=== PATIENT | female | born 1945 | race Caucasian/White ===

== ENCOUNTER 2016-09-12 12:20 | Emergency (ER) | payer MEDICARE, MEDICAID ==
[~2016-09-12] VITALS: Ht 160 cm; Wt 95.3 kg
[~2016-09-12 12:20] MED LIST: AC325T PO; ACET650S13 RC; ARIP15TA PO; ASP81TEC PO; DCS100C PO; FURO40TA4 PO; GLUC1KIT3 IM; GLUCOSE 40% GEL PO; INSU100I29 SC; MAGN-47 PO; METF500T4 PO; MTF500T PO; NF-ABIL15T PO; QTP100T PO; QUET100T32 PO; QUET300T PO; QUET300T18 PO; RAMI10CA PO; RAMI5CAP PO; RSP3T PO; SITA100T PO; SMV10T PO; SODIUM CHLORIDE 1 GM PO; TRAM50TA2 PO; [UNRECOGNIZED DRUG - CODE] MC
--- NOTE | 2016-09-12 12:26 | ED Chest Pain ---
General Stated Complaint: CHEST PAIN Source: patient Exam Limitations: no limitations History of Present Illness Time seen by provider: 12:24 Initial Comments To ER from [facility] with reports of right-sided chest pain. This began after exercising this morning she was going back to her room. The pain was sharp and stabbing in nature. It lasted for 1 hour before resolving pain recently. Currently she is just pain-free. She has no shortness of breath nausea or sweating. He has never had this before Timing/Duration: 1-3 hours Severity/Quality: moderate, stabbing ASA po RISK ASSESSMENT ANALYST: No NTG SL RISK ASSESSMENT ANALYST: No Allergies and Home Medications Allergies Coded Allergies: Penicillins (Unverified Allergy, Unknown, 04/01/13) strawberry (Unverified Allergy, Unknown, 12/23/14) FROM UNCODED ALLERGIES tomato (Unverified Allergy, Unknown, 12/23/14) FROM UNCODED ALLERGIES Home Medications 1 GM PO HS (Reported) PO UD PRN PRN HYPOGLYCEMIA (Reported) GIVE 1 PACKET NEEDED FOR HYPOGLYCEMIA. GIVE GLUCOSE GEL 15GM RETAKE BLOD SUGAR IN 15 MIN. IF BLOOD SUGAR IS NOT RISING, GIVE ANOTHER PACKET OF GLUCOSE GEL AND RE-TAKE BLOOD SUGAR IN 15 MIN. IF NO CHANGE IN BLOOD SUGAR OR THERE IS A CHANGE IN LOC, GIVE IM GLUCAGON. Acetaminophen 325 Mg Tab 650 MG PO Q4H PRN PRN PAIN (Reported) TAKES 2 (325MG) TABLETS Aripiprazole 15 Mg Tablet 15 MG PO DAILY (Reported) Aspirin 81 Mg Tabec 81 MG PO DAILY (Reported) Docusate Sodium 100 Mg Capsule 100 MG PO DAILY (Reported) Docusate Sodium 100 Mg Cap 100 MG PO Q12H PRN PRN CONSTIPATION (Reported) Furosemide 40 Mg Tablet 60 MG PO DAILY (Reported) TAKES 1&1/2 (40MG) TABLETS Glucagon,Human Recombinant 1 Mg/Kit Kit 1 MG IM PRN PRN PRN HYPOGLYCEMIA ( Reported) Insulin Detemir 100 Unit/1 Ml Insuln.pen 15 UNITS SC HS (Reported) Magnesium Hydroxide 400 Mg/5 Ml Oral.susp 30 ML PO DAILY PRN PRN CONSTIPATION ( Reported) Metformin Hcl 500 Mg Tablet 1,000 MG PO BID (Reported) TAKES 2 (500MG) TABLETS Quetiapine Fumarate 100 Mg Tablet 100 MG PO DAILY (Reported) Quetiapine Fumarate 300 Mg Tablet 300 MG PO HS (Reported) Ramipril 10 Mg Capsule 10 MG PO DAILY (Reported) Risperidone 3 Mg Tablet 1.5 MG PO DAILY (Reported) TAKES 1/2 (3MG) TABLET Risperidone 3 Mg Tab 3 MG PO HS (Reported) Simvastatin 10 Mg Tab 10 MG PO HS (Reported) Sitagliptin Phosphate 100 Mg Tablet 100 MG PO DAILY (Reported) Tramadol Hcl 50 Mg Tab 50 MG PO TID PRN PRN KNEE PAIN (Reported) Review of Systems Constitutional: see HPI EENTM: No Symptoms Reported Respiratory: No Symptoms Reported Cardiovascular: See HPI Chest Pain Genitourinary: No Symptoms Reported Musculoskeletal: no symptoms reported Skin: no symptoms reported Psychiatric/Neurological: No Symptoms Reported Endocrine: No Symptoms Reported Hematologic/Lymphatic: No Symptoms Reported Past Swbmxkf-Juxnrm-Rhqfqg Hx Patient Social History Recent Hopitalizations: No Immunizations Up To Date Tetanus Booster (TDap): Unknown Date of Pneumonia Vaccine: Apr 15, 2012 Seasonal Allergies Seasonal Allergies: No Surgeries HX Surgeries: Yes (CARDIAC CATH) Surgeries: Cardiac Respiratory Hx Respiratory Disorders: Yes (ACUTE RESPIRATORY FAILURE 12/22/14) Respiratory Disorders: Sleep Apnea Cardiovascular Hx Cardiac Disorders: Yes (CHF/ PULMONARY EDEMA 12/22/14) Cardiac Disorders: Chronic Edema/Swelling, Coronary Artery Disease, High Cholesterol, Hypertension Neurological Hx Neurological Disorders: Yes Neurological Disorders: Dementia 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 Genitourinary Hx Genitourinary Disorders: No Gastrointestinal Hx Gastrointestinal Disorders: Yes (DYSPEPSIA) Gastrointestinal Disorders: Chronic Constipation Musculoskeletal Hx Musculoskeletal Disorders: Yes (GENERALIZED PAIN) Endocrine Hx Endocrine Disorders: Yes Endocrine Disorders: Diabetes, Insulin dep Cancer Hx Cancer: No Psychosocial Hx Psychiatric Problems: Yes Behavioral Health Disorders: Sleep Difficulties, Schizophrenia Integumentary HX Skin/Integumentary Disorder: No Blood Transfusions Hx Blood Disorders: No Family Medical History Significant Family History: No Pertinent Family Hx Family Medial History: Unobtainable Physical Exam Vital Signs Vital Sign - Last 12Hours 09/12/16 12:25 Temp 97.9 Pulse 102 Resp 16 B/P 124/58 Pulse Ox 96 O2 Delivery Nasal Cannula O2 Flow Rate 2 Capillary Refill : General Appearance: No Apparent Distress WD/WN Obese HEENT: PERRL/EOMI TMs Normal Neck: Full Range of Motion Normal Inspection Respiratory: Chest Non Tender Lungs Clear Normal Breath Sounds No Accessory Muscle Use No Respiratory Distress Cardiovascular: Regular Rate, Rhythm Normal Peripheral Pulses Gastrointestinal: Non Tender Soft Extremity: Normal Capillary Refill Normal Inspection No Pedal Edema Neurologic/Psychiatric: Alert No Motor/Sensory Deficits Skin: Normal Color Warm/Dry Progress/Results/Core Measures Results/Orders Lab Results Laboratory Tests Test 09/12/16 12:38 Range/Units Activated Partial Thromboplast Time 24 24-35 SEC Alanine Aminotransferase (ALT/SGPT) 35 0-55 U/L Albumin 3.8 3.2-4.5 G/DL Alkaline Phosphatase 79 40-136 U/L Anion Gap 14 5-14 MMOL/L Aspartate Amino Transf (AST/SGOT) 29 5-34 U/L B-Type Natriuretic Peptide 10.2 <100.0 PG/ML BUN/Creatinine Ratio 24 Basophils # (Auto) 0.1 0.0-0.1 10^3/uL Basophils (%) (Auto) 1 0-10 % Blood Urea Nitrogen 20 H 7-18 MG/DL Calcium Level 9.5 8.5-10.1 MG/DL Carbon Dioxide Level 29 21-32 MMOL/L Chloride Level 101 98-107 MMOL/L Creatinine 0.83 0.60-1.30 MG/DL Eosinophils # (Auto) 1.0 H 0.0-0.3 10^3/uL Eosinophils (%) (Auto) 9 0-10 % Estimat Glomerular Filtration Rate > 60 Glucose Level 220 H 70-105 MG/DL Hematocrit 37 35-52 % Hemoglobin 11.9 11.5-16.0 G/DL INR Comment 1.0 0.8-1.4 Lymphocytes # (Auto) 2.7 1.0-4.0 X 10^3 Lymphocytes (%) (Auto) 24 12-44 % Magnesium Level 1.8 1.8-2.4 MG/DL Mean Corpuscular Hemoglobin 30 25-34 PG Mean Corpuscular Hemoglobin Concent 32 32-36 G/DL Mean Corpuscular Volume 95 80-99 FL Mean Platelet Volume 10.9 H 7.4-10.4 FL Monocytes # (Auto) 1.0 0.0-1.0 X 10^3 Monocytes (%) (Auto) 9 0-12 % Myoglobin 38.9 10.0-92.0 NG/ML Neutrophils # (Auto) 6.3 1.8-7.8 X 10^3 Neutrophils (%) (Auto) 57 42-75 % Platelet Count 250 130-400 10^3/uL Potassium Level 3.9 3.6-5.0 MMOL/L Prothrombin Time 12.9 12.2-14.7 SEC Red Blood Count 3.91 L 4.35-5.85 10^6/uL Red Cell Distribution Width 14.5 10.0-14.5 % Sodium Level 144 135-145 MMOL/L Total Bilirubin 0.3 0.1-1.0 MG/DL Total Protein 6.7 6.4-8.2 G/DL Troponin I < 0.30 <0.30 NG/ML White Blood Count 11.1 H 4.3-11.0 10^3/uL My Orders Orders-JAIME SUBRAMANIAN APRN Cbc With Automated Diff (09/12/16 12:22) Magnesium (09/12/16 12:22) Chest 1 View, Ap/Pa Only (09/12/16 12:22) Ekg Tracing (09/12/16 12:22) Cardiac Profile 1 (09/12/16 12:22) Comprehensive Metabolic Panel (09/12/16 12:22) Myoglobin Serum (09/12/16 12:22) Protime With Inr (09/12/16 12:22) Partial Thromboplastin Time (09/12/16 12:22) O2 (09/12/16 12:22) Monitor-Rhythm Ecg Trace Only (09/12/16 12:22) Lipid Panel (09/13/16 06:00) Aspirin Chewable Tablet (Baby Aspirin Ch (09/12/16 12:30) Saline Lock/Iv-Start (09/12/16 12:22) BNP (09/12/16 12:27) Medications Given in ED Current Medications Medications Dose Ordered Sig/Ney Route Start Time Stop Time Status Last Admin Dose Admin Aspirin 324 mg ONCE ONCE PO 09/12/16 12:30 09/12/16 12:31 DC 09/12/16 12:44 324 MG Vital Signs/I&O Vital Sign - Last 12Hours 09/12/16 09/12/16 12:25 12:25 Temp 97.9 Pulse 102 Resp 16 B/P 124/58 Pulse Ox 96 O2 Delivery Nasal Cannula Nasal Cannula O2 Flow Rate 2 2 Diagnostic Imaging Diagonstic Imaging: Xray Plain Films/CT/US/NM/MRI: chest Comments NAME: HANS HICKS MED REC#: [id number] PT STATUS: REG ER : 1945 PHYSICIAN: JAIME SUBRAMANIAN APRN ADMIT DATE: 09/12/16/ER Draft Date of Exam:09/12/16 CHEST 1 VIEW, AP/PA ONLY Portable upright radiograph of the chest. INDICATION: Right chest wall pain. COMPARISON: 12/27/2014. FINDINGS: The heart is mildly enlarged. There is suggestion of prominent left-sided pericardial fat pad. There is minimal atelectasis in the right lung base. No significant consolidation otherwise. No effusion or pneumothorax. The mediastinum and shaina appear unremarkable. IMPRESSION: Cardiomegaly. Minimal right basilar atelectasis. Dictated on workstation # [id number] Dict: 09/12/16 1306 Trans: 09/12/16 1316 [id number] Interpreted by: JOSEPHINE GORDON MD Electronically signed by: Departure Communication Progress Notes 1333-patient's cardiac catheterization report from March 2013 shows irregularity of the LAD but no obstructive disease of the coronaries. No interventions were performed. Impression Impression: Primary Impression: Chest pain Additional Impression: Dementia Disposition: SNF Condition: Stable Departure-Patient Inst. Decision time for Depature: 12:26 Referrals: ARA MONTANEZ DO (PCP/Family) Primary Care Physician Patient Instructions: Chest Pain JAIME SUBRAMANIAN APRN Sep 12, 2016 12:26
--- OUTSIDE RECORDS SUMMARY | 2016-09-12 12:26 | XMS REPORT | Continuity of Care Document ---
Author Author [facility] Organization [facility] Address Unknown Phone Unavailable Allergies Active Description Code Type Severity Reaction Onset Reported/Identified Relationship to Patient Clinical Status Yes Penicillins [id number] Drug Allergy Unknown N/A 04/01/2013 Yes Strawberries, Tomatoes Strawberries, Tomatoes Unknown N/A 12/23/2014 Yes strawberry [id number] Drug Allergy Unknown N/A 12/23/2014 Yes tomato [id number] Drug Allergy Unknown N/A 12/23/2014 Medications Problems Date Dx Coded Attending Type Code Diagnosis Diagnosed By 04/01/2013 BRIGIDO KC MD Ot 250.00 04/01/2013 BRIGIDO KC MD Ot 272.4 04/01/2013 BRIGIDO KC MD Ot 278.00 04/01/2013 BRIGIDO KC MD Ot 295.90 04/01/2013 BRIGIDO KC MD Ot 401.9 04/01/2013 BRIGIDO KC MD Ot 414.01 04/01/2013 BRIGIDO KC MD Ot 786.09 04/01/2013 BRIGIDO KC MD Ot 786.59 04/01/2013 BRIGIDO KC MD Ot 794.30 04/01/2013 BRIGIDO KC MD Ot V58.66 04/01/2013 BRIGIDO KC MD Ot V58.69 04/01/2013 BRIGIDO KC MD Ot V85.41 12/23/2014 Ot 715.36 12/23/2014 GELLENDER ARA WADSWORTH Ot 786.05 12/23/2014 GELLENDER DOARA Ot 786.07 12/23/2014 GELLENDER DOARA Ot 786.2 12/23/2014 GELLENDER DOARA Ot 428.0 12/23/2014 GELLENDER DOARA Ot 786.2 12/23/2014 GELLENDER DOARA Ot 786.9 12/23/2014 GELLENDER DO, ARA A Ot 428.0 12/23/2014 GELLENDER DO, ARA A Ot 783.21 12/23/2014 YAMINI ANDRES, BRIGIDO Jacob Ot 414.00 12/23/2014 YAMINI ANDRES, BRIGIDO Jacob Ot 786.50 12/29/2014 GELLENDER DO, ARA A Ot 250.02 12/29/2014 GELLENDER DO, ARA A Ot 272.0 12/29/2014 GELLENDER DO, ARA A Ot 276.8 12/29/2014 GELLENDER DO, ARA A Ot 278.01 12/29/2014 GELLENDER DO, ARA A Ot 294.20 12/29/2014 GELLENDER DO, ARA A Ot 295.90 12/29/2014 GELLENDER DO, ARA A Ot 327.23 12/29/2014 GELLENDER DO, ARA A Ot 348.31 12/29/2014 GELLENDER DO, ARA A Ot 401.9 12/29/2014 GELLENDER DO, ARA A Ot 414.01 12/29/2014 GELLENDER DO, ARA A Ot 416.8 12/29/2014 GELLENDER DO, ARA A Ot 428.0 12/29/2014 GELLENDER DO, ARA A Ot 428.31 12/29/2014 GELLENDER DO, ARA A Ot 518.81 12/29/2014 GELLENDER DO, ARA A Ot V49.86 12/29/2014 GELLENDER DO, ARA A Ot V58.67 12/29/2014 GELLENDER DO, ARA A Ot V85.41 12/31/2014 Ot 715.36 12/31/2014 GELLENDER DO, ARA A Ot 786.05 12/31/2014 GELLENDER DO, ARA A Ot 786.07 12/31/2014 GELLENDER DO, ARA A Ot 786.2 12/31/2014 GELLENDER DO, ARA A Ot 428.0 12/31/2014 GELLENDER DO, ARA A Ot 786.2 12/31/2014 GELLENDER DO, ARA A Ot 786.9 12/31/2014 GELLENDER DO, ARA A Ot 428.0 12/31/2014 GELLENDER DO, ARA A Ot 783.21 12/31/2014 YAMINI ANDERS, BRIGIDO Jacob Ot 414.00 12/31/2014 YAMINI ANDRES, BRIGIDO Jacob Ot 786.50 01/24/2015 TRES DO, ERICA K Ot 250.00 01/24/2015 TRES DO, ERICA K Ot 272.0 01/24/2015 TRES DO, ERICA K Ot 294.20 01/24/2015 TRES DO, ERICA K Ot 295.90 01/24/2015 TRES DO, ERICA K Ot 401.9 01/24/2015 TRES DO, ERICA K Ot 414.01 01/24/2015 TRES DO, ERICA K Ot 428.0 01/24/2015 TRES DO, ERICA K Ot 780.79 01/24/2015 TRES DO, ERICA K Ot V58.67 03/30/2015 Ot 715.36 03/30/2015 GELLENDER DO, ARA A Ot 786.05 03/30/2015 GELLENDER DO, ARA A Ot 786.07 03/30/2015 GELLENDER DO, ARA A Ot 786.2 03/30/2015 GELLENDER DO, ARA A Ot 428.0 03/30/2015 GELLENDER DO, ARA A Ot 786.2 03/30/2015 GELLENDER DO, ARA A Ot 786.9 03/30/2015 GELLENDER DO, ARA A Ot 428.0 03/30/2015 GELLENDER DO, ARA A Ot 783.21 03/30/2015 YAMINI ANDRES, BRIGIDO Jacob Ot 414.00 03/30/2015 YAMINI ANDRES, BRIGIDO Jacob Ot 786.50 04/20/2015 GELLENDER DO, ARA A Ot 593.9 04/20/2015 GELLENDER DO, ARA A Ot 793.19 04/27/2015 GELLENDER DO, ARA A Ot 428.0 04/27/2015 GELLENDER DO, ARA A Ot 496 05/02/2015 GELLENDER DO, ARA A Ot 593.9 05/02/2015 GELLENDER DO, ARA A Ot 793.19 06/20/2015 GELLENDER DO, ARA A Ot 428.0 06/20/2015 GELLENDER DO, ARA A Ot 496 03/06/2016 HAKEEM ANDRES, ELIZA Yoo Ot E11.9 TYPE 2 DIABETES MELLITUS WITHOUT COMPLIC 03/06/2016 HAKEEM ANDRES, ELIZA Yoo Ot E78.0 PURE HYPERCHOLESTEROLEMIA 03/06/2016 ELIZA PALACIO MD Ot I10 ESSENTIAL (PRIMARY) HYPERTENSION 03/06/2016 ELIZA PALACIO MD Ot I25.10 ATHSCL HEART DISEASE OF [place] CORONARY 03/06/2016 ELIZA PALACIO MD Ot R19.7 DIARRHEA, UNSPECIFIED 03/06/2016 ELIZA PALACIO MD Ot R40.20 UNSPECIFIED COMA 03/06/2016 ELIZA PALACIO MD Ot Z79.4 SPORTS THERAPIST (CURRENT) USE OF INSULIN 03/06/2016 ELIZA PALACIO MD Ot E11.9 TYPE 2 DIABETES MELLITUS WITHOUT COMPLIC 03/06/2016 ELIZA PALACIO MD Ot E78.0 PURE HYPERCHOLESTEROLEMIA 03/06/2016 ELIZA PALACIO MD Ot I10 ESSENTIAL (PRIMARY) HYPERTENSION 03/06/2016 ELIZA PALACIO MD Ot I25.10 ATHSCL HEART DISEASE OF [place] CORONARY 03/06/2016 ELIZA PALACIO MD Ot R19.7 DIARRHEA, UNSPECIFIED 03/06/2016 ELIZA PALACIO MD Ot R40.20 UNSPECIFIED COMA 03/06/2016 ELIZA PALACIO MD Ot Z79.4 SPORTS THERAPIST (CURRENT) USE OF INSULIN 03/11/2016 ELIZA PALACIO MD Ot E11.9 TYPE 2 DIABETES MELLITUS WITHOUT COMPLIC 03/11/2016 ELIZA PALACIO MD Ot E78.0 PURE HYPERCHOLESTEROLEMIA 03/11/2016 ELIZA PALACIO MD Ot I10 ESSENTIAL (PRIMARY) HYPERTENSION 03/11/2016 ELIZA PALACIO MD Ot I25.10 ATHSCL HEART DISEASE OF [place] CORONARY 03/11/2016 ELIZA PALACIO MD Ot R19.7 DIARRHEA, UNSPECIFIED 03/11/2016 ELIZA PALACIO MD Ot R40.20 UNSPECIFIED COMA 03/11/2016 ELIZA PALACIO MD Ot Z79.4 SKILLED NURSING (CURRENT) USE OF INSULIN Procedures Results Test Result Range Complete urinalysis with reflex to culture - 03/05/16 23:15 Urine color determination YELLOW NRG Urine clarity determination CLEAR NRG Urine pH measurement by test strip 5 5- 9 Specific gravity of urine by test strip 1.020 1.016-1.022 Urine protein assay by test strip, semi-quantitative NEGATIVE NEGATIVE Urine glucose detection by automated test strip NEGATIVE NEGATIVE Erythrocytes detection in urine sediment by light microscopy NEGATIVE NEGATIVE Urine ketones detection by automated test strip NEGATIVE NEGATIVE Urine nitrite detection by test strip NEGATIVE NEGATIVE Urine total bilirubin detection by test strip NEGATIVE NEGATIVE Urine urobilinogen measurement by automated test strip (mass/volume) NORMAL NORMAL Urine leukocyte esterase detection by dipstick 2+ NEGATIVE Automated urine sediment erythrocyte count by microscopy (number/high power field) NONE NRG Automated urine sediment leukocyte count by microscopy (number/high power field ) [HPF] NRG Bacteria detection in urine sediment by light microscopy TRACE NRG Squamous epithelial cells detection in urine sediment by light microscopy 5-10 NRG Crystals detection in urine sediment by light microscopy NONE NRG Casts detection in urine sediment by light microscopy NONE NRG Mucus detection in urine sediment by light microscopy NEGATIVE NRG Complete urinalysis with reflex to culture NO NRG Encounters ACCT No. Visit Date/Time Discharge Status Pt. Type Provider Facility Loc./Unit Complaint [id number] 03/05/2016 23:09:00 2015 00:05:00 DIS Emergency HAKEEM ANDRES, ELIZA Yoo [facility] ER UNRESPONSIVE [id number] 04/07/2015 08:42:00 2014 23:59:59 CLS Outpatient ARA MONTANEZ DO [facility] RAD [id number] 03/30/2015 12:26:00 2014 23:59:59 CLS Outpatient LINDSEYLARSUGALDE ARA Mac [facility] RAD [id number] 01/23/2015 23:19:00 2014 02:18:00 DIS Emergency ERICA JOSHUA DO [facility] ER [id number] 12/23/2014 02:10:00 2014 14:58:00 DIS Inpatient LISSETH WADSWORTH ARA Bubba [facility] [address] [id number] 04/01/2013 06:47:00 2012 14:15:00 DIS Outpatient BRIGIDO KC MD [facility] [id number] 03/25/2013 08:14:00 2012 23:59:59 CLS Outpatient BRIGIDO KC MD [facility] RAD [id number] 01/20/2013 08:51:00 2012 23:59:59 CLS Outpatient ARA MONTANEZ DO [facility] RAD [id number] 01/19/2013 09:27:00 2012 23:59:59 CLS Outpatient ARA MONTANEZ DO [facility] LAB [id number] 01/13/2013 15:34:00 2012 23:59:59 CLS Outpatient ARA MONTANEZ DO [facility] RAD [id number] 05/23/2010 15:35:00 Document Registration
[2016-09-12] MEDS ORDERED: ASPIRIN 81 MG CHEW (CHILDREN'S ASA) PO ONE (12:30)
[2016-09-12 12:47] LABS: BASOPHILS # (AUTO) 0.1 10^3/uL (0.0-0.1); BASOPHILS % (AUTO) 1 % (0-10); EOSINOPHILS % (AUTO) 9 % (0-10); LYMPHOCYTES # (AUTO) 2.7 X 10^3 (1.0-4.0); LYMPHOCYTES % (AUTO) 24 % (12-44); MEAN CORPUSCULAR HEMOGLOBIN 30 PG (25-34); MEAN CORPUSCULAR HGB CONC 32 G/DL (32-36); MEAN CORPUSCULAR VOLUME 95 FL (80-99); MEAN PLATELET VOLUME 10.9 FL (7.4-10.4); MONOCYTES % (AUTO) 9 % (0-12); NEUTROPHILS # (AUTO) 6.3 X 10^3 (1.8-7.8); NEUTROPHILS % (AUTO) 57 % (42-75); PLATELET COUNT 250 10^3/uL (130-400); RED BLOOD COUNT 3.91 10^6/uL (4.35-5.85); RED CELL DISTRIBUTION WIDTH 14.5 % (10.0-14.5); WHITE BLOOD COUNT 11.1 10^3/uL (4.3-11.0)
[2016-09-12 13:08] LABS: PROTHROMBIN TIME PATIENT 12.9 SEC (12.2-14.7)
[2016-09-12 13:11] LABS: ALANINE AMINOTRANSFERASE 35 U/L (0-55); ALBUMIN 3.8 G/DL (3.2-4.5); ANION GAP 14 MMOL/L (5-14); ASPARTATE AMINO TRANSFERASE 29 U/L (5-34); BILIRUBIN,TOTAL 0.3 MG/DL (0.1-1.0); BLOOD UREA NITROGEN 20 MG/DL (7-18); BUN/CREATININE RATIO 24; CALCIUM 9.5 MG/DL (8.5-10.1); CARBON DIOXIDE 29 MMOL/L (21-32); CHLORIDE 101 MMOL/L (98-107); CREATININE SERUM 0.83 MG/DL (0.60-1.30); GFR ESTIMATED > 60; GLUCOSE 220 MG/DL (70-105); MAGNESIUM 1.8 MG/DL (1.8-2.4); POTASSIUM 3.9 MMOL/L (3.6-5.0); SODIUM 144 MMOL/L (135-145); TOTAL PROTEIN 6.7 G/DL (6.4-8.2)
--- NOTE | 2016-09-12 13:16 | Diagnostic Imaging Report ---
Portable upright radiograph of the chest. INDICATION: Right chest wall pain. COMPARISON: 12/27/2014. FINDINGS: The heart is mildly enlarged. There is suggestion of prominent left-sided pericardial fat pad. There is minimal atelectasis in the right lung base. No significant consolidation otherwise. No effusion or pneumothorax. The mediastinum and shaina appear unremarkable. IMPRESSION: Cardiomegaly. Minimal right basilar atelectasis. Dictated by: Dictated on workstation # [id number]
[2016-09-12 13:18] LABS: MYOGLOBIN SERUM 38.9 NG/ML (10.0-92.0)
[2016-09-12 13:30] VITALS: BP 120/55
== END 2016-09-12 13:30 ==
LOC: EDUNIT# 12:20 → ER 12:21
DX: R07.9 Chest pain, unspecified (principal); F03.90 Unspecified dementia, unspecified severity, without behavioral disturbance, psychotic disturbance, mood disturbance, and anxiety; I10 Essential (primary) hypertension; I25.10 Atherosclerotic heart disease of native coronary artery without angina pectoris; I51.7 Cardiomegaly; E11.9 Type 2 diabetes mellitus without complications; Z79.84 Long term (current) use of oral hypoglycemic drugs; Z79.4 Long term (current) use of insulin; Z79.899 Other long term (current) drug therapy
CPT/HCPCS: 36415; 71010; 80053; 83735; 83874; 83880; 84484; 85025; 85610; 85730; 93005; 93041

== ENCOUNTER → 2018-11-04 | Outpatient (CLI) | payer MEDICARE, MEDICAID ==
[~2018-11-04] MED LIST changes: +ACET325T49 PO; +ARIP10TA17 PO; +ASPI-983 PO; +DEXT37.54 PO; +DOCU100C37 PO; +FURO20TA4 PO; +GLUC1KIT IJ; +INSU100I14 SC; +INSU100I14 SQ; +INSU100I29 SQ; +MAGN400O7 PO; +METF-399 PO; +NYST1POW22 TOP; +QUET100T69 PO; +QUET300T44 PO; +RAMI10CA69 PO; +RISP2TAB3 PO; +RISP3TAB3 PO; +SIMV10TA3 PO; +SITA100T12 PO
--- NOTE | 2018-11-04 12:54 | Diagnostic Imaging Report ---
INDICATION: Routine screening. COMPARISON: No prior mammograms are available for comparison. TECHNIQUE: 2D and 3D bilateral screening mammography was performed with computer-aided detection (CAD) system. FINDINGS: Scattered fibroglandular densities are identified bilaterally. There is asymmetry in breast size, left being smaller. Marked diffuse bilateral secretory-type calcifications are noted. No mass or malignant-appearing microcalcifications are seen. The axillae are unremarkable. IMPRESSION: No mammographic features suspicious for malignancy are identified. ACR BI-RADS Category 2: Benign findings. Result letter will be mailed to the patient. Note: At least 10% of breast cancer is not imaged by mammography. Dictated by: Dictated on workstation # [id number]
== END ==
LOC: RAD 10:19
PROVIDERS: ATTEND Family Medicine
DX: Z12.31 Encounter for screening mammogram for malignant neoplasm of breast (principal)
CPT/HCPCS: 77067

== ENCOUNTER 2018-11-05 08:45 | Inpatient (IN) | payer MEDICARE, MEDICAID ==
[~2018-11-05] VITALS: Ht 144.8 cm; Wt 84.6 kg
[~2018-11-05 08:45] MED LIST changes: -ACET325T49 PO; -ARIP10TA17 PO; -ASPI-983 PO; -DEXT37.54 PO; -DOCU100C37 PO; -FURO20TA4 PO; -GLUC1KIT IJ; -INSU100I14 SC; -INSU100I14 SQ; -INSU100I29 SQ; -MAGN400O7 PO; -METF-399 PO; -NYST1POW22 TOP; -QUET100T69 PO; -QUET300T44 PO; -RAMI10CA69 PO; -RISP2TAB3 PO; -RISP3TAB3 PO; -SIMV10TA3 PO; -SITA100T12 PO
--- OUTSIDE RECORDS SUMMARY | 2018-11-05 08:51 | XMS REPORT | Continuity of Care Document ---
Author Organization Unknown Address Unknown Allergies Active Description Code Type Severity Reaction Onset Reported/Identified Relationship to Patient Clinical Status Yes Penicillins [id number] Drug Allergy Unknown N/A 04/01/2013 Yes Strawberries, Tomatoes Strawberries, Tomatoes Unknown N/A 12/23/2014 Yes strawberry [id number] Drug Allergy Unknown N/A 12/23/2014 Yes tomato [id number] Drug Allergy Unknown N/A 12/23/2014 Medications There is no data. Problems Date Dx Coded Attending Type Code Diagnosis Diagnosed By 04/01/2013 BRIGIDO KC MD Ot 250.00 DIAB BASHIR WO COMPL, TYPE II OR UNSPEC TY 04/01/2013 BRIGIDO KC MD Ot 272.4 HYPERLIPIDEMIA NEC/NOS 04/01/2013 BRIGIDO KC MD Ot 278.00 OBESITY, NOS 04/01/2013 BRIGIDO KC MD Ot 295.90 SCHIZOPHRENIA NOS-UNSPEC 04/01/2013 BRIGIDO KC MD Ot 401.9 HYPERTENSION NOS 04/01/2013 BRIGIDO KC MD Ot 414.01 CORONARY ATHEROSCLEROSIS OF [place] CORON 04/01/2013 BRIGIDO KC MD Ot 786.09 RESPIRATORY ABNORM NEC 04/01/2013 BRIGIDO KC MD Ot 786.59 CHEST PAIN NEC 04/01/2013 BRIGIDO KC MD Ot 794.30 ABN CARDIOVASC STUDY NOS 04/01/2013 BRIGIDO KC MD Ot V58.66 LONG-TERM (CURRENT) USE OF ASPIRIN 04/01/2013 BRIGIDO KC MD, Ot V58.69 OTH MED,LT,CURRENT USE 04/01/2013 BRIGIDO KC MD Ot V85.41 BODY MASS INDEX 40.0-44.9, ADULT 12/23/2014 Ot 715.36 12/23/2014 ARA MONTANEZ DO Ot 786.05 12/23/2014 ARA MONTANEZ DO Ot 786.07 12/23/2014 GELLENDER DO, ARA Mac Ot 786.2 12/23/2014 GELLENDER DO, ARA Mac Ot 428.0 12/23/2014 GELLENDER DO, ARA Mac Ot 786.2 12/23/2014 GELLENDER DO, ARA Mac Ot 786.9 12/23/2014 GELLENDER DO, ARA Mac Ot 428.0 12/23/2014 GELLENDER DOARA Ot 783.21 12/23/2014 YAMINI ANDRES, BRIGIDO Jacob Ot 414.00 12/23/2014 BRIGIDO KC MD Ot 786.50 12/29/2014 GELLENDER DOARA Ot 250.02 DIAB BASHIR WO COMPL, TYPE II OR UNSPEC TY 12/29/2014 GELLENDER DOARA Ot 272.0 PURE HYPERCHOLESTEROLEM 12/29/2014 GELLENDER DOARA Ot 276.8 HYPOPOTASSEMIA 12/29/2014 GELLENDER DOARA Ot 278.01 MORBID OBESITY 12/29/2014 LINDSEYLENDER DOARA Ot 294.20 DEMENTIA, UNSPECIFIED, WITHOUT BEHAVIORA 12/29/2014 GELLENDER DOARA Ot 295.90 SCHIZOPHRENIA NOS-UNSPEC 12/29/2014 GELLENDER DOARA Ot 327.23 OBSTRUCTIVE SLEEP APNEA (ADULT) (PEDIATR 12/29/2014 LINDSEYLENDER ARA Ot 348.31 METABOLIC ENCEPHALOPATHY 12/29/2014 GELLENDER ARA Ot 401.9 HYPERTENSION NOS 12/29/2014 LINDSEYLENDER ARA Ot 414.01 CORONARY ATHEROSCLEROSIS OF [place] CORON 12/29/2014 LISSETH WADSWORTHARA Ot 416.8 CHR PULMON HEART DIS NEC 12/29/2014 GELLENDER DOARA Ot 428.0 CONGESTIVE HEART FAILURE NOS 12/29/2014 GELLENDER DOARA Ot 428.31 ACUTE DIASTOLIC HRT FAILURE 12/29/2014 GELLENDER DOARA Ot 518.81 ACUTE RESPIRATORY FAILURE 12/29/2014 GELLENDER DOARA Ot V49.86 DO NOT RESUSCITATE STATUS 12/29/2014 LINDSEYLENDER AAR Ot V58.67 LONG-TERM (CURRENT) USE OF INSULIN 12/29/2014 LINDSEYLARSMADDISON ARA WADSWORTH Ot V85.41 BODY MASS INDEX 40.0-44.9, ADULT 12/31/2014 Ot 715.36 12/31/2014 GELLENDER DO, ARA Mac Ot 786.05 12/31/2014 GELLENDER DO, ARA Mac Ot 786.07 12/31/2014 GELLENDER DO, ARA Mac Ot 786.2 12/31/2014 GELLENDER DO, ARA Mac Ot 428.0 12/31/2014 GELLENDER DO, ARA Mac Ot 786.2 12/31/2014 GELLENDER DO, ARA Mac Ot 786.9 12/31/2014 GELLENDER DO, ARA Mac Ot 428.0 12/31/2014 GELLENDER DO, ARA Mac Ot 783.21 12/31/2014 YAMINI ANDRES, BRIGIDO Jacob Ot 414.00 12/31/2014 YAMINI ANDRES, BRIGIDO Jacob Ot 786.50 01/24/2015 TRES WADSWORTH ERICA Roman Ot 250.00 DIAB BASHIR WO COMPL, TYPE II OR UNSPEC TY 01/24/2015 TRES DO ERICA Roman Ot 272.0 PURE HYPERCHOLESTEROLEM 01/24/2015 TRES WADSWORTH ERICA Roman Ot 294.20 DEMENTIA, UNSPECIFIED, WITHOUT BEHAVIORA 01/24/2015 TRES WADSWORTH ERICA Roman Ot 295.90 SCHIZOPHRENIA NOS-UNSPEC 01/24/2015 TRES WADSWORTH ERICA Roman Ot 401.9 HYPERTENSION NOS 01/24/2015 TRES WADSWORTH ERICA Roman Ot 414.01 CORONARY ATHEROSCLEROSIS OF [place] CORON 01/24/2015 TRES WADSWORTH ERICA Roman Ot 428.0 CONGESTIVE HEART FAILURE NOS 01/24/2015 TRES WADSWORTH ERICA Roman Ot 780.79 OTH MALAISE FATIGUE 01/24/2015 TRES WADSWORTH ERICA Roman Ot V58.67 LONG-TERM (CURRENT) USE OF INSULIN 03/30/2015 Ot 715.36 03/30/2015 LINDSEYLENDER DO, ARA Bubba Ot 786.05 03/30/2015 GELLENDER DO, ARA Mac Ot 786.07 03/30/2015 GELLENDER DO, ARA Mac Ot 786.2 03/30/2015 GELLENDER DO, ARA Mac Ot 428.0 03/30/2015 GELLENDER DO, ARA Mac Ot 786.2 03/30/2015 GELLENDER DO, ARA Mac Ot 786.9 03/30/2015 GELLENDER DO, ARA Mac Ot 428.0 03/30/2015 GELLENDER DO, ARA Mac Ot 783.21 03/30/2015 YAMINI ANDRES, BRIGIDO Jacob Ot 414.00 03/30/2015 YAMINI ANDRES, BRIGIDO Jacob Ot 786.50 04/20/2015 GELLENDER DO, ARA Mac Ot 593.9 04/20/2015 GELLENDER DO, ARA Mac Ot 793.19 04/27/2015 GELLENDER DO, ARA Mac Ot 428.0 04/27/2015 GELLENDER DO, ARA Mac Ot 496 05/02/2015 GELLENDER DO, ARA Mac Ot 593.9 05/02/2015 GELLENDER DO, ARA Mac Ot 793.19 06/20/2015 GELLENDER DO, ARA Mac Ot 428.0 06/20/2015 GELLENDER DO, ARA Mac Ot 496 03/06/2016 ELIZA PALACIO MD Ot E11.9 TYPE 2 DIABETES MELLITUS WITHOUT COMPLIC 03/06/2016 ELIZA PALACIO MD Ot E78.0 PURE HYPERCHOLESTEROLEMIA 03/06/2016 ELIZA PALACIO MD Ot I10 ESSENTIAL (PRIMARY) HYPERTENSION 03/06/2016 ELIZA PALACIO MD Ot I25.10 ATHSCL HEART DISEASE OF [place] CORONARY 03/06/2016 ELIZA PALACIO MD Ot R19.7 DIARRHEA, UNSPECIFIED 03/06/2016 ELIZA PALACIO MD Ot R40.20 UNSPECIFIED COMA 03/06/2016 ELIZA PALACIO MD Ot Z79.4 USP (CURRENT) USE OF INSULIN 03/06/2016 ELIZA PALACIO MD Ot E11.9 TYPE 2 DIABETES MELLITUS WITHOUT COMPLIC 03/06/2016 ELIZA PALACIO MD Ot E78.0 PURE HYPERCHOLESTEROLEMIA 03/06/2016 ELIZA PALACIO MD Ot I10 ESSENTIAL (PRIMARY) HYPERTENSION 03/06/2016 ELIZA PALACIO MD Ot I25.10 ATHSCL HEART DISEASE OF [place] CORONARY 03/06/2016 ELIZA PALACIO MD Ot R19.7 DIARRHEA, UNSPECIFIED 03/06/2016 ELIZA PALACIO MD Ot R40.20 UNSPECIFIED COMA 03/06/2016 ELIZA PALACIO MD Ot Z79.4 RESERVATION AGENT (CURRENT) USE OF INSULIN 03/11/2016 ELIZA PALACIO MD Ot E11.9 TYPE 2 DIABETES MELLITUS WITHOUT COMPLIC 03/11/2016 ELIZA PALACIO MD Ot E78.0 PURE HYPERCHOLESTEROLEMIA 03/11/2016 ELIZA PALACIO MD Ot I10 ESSENTIAL (PRIMARY) HYPERTENSION 03/11/2016 ELIZA PALACIO MD Ot I25.10 ATHSCL HEART DISEASE OF [place] CORONARY 03/11/2016 ELIZA PALACIO MD Ot R19.7 DIARRHEA, UNSPECIFIED 03/11/2016 ELIZA PALACIO MD Ot R40.20 UNSPECIFIED COMA 03/11/2016 ELIZA PALACIO MD Ot Z79.4 USP (CURRENT) USE OF INSULIN 09/12/2016 JAIME SUBRAMANIAN APRN Ot E11.9 TYPE 2 DIABETES MELLITUS WITHOUT COMPLIC 09/12/2016 JAIME SUBRAMANIAN APRN Ot F03.90 UNSPECIFIED DEMENTIA WITHOUT BEHAVIORAL 09/12/2016 JAIME SUBRAMANIAN APRN Ot I10 ESSENTIAL (PRIMARY) HYPERTENSION 09/12/2016 JAIME SUBRAMANIAN APRN Ot I25.10 ATHSCL HEART DISEASE OF [place] CORONARY 09/12/2016 JAIME SUBRAMANIAN APRN Ot I51.7 CARDIOMEGALY 09/12/2016 JAIME SUBRAMANIAN APRN Ot R07.9 CHEST PAIN, UNSPECIFIED 09/12/2016 JAIME SUBRAMANIAN APRN Ot Z79.4 RESERVATION AGENT (CURRENT) USE OF INSULIN 09/12/2016 JAIME SUBRAMANIAN APRN Ot Z79.84 USP (CURRENT) USE OF ORAL HYPOGLYC 09/12/2016 JAIME SUBRAMANIAN APRN Ot Z79.899 OTHER USP (CURRENT) DRUG THERAPY 09/13/2016 JAMIE SUBRAMANIAN APRN Ot E11.9 TYPE 2 DIABETES MELLITUS WITHOUT COMPLIC 09/13/2016 JAIME SUBRAMANIAN APRN Ot F03.90 UNSPECIFIED DEMENTIA WITHOUT BEHAVIORAL 09/13/2016 JAIME SUBRAMANIAN APRN Ot I10 ESSENTIAL (PRIMARY) HYPERTENSION 09/13/2016 JAIME SUBRAMANIAN APRN Ot I25.10 ATHSCL HEART DISEASE OF [place] CORONARY 09/13/2016 JAIME SUBRAMANIAN APRN Ot I51.7 CARDIOMEGALY 09/13/2016 JAIME SUBRAMANIAN APRN Ot R07.9 CHEST PAIN, UNSPECIFIED 09/13/2016 JAIME SUBRAMANIAN APRN Ot Z79.4 USP (CURRENT) USE OF INSULIN 09/13/2016 JAIME SUBRAMANIAN APRN Ot Z79.84 RESERVATION AGENT (CURRENT) USE OF ORAL HYPOGLYC 09/13/2016 JAIME SUBRAMANIAN APRN Ot Z79.899 OTHER USP (CURRENT) DRUG THERAPY 09/14/2016 LISSETH WADSWORTHARA Ot 786.05 SHORTNESS OF BREATH 09/14/2016 LISSETH WADSWORTHARA Ot 786.07 WHEEZING 09/14/2016 LISSETH WADSWORTHARA Ot 786.2 COUGH 09/14/2016 LISSETH WADSWORTHARA Ot 428.0 CONGESTIVE HEART FAILURE NOS 09/14/2016 LISSETH WADSWORTHARA Ot 786.2 COUGH 09/14/2016 LISSETH WADSWORTH, ARA Mac Ot 786.9 RESP SYS/CHEST SYMP NEC 09/14/2016 LISSETH WADSWORTHARA Ot 428.0 CONGESTIVE HEART FAILURE NOS 09/14/2016 LISSETH WADSWORTHARA Ot 783.21 LOSS OF WEIGHT 09/14/2016 YAMINI ANDRES, BRIGIDO Jacob Ot 414.00 CORON ATHEROSCLER NOS TYPE VESSEL, NATIV 09/14/2016 BRIGIDO KC MD Ot 786.50 CHEST PAIN NOS 09/14/2016 LISSETH WADSWORTHARA Ot 593.9 RENAL URETERAL DIS NOS 09/14/2016 LISSETH WADSWORTHARA Ot 793.19 OTHER NONSPECIFIC ABNORMAL FINDING OF [place] 09/14/2016 LISSETH WADSWORTHARA Ot 428.0 CONGESTIVE HEART FAILURE NOS 09/14/2016 LISSETH WADSWORTHARA Ot 496 CHR AIRWAY OBSTRUCT NEC 09/18/2016 JAIME SUBRAMANIAN APRN Ot E11.9 TYPE 2 DIABETES MELLITUS WITHOUT COMPLIC 09/18/2016 JAIME SUBRAMANIAN APRN Ot F03.90 UNSPECIFIED DEMENTIA WITHOUT BEHAVIORAL 09/18/2016 JAIME SUBRAMANIAN APRN Ot I10 ESSENTIAL (PRIMARY) HYPERTENSION 09/18/2016 JAIME SUBRAMANIAN APRN Ot I25.10 ATHSCL HEART DISEASE OF [place] CORONARY 09/18/2016 JAIME SUBRAMANIAN APRN Ot I51.7 CARDIOMEGALY 09/18/2016 JAIME SUBRAMANIAN APRN Ot R07.9 CHEST PAIN, UNSPECIFIED 09/18/2016 JAIME SUBRAMANIAN APRN Ot Z79.4 USP (CURRENT) USE OF INSULIN 09/18/2016 JAIME SUBRAMANIAN APRN Ot Z79.84 USP (CURRENT) USE OF ORAL HYPOGLYC 09/18/2016 JAIME SUBRAMANIAN APRN Ot Z79.899 OTHER USP (CURRENT) DRUG THERAPY Procedures There is no data. Results Test Result Range Complete urinalysis with reflex to culture - 03/05/16 23:15 Urine color determination YELLOW NRG Urine clarity determination CLEAR NRG Urine pH measurement by test strip 5 5-9 Specific gravity of urine by test strip 1.020 1.016- 1.022 Urine protein assay by test strip, semi-quantitative [...] urinalysis with reflex to culture NO NRG Complete blood count (CBC) with automated white blood cell (WBC) differential - 09/12/16 12:38 Blood leukocytes automated count (number/volume) 11.1 10*3/uL 4.3-11.0 Blood erythrocytes automated count (number/volume) 3.91 10*6/uL 4.35-5.85 Venous blood hemoglobin measurement (mass/volume) 11.9 g/dL 11.5-16.0 Blood hematocrit (volume fraction) 37 % 35-52 Automated erythrocyte mean corpuscular volume 95 [foz_us] 80-99 Automated erythrocyte mean corpuscular hemoglobin (mass per erythrocyte) 30 pg 25-34 Automated erythrocyte mean corpuscular hemoglobin concentration measurement ( mass/volume) 32 g/dL 32-36 Automated erythrocyte distribution width ratio 14.5 % 10.0-14.5 Automated blood platelet count (count/volume) 250 10*3/uL 130-400 Automated blood platelet mean volume measurement 10.9 [foz_us] 7.4-10.4 Automated blood neutrophils/100 leukocytes 57 % 42-75 Automated blood lymphocytes/100 leukocytes 24 % 12-44 Blood monocytes/100 leukocytes 9 % 0-12 Automated blood eosinophils/100 leukocytes 9 % 0-10 Automated blood basophils/100 leukocytes 1 % 0-10 Blood neutrophils automated count (number/volume) 6.3 10*3 1.8-7.8 Blood lymphocytes automated count (number/volume) 2.7 10*3 1.0-4.0 Blood monocytes automated count (number/volume) 1.0 10*3 0.0-1.0 Automated eosinophil count 1.0 10*3/uL 0.0-0.3 Automated blood basophil count (count/volume) 0.1 10*3/uL 0.0-0.1 PT panel in platelet poor plasma by coagulation assay - 09/12/16 12:38 Prothrombin time (PT) in platelet poor plasma by coagulation assay 12.9 s 12.2-14.7 INR in platelet poor plasma or blood by coagulation assay 1.0 0.8-1.4 Activated partial thromboplastin time (aPTT) in platelet poor plasma bycoagulation assay - 09/12/16 12:38 Activated partial thromboplastin time (aPTT) in platelet poor plasma bycoagulation assay 24 s 24-35 Comprehensive metabolic panel - 09/12/16 12:38 Serum or plasma sodium measurement (moles/volume) 144 mmol/L 135-145 Serum or plasma potassium measurement (moles/volume) 3.9 mmol/L 3.6-5.0 Serum or plasma chloride measurement (moles/volume) 101 mmol/L 98-107 Carbon dioxide 29 mmol/L 21-32 Serum or plasma anion gap determination (moles/volume) 14 mmol/L 5-14 Serum or plasma urea nitrogen measurement (mass/volume) 20 mg/dL 7-18 Serum or plasma creatinine measurement (mass/volume) 0.83 mg/dL 0.60-1.30 Serum or plasma urea nitrogen/creatinine mass ratio 24 NRG Serum or plasma creatinine measurement with calculation of estimated glomerular filtration rate > NRG Serum or plasma glucose measurement (mass/volume) 220 mg/dL 70-105 Serum or plasma calcium measurement (mass/volume) 9.5 mg/dL 8.5-10.1 Serum or plasma total bilirubin measurement (mass/volume) 0.3 mg/dL 0.1-1.0 Serum or plasma alkaline phosphatase measurement (enzymatic activity/volume) 79 U/L 40-136 Serum or plasma aspartate aminotransferase measurement (enzymatic activity/ volume) 29 U/L 5-34 Serum or plasma alanine aminotransferase measurement (enzymatic activity/volume ) 35 U/L 0-55 Serum or plasma protein measurement (mass/volume) 6.7 g/dL 6.4-8.2 Serum or plasma albumin measurement (mass/volume) 3.8 g/dL 3.2-4.5 Magnesium - 09/12/16 12:38 Magnesium 1.8 mg/dL 1.8-2.4 Serum or plasma troponin i.cardiac measurement (mass/volume) - 09/12/16 12:38 Serum or plasma troponin i.cardiac measurement (mass/volume) < ng/ mL <0.30 Myoglobin, serum - 09/12/16 12:38 Myoglobin, serum 38.9 ng/mL 10.0-92.0 Serum or plasma lithium measurement (moles/volume) - 09/12/16 12:38 BNP level 10.2 pg/mL <100.0 Encounters ACCT No. Visit Date/Time Discharge Status Pt. Type Provider Facility Loc./Unit Complaint [id number] 10/30/2018 08:57:00 10/30/2018 23:59:59 CLS Preadmit ARA MONTANEZ DO [facility] RAD YEARLY [id number] 09/12/2016 12:21:00 09/12/2016 13:30:00 DIS Emergency JAIME SUBRAMANIAN APRN [facility] ER CHEST PAIN [id number] 03/05/2016 23:09:00 03/06/2016 00:05:00 DIS Emergency ELIZA PALACIO MD [facility] ER UNRESPONSIVE [id number] 04/07/2015 08:42:00 04/07/2015 23:59:59 CLS Outpatient ARA MONTANEZ DO [facility] RAD CHF COPE [id number] 03/30/2015 12:26:00 03/30/2015 23:59:59 CLS Outpatient LINDSEYCASANDRA WADSWORTH ARA Bubba [facility] RAD PULMONARY NODULE [id number] 01/23/2015 23:19:00 01/24/2015 02:18:00 DIS Emergency ERICA JOSHUA DO [facility] ER LETHARGIC [id number] 12/23/2014 02:10:00 12/29/2014 14:58:00 DIS Inpatient JUDYARA WASHBURN DO [facility] 4TH HEART FAILURE,ACUTE HYPOXIA [id number] 04/01/2013 06:47:00 04/01/2013 14:15:00 DIS Outpatient BRIGIDO KC MD [facility] CATH CAD,CP,ABN STESS [id number] 03/25/2013 08:14:00 03/25/2013 23:59:59 CLS Outpatient BRIGIDO KC MD [facility] RAD CP,CAD [id number] 01/20/2013 08:51:00 01/20/2013 23:59:59 CLS Outpatient LINDSEYARA GUAJARDO DO [facility] RAD CONJESTIVE HEART FAILURE,LOST 11 LBS IN 4 DAYS [id number] 01/19/2013 09:27:00 01/19/2013 23:59:59 CLS Outpatient ARA MONTANEZ DO [facility] LAB CONGESTION,COUGH,LOW 02 STATS,CHF [id number] 01/13/2013 15:34:00 01/13/2013 23:59:59 CLS Outpatient ARA MONTANEZ DO [facility] RAD COUGH AND WHEEZING NOT GETTING BETTER SOB [id number] 05/23/2010 15:35:00 Document Registration
--- NOTE | 2018-11-05 08:59 | ED Dyspnea ---
General Source of Information: Patient History of Present Illness Date Seen by Provider: Nov 05, 2018 Time Seen by Provider: 08:57 Initial Comments Patient presents to the ER by EMS from the halfway for evaluation of shortness of breath. Nursing staff says this began this morning. Patient has a dry cough. She denies chest pain. She denies fevers or chills. No vomiting or diarrhea. Allergies and Home Medications Allergies Coded Allergies: Penicillins (Unverified Allergy, Unknown, 04/01/13) strawberry (Unverified Allergy, Unknown, 12/23/14) FROM UNCODED ALLERGIES tomato (Unverified Allergy, Unknown, 12/23/14) FROM UNCODED ALLERGIES Home Medications Acetaminophen 325 Mg Tab, 650 MG PO Q4H PRN for PAIN, (Reported) TAKES 2 (325MG) TABLETS Aripiprazole 15 Mg Tablet, 15 MG PO DAILY, (Reported) Aspirin 81 Mg Tabec, 81 MG PO DAILY, (Reported) Docusate Sodium 100 Mg Capsule, 100 MG PO DAILY, (Reported) Docusate Sodium 100 Mg Cap, 100 MG PO Q12H PRN for CONSTIPATION, (Reported) Furosemide 40 Mg Tablet, 60 MG PO DAILY, (Reported) TAKES 1&1/2 (40MG) TABLETS Glucagon,Human Recombinant 1 Mg/Kit Kit, 1 MG IM PRN PRN for HYPOGLYCEMIA, ( Reported) Insulin Detemir 100 Unit/1 Ml Insuln.pen, 15 UNITS SC HS, (Reported) Magnesium Hydroxide 400 Mg/5 Ml Oral.susp, 30 ML PO DAILY PRN for CONSTIPATION, (Reported) Metformin Hcl 500 Mg Tablet, 1,000 MG PO BID, (Reported) TAKES 2 (500MG) TABLETS Quetiapine Fumarate 100 Mg Tablet, 100 MG PO DAILY, (Reported) Quetiapine Fumarate 300 Mg Tablet, 300 MG PO HS, (Reported) Ramipril 10 Mg Capsule, 10 MG PO DAILY, (Reported) Risperidone 3 Mg Tablet, 1.5 MG PO DAILY, (Reported) TAKES 1/2 (3MG) TABLET Risperidone 3 Mg Tab, 3 MG PO HS, (Reported) Simvastatin 10 Mg Tab, 10 MG PO HS, (Reported) Sitagliptin Phosphate 100 Mg Tablet, 100 MG PO DAILY, (Reported) Tramadol Hcl 50 Mg Tab, 50 MG PO TID PRN for KNEE PAIN, (Reported) [Glucose 40% Gel] , PO UD PRN for HYPOGLYCEMIA, (Reported) GIVE 1 PACKET NEEDED FOR HYPOGLYCEMIA. GIVE GLUCOSE GEL 15GM RETAKE BLOD SUGAR IN 15 MIN. IF BLOOD SUGAR IS NOT RISING, GIVE ANOTHER PACKET OF GLUCOSE GEL AND RE-TAKE BLOOD SUGAR IN 15 MIN. IF NO CHANGE IN BLOOD SUGAR OR THERE IS A CHANGE IN LOC, GIVE IM GLUCAGON. [Sodium Chloride 1GM] , 1 GM PO HS, (Reported) Review of Systems Review of Systems Constitutional: malaise, weakness Respiratory: cough, short of breath Cardiovascular: edema Genitourinary: no symptoms reported Musculoskeletal: no symptoms reported Skin: no symptoms reported All Other Systems Reviewed Negative Unless Noted: Yes Past Frafyhx-Wjftwq-Ruokar Hx Patient Social History Recent Hopitalizations: No Immunizations Up To Date Tetanus Booster (TDap): Unknown Date of Pneumonia Vaccine: Apr 15, 2012 Seasonal Allergies Seasonal Allergies: No Past Medical History Cardiac Sleep Apnea Chronic Edema/Swelling, Coronary Artery Disease, High Cholesterol, Hypertension 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 8.0oz. 95.054905tq; BMI Method:Estimated General Appearance: WD/WN, Mild Distress, Obese HEENT: PERRL/EOMI, Pharynx Normal Neck: Supple Respiratory: Decreased Breath Sounds, Wheezing Cardiovascular: Tachycardia Gastrointestinal: Soft Extremity: Normal Inspection Neurologic/Psychiatric: Alert, No Motor/Sensory Deficits Skin: Normal Color, Warm/Dry Progress/Results/Core Measures Results/Orders My Orders Orders - ELIDA SALTER MD Cbc With Automated Diff (11/05/18 08:51) Comprehensive Metabolic Panel (11/05/18 08:51) BNP (11/05/18 08:51) Magnesium (11/05/18 08:51) Ekg Tracing (11/05/18 08:51) O2 (11/05/18 08:51) Ed Iv/Invasive Line Start (11/05/18 08:51) Monitor-Rhythm Ecg Trace Only (11/05/18 08:51) Albuterol/Ipra Inhalation Soln (Duoneb I (11/05/18 09:00) Chest 1 View, Ap/Pa Only (11/05/18 08:51) Svn Small Volume Nebulizer (11/05/18 08:51) Troponin I (11/05/18 08:51) Departure Departure-Patient Inst. Referrals: ARA MONTANEZ DO (PCP/Family) Primary Care Physician ELIDA SALTER MD Nov 05, 2018 08:59
[2018-11-05 09:00] LABS: BASOPHILS % (AUTO) 0 % (0-10); EOSINOPHILS % (AUTO) 0 % (0-10); HEMATOCRIT 37 % (35-52); HEMOGLOBIN 11.3 G/DL (11.5-16.0); LYMPHOCYTES # (AUTO) 0.6 X 10^3 (1.0-4.0); LYMPHOCYTES % (AUTO) 7 % (12-44); MEAN CORPUSCULAR HEMOGLOBIN 28 PG (25-34); MEAN CORPUSCULAR HGB CONC 31 G/DL (32-36); MEAN CORPUSCULAR VOLUME 91 FL (80-99); MEAN PLATELET VOLUME 10.5 FL (7.4-10.4); MONOCYTES # (AUTO) 1.1 X 10^3 (0.0-1.0); MONOCYTES % (AUTO) 13 % (0-12); NEUTROPHILS # (AUTO) 6.7 X 10^3 (1.8-7.8); NEUTROPHILS % (AUTO) 79 % (42-75); PLATELET COUNT 310 10^3/uL (130-400); RED CELL DISTRIBUTION WIDTH 16.1 % (10.0-14.5); WHITE BLOOD COUNT 8.5 10^3/uL (4.3-11.0)
[2018-11-05] MEDS ORDERED: RT-ALBUTEROL/IPRATROPIUM 3 ML (DUONEB) VIAL INH ONE (09:00)
[2018-11-05 09:22] LABS: ALANINE AMINOTRANSFERASE 27 U/L (0-55); ALBUMIN 3.8 GM/DL (3.2-4.5); ALKALINE PHOSPHATASE 54 U/L (40-136); BILIRUBIN,TOTAL 0.4 MG/DL (0.1-1.0); BUN/CREATININE RATIO 21; CALCIUM 9.6 MG/DL (8.5-10.1); CARBON DIOXIDE 39 MMOL/L (21-32); CHLORIDE 87 MMOL/L (98-107); CREATININE SERUM 0.78 MG/DL (0.60-1.30); GFR ESTIMATED > 60; GLUCOSE 284 MG/DL (70-105); MAGNESIUM 1.7 MG/DL (1.8-2.4); POTASSIUM 4.4 MMOL/L (3.6-5.0); SODIUM 137 MMOL/L (135-145)
[2018-11-05 09:27] LABS: ANISOCYTOSIS SLIGHT; BAND NEUTROPHILS 8 %; BASOPHILS % (MANUAL) 0 %; EOSINOPHILS % (MANUAL) 0 %; LYMPHOCYTES % (MANUAL) 11 %; MONOCYTES % (MANUAL) 10 %; NEUTROPHILS % (MANUAL) 71 %
--- NOTE | 2018-11-05 10:11 | Diagnostic Imaging Report ---
INDICATION: Shortness of breath. Comparison is made with prior examination from 09/12/2016. FINDINGS: There is cardiomegaly. There is some mild venous congestion. There is some left basilar atelectasis and/or pneumonitis. There is no pleural effusion or pneumothorax. Mediastinum is unremarkable. IMPRESSION: Left basilar atelectasis and/or pneumonitis. Cardiomegaly and mild central pulmonary venous congestion. Dictated by: Dictated on workstation # [id number]
[2018-11-05] MEDS ORDERED: CEFEPIME INJECTION 2,000 MG in WATER (STERILE) FOR INJECTION 20 ML IV ONE (11:00)
--- NOTE | 2018-11-05 11:10 | NUR ---
LAB IN ROOM DRAWING SECOND SET OF CULTURES AT THIS TIME.
--- NOTE | 2018-11-05 11:25 | NUR ---
PHARMACY CONTACTED FOR PT ANTIBIOTIC MAXIPIME AT THIS TIME.
--- NOTE | 2018-11-05 11:40 | NUR ---
ATTEMPT TO CALL REPORT AT THIS TIME. RN REPORTS SHE IS IN PT ROOM AND WILL CALL ED BACK.
--- NOTE | 2018-11-05 11:49 | NUR ---
PT SITTING UP IN BED IN NO APPARENT DISTRESS AT THS TIME. REPORTS NO COMPLAINTS AT THIS TIME.
--- NOTE | 2018-11-05 12:05 | NUR ---
HANS] admitted to room 429-1, with an admitting diagnosis of PNEUMONIA, on 11/05/18 from ED via STRETCHER, accompanied by STAFF. HANS HICKS introduced to surroundings, call light, bed controls, phone, TV, temperature control, lights, meal times, smoking policy, visitor policy, side rail policy, bathrooms and showers. Patient Rights given to patient in the handbook.HANS HICKS verbalizes understanding that [facility] is not responsible for the loss or damage to any personal effects or valuables that are kept in the patients possession during their hospitalization. The following Patient Care Plans were discussed with the PATIENT: Discharge Planning, MEDIATIONS, OXYGENATION, and HYDRATION. HANS HICKS verbalizes understanding of Interdisciplinary Patient Education. Patient and/or family were informed about the Rapid Response Team and its purpose.
[2018-11-05] MEDS ORDERED: CATHETER FLUSH 10 ML SYR IV PRN (13:00)
--- NOTE | 2018-11-05 13:01 | History & Physicial ---
History of Present Illness History of Present Illness Reason for visit/HPI Patient resident of care home. Patient short of breath. Pulse ox in the 60s. Patient has COPD. Patient on oxygen. Patient sent out to the emergency room. Chest x-ray shows pneumonia. Patient is schizophrenic and unable to give a good history Date of Admission Nov 05, 2018 at 11:20 Time Seen by a Provider: 12:58 I consulted on this patient on 11/05/18 12:58 Attending Physician Rusty Montanez DO Admitting Physician Rusty Montanez DO Consult Allergies and Home Medications Allergies Coded Allergies: Penicillins (Unverified Allergy, Unknown, 04/01/13) strawberry (Unverified Allergy, Unknown, 12/23/14) FROM UNCODED ALLERGIES tomato (Unverified Allergy, Unknown, 12/23/14) FROM UNCODED ALLERGIES Home Medications Acetaminophen 325 Mg Tab, 650 MG PO Q4H PRN for PAIN, (Reported) TAKES 2 (325MG) TABLETS Aripiprazole 15 Mg Tablet, 15 MG PO DAILY, (Reported) Aspirin 81 Mg Tabec, 81 MG PO DAILY, (Reported) Docusate Sodium 100 Mg Capsule, 100 MG PO DAILY, (Reported) Docusate Sodium 100 Mg Cap, 100 MG PO Q12H PRN for CONSTIPATION, (Reported) Furosemide 40 Mg Tablet, 60 MG PO DAILY, (Reported) TAKES 1&1/2 (40MG) TABLETS Glucagon,Human Recombinant 1 Mg/Kit Kit, 1 MG IM PRN PRN for HYPOGLYCEMIA, ( Reported) Insulin Detemir 100 Unit/1 Ml Insuln.pen, 15 UNITS SC HS, (Reported) Magnesium Hydroxide 400 Mg/5 Ml Oral.susp, 30 ML PO DAILY PRN for CONSTIPATION, (Reported) Metformin Hcl 500 Mg Tablet, 1,000 MG PO BID, (Reported) TAKES 2 (500MG) TABLETS Quetiapine Fumarate 100 Mg Tablet, 100 MG PO DAILY, (Reported) Quetiapine Fumarate 300 Mg Tablet, 300 MG PO HS, (Reported) Ramipril 10 Mg Capsule, 10 MG PO DAILY, (Reported) Risperidone 3 Mg Tablet, 1.5 MG PO DAILY, (Reported) TAKES 1/2 (3MG) TABLET Risperidone 3 Mg Tab, 3 MG PO HS, (Reported) Simvastatin 10 Mg Tab, 10 MG PO HS, (Reported) Sitagliptin Phosphate 100 Mg Tablet, 100 MG PO DAILY, (Reported) Tramadol Hcl 50 Mg Tab, 50 MG PO TID PRN for KNEE PAIN, (Reported) [Glucose 40% Gel] , PO UD PRN for HYPOGLYCEMIA, (Reported) GIVE 1 PACKET NEEDED FOR HYPOGLYCEMIA. GIVE GLUCOSE GEL 15GM RETAKE BLOD SUGAR IN 15 MIN. IF BLOOD SUGAR IS NOT RISING, GIVE ANOTHER PACKET OF GLUCOSE GEL AND RE-TAKE BLOOD SUGAR IN 15 MIN. IF NO CHANGE IN BLOOD SUGAR OR THERE IS A CHANGE IN LOC, GIVE IM GLUCAGON. [Sodium Chloride 1GM] , 1 GM PO HS, (Reported) Patient Home Medication List Home Medication List Reviewed: No Past Stmqvae-Koqmfw-Egsbwo Hx Patient Social History Marrital Status: single Employed/Student: unemployed Alcohol Use: Denies Use Recreational Drug Use: No Smoking Status: Never a Smoker Recent Foreign Travel: No Contact w/other who traveled: No Recent Hopitalizations: No Recent Infectious Disease Expo: No Immunizations Up To Date Tetanus Booster (TDap): Unknown Date of Pneumonia Vaccine: Apr 15, 2012 Seasonal Allergies Seasonal Allergies: No Surgeries Yes (CARDIAC CATH) Cardiac Respiratory Yes (ACUTE RESPIRATORY FAILURE 12/22/14, functional dyspnea) Cardiovascular Yes (CHF/ PULMONARY EDEMA 12/22/14) Chronic Edema/Swelling, Coronary Artery Disease, High Cholesterol, Hypertension Neurological Yes 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: 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 Gastrointestinal Yes (DYSPEPSIA) Chronic Constipation Musculoskeletal Yes (GENERALIZED PAIN) Endocrine History of Endocrine Disorders: Yes Endocrine Disorders: Diabetes, Insulin dep Cancer No Psychosocial History of Psychiatric Problem: Yes Behavioral Health Disorders: Sleep Difficulties, Schizophrenia Integumentary History of Skin or Integumenta: No Blood Transfusions History of Blood Disorders: No Family Medical History Significant Family History: No Pertinent Family Hx Family Hx: Unobtainable Review of Systems Constitutional: weakness EENTM: no symptoms reported Respiratory: dyspnea on exertion, short of breath, wheezing Cardiovascular: no symptoms reported Genitourinary: no symptoms reported Physical Exam Vital Signs Vital Signs - First Documented 11/05/18 11/05/18 08:57 09:04 Temp 98.5 Pulse 113 Resp 18 B/P (MAP) 155/70 (98) Pulse Ox 95 O2 Delivery Nasal Cannula O2 Flow Rate 4.00 Capillary Refill : Less Than 3 Seconds Height, Weight, BMI Height: 4'11.00" Weight: 198lbs. 2.0oz. [id number]; BMI Method:Stated General Appearance: No Apparent Distress, WD/WN Eyes: Bilateral Eye Normal Inspection HEENT: Normal ENT Inspection Neck: Full Range of Motion, Normal Inspection Respiratory: Decreased Breath Sounds, Wheezing Cardiovascular: Regular Rate, Rhythm, No Murmur Gastrointestinal: Non Tender, Soft Assessment/Plan Assessment and Plan Pneumonia. COPD. CAD. Diabetes. Sleep apnea. Dementia. Schizophrenia Admission Diagnosis Admission Status: Inpatient Order (span 2 midnights) Reason for Inpatient Admission: Pneumonia. Short of breath. Diabetes RUSTY MONTANEZ DO Nov 05, 2018 13:01
[2018-11-05 13:08] VITALS: BP 159/70
[2018-11-05] MEDS: NS IV 1000 ML 1,000 ML IV SCH ×2 (13:20→23:59)
--- OUTSIDE RECORDS SUMMARY | 2018-11-05 13:23 | XMS REPORT | Continuity of Care Document ---
Author Organization Unknown Address Unknown Allergies Active Description Code Type Severity Reaction Onset Reported/Identified Relationship to Patient Clinical Status Yes Penicillins [id number] Drug Allergy Unknown N/A 04/01/2013 Yes Strawberries, Tomatoes Strawberries, Tomatoes Unknown N/A 12/23/2014 Yes strawberry [id number] Drug Allergy Unknown N/A 12/23/2014 Yes tomato [id number] Drug Allergy Unknown N/A 12/23/2014 Medications There [...] KC MD Ot 414.01 CORONARY ATHEROSCLEROSIS OF [place] CORON 04/01/2013 BRIGIDO KC MD Ot 786.09 [...] LINDSEYLENDER ARA Ot 414.01 CORONARY ATHEROSCLEROSIS OF [place] CORON 12/29/2014 LISSETH WADSWORTHARA Ot 416.8 CHR PULMON HEART DIS NEC 12/29/2014 GELLENDER DOARA Ot 428.0 CONGESTIVE HEART FAILURE NOS 12/29/2014 GELLENDER DOARA Ot 428.31 ACUTE DIASTOLIC HRT FAILURE 12/29/2014 GELLENDER DOARA Ot 518.81 ACUTE RESPIRATORY FAILURE 12/29/2014 GELLENDER DOARA Ot V49.86 DO NOT RESUSCITATE STATUS 12/29/2014 LINDSEYLENDER ARA Ot V58.67 LONG-TERM (CURRENT) USE OF INSULIN [...] ERICA Roman Ot 414.01 CORONARY ATHEROSCLEROSIS OF [place] CORON 01/24/2015 TRES WADSWORTH ERICA Roman Ot [...] MD Ot I25.10 ATHSCL HEART DISEASE OF [place] CORONARY 03/06/2016 ELIZA PALACIO MD Ot R19.7 DIARRHEA, UNSPECIFIED 03/06/2016 ELIZA PALACIO MD Ot R40.20 UNSPECIFIED COMA 03/06/2016 ELIZA PALACIO MD Ot Z79.4 PRISON (CURRENT) USE OF INSULIN 03/06/2016 ELIZA PALACIO MD Ot E11.9 TYPE 2 DIABETES MELLITUS WITHOUT COMPLIC 03/06/2016 ELIZA PALACIO MD Ot E78.0 PURE HYPERCHOLESTEROLEMIA 03/06/2016 ELIZA PALACIO MD Ot I10 ESSENTIAL (PRIMARY) HYPERTENSION 03/06/2016 ELIZA PALACIO MD Ot I25.10 ATHSCL HEART DISEASE OF [place] CORONARY 03/06/2016 ELIZA PALACIO MD Ot R19.7 DIARRHEA, UNSPECIFIED 03/06/2016 ELIZA PALACIO MD Ot R40.20 UNSPECIFIED COMA 03/06/2016 ELIZA PALACIO MD Ot Z79.4 DIRECTOR ACCOUNT MANAGEMENT (CURRENT) USE OF INSULIN 03/11/2016 ELIZA PALACIO MD Ot E11.9 TYPE 2 DIABETES MELLITUS WITHOUT COMPLIC 03/11/2016 ELIZA PALACIO MD Ot E78.0 PURE HYPERCHOLESTEROLEMIA 03/11/2016 ELIZA PALACIO MD Ot I10 ESSENTIAL (PRIMARY) HYPERTENSION 03/11/2016 ELIZA PALACIO MD Ot I25.10 ATHSCL HEART DISEASE OF [place] CORONARY 03/11/2016 ELIZA PALACIO MD Ot R19.7 DIARRHEA, UNSPECIFIED 03/11/2016 ELIZA PALACIO MD Ot R40.20 UNSPECIFIED COMA 03/11/2016 ELIZA PALACIO MD Ot Z79.4 PRISON (CURRENT) USE OF INSULIN 09/12/2016 JAIME SUBRAMANIAN APRN Ot E11.9 TYPE 2 DIABETES MELLITUS WITHOUT COMPLIC 09/12/2016 JAIME SUBRAMANIAN APRN Ot F03.90 UNSPECIFIED DEMENTIA WITHOUT BEHAVIORAL 09/12/2016 JAIME SUBRAMANIAN APRN Ot I10 ESSENTIAL (PRIMARY) HYPERTENSION 09/12/2016 JAIME SUBRAMANIAN APRN Ot I25.10 ATHSCL HEART DISEASE OF [place] CORONARY 09/12/2016 JAIME SUBRAMANIAN APRN Ot I51.7 CARDIOMEGALY 09/12/2016 JAIME SUBRAMANIAN APRN Ot R07.9 CHEST PAIN, UNSPECIFIED 09/12/2016 JAIME SUBRAMANIAN APRN Ot Z79.4 DIRECTOR ACCOUNT MANAGEMENT (CURRENT) USE OF INSULIN 09/12/2016 JAIME SUBRAMANIAN APRN Ot Z79.84 PRISON (CURRENT) USE OF ORAL HYPOGLYC 09/12/2016 JAIME SUBRAMANIAN APRN Ot Z79.899 OTHER PRISON (CURRENT) DRUG THERAPY 09/13/2016 JAIME SUBRAMANIAN APRN Ot E11.9 TYPE 2 DIABETES MELLITUS WITHOUT COMPLIC 09/13/2016 JAIME SUBRAMANIAN APRN Ot F03.90 UNSPECIFIED DEMENTIA WITHOUT BEHAVIORAL 09/13/2016 JAIME SUBRAMANIAN APRN Ot I10 ESSENTIAL (PRIMARY) HYPERTENSION 09/13/2016 JAIME SUBRAMANIAN APRN Ot I25.10 ATHSCL HEART DISEASE OF [place] CORONARY 09/13/2016 JAIME SUBRAMANIAN APRN Ot I51.7 CARDIOMEGALY 09/13/2016 JAIME SUBRAMANIAN APRN Ot R07.9 CHEST PAIN, UNSPECIFIED 09/13/2016 JAIME SUBRAMANIAN APRN Ot Z79.4 PRISON (CURRENT) USE OF INSULIN 09/13/2016 JAIME SUBRAMANIAN APRN Ot Z79.84 DIRECTOR ACCOUNT MANAGEMENT (CURRENT) USE OF ORAL HYPOGLYC 09/13/2016 JAIME SUBRAMANIAN APRN Ot Z79.899 OTHER PRISON (CURRENT) DRUG THERAPY 09/14/2016 LISSETH WADSWORTHARA Ot [...] APRN Ot I25.10 ATHSCL HEART DISEASE OF [place] CORONARY 09/18/2016 JAIME SUBRAMANIAN APRN Ot I51.7 CARDIOMEGALY 09/18/2016 JAIME SUBRAMANIAN APRN Ot R07.9 CHEST PAIN, UNSPECIFIED 09/18/2016 JAIME SUBRAMANIAN APRN Ot Z79.4 PRISON (CURRENT) USE OF INSULIN 09/18/2016 JAIME SUBRAMANIAN HISTOLOGIC AIDE Ot Z79.84 PRISON (CURRENT) USE OF ORAL HYPOGLYC 09/18/2016 JAIME SUBRAMANIAN HISTOLOGIC AIDE Ot Z79.899 OTHER PRISON (CURRENT) DRUG THERAPY 11/04/2018 ARA MONTANEZ DO Ot 593.9 RENAL URETERAL DIS NOS 11/04/2018 ARA MONTANEZ DO Ot 793.19 OTHER NONSPECIFIC ABNORMAL FINDING OF [place] 11/04/2018 ARA MONTANEZ DO Ot 428.0 CONGESTIVE HEART FAILURE NOS 11/04/2018 ARA MONTANEZ DO Ot 496 CHR AIRWAY OBSTRUCT NEC 11/04/2018 ARA MONTANEZ DO Ot Z12.31 ENCNTR SCREEN MAMMOGRAM FOR MALIGNANT NE 11/04/2018 ARA MONTANEZ DO Ot Z12.31 ENCNTR SCREEN MAMMOGRAM FOR MALIGNANT NE Procedures There is no data. Results Test [...] 09/12/16 12:38 BNP level 10.2 pg/mL <100.0 Complete blood count (CBC) with automated white blood cell (WBC) differential - 11/05/18 08:50 Blood leukocytes automated count (number/volume) 8.5 10*3/uL 4.3-11.0 Blood erythrocytes automated count (number/volume) 4.02 10*6/uL 4.35-5.85 Venous blood hemoglobin measurement (mass/volume) 11.3 g/dL 11.5-16.0 Blood hematocrit (volume fraction) 37 % 35-52 Automated erythrocyte mean corpuscular volume 91 [foz_us] 80-99 Automated erythrocyte mean corpuscular hemoglobin (mass per erythrocyte) 28 pg 25-34 Automated erythrocyte mean corpuscular hemoglobin concentration measurement ( mass/volume) 31 g/dL 32-36 Automated erythrocyte distribution width ratio 16.1 % 10.0-14.5 Automated blood platelet count (count/volume) 310 10*3/uL 130-400 Automated blood platelet mean volume measurement 10.5 [foz_us] 7.4-10.4 Automated blood neutrophils/100 leukocytes 79 % 42-75 Automated blood lymphocytes/100 leukocytes 7 % 12-44 Blood monocytes/100 leukocytes 13 % 0-12 Automated blood eosinophils/100 leukocytes 0 % 0-10 Automated blood basophils/100 leukocytes 0 % 0-10 Blood neutrophils automated count (number/volume) 6.7 10*3 1.8-7.8 Blood lymphocytes automated count (number/volume) 0.6 10*3 1.0-4.0 Blood monocytes automated count (number/volume) 1.1 10*3 0.0-1.0 Automated eosinophil count 0.0 10*3/uL 0.0-0.3 Automated blood basophil count (count/volume) 0.0 10*3/uL 0.0-0.1 Comprehensive metabolic panel - 11/05/18 08:50 Serum or plasma sodium measurement (moles/volume) 137 mmol/L 135-145 Serum or plasma potassium measurement (moles/volume) 4.4 mmol/L 3.6-5.0 Serum or plasma chloride measurement (moles/volume) 87 mmol/L 98-107 Carbon dioxide 39 mmol/L 21-32 Serum or plasma anion gap determination (moles/volume) 11 mmol/L 5-14 Serum or plasma urea nitrogen measurement (mass/volume) 16 mg/dL 7-18 Serum or plasma creatinine measurement (mass/volume) 0.78 mg/dL 0.60-1.30 Serum or plasma urea nitrogen/creatinine mass ratio 21 NRG Serum or plasma creatinine measurement with calculation of estimated glomerular filtration rate > NRG Serum or plasma glucose measurement (mass/volume) 284 mg/dL 70-105 Serum or plasma calcium measurement (mass/volume) 9.6 mg/dL 8.5-10.1 Serum or plasma total bilirubin measurement (mass/volume) 0.4 mg/dL 0.1-1.0 Serum or plasma alkaline phosphatase measurement (enzymatic activity/volume) 54 U/L 40-136 Serum or plasma aspartate aminotransferase measurement (enzymatic activity/ volume) 17 U/L 5-34 Serum or plasma alanine aminotransferase measurement (enzymatic activity/volume ) 27 U/L 0-55 Serum or plasma protein measurement (mass/volume) 7.0 g/dL 6.4-8.2 Serum or plasma albumin measurement (mass/volume) 3.8 g/dL 3.2-4.5 CALCIUM CORRECTED 9.8 mg/dL 8.5-10.1 Magnesium - 11/05/18 08:50 Magnesium 1.7 mg/dL 1.8-2.4 Blood manual differential performed detection - 11/05/18 08:50 Blood monocytes/100 leukocytes 10 % NRG Manual blood segmented neutrophils/100 leukocytes 71 % NRG Blood band neutrophils/100 leukocytes 8 % NRG Manual blood lymphocytes/100 leukocytes 11 % NRG Manual eosinophils/100 leukocytes in nose 0 % NRG Manual blood basophils/100 leukocytes 0 % NRG Blood anisocytosis detection by light microscopy SLIGHT NRG Serum or plasma lithium measurement (moles/volume) - 11/05/18 08:50 BNP level 66.1 pg/mL <100.0 Serum or plasma troponin i.cardiac measurement (mass/volume) - 11/05/18 08:50 Serum or plasma troponin i.cardiac measurement (mass/volume) < ng/ mL <0.028 Influenza virus A and B antigen detection - 11/05/18 08:53 FLU RESULT NEGATIVE FOR INFLUENZA A AND B ANTIGENS BY IA NRG Blood lactic acid measurement (moles/volume) - 11/05/18 09:50 Blood lactic acid measurement (moles/volume) 1.96 mmol/L 0.50-2.00 Encounters ACCT No. Visit Date/Time Discharge Status Pt. Type Provider Facility Loc./Unit Complaint [id number] 09/12/2016 12:21:00 09/12/2016 13:30:00 DIS Emergency JAIME SUBRAMANIAN APRN [facility] ER CHEST PAIN [id number] 03/05/2016 23:09:00 03/06/2016 00:05:00 DIS Emergency ELIZA PALACIO MD [facility] ER UNRESPONSIVE [id number] 04/07/2015 08:42:00 04/07/2015 23:59:59 CLS Outpatient ARA MONTANEZ DO Bubba [facility] RAD CHF COPE [id number] 03/30/2015 12:26:00 03/30/2015 23:59:59 CLS Outpatient JUDYMADDISON ARA WADSWORTH [facility] RAD PULMONARY NODULE [id number] 01/23/2015 23:19:00 01/24/2015 02:18:00 DIS Emergency TRES ERICA WADSWORTH [facility] ER LETHARGIC [id number] 12/23/2014 02:10:00 12/29/2014 14:58:00 DIS Inpatient JUDYMADDISON ARA WADSWORTH Bubba [facility] 4TH HEART FAILURE,ACUTE HYPOXIA [id number] 04/01/2013 06:47:00 04/01/2013 14:15:00 DIS Outpatient BRIGIDO KC MD [facility] CATH CAD,CP,ABN STESS [id number] 03/25/2013 08:14:00 03/25/2013 23:59:59 CLS Outpatient BRIGIDO KC MD [facility] RAD CP,CAD [id number] 01/20/2013 08:51:00 01/20/2013 23:59:59 CLS Outpatient LINDSEYCASANDRA ARA WADSWORTH Bubba [facility] RAD CONJESTIVE HEART FAILURE,LOST 11 LBS IN 4 DAYS [id number] 01/19/2013 09:27:00 01/19/2013 23:59:59 CLS Outpatient LISSETH WADSWORTH ARA Mac [facility] LAB CONGESTION,COUGH,LOW 02 STATS,CHF [id number] 01/13/2013 15:34:00 01/13/2013 23:59:59 CLS Outpatient JUDYMADDISON ARA Bubba [facility] RAD COUGH AND WHEEZING NOT GETTING BETTER SOB [id number] 11/05/2018 09:02:00 Document Registration [id number] 11/04/2018 10:19:00 ACT Outpatient ARA MONTANEZ DO [facility] RAD YEARLY [id number] 05/23/2010 15:35:00 Document Registration
[2018-11-05] MEDS ORDERED: RAMI10CA69 PO (14:53)
[2018-11-05] MEDS ORDERED: MAGN400O7 PO (14:53)
[2018-11-05] MEDS ORDERED: FURO20TA4 PO (14:53)
[2018-11-05] MEDS ORDERED: GLUC1KIT IJ (14:53)
[2018-11-05] MEDS ORDERED: ASPI-983 PO (14:53)
[2018-11-05] MEDS ORDERED: ACET325T49 PO (14:53)
[2018-11-05] MEDS ORDERED: ARIP10TA17 PO (14:53)
[2018-11-05] MEDS ORDERED: NYST1POW22 TOP (14:53)
[2018-11-05] MEDS ORDERED: DOCU100C37 PO ×2 (14:53)
[2018-11-05] MEDS ORDERED: INSU100I29 SQ ×2 (14:53)
[2018-11-05] MEDS ORDERED: SITA100T12 PO (14:53)
[2018-11-05] MEDS ORDERED: DEXT37.54 PO (14:53)
[2018-11-05] MEDS ORDERED: METF-399 PO (14:53)
[2018-11-05] MEDS ORDERED: INSU100I14 SC (14:53)
[2018-11-05] MEDS ORDERED: INSU100I14 SQ (14:53)
[2018-11-05 15:35] VITALS: BP 176/77
[2018-11-05] MEDS ORDERED: RISP3TAB3 PO (15:55)
[2018-11-05] MEDS ORDERED: QUET300T44 PO (15:55)
[2018-11-05] MEDS ORDERED: QUET100T69 PO (15:55)
[2018-11-05] MEDS ORDERED: RISP2TAB3 PO (15:55)
[2018-11-05] MEDS ORDERED: SIMV10TA3 PO (15:55)
--- NOTE | 2018-11-05 15:56 | NUR ---
UPDATED MED REC WITH ORDER SUMMARY REPORT FROM [facility]. THE LIST ON THE CART WAS MISSING PAGE 6 OF 6 SO I CALLED AND HAD THEM FAX OVER THAT PAGE.
[2018-11-05] MEDS ORDERED: ACETAMINOPHEN 325 MG TABLET PO PRN (18:30)
[2018-11-05] MEDS ORDERED: MILK OF MAGNESIA 400 MG/5 ML 30 ML UDC PO PRN (18:30)
[2018-11-05] MEDS ORDERED: NON-FORMULARY MEDICATION 1 EA EA (Docusate Sodium 100 MG) PO PRN (18:30)
[2018-11-05] MEDS ORDERED: DOCUSATE SODIUM 100 MG (COLACE) CAP PO PRN (18:45)
[2018-11-05] MEDS: metFORMIN 500 MG (GLUCOPHAGE) TAB PO SCH (18:50)
[2018-11-05 19:09] VITALS: BP 138/69
[2018-11-05] MEDS: RT-ALBUTEROL/IPRATROPIUM 3 ML (DUONEB) VIAL IH SCH (19:12)
[2018-11-05] MEDS: risperiDONE 1 MG (RisperDAL) TAB PO SCH (20:08)
[2018-11-05] MEDS: SIMvastatin 10 MG (ZOCOR) TAB PO SCH (20:08)
[2018-11-05] MEDS: QUEtiapine 100 MG (SEROquel) TAB IMMEDIATE RELEASE PO SCH (20:08)
[2018-11-05] MEDS ORDERED: NON-FORMULARY MEDICATION 1 EA EA (Quetiapine Fumarate 300 MG) PO SCH (21:00)
[2018-11-05] MEDS ORDERED: NON-FORMULARY MEDICATION 1 EA EA (Risperidone 3 MG) PO SCH (21:00)
[2018-11-05] MEDS ORDERED: NON-FORMULARY MEDICATION 1 EA EA (Metformin HCl 1,000 MG) PO SCH (21:00)
--- NOTE | 2018-11-05 23:00 | NUR ---
CALLED DR. MONTANEZ TO REPORT THAT PATIENT'S O2 WAS 67% ON 5L HF. PATIENT WAS ALSO UNRESPONSIVE. O2 WAS INCREASED TO 10L HF AND RT WAS IN ROOM. REPORTED THAT PATIENT WAS WHEEZY. RECEIVED ORDERS TO GIVE 40MG IV LASIX NOW, START SOLU-MEDROL 40MG Q6 IV, OBTAIN ABG, PLACE PATIENT ON TELEMETRY, PLACE PATIENT ON BIPAP, AND TO CONSULT DR. DUBOIS. 2325-CALLED BIRD, PATIENT'S DPOA AND INFORMED HER OF PATIENT'S DECLINE. BIRD STATED THAT SHE WAS NOT AWARE THAT PATIENT WAS IN THE HOSPITAL. ENCOURAGED HER TO SET A PASSWORD, WHICH SHE DID. BIRD STATED THAT SHE "DID NOT WANT HEROIC MEASURES" FOR HANS. EXPLAINED INTUBATION TO HER AND SHE STATED THAT SHE DID NOT WANT HER TO "HAVE A BREATHING TUBE PLACED". INFORMED HER THAT AT SOME POINT SHE COULD BE TRANSFERRED TO THE ICU AND THAT SHE COULD CALL BACK AT ANY TIME AND ASK THE PATIENT'S STATUS LONG SHE WAS ABLE TO GIVE THE PASSWORD. 2330-ATTEMPTED TO CALL DR. DUBOIS WITH NO SUCCESS. 2350-CALLED DR. MONTANEZ AND INFORMED HIM THAT I WAS NOT ABLE TO GET A HOLD OF DR. RIOS. RECEIVED ORDERS TO OBTAIN BMP, BNP, BREATHING TX PRN, AND PORTABLE CHEST X-RAY THAT WOULD [facility] SEND [facility]. AND TO CALL BACK IN ONE HOUR WITH RESULTS. 0120-CALLED DR. MONTANEZ AND READ HIM RESULTS OF BMP AND BNP AND INFORMED HIM THAT CHEST X-RAY HAD NOT BEEN READ YET. RECEIVED ORDERS FOR MONSIVAIS CATH., REPEAT THE ABG NOW AND NO CHANGE IN IV FLUIDS. 0150-CALLED DR. MONTANEZ AND READ RESULTS OF ABG. ALSO INFORMED HIM OF PATIENT'S INCREASING ABD DISTENSION. NO NEW ORDERS AT THIS TIME. DR. MONTANEZ STATED THAT HE WOULD BE ON THE FLOOR IN THE AM TO SEE PATIENT AND TO NOT CALL DR. DUBOIS AGAIN IN THE MORNING. 0215-RECEIVED CALL FROM BIRD AND INFORMED HER THAT PATIENT'S ABG DID IMPROVE AND THAT SHE IS NOW RESPONDING TO PAIN AND HER BIPAP SETTINGS HAVE DECREASED.
[2018-11-05] MEDS ORDERED: FUROSEMIDE 40 MG/4 ML INJ (LASIX) ONE (23:04)
[2018-11-05] MEDS ORDERED: methylPREDNISolone 40 MG/ML (Solu-MEDROL) VIAL ONE (23:04)
[2018-11-05] MEDS: methylPREDNISolone 40 MG/ML (Solu-MEDROL) VIAL IV SCH (23:08)
[2018-11-05] MEDS: inSUlin ASPART (NovoLOG) 1 UNIT/0.01 ML (CHARGE PER UNIT) SC SCH (23:15)
[2018-11-06] VITALS: BP 137/60
[2018-11-06] MEDS ORDERED: FUROSEMIDE 40 MG/4 ML INJ (LASIX) IVP ONE
[2018-11-06 00:08] LABS: ABG BASE EXCESS 15.2 MMOL/L (-2.5-2.5); ABG OXYGEN SATURATION 99 % (94-100); ABG PO2 150 MMHG (79-93); ABG TCO2 47.3 MMOL/L (21.0-31.0)
[2018-11-06 00:09] LABS: ABG PCO2 117 MMHG (35-45); ALLENS TEST POSITIVE; INSPIRED O2 10L; PATIENT TEMP 98.2; VENTILATOR NO
[2018-11-06 00:27] LABS: BUN/CREATININE RATIO 20; CALCIUM 9.3 MG/DL (8.5-10.1); CARBON DIOXIDE 34 MMOL/L (21-32); CHLORIDE 89 MMOL/L (98-107); CREATININE SERUM 0.83 MG/DL (0.60-1.30); GFR ESTIMATED > 60; GLUCOSE 325 MG/DL (70-105); POTASSIUM 4.8 MMOL/L (3.6-5.0); SODIUM 136 MMOL/L (135-145)
[2018-11-06] MEDS: NS IV 1000 ML 1,000 ML IV SCH ×2 (01:23→13:12)
[2018-11-06] MEDS ORDERED: RT-ALBUTEROL/IPRATROPIUM 3 ML (DUONEB) VIAL INH PRN (01:30)
[2018-11-06 01:46] LABS: ABG BASE EXCESS 16.3 MMOL/L (-2.5-2.5); ABG OXYGEN SATURATION 95 % (94-100); ABG PO2 79 MMHG (79-93); ABG TCO2 45.9 MMOL/L (21.0-31.0)
[2018-11-06 01:47] LABS: ALLENS TEST POSITIVE; INSPIRED O2 BIPAP 40%; PATIENT TEMP 97.4; VENTILATOR NO
[2018-11-06 01:48] LABS: ABG PCO2 85 MMHG (35-45); ABG PH 7.32 (7.37-7.43)
[2018-11-06] MEDS: RT-ALBUTEROL/IPRATROPIUM 3 ML (DUONEB) VIAL IH SCH ×4 (02:50→21:16)
[2018-11-06 04:00] VITALS: BP 133/62
--- NOTE | 2018-11-06 04:05 | Diagnostic Imaging Report ---
Indication: Respiratory distress Portable chest 12:09 AM Heart size and pulmonary vascularity are increased. There are no infiltrates, effusions or pneumothoraces. There is some patchy infiltrate of left lung base. Impression: Pulmonary venous hypertension with patchy left basilar infiltrate. Chest appears unchanged from previous days comparison exam. Dictated by: Dictated on workstation # [id number]
--- NOTE | 2018-11-06 04:45 | NUR ---
RECEIVED CALL FROM DR. MONTANEZ INQUIRING HOW PATIENT WAS DOING. RECEIVED ORDERS TO CONSULT DR. DUBOIS THIS AM.
[2018-11-06] MEDS: inSUlin ASPART (NovoLOG) 1 UNIT/0.01 ML (CHARGE PER UNIT) SC SCH ×4 (05:49→21:10)
[2018-11-06] MEDS: methylPREDNISolone 40 MG/ML (Solu-MEDROL) VIAL IV SCH ×2 (05:52→18:12)
[2018-11-06] MEDS: metFORMIN 500 MG (GLUCOPHAGE) TAB PO SCH ×2 (05:52→18:13)
[2018-11-06 06:15] LABS: BASOPHILS % (AUTO) 0 % (0-10); EOSINOPHILS % (AUTO) 0 % (0-10); HEMATOCRIT 35 % (35-52); HEMOGLOBIN 10.6 G/DL (11.5-16.0); LYMPHOCYTES # (AUTO) 0.4 X 10^3 (1.0-4.0); LYMPHOCYTES % (AUTO) 5 % (12-44); MEAN CORPUSCULAR HEMOGLOBIN 28 PG (25-34); MEAN CORPUSCULAR HGB CONC 31 G/DL (32-36); MEAN CORPUSCULAR VOLUME 92 FL (80-99); MEAN PLATELET VOLUME 10.3 FL (7.4-10.4); MONOCYTES # (AUTO) 0.7 X 10^3 (0.0-1.0); MONOCYTES % (AUTO) 9 % (0-12); NEUTROPHILS # (AUTO) 7.1 X 10^3 (1.8-7.8); NEUTROPHILS % (AUTO) 86 % (42-75); PLATELET COUNT 263 10^3/uL (130-400); RED CELL DISTRIBUTION WIDTH 16.1 % (10.0-14.5); WHITE BLOOD COUNT 8.3 10^3/uL (4.3-11.0)
--- NOTE | 2018-11-06 06:20 | NUR ---
DR. DUBOIS NOTIFIED OF CONSULT.
[2018-11-06 06:41] LABS: ALANINE AMINOTRANSFERASE 27 U/L (0-55); ALBUMIN 3.5 GM/DL (3.2-4.5); ALKALINE PHOSPHATASE 53 U/L (40-136); BILIRUBIN,TOTAL 0.3 MG/DL (0.1-1.0); BUN/CREATININE RATIO 23; CARBON DIOXIDE 34 MMOL/L (21-32); CHLORIDE 93 MMOL/L (98-107); CREATININE SERUM 0.77 MG/DL (0.60-1.30); GFR ESTIMATED > 60; GLUCOSE 254 MG/DL (70-105); MAGNESIUM 1.9 MG/DL (1.8-2.4); POTASSIUM 4.9 MMOL/L (3.6-5.0); SODIUM 137 MMOL/L (135-145); TOTAL PROTEIN 6.5 GM/DL (6.4-8.2)
[2018-11-06] MEDS ORDERED: metFORMIN 500 MG (GLUCOPHAGE) TAB PO SCH (07:00)
[2018-11-06 08:00] VITALS: BP 152/66
--- NOTE | 2018-11-06 08:17 | Progress Note (SOAP) ---
Subjective Time Seen by a Provider: 08:15 Subjective/Events-last exam Patient nonresponsive last night. PCO2 117. This morning patient awake and talking. Patient on BiPAP. Focused Exam Lactate Level 11/05/18 09:50: Lactic Acid Level 1.96 Objective Exam Vital Signs Date Time Temp Pulse Resp B/P (MAP) Pulse Ox O2 Delivery O2 Flow Rate FiO2 11/06/18 07:00 99 11/06/18 04:00 98.6 98 12 133/62 (85) 94 NIV Bilevel 40.00 11/06/18 02:50 96 27 92 40.00 11/06/18 01:47 102 11/06/18 00:15 97 20 93 40.00 11/06/18 00:00 98.2 104 22 137/60 (85) 98 NIV Bilevel 40.00 11/05/18 23:20 101 31 93 40.00 11/05/18 23:05 86 High Flow N/C 10.00 11/05/18 23:00 68 High Flow N/C 5.00 11/05/18 20:00 93 High Flow N/C 4.00 11/05/18 19:12 92 Nasal Cannula 6.00 11/05/18 19:09 97.4 101 20 138/69 (92) 96 Nasal Cannula 5.00 11/05/18 15:35 97.8 107 18 176/77 (110) 96 Nasal Cannula 4.00 11/05/18 13:08 98.9 100 20 159/70 94 Nasal Cannula 4.00 11/05/18 12:15 94 Nasal Cannula 4.00 11/05/18 12:05 70 20 146/46 (79) 98 11/05/18 09:22 95 Nasal Cannula 4.00 11/05/18 09:04 98.5 113 18 155/70 (98) 93 Nasal Cannula 4.00 11/05/18 08:57 95 Nasal Cannula 4.00 I & O 11/06/18 07:00 Intake Total 2095 ml Output Total 1050 ml Balance 1045 ml Capillary Refill : Less Than 3 Seconds General Appearance: No Apparent Distress, WD/WN HEENT: Normal ENT Inspection Neck: Full Range of Motion, Normal Inspection Respiratory: No Accessory Muscle Use, No Respiratory Distress, Decreased Breath Sounds Cardiovascular: Regular Rate, Rhythm, No Murmur Gastrointestinal: non tender, soft Results Lab Laboratory Tests 11/05/18 08:50 11/06/18 00:05 11/06/18 06:00 Laboratory Tests 11/05/18 08:50: White Blood Count 8.5, Red Blood Count 4.02L, Hemoglobin 11.3L, Hematocrit 37, Mean Corpuscular Volume 91, Mean Corpuscular Hemoglobin 28, Mean Corpuscular Hemoglobin Concent 31L, Red Cell Distribution Width 16.1H, Platelet Count 310, Mean Platelet Volume 10.5H, Neutrophils (%) (Auto) 79H, Lymphocytes (%) (Auto) 7L, Monocytes (%) (Auto) 13H, Eosinophils (%) (Auto) 0, Basophils (%) (Auto) 0, Neutrophils # (Auto) 6.7, Lymphocytes # (Auto) 0.6L, Monocytes # (Auto) 1.1H, Eosinophils # (Auto) 0.0, Basophils # (Auto) 0.0, Neutrophils % (Manual) 71, Lymphocytes % (Manual) 11, Monocytes % (Manual) 10, Eosinophils % (Manual) 0, Basophils % (Manual) 0, Band Neutrophils 8, Anisocytosis SLIGHT, Sodium Level 137, Potassium Level 4.4, Chloride Level 87L, Carbon Dioxide Level 39H, Anion Gap 11, Blood Urea Nitrogen 16, Creatinine 0.78, Estimat Glomerular Filtration Rate > 60, BUN/Creatinine Ratio 21, Glucose Level 284H, Calcium Level 9.6, Corrected Calcium 9.8, Magnesium Level 1.7L, Total Bilirubin 0.4, Aspartate Amino Transf (AST/SGOT) 17, Alanine Aminotransferase (ALT/SGPT) 27, Alkaline Phosphatase 54, Troponin I < 0.028, B-Type Natriuretic Peptide 66.1, Total Protein 7.0, Albumin 3.8 11/05/18 09:50: Lactic Acid Level 1.96 11/05/18 23:15: Blood Gas Puncture Site LEFT RADIAL, Blood Gas Patient Temperature 98.2, Arterial Blood pH 7.20*L, Arterial Blood Partial Pressure CO2 117*H, Arterial Blood Partial Pressure O2 150H, Arterial Blood HCO3 44*H, Arterial Blood Total CO2 47.3H, Arterial Blood Oxygen Saturation 99, Arterial Blood Base Excess 15.2H , Sincere Test POSITIVE, Blood Gas Ventilator Setting NO, Blood Gas Inspired Oxygen 10L 11/06/18 00:05: Sodium Level 136, Potassium Level 4.8, Chloride Level 89L, Carbon Dioxide Level 34H, Anion Gap 13, Blood Urea Nitrogen 17, Creatinine 0.83, Estimat Glomerular Filtration Rate > 60, BUN/Creatinine Ratio 20, Glucose Level 325H, Calcium Level 9.3, B-Type Natriuretic Peptide 151.2H 11/06/18 01:40: Blood Gas Puncture Site RIGHT RADIAL, Blood Gas Patient Temperature 97.4, Arterial Blood pH 7.32*L, Arterial Blood Partial Pressure CO2 85*H, Arterial Blood Partial Pressure O2 79, Arterial Blood HCO3 43*H, Arterial Blood Total CO2 45.9H, Arterial Blood Oxygen Saturation 95, Arterial Blood Base Excess 16.3H , Sincere Test POSITIVE, Blood Gas Ventilator Setting NO, Blood Gas Inspired Oxygen BIPAP 40% 11/06/18 05:41: Glucometer 253H 11/06/18 06:00: White Blood Count 8.3, Red Blood Count 3.75L, Hemoglobin 10.6L, Hematocrit 35, Mean Corpuscular Volume 92, Mean Corpuscular Hemoglobin 28, Mean Corpuscular Hemoglobin Concent 31L, Red Cell Distribution Width 16.1H, Platelet Count 263, Mean Platelet Volume 10.3, Neutrophils (%) (Auto) 86H, Lymphocytes (%) (Auto) 5L , Monocytes (%) (Auto) 9, Eosinophils (%) (Auto) 0, Basophils (%) (Auto) 0, Neutrophils # (Auto) 7.1, Lymphocytes # (Auto) 0.4L, Monocytes # (Auto) 0.7, Eosinophils # (Auto) 0.0, Basophils # (Auto) 0.0, Sodium Level 137, Potassium Level 4.9, Chloride Level 93L, Carbon Dioxide Level 34H, Anion Gap 10, Blood Urea Nitrogen 18, Creatinine 0.77, Estimat Glomerular Filtration Rate > 60, BUN/ Creatinine Ratio 23, Glucose Level 254H, Calcium Level 9.0, Corrected Calcium 9.4, Magnesium Level 1.9, Total Bilirubin 0.3, Aspartate Amino Transf (AST/SGOT ) 18, Alanine Aminotransferase (ALT/SGPT) 27, Alkaline Phosphatase 53, Total Protein 6.5, Albumin 3.5 Microbiology 11/05/18 Influenza Types A,B Antigen (DEX) - Final, Complete Assessment/Plan Assessment/Plan Assess & Plan/Chief Complaint Pneumonia. COPD with acute exacerbation. Diabetes. 6 schizophrenic. Dementia. DO NOT RESUSCITATE. Family does not want any heroics. Patient yesterday nonresponsive. Patient talking and awake today Clinical Quality Measures Admission Status Admission Dx Pneumonia. COPD. CAD. Diabetes. Sleep apnea. Dementia. Schizophrenia DVT/VTE Risk/Contraindication: Risk Factor Score Per Nursin RFS Level Per Nursing on Admit: 3=High ARA MONTANEZ DO Nov 06, 2018 08:17
[2018-11-06] MEDS ORDERED: NON-FORMULARY MEDICATION 1 EA EA (Quetiapine Fumarate 100 MG) PO SCH (09:00)
[2018-11-06] MEDS ORDERED: NON-FORMULARY MEDICATION 1 EA EA (Sitagliptin Phosphate (Januvia) 100 MG) PO SCH (09:00)
[2018-11-06] MEDS ORDERED: NON-FORMULARY MEDICATION 1 EA EA (Aripiprazole 10 MG) PO SCH (09:00)
[2018-11-06] MEDS ORDERED: NON-FORMULARY MEDICATION 1 EA EA (Ramipril 10 MG) PO SCH (09:00)
[2018-11-06] MEDS ORDERED: NON-FORMULARY MEDICATION 1 EA EA (Risperidone 2 MG) PO SCH (09:00)
[2018-11-06] MEDS ORDERED: NON-FORMULARY MEDICATION 1 EA EA (Docusate Sodium 100 MG) PO SCH (09:00)
--- NOTE | 2018-11-06 09:14 | Diagnostic Imaging Report ---
INDICATION: Pneumonia Portable chest 8:55 AM There is cardiomegaly. There is some atelectasis at the right lung base. Left lung is clear. IMPRESSION: Right basilar atelectasis. Dictated by: Dictated on workstation # [id number]
--- NOTE | 2018-11-06 10:07 | Pulmonary Consultation ---
History of Present Illness History of Present Illness Date of Consultation 11/06/18 10:02 Time Seen by Provider: 10:05 Date of Admission History of Present Illness 73yo presented to ED via EMS from [facility] secondary to worsening SOB, and Nonproductive cough. Denies CP/abd pain, f/c/NS. I am consulted for pulmonary management. Allergies and Home Medications Allergies Coded Allergies: Penicillins (Unverified Allergy, Unknown, 04/01/13) strawberry (Unverified Allergy, Unknown, 12/23/14) FROM UNCODED ALLERGIES tomato (Unverified Allergy, Unknown, 12/23/14) FROM UNCODED ALLERGIES Home Medications Acetaminophen 325 Mg Tablet, 650 MG PO Q4H PRN for PAIN-MILD, (Reported) TAKES 2 (325MG) TABLETS Albuterol Sulfate 2.5 Mg/3 Ml Vial.neb, 2.5 MG INH TID Prescribed by: KADEN GREEN on 11/13/18 1048 Aripiprazole 10 Mg Tablet, 10 MG PO DAILY, (Reported) Aspirin 81 Mg Tablet.dr, 81 MG PO DAILY, (Reported) Cefdinir 300 Mg Capsule, 300 MG PO BID Prescribed by: KADEN GREEN on 11/13/18 1048 Dextrose 37.5 Gm Gel..gram., 1 PACKET PO UD PRN for HYPOGLYCEMIA, (Reported) GIVE 1 PACKET EVERY 15 MINUTES NEEDED. RE-CHECK BS IN 15 MINUTES, IF BS IS NOT RISING, GIVE ANOTHER PACKET. IF NO CHANGE IN BS OR IF CHANGE IS LOC GIVE IM GLUCAGON AND NOTIFY PHYSICIAN. Docusate Sodium 100 Mg Capsule, 100 MG PO DAILY, (Reported) Docusate Sodium 100 Mg Capsule, 100 MG PO Q12H PRN for CONSTIPATION-1ST LINE, ( Reported) Furosemide 20 Mg Tablet, 60 MG PO DAILY, (Reported) TAKES 3 (20MG) TABLETS Glucagon,Human Recombinant 1 Mg/Kit Soln, 1 MG IJ UD PRN for BLOOD GLUCOSE <60, (Reported) Insulin Aspart 300 Units/3 Ml Solution, SC ACHS, (Reported) 150-199 = 2 UNITS 200-249 = 3 UNITS 250-299 = 4 UNITS 300-349 = 5 UNITS 350- 399 = 6 UNITS >400 = 7 UNITS AND NOTIFY PHYSICIAN NOTIFY PHYSICIAN IF BS <70 OR >400 Insulin Aspart 300 Units/3 Ml Solution, 5 UNITS SQ 1800, (Reported) Insulin Detemir 100 Unit/1 Ml Insuln.pen, 15 UNIT SQ DAILY, (Reported) HOLD IF FSBS <100 Insulin Detemir 100 Unit/1 Ml Insuln.pen, 18 UNIT SQ HS, (Reported) HOLD IF FSBS <100 Magnesium Hydroxide 400 Mg/5 Ml Oral.susp, 30 ML PO DAILY PRN for CONSTIPATION- 7TH LINE, (Reported) Metformin HCl 1,000 Mg Tablet, 1,000 MG PO BID, (Reported) Nystatin 1 Each Powder.ea., TOP Q8H PRN for GAULDING, (Reported) Quetiapine Fumarate 100 Mg Tablet, 100 MG PO DAILY, (Reported) Ramipril 10 Mg Capsule, 10 MG PO DAILY, (Reported) HOLD FOR SBP<100 OR PULSE <60 Risperidone 2 Mg Tablet, 2 MG PO DAILY, (Reported) Risperidone 3 Mg Tablet, 3 MG PO HS, (Reported) Simvastatin 10 Mg Tablet, 10 MG PO HS, (Reported) Sitagliptin Phosphate 100 Mg Tablet, 100 MG PO DAILY, (Reported) Past Jpsjfkn-Mldkna-Hbdrpa Hx Patient Social History Alcohol Use: Denies Use Recreational Drug Use: No Smoking Status: Never a Smoker Recent Foreign Travel: No Contact w/Someone Who Travel: No Recent Infectious Disease Expo: No Recent Hopitalizations: No Physical Abuse: No Sexual Abuse: No Mistreated: No Fear: No Immunizations Up To Date Tetanus Booster (TDap): Unknown Date of Pneumonia Vaccine: Apr 15, 2012 Seasonal Allergies Seasonal Allergies: No Past Medical History Surgeries: Yes (CARDIAC CATH) Cardiac Respiratory: Yes (ACUTE RESPIRATORY FAILURE 12/22/14, functional dyspnea) Sleep Apnea Cardiac: Yes (CHF/ PULMONARY EDEMA 12/22/14) Chronic Edema/Swelling, Coronary Artery Disease, High Cholesterol, Hypertension Neurological: Yes Dementia 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 2.0oz. 89.479967wh; 42.9 BMI Method:Stated Exam Exam Vital Signs Date Time Temp Pulse Resp B/P (MAP) Pulse Ox O2 Delivery O2 Flow Rate FiO2 11/06/18 09:16 89 32 94 40.00 11/06/18 08:00 97.9 96 20 152/66 (94) 95 NIV Bilevel 40.00 11/06/18 07:00 99 11/06/18 04:00 98.6 98 12 133/62 (85) 94 NIV Bilevel 40.00 11/06/18 02:50 96 27 92 40.00 11/06/18 01:47 102 11/06/18 00:15 97 20 93 40.00 11/06/18 00:00 98.2 104 22 137/60 (85) 98 NIV Bilevel 40.00 11/05/18 23:20 101 31 93 40.00 11/05/18 23:05 86 High Flow N/C 10.00 11/05/18 23:00 68 High Flow N/C 5.00 11/05/18 20:00 93 High Flow N/C 4.00 11/05/18 19:12 92 Nasal Cannula 6.00 11/05/18 19:09 97.4 101 20 138/69 (92) 96 Nasal Cannula 5.00 11/05/18 15:35 97.8 107 18 176/77 (110) 96 Nasal Cannula 4.00 11/05/18 13:08 98.9 100 20 159/70 94 Nasal Cannula 4.00 11/05/18 12:15 94 Nasal Cannula 4.00 11/05/18 12:05 70 20 146/46 (79) 98 I & O 11/06/18 07:00 Intake Total 2095 ml Output Total 1050 ml Balance 1045 ml Height & Weight Height: 4'9.00" Weight: 198lbs. 2.0oz. 89.903378ji; 42.9 BMI Method:Stated General Appearance: No Apparent Distress, WD/WN HEENT: Normal ENT Inspection Neck: Full Range of Motion, Normal Inspection Respiratory: No Accessory Muscle Use, No Respiratory Distress, Decreased Breath Sounds Cardiovascular: Regular Rate, Rhythm, No Murmur Capillary Refill: Less Than 3 Seconds Gastrointestinal: non tender, soft Extremity: Normal Inspection Neurologic/Psychiatric: Alert, No Motor/Sensory Deficits Skin: Normal Color, Warm/Dry Results Lab Laboratory Tests 11/05/18 08:50 11/06/18 00:05 11/06/18 06:00 Assessment/Plan Assessment/Plan Acute on chronic respiratory failure -BiPAP -Pt is a DNR -Influenza is negative Pneumonia COPDAE -SVNs -Oxygen DM Schizophrenia Dementia Metabolic encephalopathy CAD Diabetes. Sleep apnea KEYANA DUBOIS DO Nov 06, 2018 10:07
[2018-11-06] MEDS: CEFEPIME 2,000 MG/SWFI 20 ML IV PUSH IV SCH ×2 (10:15)
[2018-11-06] MEDS: LINAGLIPTIN (TRADJENTA) 5 MG TABLET PO SCH (10:16)
[2018-11-06] MEDS: QUEtiapine 100 MG (SEROquel) TAB IMMEDIATE RELEASE PO SCH ×2 (10:16→21:09)
[2018-11-06] MEDS: risperiDONE 2 MG (RisperDAL) TAB PO SCH (10:16)
[2018-11-06] MEDS: ASPIRIN E.C. 81 MG (ECOTRIN) TAB PO SCH (10:16)
[2018-11-06] MEDS: FUROSEMIDE 20 MG (LASIX) TAB PO SCH (10:16)
[2018-11-06] MEDS: DOCUSATE SODIUM 100 MG (COLACE) CAP PO SCH (10:16)
[2018-11-06] MEDS: lisINopril 10 MG (PRINIVIL) TABLET PO SCH (10:17)
[2018-11-06 12:00] VITALS: BP 105/70
[2018-11-06 15:58] VITALS: BP 180/79
[2018-11-06 20:22] VITALS: BP 176/73
[2018-11-06] MEDS: SIMvastatin 10 MG (ZOCOR) TAB PO SCH (21:09)
[2018-11-06] MEDS: risperiDONE 1 MG (RisperDAL) TAB PO SCH (21:09)
[2018-11-07] VITALS: BP 138/67
[2018-11-07] MEDS: RT-ALBUTEROL/IPRATROPIUM 3 ML (DUONEB) VIAL IH SCH ×4 (02:52→19:17)
[2018-11-07 04:15] LABS: BASOPHILS % (AUTO) 0 % (0-10); EOSINOPHILS % (AUTO) 0 % (0-10); HEMATOCRIT 33 % (35-52); HEMOGLOBIN 10.1 G/DL (11.5-16.0); LYMPHOCYTES # (AUTO) 0.7 X 10^3 (1.0-4.0); LYMPHOCYTES % (AUTO) 7 % (12-44); MEAN CORPUSCULAR HEMOGLOBIN 28 PG (25-34); MEAN CORPUSCULAR HGB CONC 30 G/DL (32-36); MEAN CORPUSCULAR VOLUME 93 FL (80-99); MEAN PLATELET VOLUME 10.7 FL (7.4-10.4); MONOCYTES % (AUTO) 9 % (0-12); NEUTROPHILS # (AUTO) 8.9 X 10^3 (1.8-7.8); NEUTROPHILS % (AUTO) 84 % (42-75); PLATELET COUNT 260 10^3/uL (130-400); RED CELL DISTRIBUTION WIDTH 15.6 % (10.0-14.5); WHITE BLOOD COUNT 10.6 10^3/uL (4.3-11.0)
[2018-11-07 04:40] LABS: ALANINE AMINOTRANSFERASE 25 U/L (0-55); ALBUMIN 3.3 GM/DL (3.2-4.5); ALKALINE PHOSPHATASE 49 U/L (40-136); BILIRUBIN,TOTAL 0.3 MG/DL (0.1-1.0); BUN/CREATININE RATIO 30; CALCIUM 9.2 MG/DL (8.5-10.1); CARBON DIOXIDE 38 MMOL/L (21-32); CHLORIDE 91 MMOL/L (98-107); CREATININE SERUM 0.74 MG/DL (0.60-1.30); GFR ESTIMATED > 60; GLUCOSE 225 MG/DL (70-105); POTASSIUM 4.5 MMOL/L (3.6-5.0); SODIUM 138 MMOL/L (135-145); TOTAL PROTEIN 6.3 GM/DL (6.4-8.2)
[2018-11-07 04:48] VITALS: BP 152/71
[2018-11-07] MEDS: methylPREDNISolone 40 MG/ML (Solu-MEDROL) VIAL IV SCH ×2 (06:45→17:04)
[2018-11-07] MEDS: metFORMIN 500 MG (GLUCOPHAGE) TAB PO SCH ×2 (06:45→17:04)
[2018-11-07] MEDS: inSUlin ASPART (NovoLOG) 1 UNIT/0.01 ML (CHARGE PER UNIT) SC SCH ×4 (06:46→21:42)
[2018-11-07] MEDS: NS IV 1000 ML 1,000 ML IV SCH (06:49)
[2018-11-07 08:00] VITALS: BP 138/70
--- NOTE | 2018-11-07 08:00 | NUR ---
DR MONTANEZ HERE, PATIENT LETHARGIC, CONTINUE ON BIPAP, HOB ELEVATED
--- NOTE | 2018-11-07 08:09 | Diagnostic Imaging Report ---
INDICATION: Pneumonia, followup. TECHNIQUE: Single view chest 6:04 AM. CORRELATION STUDY: 11/06/2018 FINDINGS: Heart size enlarged, mediastinum stable. Vasculature unchanged. Previous atelectasis or infiltrate right lung base has improved and essentially resolved. Probable small effusion. IMPRESSION: 1. Improvement in aeration of the right lung base. Cardiac enlargement without failure. Probable small effusions. Dictated by: Dictated on workstation # [id number]
--- NOTE | 2018-11-07 08:15 | Progress Note (SOAP) ---
Subjective Time Seen by a Provider: 08:13 Subjective/Events-last exam Patient lethargic. Patient does respond to pain. Hypercapnia. COPD with acute exacerbation. Pneumonia. Patient not a candidate for ventilator Focused Exam Lactate Level 11/05/18 09:50: Lactic Acid Level 1.96 Objective Exam Vital Signs Date Time Temp Pulse Resp B/P (MAP) Pulse Ox O2 Delivery O2 Flow Rate FiO2 11/07/18 07:10 83 23 95 40.00 11/07/18 07:00 96 11/07/18 04:48 98.0 99 22 152/71 (98) 95 Vapotherm 40.00 25.00 11/07/18 04:27 94 30 93 40.00 11/07/18 02:52 94 33 94 40.00 11/07/18 01:00 97 11/07/18 00:45 94 33 92 40.00 11/07/18 00:00 98.0 96 20 138/67 (90) 97 Vapotherm 40.00 25.00 11/06/18 21:17 100 39 95 40.00 11/06/18 20:25 Vapotherm 18.00 11/06/18 20:22 97.2 107 22 176/73 (107) 91 Vapotherm 40.00 25.00 11/06/18 19:00 109 11/06/18 15:58 97.0 113 20 180/79 (112) 99 Vapotherm 40.00 25.00 11/06/18 15:08 109 38 96 40.00 11/06/18 12:41 103 11/06/18 12:00 98.6 104 20 105/70 (82) 94 Vapotherm 40.00 25.00 11/06/18 09:16 89 32 94 40.00 I & O 11/07/18 07:00 Intake Total 4250 ml Output Total 1850 ml Balance 2400 ml Capillary Refill : Less Than 3 SecondsLess Than 3 Seconds General Appearance: No Apparent Distress, WD/WN HEENT: Normal ENT Inspection Neck: Normal Inspection Respiratory: No Accessory Muscle Use, No Respiratory Distress, Decreased Breath Sounds Cardiovascular: Regular Rate, Rhythm, No Murmur Gastrointestinal: non tender, soft Results Lab Laboratory Tests 11/07/18 03:50 Laboratory Tests 11/06/18 10:59: Glucometer 192H 11/06/18 15:22: Glucometer 283H 11/06/18 20:52: Glucometer 329H 11/07/18 03:50: White Blood Count 10.6, Red Blood Count 3.56L, Hemoglobin 10.1L, Hematocrit 33L , Mean Corpuscular Volume 93, Mean Corpuscular Hemoglobin 28, Mean Corpuscular Hemoglobin Concent 30L, Red Cell Distribution Width 15.6H, Platelet Count 260, Mean Platelet Volume 10.7H, Neutrophils (%) (Auto) 84H, Lymphocytes (%) (Auto) 7L, Monocytes (%) (Auto) 9, Eosinophils (%) (Auto) 0, Basophils (%) (Auto) 0, Neutrophils # (Auto) 8.9H, Lymphocytes # (Auto) 0.7L, Monocytes # (Auto) 1.0, Eosinophils # (Auto) 0.0, Basophils # (Auto) 0.0, Sodium Level 138, Potassium Level 4.5, Chloride Level 91L, Carbon Dioxide Level 38H, Anion Gap 9, Blood Urea Nitrogen 22H, Creatinine 0.74, Estimat Glomerular Filtration Rate > 60, BUN /Creatinine Ratio 30, Glucose Level 225H, Calcium Level 9.2, Corrected Calcium 9.8, Total Bilirubin 0.3, Aspartate Amino Transf (AST/SGOT) 18, Alanine Aminotransferase (ALT/SGPT) 25, Alkaline Phosphatase 49, Total Protein 6.3L, Albumin 3.3 11/07/18 05:04: Glucometer 231H Microbiology 11/05/18 Blood Culture - Preliminary, Resulted No growth 11/05/18 Influenza Types A,B Antigen (DEX) - Final, Complete Assessment/Plan Assessment/Plan Assess & Plan/Chief Complaint Pneumonia. COPD with acute exacerbation. Diabetes. 6 schizophrenic. Dementia. DO NOT RESUSCITATE. Family does not want any heroics. Patient yesterday nonresponsive. Patient talking and awake today. . 11/07/18. Pneumonia. COPD with acute exacerbation. Diabetes. Schizophrenia. Dementia. DO NOT RESUSCITATE. Hypercapnia Clinical Quality Measures Admission Status Admission Dx Pneumonia. COPD. CAD. Diabetes. Sleep apnea. Dementia. Schizophrenia DVT/VTE Risk/Contraindication: Risk Factor Score Per Nursin RFS Level Per Nursing on Admit: 3=High ARA MONTANEZ DO Nov 07, 2018 08:15
--- NOTE | 2018-11-07 08:38 | Pulmonary Progress Note ---
Subjective Time Seen by a Provider: 08:00 Subjective/Events-last exam Pt is still on BiPAP and very lethargic. SHe is a DNR. Sepsis Event Evaluation Height, Weight, BMI Height: 4'9.00" Weight: 239lbs. 11.2oz. 108.275184tn; 42.9 BMI Method:Stated Focused Exam Lactate Level 11/05/18 09:50: Lactic Acid Level 1.96 Exam Exam Vital Signs Date Time Temp Pulse Resp B/P (MAP) Pulse Ox O2 Delivery O2 Flow Rate FiO2 11/07/18 08:23 81 29 91 30.00 11/07/18 08:00 98.0 87 30 138/70 (92) 93 NIV Bilevel 30.00 11/07/18 08:00 91 NIV Bilevel 30.00 11/07/18 07:10 83 23 95 40.00 11/07/18 07:00 96 11/07/18 04:48 98.0 99 22 152/71 (98) 95 Vapotherm 40.00 25.00 11/07/18 04:27 94 30 93 40.00 11/07/18 02:52 94 33 94 40.00 11/07/18 01:00 97 11/07/18 00:45 94 33 92 40.00 11/07/18 00:00 98.0 96 20 138/67 (90) 97 Vapotherm 40.00 25.00 11/06/18 21:17 100 39 95 40.00 11/06/18 20:25 Vapotherm 18.00 11/06/18 20:22 97.2 107 22 176/73 (107) 91 Vapotherm 40.00 25.00 11/06/18 19:00 109 11/06/18 15:58 97.0 113 20 180/79 (112) 99 Vapotherm 40.00 25.00 11/06/18 15:08 109 38 96 40.00 11/06/18 12:41 103 11/06/18 12:00 98.6 104 20 105/70 (82) 94 Vapotherm 40.00 25.00 11/06/18 09:16 89 32 94 40.00 I & O 11/07/18 07:00 Intake Total 4250 ml Output Total 1850 ml Balance 2400 ml Height & Weight Height: 4'9.00" Weight: 239lbs. 11.2oz. 108.945909th; 42.9 BMI Method:Stated General Appearance: No Apparent Distress, WD/WN HEENT: Normal ENT Inspection Neck: Normal Inspection Respiratory: No Accessory Muscle Use, No Respiratory Distress, Decreased Breath Sounds Cardiovascular: Regular Rate, Rhythm, No Murmur Capillary Refill: Less Than 3 Seconds Gastrointestinal: non tender, soft Extremity: Normal Inspection Neurologic/Psychiatric: No Motor/Sensory Deficits Skin: Normal Color, Warm/Dry Results Lab Laboratory Tests 11/05/18 08:50 11/06/18 00:05 11/06/18 06:00 11/07/18 03:50 Assessment/Plan Assessment/Plan Acute on chronic respiratory failure -BiPAP -Pt is a DNR -Influenza is negative Lethargy -Decrease Risperdal -Repeat ABG Pneumonia COPDAE -SVNs -Oxygen DM Schizophrenia Dementia Metabolic encephalopathy CAD Diabetes. Sleep apnea KEYANA DUBOIS DO Nov 07, 2018 08:38
[2018-11-07] MEDS: CEFEPIME 2,000 MG/SWFI 20 ML IV PUSH IV SCH ×2 (09:40)
--- NOTE | 2018-11-07 09:40 | NUR ---
PATIENT LETHARGIC, PO MEDS HELD, DR MONTANEZ NOTIFIED AND ORDERS GIVEN FOR IV LASIX 40MG TIMES ONE.
[2018-11-07] MEDS: ENOXAPARIN 60 MG/0.6 ML (LOVENOX) SYR SC SCH ×2 (09:41→20:03)
[2018-11-07] MEDS: lisINopril 10 MG (PRINIVIL) TABLET PO SCH (09:41)
[2018-11-07] MEDS: LINAGLIPTIN (TRADJENTA) 5 MG TABLET PO SCH (09:41)
[2018-11-07] MEDS: QUEtiapine 100 MG (SEROquel) TAB IMMEDIATE RELEASE PO SCH ×2 (09:41→20:03)
[2018-11-07] MEDS: risperiDONE 2 MG (RisperDAL) TAB PO SCH (09:42)
[2018-11-07] MEDS: ASPIRIN E.C. 81 MG (ECOTRIN) TAB PO SCH (09:42)
[2018-11-07] MEDS: DOCUSATE SODIUM 100 MG (COLACE) CAP PO SCH (09:42)
[2018-11-07] MEDS: FUROSEMIDE 20 MG (LASIX) TAB PO SCH (09:42)
[2018-11-07 11:02] LABS: ABG BASE EXCESS 16.2 MMOL/L (-2.5-2.5); ABG OXYGEN SATURATION 97 % (94-100); ABG PH 7.38 (7.37-7.43); ABG PO2 96 MMHG (79-93); ABG TCO2 44.4 MMOL/L (21.0-31.0)
[2018-11-07 11:07] LABS: ALLENS TEST YES-POS; INSPIRED O2 30%; PATIENT TEMP 98.1; VENTILATOR NO
[2018-11-07 11:08] LABS: ABG PCO2 73 MMHG (35-45)
--- NOTE | 2018-11-07 11:45 | NUR ---
ABG RESULTS CALLED TO DR DUBOIS, ORDERS FOR VAPOTHERM
[2018-11-07 12:00] VITALS: BP 133/75
--- NOTE | 2018-11-07 12:00 | NUR ---
AWAKE, REQUESTING LUNCH, REFUSED SCD'S, DR MONTANEZ INFORMED PATIENT AWAKE AND ALERT
[2018-11-07] MEDS ORDERED: FUROSEMIDE 40 MG/4 ML INJ (LASIX) IVP NR (12:15)
[2018-11-07 15:42] VITALS: BP 146/66
[2018-11-07 19:55] VITALS: BP 168/79
[2018-11-07] MEDS: risperiDONE 1 MG (RisperDAL) TAB PO SCH (20:03)
[2018-11-07] MEDS: SIMvastatin 10 MG (ZOCOR) TAB PO SCH (20:03)
[2018-11-08 00:20] VITALS: BP 157/66
[2018-11-08] MEDS: RT-ALBUTEROL/IPRATROPIUM 3 ML (DUONEB) VIAL IH SCH ×4 (02:25→19:59)
[2018-11-08] MEDS: NS IV 1000 ML 1,000 ML IV SCH (02:40)
[2018-11-08 03:15] VITALS: BP 152/69
[2018-11-08 05:19] LABS: HEMOGLOBIN 10.1 G/DL (11.5-16.0); MEAN PLATELET VOLUME 10.1 FL (7.4-10.4); RED CELL DISTRIBUTION WIDTH 15.6 % (10.0-14.5); WHITE BLOOD COUNT 11.1 10^3/uL (4.3-11.0)
[2018-11-08] MEDS: inSUlin ASPART (NovoLOG) 1 UNIT/0.01 ML (CHARGE PER UNIT) SC SCH ×4 (05:48→21:16)
[2018-11-08] MEDS: methylPREDNISolone 40 MG/ML (Solu-MEDROL) VIAL IV SCH ×2 (05:48→17:33)
[2018-11-08 05:53] LABS: BUN/CREATININE RATIO 33; CALCIUM 8.9 MG/DL (8.5-10.1); CARBON DIOXIDE 35 MMOL/L (21-32); CHLORIDE 91 MMOL/L (98-107); CREATININE SERUM 0.73 MG/DL (0.60-1.30); GFR ESTIMATED > 60; GLUCOSE 223 MG/DL (70-105); POTASSIUM 4.4 MMOL/L (3.6-5.0); SODIUM 138 MMOL/L (135-145)
[2018-11-08] MEDS: metFORMIN 500 MG (GLUCOPHAGE) TAB PO SCH ×2 (06:00→17:32)
[2018-11-08 08:00] VITALS: BP 166/83
--- NOTE | 2018-11-08 08:18 | Pulmonary Progress Note ---
Subjective Time Seen by a Provider: 08:18 Subjective/Events-last exam Pt is requiring Vapotherm oxygen Sepsis Event Evaluation Height, Weight, BMI Height: 4'9.00" Weight: 207lbs. 5.0oz. 94.419315el; 42.9 BMI Method:Stated Focused Exam Lactate Level 11/05/18 09:50: Lactic Acid Level 1.96 Exam Exam Vital Signs Date Time Temp Pulse Resp B/P (MAP) Pulse Ox O2 Delivery O2 Flow Rate FiO2 11/08/18 07:36 91 Vapotherm 15.00 40 11/08/18 03:15 98.0 107 28 152/69 (96) 93 Vapotherm 11/08/18 02:25 92 Vapotherm 15.00 40 11/08/18 01:00 108 11/08/18 00:20 99.2 116 26 157/66 (96) 94 Vapotherm 40.00 11/07/18 20:21 99 11/07/18 20:20 Vapotherm 15.00 11/07/18 19:55 97.4 106 22 168/79 (108) 90 Vapotherm 40.00 15.00 11/07/18 19:20 96 11/07/18 19:17 92 Vapotherm 15.00 40 11/07/18 15:42 97.4 102 22 146/66 (92) 93 Vapotherm 40.00 15.00 11/07/18 14:59 94 Vapotherm 20.00 40 11/07/18 13:00 96 11/07/18 12:00 98.1 89 24 133/75 (94) 92 NIV Bilevel 30.00 11/07/18 11:52 95 Vapotherm 25.00 40 11/07/18 10:57 89 30 92 30.00 11/07/18 08:23 81 29 91 30.00 I & O 11/08/18 07:00 Intake Total 3640 ml Output Total 2050 ml Balance 1590 ml Height & Weight Height: 4'9.00" Weight: 207lbs. 5.0oz. 94.384214qb; 42.9 BMI Method:Stated General Appearance: No Apparent Distress, WD/WN HEENT: Normal ENT Inspection Neck: Normal Inspection Respiratory: No Accessory Muscle Use, No Respiratory Distress, Decreased Breath Sounds Cardiovascular: Regular Rate, Rhythm, No Murmur Capillary Refill: Less Than 3 Seconds Gastrointestinal: non tender, soft Extremity: Normal Inspection Neurologic/Psychiatric: No Motor/Sensory Deficits Skin: Normal Color, Warm/Dry Results Lab Laboratory Tests 11/07/18 03:50 11/08/18 05:05 Assessment/Plan Assessment/Plan Acute on chronic respiratory failure -BiPAP/vapotherm -Pt is a DNR -Influenza is negative pulmonary edema -Will give 80mg of lasix IV -D/C PO lasix Lethargy -Decrease Risperdal -Repeat ABG Pneumonia COPDAE -SVNs -Oxygen DM Schizophrenia Dementia Metabolic encephalopathy CAD Diabetes. Sleep apnea KEYANA DUBOIS DO Nov 08, 2018 08:18
--- NOTE | 2018-11-08 08:29 | Diagnostic Imaging Report ---
Indication: Dyspnea, followup pneumonia. Comparison: 11/07/2018. Discussion: Single portable upright view of the chest was obtained. Mild cardiomegaly is stable. Infiltrates within the left lung base are not significantly changed. Small left pleural effusion is likely also present. Mild interstitial thickening within the upper lungs is essentially stable given differences in technique. No pneumothorax or osseous abnormality. Impression: 1. Stable chest. Dictated by: Dictated on workstation # [id number]
--- NOTE | 2018-11-08 08:30 | Progress Note-Hospitalist ---
Subjective HPI/CC On Admission Date Seen by Provider: Nov 08, 2018 Time Seen by Provider: 07:30 Subjective/Events-last exam Patient reports she is doing better Maintain on Vapotherm Incontinent of feces Chronically debilitated DO NOT RESUSCITATE Poor prognosis Review of Systems General: Fatigue Pulmonary: Dyspnea Focused Exam Lactate Level Objective Exam Vital Signs Vital Signs Date Time Temp Pulse Resp B/P (MAP) Pulse Ox O2 Delivery O2 Flow Rate FiO2 11/08/18 14:55 91 Vapotherm 15.00 40 11/08/18 12:46 100 11/08/18 12:00 98.9 34 149/70 (96) Capillary Refill : Less Than 3 SecondsLess Than 3 Seconds General Appearance: No Apparent Distress, WD/WN, Chronically ill, Obese HEENT: Normal ENT Inspection Neck: Normal Inspection Respiratory: No Accessory Muscle Use, No Respiratory Distress, Decreased Breath Sounds Cardiovascular: Regular Rate, Rhythm, No Murmur Gastrointestinal: Non Tender, Soft Extremity: Normal Inspection Neurologic/Psychiatric: No Motor/Sensory Deficits Skin: Normal Color, Warm/Dry Results/Procedures Lab Laboratory Tests 11/08/18 05:05 Patient resulted labs reviewed. Assessment/Plan Assessment and Plan Assess & Plan/Chief Complaint Acute on chronic respiratory failure maintained on biPAP and Vapotherm Pulmonary edema on Lasix Pneumonia AECOPD DM Schizophrenia Dementia Metabolic encephalopathy CAD Diabetes. Sleep apnea Chronic debility Plan: Supportive care Poor prognosis Diagnosis/Problems Diagnosis/Problems (1) Respiratory failure Status: Acute Qualifiers: Chronicity: acute on chronic Respiratory failure complication: unspecified whether with hypoxia or hypercapnia Qualified Codes: J96.20 - Acute and chronic respiratory failure, unspecified whether with hypoxia or hypercapnia (2) BiPAP (biphasic positive airway pressure) dependence Status: Acute (3) Obesity Status: Chronic Qualifiers: Obesity type: due to excess calories Obesity classification: adult class 3 (BMI >= 40) Serious obesity comorbidity presence: with serious comorbidity Body mass index: BMI 40.0-44.9 Qualified Codes: E66.01 - Morbid (severe) obesity due to excess calories; Z68.41 - Body mass index (BMI) 40.0-44.9, adult (4) Schizophrenia Status: Chronic Qualifiers: Schizophrenia type: unspecified Qualified Codes: F20.9 - Schizophrenia, unspecified (5) Fecal incontinence Status: Acute Qualifiers: Fecal incontinence type: unspecified Qualified Codes: R15.9 - Full incontinence of feces (6) Hypoxia Status: Acute Clinical Quality Measures DVT/VTE Risk/Contraindication: Risk Factor Score Per Nursin RFS Level Per Nursing on Admit: 3=High AL URBANO DO Nov 08, 2018 08:30
[2018-11-08] MEDS: FUROSEMIDE 40 MG/4 ML INJ (LASIX) IVP SCH (09:12)
[2018-11-08] MEDS: CEFEPIME 2,000 MG/SWFI 20 ML IV PUSH IV SCH ×2 (09:13)
[2018-11-08] MEDS: ENOXAPARIN 40 MG/0.4 ML (LOVENOX) SYR SC SCH ×2 (09:13→20:20)
[2018-11-08] MEDS: lisINopril 10 MG (PRINIVIL) TABLET PO SCH (09:15)
[2018-11-08] MEDS: LINAGLIPTIN (TRADJENTA) 5 MG TABLET PO SCH (09:16)
[2018-11-08] MEDS: QUEtiapine 100 MG (SEROquel) TAB IMMEDIATE RELEASE PO SCH ×2 (09:16→20:20)
[2018-11-08] MEDS: ASPIRIN E.C. 81 MG (ECOTRIN) TAB PO SCH (09:16)
[2018-11-08] MEDS: DOCUSATE SODIUM 100 MG (COLACE) CAP PO SCH (09:16)
[2018-11-08 12:00] VITALS: BP 149/70
[2018-11-08 16:00] VITALS: BP 161/73
[2018-11-08 20:00] VITALS: BP 186/80
[2018-11-08] MEDS: SIMvastatin 10 MG (ZOCOR) TAB PO SCH (20:20)
[2018-11-08] MEDS: risperiDONE 1 MG (RisperDAL) TAB PO SCH (20:20)
[2018-11-09] VITALS (7 sets, daily range): BP systolic 136–184; BP diastolic 61–81
[2018-11-09] MEDS: RT-ALBUTEROL/IPRATROPIUM 3 ML (DUONEB) VIAL IH SCH ×4 (02:24→21:40)
[2018-11-09] MEDS: methylPREDNISolone 40 MG/ML (Solu-MEDROL) VIAL IV SCH ×2 (06:01→18:17)
[2018-11-09] MEDS: metFORMIN 500 MG (GLUCOPHAGE) TAB PO SCH ×2 (06:01→16:21)
[2018-11-09] MEDS: inSUlin ASPART (NovoLOG) 1 UNIT/0.01 ML (CHARGE PER UNIT) SC SCH ×4 (06:02→20:43)
--- NOTE | 2018-11-09 07:21 | Progress Note-Hospitalist ---
Subjective HPI/CC On Admission Date Seen by Provider: Nov 09, 2018 Time Seen by Provider: 06:45 Subjective/Events-last exam Patient on Vapotherm Appears to have a bit of a rattle Patient sleeping soundly RN has no concerns Patient denies any pain Prognosis very poor Objective Exam Vital Signs Vital Signs Date Time Temp Pulse Resp B/P (MAP) Pulse Ox O2 Delivery O2 Flow Rate FiO2 11/09/18 15:09 92 Vapotherm 20.00 40 11/09/18 13:00 105 11/09/18 12:00 97.0 32 155/69 (97) Capillary Refill : Less Than 3 SecondsLess Than 3 Seconds General Appearance: No Apparent Distress, WD/WN, Chronically ill, Obese HEENT: Normal ENT Inspection Neck: Normal Inspection Respiratory: No Accessory Muscle Use, No Respiratory Distress, Crackles, Decreased Breath Sounds Cardiovascular: Regular Rate, Rhythm, No Murmur Gastrointestinal: Non Tender, Soft Extremity: Normal Inspection Skin: Normal Color, Warm/Dry Results/Procedures Lab Patient resulted labs reviewed. Assessment/Plan Assessment and Plan Assess & Plan/Chief Complaint Acute on chronic respiratory failure maintained on biPAP and Vapotherm Pulmonary edema on Lasix Pneumonia AECOPD DM Schizophrenia Dementia Metabolic encephalopathy CAD Diabetes. Sleep apnea Chronic debility Plan: Supportive care Poor prognosis rattle? Diagnosis/Problems Diagnosis/Problems (1) Respiratory failure Status: Acute Qualifiers: Chronicity: acute on chronic Respiratory failure complication: unspecified whether with hypoxia or hypercapnia Qualified Codes: J96.20 - Acute and chronic respiratory failure, unspecified whether with hypoxia or hypercapnia (2) BiPAP (biphasic positive airway pressure) dependence Status: Acute (3) Obesity Status: Chronic Qualifiers: Obesity type: due to excess calories Obesity classification: adult class 3 (BMI >= 40) Serious obesity comorbidity presence: with serious comorbidity Body mass index: BMI 40.0-44.9 Qualified Codes: E66.01 - Morbid (severe) obesity due to excess calories; Z68.41 - Body mass index (BMI) 40.0-44.9, adult (4) Schizophrenia Status: Chronic Qualifiers: Schizophrenia type: unspecified Qualified Codes: F20.9 - Schizophrenia, unspecified (5) Fecal incontinence Status: Acute Qualifiers: Fecal incontinence type: unspecified Qualified Codes: R15.9 - Full incontinence of feces (6) Hypoxia Status: Acute Clinical Quality Measures DVT/VTE Risk/Contraindication: Risk Factor Score Per Nursin RFS Level Per Nursing on Admit: 3=High AL URBANO DO Nov 09, 2018 07:21
--- NOTE | 2018-11-09 07:38 | Pulmonary Progress Note ---
Subjective Time Seen by a Provider: 15:00 Subjective/Events-last exam PT appears stable. Sepsis Event Evaluation Height, Weight, BMI Height: 4'9.00" Weight: 211lbs. 5.0oz. 95.302223vb; 42.9 BMI Method:Stated Exam Exam Vital Signs Date Time Temp Pulse Resp B/P (MAP) Pulse Ox O2 Delivery O2 Flow Rate FiO2 11/09/18 04:00 98.8 103 24 184/75 (111) 93 Vapotherm 50.00 20.00 11/09/18 02:24 92 Vapotherm 20.00 50 11/09/18 01:00 103 11/09/18 00:22 97.9 102 24 175/77 (109) 93 Vapotherm 50.00 20.00 11/08/18 20:15 91 Vapotherm 15.00 11/08/18 20:00 97.9 109 24 186/80 (115) 92 Vapotherm 40.00 15.00 11/08/18 19:59 92 Vapotherm 15.00 45 11/08/18 19:00 108 11/08/18 16:00 98.4 89 24 161/73 (102) 93 Vapotherm 40.00 15.00 11/08/18 14:55 91 Vapotherm 15.00 40 11/08/18 12:46 100 11/08/18 12:00 98.9 101 34 149/70 (96) 92 Vapotherm 40.00 15.00 11/08/18 08:00 97.9 103 32 166/83 (110) 94 Vapotherm 40.00 15.00 11/08/18 08:00 91 Vapotherm 30.00 I & O 11/09/18 07:00 Intake Total 2520 ml Output Total 2200 ml Balance 320 ml Height & Weight Height: 4'9.00" Weight: 211lbs. 5.0oz. 95.077731na; 42.9 BMI Method:Stated General Appearance: No Apparent Distress, WD/WN HEENT: Normal ENT Inspection Neck: Normal Inspection Respiratory: No Accessory Muscle Use, No Respiratory Distress, Decreased Breath Sounds Cardiovascular: Regular Rate, Rhythm, No Murmur Capillary Refill: Less Than 3 Seconds Gastrointestinal: non tender, soft Extremity: Normal Inspection Neurologic/Psychiatric: No Motor/Sensory Deficits Skin: Normal Color, Warm/Dry Results Lab Laboratory Tests 11/08/18 05:05 Assessment/Plan Assessment/Plan Acute on chronic respiratory failure -BiPAP/vapotherm -Pt is a DNR -Influenza is negative pulmonary edema - Lasix Lethargy -Risperdal Pneumonia COPDAE -SVNs -Oxygen DM Schizophrenia Dementia Metabolic encephalopathy CAD Diabetes. Sleep apnea KEYANA DUBOIS DO Nov 09, 2018 07:38
[2018-11-09] MEDS: DOCUSATE SODIUM 100 MG (COLACE) CAP PO SCH (08:30)
--- NOTE | 2018-11-09 08:30 | NUR ---
PATIENT LETHARGIC, MORNING PILLS HELD, DR DUBOIS HERE, VAPOTHERM ON, MONSIVAIS PATENT WITH CLEAR YELLOW URINE
[2018-11-09] MEDS: FUROSEMIDE 40 MG/4 ML INJ (LASIX) IVP SCH (08:38)
[2018-11-09] MEDS: lisINopril 10 MG (PRINIVIL) TABLET PO SCH ×2 (09:00→20:15)
--- NOTE | 2018-11-09 09:22 | NUR ---
O2 SAT 81, RESP RATE 32, PATIENT LETHARGIC, NOTIFIED AND PUT PATIENT BACK ON BIPAP, DR DUBOIS NOTIFIED, INCONT LARGE LIQUID BROWN STOOL, BUTTOCKS RED AND BLANCHABLE, ALLEVYN DRESSING INTACT, ZINC APPLIED TO [place] AREA, TURNED TO RIGHT SIDE, HEELS ELEVATED OFF BED ON PILLOW.
[2018-11-09] MEDS: ASPIRIN E.C. 81 MG (ECOTRIN) TAB PO SCH (09:49)
[2018-11-09] MEDS: CEFEPIME 2,000 MG/SWFI 20 ML IV PUSH IV SCH ×2 (09:49)
[2018-11-09] MEDS: LINAGLIPTIN (TRADJENTA) 5 MG TABLET PO SCH (09:49)
[2018-11-09] MEDS: QUEtiapine 100 MG (SEROquel) TAB IMMEDIATE RELEASE PO SCH ×2 (09:49→20:10)
[2018-11-09] MEDS: ENOXAPARIN 40 MG/0.4 ML (LOVENOX) SYR SC SCH ×2 (09:50→20:13)
--- NOTE | 2018-11-09 11:00 | NUR ---
continue on bipap, turned every 2 hours, o2 sat 94 percent.
--- NOTE | 2018-11-09 15:02 | NUR ---
ALERT, REQUESTED TO BE PUT ON VAPOTHERM TO EAT, RT NOTIFIED
[2018-11-09] MEDS: risperiDONE 1 MG (RisperDAL) TAB PO SCH (20:09)
--- NOTE | 2018-11-09 20:10 | NUR ---
EVENING VITALS OBTAINED AT THIS TIME BLOOD PRESSURE 181/81, 10MG LISINOPRIL GIVEN AT THIS TIME AM DOSE WAS HELD BY PREVIOUS SHIFT. WILL CONTINUE TO MONITOR BLOOD PRESSURE AND EVALUATE EFFECTIVENESS. Addendum: 11/09/18 at 2033 by RAIN GARCIA RN RECEIVED IN REPORT FROM EULALIA THAT PT HAS BEEN LETHARGIC THE LAST FEW MORNINGS AND THAT SHE HELD AM DOSE OF SEROQUIL D/T PT BEING LETHARGIC UNTIL AROUND [id number] THIS SHIFT. PT AM DOSE OF 100MG OF SEROQUIL GIVEN, NOT THE EVENING SCHEDULED 300MG.
[2018-11-09] MEDS: SIMvastatin 10 MG (ZOCOR) TAB PO SCH (20:13)
[2018-11-10] MEDS: RT-ALBUTEROL/IPRATROPIUM 3 ML (DUONEB) VIAL IH SCH ×4 (03:07→21:08)
[2018-11-10 03:32] VITALS: BP 153/91
[2018-11-10] MEDS: methylPREDNISolone 40 MG/ML (Solu-MEDROL) VIAL IV SCH (05:36)
[2018-11-10] MEDS: inSUlin ASPART (NovoLOG) 1 UNIT/0.01 ML (CHARGE PER UNIT) SC SCH ×4 (05:37→21:07)
[2018-11-10] MEDS: metFORMIN 500 MG (GLUCOPHAGE) TAB PO SCH ×2 (05:37→17:43)
--- NOTE | 2018-11-10 07:15 | Pulmonary Progress Note ---
KEYANA DUBOIS DO 11/10/18 0715: Subjective Time Seen by a Provider: 15:11 Subjective/Events-last exam Pt is requiring Vapotherm currently. Sepsis Event Evaluation Height, Weight, BMI Height: 4'9.00" Weight: 195lbs. 8.0oz. 88.088598zs; 42.9 BMI Method:Stated Exam Exam Vital Signs Date Time Temp Pulse Resp B/P (MAP) Pulse Ox O2 Delivery O2 Flow Rate FiO2 11/10/18 03:32 98.0 93 22 153/91 (111) 93 Vapotherm 40.00 20.00 11/10/18 03:07 90 Vapotherm 20.00 40 11/10/18 01:00 102 11/09/18 23:34 98.3 100 24 175/77 (109) 93 Vapotherm 40.00 20.00 11/09/18 21:40 92 Vapotherm 20.00 40 11/09/18 20:15 95 Vapotherm 20.00 40 11/09/18 20:10 97.3 97 24 181/81 (114) 95 Vapotherm 40.00 20.00 11/09/18 19:00 102 11/09/18 16:00 97.0 100 28 169/74 (105) 94 Vapotherm 40.00 20.00 11/09/18 15:09 92 Vapotherm 20.00 40 11/09/18 13:50 94 Vapotherm 20.00 40 11/09/18 13:00 105 11/09/18 12:00 97.0 106 32 155/69 (97) 95 Vapotherm 40.00 20.00 11/09/18 11:10 105 33 92 40.00 11/09/18 09:15 104 30 93 40.00 11/09/18 08:36 83 Vapotherm 20.00 50 11/09/18 08:13 91 Vapotherm 20.00 11/09/18 08:00 97.2 98 32 136/61 (86) 92 Vapotherm 50.00 20.00 I & O 11/10/18 07:00 Intake Total 2970 ml Output Total 2200 ml Balance 770 ml Height & Weight Height: 4'9.00" Weight: 195lbs. 8.0oz. 88.412232za; 42.9 BMI Method:Stated General Appearance: No Apparent Distress, WD/WN, Chronically ill, Obese HEENT: Normal ENT Inspection Neck: Normal Inspection Respiratory: No Accessory Muscle Use, No Respiratory Distress, Crackles, Decreased Breath Sounds Cardiovascular: Regular Rate, Rhythm, No Murmur Capillary Refill: Less Than 3 Seconds Gastrointestinal: non tender, soft Extremity: Normal Inspection Skin: Normal Color, Warm/Dry Assessment/Plan Assessment/Plan Acute on chronic respiratory failure -BiPAP/vapotherm currently 40% O2 20LPM -Pt is a DNR -Influenza is negative Pulmonary edema - reviewed CXR - Continue Lasix Lethargy -Risperdal Pneumonia -Repeat CBC COPDAE -SVNs DM Schizophrenia Dementia Metabolic encephalopathy CAD Diabetes. Sleep apnea JOSH DAVILA MEDICAL STUDENT 11/10/18 0830: Subjective Date Seen by a Provider: Nov 10, 2018 Time Seen by a Provider: 08:37 Subjective/Events-last exam Patient not fully alert. Not oriented to place/time. Will follow commands. Mumbled responses to questions. Currently on vapotherm 40% 20LPM. Exam Exam General Appearance: No Apparent Distress, Obese Neck: Normal Inspection Respiratory: No Respiratory Distress, Decreased Breath Sounds, Rhonci, Wheezing (short, end-expiratory ) Cardiovascular: Regular Rate, Rhythm Peripheral Pulses: 1+ Dorsalis Pedis (R), 1+ Left Dors-Pedis (L) Extremity: Non Tender, No Calf Tenderness, No Pedal Edema Neurologic/Psychiatric: No Alert (Mumbled responses to questions, will follow commands. ), No Oriented x3 Skin: Warm/Dry Assessment/Plan Assessment/Plan Acute on chronic respiratory failure -BiPAP/vapotherm currently 40% O2 20LPM -Pt is a DNR -Influenza is negative Pulmonary edema - 11/08->11/10 no significant change in CXR - Continue Lasix Lethargy -Risperdal Pneumonia -Repeat CBC COPDAE -SVNs DM Schizophrenia Dementia Metabolic encephalopathy CAD Diabetes. Sleep apnea KEYANA DUBOIS DO Nov 10, 2018 07:15 JOSH DAVILA MEDICAL STUDENT Nov 10, 2018 08:30
[2018-11-10 08:00] VITALS: BP 153/85
[2018-11-10] MEDS: lisINopril 10 MG (PRINIVIL) TABLET PO SCH (08:07)
[2018-11-10] MEDS: FUROSEMIDE 40 MG/4 ML INJ (LASIX) IVP SCH (08:07)
[2018-11-10] MEDS: LINAGLIPTIN (TRADJENTA) 5 MG TABLET PO SCH (08:07)
[2018-11-10] MEDS: CEFEPIME 2,000 MG/SWFI 20 ML IV PUSH IV SCH ×2 (08:07)
[2018-11-10] MEDS: ASPIRIN E.C. 81 MG (ECOTRIN) TAB PO SCH (08:07)
[2018-11-10] MEDS: QUEtiapine 100 MG (SEROquel) TAB IMMEDIATE RELEASE PO SCH (08:07)
[2018-11-10] MEDS: ENOXAPARIN 40 MG/0.4 ML (LOVENOX) SYR SC SCH ×2 (08:08→21:08)
[2018-11-10] MEDS: DOCUSATE SODIUM 100 MG (COLACE) CAP PO SCH (08:09)
--- NOTE | 2018-11-10 08:20 | Progress Note (SOAP) ---
Subjective Time Seen by a Provider: 08:18 Subjective/Events-last exam Patient awake today. Patient on Vapotherm. Objective Exam Vital Signs Date Time Temp Pulse Resp B/P (MAP) Pulse Ox O2 Delivery O2 Flow Rate FiO2 11/10/18 08:06 93 Vapotherm 20.00 40 11/10/18 07:00 105 11/10/18 03:32 98.0 93 22 153/91 (111) 93 Vapotherm 40.00 20.00 11/10/18 03:07 90 Vapotherm 20.00 40 11/10/18 01:00 102 11/09/18 23:34 98.3 100 24 175/77 (109) 93 Vapotherm 40.00 20.00 11/09/18 21:40 92 Vapotherm 20.00 40 11/09/18 20:15 95 Vapotherm 20.00 40 11/09/18 20:10 97.3 97 24 181/81 (114) 95 Vapotherm 40.00 20.00 11/09/18 19:00 102 11/09/18 16:00 97.0 100 28 169/74 (105) 94 Vapotherm 40.00 20.00 11/09/18 15:09 92 Vapotherm 20.00 40 11/09/18 13:50 94 Vapotherm 20.00 40 11/09/18 13:00 105 11/09/18 12:00 97.0 106 32 155/69 (97) 95 Vapotherm 40.00 20.00 11/09/18 11:10 105 33 92 40.00 11/09/18 09:15 104 30 93 40.00 11/09/18 08:36 83 Vapotherm 20.00 50 I & O 11/10/18 07:00 Intake Total 2970 ml Output Total 2200 ml Balance 770 ml Capillary Refill : Less Than 3 SecondsLess Than 3 Seconds General Appearance: No Apparent Distress, WD/WN HEENT: Normal ENT Inspection Neck: Full Range of Motion, Normal Inspection Respiratory: No Accessory Muscle Use, No Respiratory Distress Cardiovascular: Regular Rate, Rhythm Gastrointestinal: non tender, soft Results Lab Laboratory Tests 11/09/18 11:05: Glucometer 276H 11/09/18 16:21: Glucometer 228H 11/09/18 20:26: Glucometer 208H 11/10/18 05:24: Glucometer 202H Microbiology 11/05/18 Blood Culture - Preliminary, Resulted No growth 11/05/18 Influenza Types A,B Antigen (DEX) - Final, Complete Assessment/Plan Assessment/Plan Assess & Plan/Chief Complaint Pneumonia. COPD with acute exacerbation. Diabetes. 6 schizophrenic. Dementia. DO NOT RESUSCITATE. Family does not want any heroics. Patient yesterday nonresponsive. Patient talking and awake today. . 11/07/18. Pneumonia. COPD with acute exacerbation. Diabetes. Schizophrenia. Dementia. DO NOT RESUSCITATE. Hypercapnia. . . Pneumonia. COPD with acute exacerbation. Diabetes. Schizophrenia. Dementia. DO NOT RESUSCITATE. Patient awake today on Vapotherm Clinical Quality Measures Admission Status Admission Dx Pneumonia. COPD. CAD. Diabetes. Sleep apnea. Dementia. Schizophrenia DVT/VTE Risk/Contraindication: Risk Factor Score Per Nursin RFS Level Per Nursing on Admit: 3=High ARA MONTANEZ DO Nov 10, 2018 08:20
--- NOTE | 2018-11-10 09:18 | Diagnostic Imaging Report ---
INDICATION: Pneumonia. Comparison is made to prior examination from 11/08/2018. FINDINGS: There is cardiomegaly. There is moderate central pulmonary venous congestion. There are bibasilar infiltrates, left greater than right. There is left pleural effusion. There is no pneumothorax. IMPRESSION: 1. Bibasilar infiltrates, left greater than right, with left pleural effusion. 2. Cardiomegaly and some central pulmonary venous congestion. Dictated by: Dictated on workstation # [id number]
[2018-11-10 10:01] LABS: HEMOGLOBIN 11.3 G/DL (11.5-16.0); MEAN PLATELET VOLUME 10.4 FL (7.4-10.4); RED CELL DISTRIBUTION WIDTH 15.2 % (10.0-14.5); WHITE BLOOD COUNT 11.9 10^3/uL (4.3-11.0)
--- NOTE | 2018-11-10 10:19 | NUR ---
IV TO PO SWITCH- SOLUMEDROL TO PREDNISONE PER PROTOCOL
[2018-11-10 10:23] LABS: BUN/CREATININE RATIO 32; CALCIUM 9.6 MG/DL (8.5-10.1); CARBON DIOXIDE 40 MMOL/L (21-32); CHLORIDE 85 MMOL/L (98-107); CREATININE SERUM 0.69 MG/DL (0.60-1.30); GFR ESTIMATED > 60; GLUCOSE 178 MG/DL (70-105); POTASSIUM 4.3 MMOL/L (3.6-5.0); SODIUM 136 MMOL/L (135-145)
--- NOTE | 2018-11-10 14:25 | NUR ---
Pastoral care visit, pt asleep, prayer offered by bed.
[2018-11-10 16:16] VITALS: BP 183/79
[2018-11-10 20:50] VITALS: BP 189/79
[2018-11-10] MEDS: SIMvastatin 10 MG (ZOCOR) TAB PO SCH (21:08)
[2018-11-10] MEDS: risperiDONE 1 MG (RisperDAL) TAB PO SCH (21:08)
[2018-11-10 23:54] VITALS: BP 183/83
[2018-11-11] MEDS: RT-ALBUTEROL/IPRATROPIUM 3 ML (DUONEB) VIAL IH SCH ×6 (03:49→22:38)
[2018-11-11 04:56] VITALS: BP 179/82
[2018-11-11] MEDS: inSUlin ASPART (NovoLOG) 1 UNIT/0.01 ML (CHARGE PER UNIT) SC SCH ×4 (05:30→21:48)
[2018-11-11] MEDS: metFORMIN 500 MG (GLUCOPHAGE) TAB PO SCH ×2 (05:31→16:27)
[2018-11-11] MEDS: predniSONE 20 MG TAB PO SCH (05:31)
[2018-11-11 05:42] LABS: RED CELL DISTRIBUTION WIDTH 15.1 % (10.0-14.5); WHITE BLOOD COUNT 10.6 10^3/uL (4.3-11.0)
[2018-11-11 06:00] LABS: BUN/CREATININE RATIO 34; CALCIUM 9.7 MG/DL (8.5-10.1); CARBON DIOXIDE 42 MMOL/L (21-32); CHLORIDE 86 MMOL/L (98-107); CREATININE SERUM 0.68 MG/DL (0.60-1.30); GFR ESTIMATED > 60; GLUCOSE 194 MG/DL (70-105); POTASSIUM 3.9 MMOL/L (3.6-5.0); SODIUM 141 MMOL/L (135-145)
--- NOTE | 2018-11-11 06:55 | Pulmonary Progress Note ---
Subjective Time Seen by a Provider: 14:59 Subjective/Events-last exam Pt is lethargic. Still requiring a lot of oxygen. Sepsis Event Evaluation Height, Weight, BMI Height: 4'9.00" Weight: 191lbs. 8.0oz. 86.824007tp; 42.9 BMI Method:Stated Exam Exam Vital Signs Date Time Temp Pulse Resp B/P (MAP) Pulse Ox O2 Delivery O2 Flow Rate FiO2 11/11/18 04:56 98.2 103 24 179/82 (114) 91 Vapotherm 40.00 20.00 11/11/18 03:49 90 Vapotherm 20.00 40 11/11/18 01:00 95 11/10/18 23:54 97.4 94 24 183/83 (116) 92 Vapotherm 40.00 20.00 11/10/18 21:08 90 Vapotherm 20.00 40 11/10/18 20:50 98.9 105 24 189/79 (115) 94 Vapotherm 40.00 20.00 11/10/18 19:30 92 Vapotherm 20.00 40 11/10/18 19:00 102 11/10/18 16:16 99.2 86 24 183/79 (113) 94 Vapotherm 40.00 20.00 11/10/18 16:01 93 Vapotherm 20.00 40 11/10/18 12:49 103 11/10/18 08:06 93 Vapotherm 20.00 40 11/10/18 08:00 Vapotherm 20.00 11/10/18 08:00 98.3 92 22 153/85 (107) 92 Vapotherm 40.00 20.00 11/10/18 07:00 105 I & O 11/11/18 07:00 Intake Total 1450 ml Output Total 2625 ml Balance -1175 ml Height & Weight Height: 4'9.00" Weight: 191lbs. 8.0oz. 86.080435zn; 42.9 BMI Method:Stated General Appearance: No Apparent Distress, WD/WN, Chronically ill, Obese HEENT: Normal ENT Inspection Neck: Normal Inspection Respiratory: No Accessory Muscle Use, No Respiratory Distress, Crackles, Decreased Breath Sounds Cardiovascular: Regular Rate, Rhythm, No Murmur Capillary Refill: Less Than 3 Seconds Peripheral Pulses: 1+ Dorsalis Pedis (R), 1+ Left Dors-Pedis (L) Gastrointestinal: non tender, soft Extremity: Normal Inspection Neurologic/Psychiatric: No Alert (Mumbled responses to questions, will follow commands. ), No Oriented x3 Skin: Normal Color, Warm/Dry Results Lab Laboratory Tests 11/10/18 09:50 11/11/18 05:25 Assessment/Plan Assessment/Plan Acute on chronic respiratory failure -BiPAP/vapotherm -Pt is a DNR -Influenza is negative Pulmonary edema - Continue Lasix Lethargy -Risperdal Pneumonia -Repeat CBC COPDAE -SVNs DM Schizophrenia Dementia Metabolic encephalopathy CAD Diabetes. Sleep apnea KEYANA DUBOIS DO Nov 11, 2018 06:55
[2018-11-11 08:00] VITALS: BP 191/77
--- NOTE | 2018-11-11 08:14 | Progress Note (SOAP) ---
Subjective Time Seen by a Provider: 08:10 Subjective/Events-last exam Patient on Vimpat. Patient wheezing. Hypertensive area Schizoaffective. Dementia Objective Exam Vital Signs Date Time Temp Pulse Resp B/P (MAP) Pulse Ox O2 Delivery O2 Flow Rate FiO2 11/11/18 07:46 96 Vapotherm 20.00 50 11/11/18 07:00 92 11/11/18 04:56 98.2 103 24 179/82 (114) 91 Vapotherm 40.00 20.00 11/11/18 03:49 90 Vapotherm 20.00 40 11/11/18 01:00 95 11/10/18 23:54 97.4 94 24 183/83 (116) 92 Vapotherm 40.00 20.00 11/10/18 21:08 90 Vapotherm 20.00 40 11/10/18 20:50 98.9 105 24 189/79 (115) 94 Vapotherm 40.00 20.00 11/10/18 19:30 92 Vapotherm 20.00 40 11/10/18 19:00 102 11/10/18 16:16 99.2 86 24 183/79 (113) 94 Vapotherm 40.00 20.00 11/10/18 16:01 93 Vapotherm 20.00 40 11/10/18 12:49 103 I & O 11/11/18 07:00 Intake Total 1450 ml Output Total 2625 ml Balance -1175 ml Capillary Refill : Less Than 3 SecondsLess Than 3 Seconds General Appearance: No Apparent Distress, WD/WN HEENT: Normal ENT Inspection Neck: Normal Inspection Respiratory: No Accessory Muscle Use, No Respiratory Distress, Decreased Breath Sounds, Wheezing Cardiovascular: Regular Rate, Rhythm Gastrointestinal: non tender, soft Results Lab Laboratory Tests 11/10/18 09:50 11/11/18 05:25 Laboratory Tests 11/10/18 09:50: White Blood Count 11.9H, Red Blood Count 4.12L, Hemoglobin 11.3L, Hematocrit 38 , Mean Corpuscular Volume 93, Mean Corpuscular Hemoglobin 27, Mean Corpuscular Hemoglobin Concent 30L, Red Cell Distribution Width 15.2H, Platelet Count 324, Mean Platelet Volume 10.4, Sodium Level 136, Potassium Level 4.3, Chloride Level 85L, Carbon Dioxide Level 40H, Anion Gap 11, Blood Urea Nitrogen 22H, Creatinine 0.69, Estimat Glomerular Filtration Rate > 60, BUN/Creatinine Ratio 32, Glucose Level 178H, Calcium Level 9.6, B-Type Natriuretic Peptide 227.2H 11/10/18 10:58: Glucometer 276H 11/10/18 16:16: Glucometer 208H 11/10/18 20:46: Glucometer 185H 11/11/18 05:13: Glucometer 188H 11/11/18 05:25: White Blood Count 10.6, Red Blood Count 4.00L, Hemoglobin 11.0L, Hematocrit 37, Mean Corpuscular Volume 92, Mean Corpuscular Hemoglobin 28, Mean Corpuscular Hemoglobin Concent 30L, Red Cell Distribution Width 15.1H, Platelet Count 326, Mean Platelet Volume 10.0, Sodium Level 141, Potassium Level 3.9, Chloride Level 86L, Carbon Dioxide Level 42H, Anion Gap 13, Blood Urea Nitrogen 23H, Creatinine 0.68, Estimat Glomerular Filtration Rate > 60, BUN/Creatinine Ratio 34, Glucose Level 194H, Calcium Level 9.7 11/11/18 07:31: Glucometer 199H Microbiology 11/05/18 Blood Culture - Final, Complete No growth 11/05/18 Influenza Types A,B Antigen (DEX) - Final, Complete Assessment/Plan Assessment/Plan Assess & Plan/Chief Complaint Pneumonia. COPD with acute exacerbation. Diabetes. 6 schizophrenic. Dementia. DO NOT RESUSCITATE. Family does not want any heroics. Patient yesterday nonresponsive. Patient talking and awake today. . 11/07/18. Pneumonia. COPD with acute exacerbation. Diabetes. Schizophrenia. Dementia. DO NOT RESUSCITATE. Hypercapnia. . . Pneumonia. COPD with acute exacerbation. Diabetes. Schizophrenia. Dementia. DO NOT RESUSCITATE. Patient awake today on Vapotherm. . 11/10/18. Pneumonia. COPD. Diabetes. Schizophrenia. Dementia. DO NOT RESUSCITATE. Patient has wheezing and decreased breath sounds Clinical Quality Measures Admission Status Admission Dx Pneumonia. COPD. CAD. Diabetes. Sleep apnea. Dementia. Schizophrenia DVT/VTE Risk/Contraindication: Risk Factor Score Per Nursin RFS Level Per Nursing on Admit: 3=High ARA MONTANEZ DO Nov 11, 2018 08:14
[2018-11-11] MEDS ORDERED: lisINopril 10 MG (PRINIVIL) TABLET PO SCH (09:00)
[2018-11-11] MEDS: ASPIRIN E.C. 81 MG (ECOTRIN) TAB PO SCH (09:04)
[2018-11-11] MEDS: LINAGLIPTIN (TRADJENTA) 5 MG TABLET PO SCH (09:04)
[2018-11-11] MEDS: lisINopril 40 MG (PRINIVIL) TABLET PO SCH (09:05)
[2018-11-11] MEDS: ENOXAPARIN 40 MG/0.4 ML (LOVENOX) SYR SC SCH ×2 (09:05→20:32)
[2018-11-11] MEDS: FUROSEMIDE 40 MG/4 ML INJ (LASIX) IVP SCH (09:11)
[2018-11-11] MEDS: DOCUSATE SODIUM 100 MG (COLACE) CAP PO SCH (09:11)
[2018-11-11] MEDS: CEFEPIME 2,000 MG/SWFI 20 ML IV PUSH IV SCH ×2 (09:11)
--- NOTE | 2018-11-11 09:20 | NUR ---
unable to scan meds - work order already put in - not yet fixed
[2018-11-11 12:00] VITALS: BP 180/80
--- NOTE | 2018-11-11 15:42 | Occupational Therapy Eval ---
OT Evaluation-General/PLF Medical Diagnosis Admission Date Nov 05, 2018 at 11:20 Medical Diagnosis: pneuomina Onset Date: Nov 05, 2018 Therapy Diagnosis Therapy Diagnosis: impaired ADLs and mobility Height/Weight Height (Feet): 4 Height (Inches): 9.00 Weight (Pounds): 191 Weight (Ounces): 8.0 Precautions Precautions/Isolations: Fall Prevention, Standard Precautions, Pressure Ulcer Safety Interventions: Bed Exit Alarm, Reorient-Attempt, Reorient-PRN Weight Bear Status Weight Bearing Restriction: Weight Bearing/Tolerated Referral Referral Reason: Activity Tolerance, Self Care, Evaluation/Treatment, Strengthening/ROM Medical History Pertinent Medical History: CAD, DM, Heart Failure, HTN, [place] Additional Medical History schizophrenic, dementia Current History Patient resident of shelter. Patient short of breath. Pulse ox in the 60s. Patient has COPD. Patient on oxygen. Patient sent out to the emergency room. Chest x-ray shows pneumonia. Patient is schizophrenic and unable to give a good history Reviewed History: Yes Social History Home: Retirement ADL-Prior Level of Function Therapy Code Descriptions/Definitions Functional [place] Measure: 0=Not Assessed/NA 4=Minimal Assistance 1=Total Assistance 5=Supervision or Setup 2=Maximal Assistance 6=Modified [place] 3=Moderate Assistance 7=Complete [place] Therapy Quality Codes: 6 Independent with activity with or without an assistive device 5 Patient requires set up or clean up by helper. Patient completes activity by themselves 4 Supervision or touching assist (CGA). [place] provide cues , steadying assist 3 The helper provides less than half the effort to complete the activity 2 The helper provides more than half the effort to complete the activity 1 Dependent. The helper does all the effort to complete an activity 7 Patient refused to complete or attempt activity 9 The patient did not perform the activity before the current illness or injury 88 Not attempted due to Medical conditions or safety concerns Functional Abilities and Goals: Independent: Patient completed the activities by him/herself, with or without an assistive device, with no assistance from a helper. Needed Some Help: Patient needed partial assistance from another person to complete activities. Dependent: A helper completed the activities for the patient. Unknown: Not Applicable: Self Care: Needed Some Help Functional Cognition: Needed Some Help pt poor historian Drive Self: No OT Current Status Subjective pt sitting in recliner chair upon OT arrival pt agreed to OT evaluation session. pt would stated various comments throughout session such as "I gotten my legs cut off" Mental Status/Objective Patient Orientation: Person (pt only orientated to person) Attachments: Oxygen Current Glasses/Contacts: Yes Hearing Aids: No Dentures/Partials: No Hand Dominance: Right Upper Extremity ROM WFL Upper Extremity Coordination WFL Upper Extremity Sensation WFL Upper Extremity Strength Vega UE 4-/5 ADL-Treatment Therapy Code Descriptions/Definitions Functional [place] Measure: 0=Not Assessed/NA 4=Minimal Assistance 1=Total Assistance 5=Supervision or Setup 2=Maximal Assistance 6=Modified [place] 3=Moderate Assistance 7=Complete [place] Therapy Quality Codes: 6 Independent with activity with or without an assistive device 5 Patient requires set up or clean up by helper. Patient completes activity by themselves 4 Supervision or touching assist (CGA). [place] provide cues , steadying assist 3 The helper provides less than half the effort to complete the activity 2 The helper provides more than half the effort to complete the activity 1 Dependent. The helper does all the effort to complete an activity 7 Patient refused to complete or attempt activity 9 The patient did not perform the activity before the current illness or injury 88 Not attempted due to Medical conditions or safety concerns Transfers (B, C, W/C) (FIM): 2 Education Teaching Recipient: Patient Response to Teaching: Verbalize Understanding OT Short Term Goals Short Term Goals Grooming(FIM): 4 Bathing(FIM): 3 Transfers (B,C,W/C) (FIM): 3 Toilet/Commode Transfer(FIM): 3 1=Demonstrate adherence to instructed precautions during ADL tasks. 2=Patient will verbalize/demonstrate understanding of assistive devices/ modifications for ADL. 3=Patient will improve strength/tolerance for activity to enable patient to perform ADL's. OT Residential Goals Residential Goals Grooming(FIM): 5 Bathing(FIM): 4 Toileting(FIM): 4 Transfers (B,C,W/C) (FIM): 5 Toilet/Commode Transfer(FIM): 4 1=Demonstrate adherence to instructed precautions during ADL tasks. 2=Patient will verbalize/demonstrate understanding of assistive devices/ modifications for ADL. 3=Patient will improve strength/tolerance for activity to enable patient to perform ADL's. OT Education/Plan Problem List/Assessment Assessment: Decreased Activ Tolerance, Decreased Safety Aware, Decreased UE Strength, Dependent Transfers, Impaired Bed Mobility, Impaired Cognition, Impaired Coordination, Impaired Funct Balance, Impaired I ADL's, Impaired Self- Care Skills pt presents to OT services with functional limitations affecting areas of ADLS and functional transfers. currently pt requires total assist for UE/ LE dressing , MAX A for functional transfers (stand pivot), Dep for toileting, and MIN A for grooming. pt would benefit from OT services to increase independence with ADLs/ functional transfers Discharge Recommendations Plan/Recommendations: Continue POC Therapy D/C Recommendations: 24 hr Supervision, Fpc (TCU/NH) Treatment Plan/Plan of Care Treatment,Training & Education: Yes Patient would benefit from OT for education, treatment and training to promote independence in ADL's, mobility, safety and/or upper extremity function for ADL' s. Plan of Care: ADL Retraining, Functional Mobility, Group Exercise/Act as Ind, Orthotic Fitting/Training, UE Funct Exercise/Act Treatment Duration: November 25, 2018 Frequency: 5 times per week Estimated Hrs Per Day: .25 hour per day Agreement: Yes Rehab Potential: Guarded Time/GCodes Start Time: 15:05 Stop Time: 15:15 Billed Treatment Time EVM 15 minutes ORLANDO URENA OT Nov 11, 2018 15:42
[2018-11-11 16:00] VITALS: BP 122/70
--- NOTE | 2018-11-11 16:06 | Physical Therapy Evaluation ---
PT Evaluation-General Medical Diagnosis Admission Date Nov 05, 2018 at 11:20 Medical Diagnosis: pneumonia Onset Date: Nov 05, 2018 Therapy Diagnosis Therapy Diagnosis: impaired mobility, strength, endurance Height/Weight Height (Feet): 4 Height (Inches): 9.00 Weight (Pounds): 191 Weight (Ounces): 8.0 Precautions Precautions/Isolations: Fall Prevention, Standard Precautions, Pressure Ulcer Weight Bear Status Right Lower Extremity: Right Weight Bearing/Tolerated Left Lower Extremity: Left Weight Bearing/Tolerated Referral Physician: Rusty Rodriguez DO Reason for Referral: Evaluation/Treatment Medical History Pertinent Medical History: CAD, DM, Heart Failure, HTN, [place] Additional Medical History acute resp failure, dyspnea, chronic edema, high cholesterol, dementia, chronic constipation, generalized pain, schizophrenia, surg (cardiac) Reviewed History: Yes Social History Home: Detention Prior/[facility] Prior Level of Function Therapy Code Descriptions/Definitions Functional [place] Measure: 0=Not Assessed/NA 4=Minimal Assistance 1=Total Assistance 5=Supervision or Setup 2=Maximal Assistance 6=Modified [place] 3=Moderate Assistance 7=Complete [place] Therapy Quality Codes: 6 Independent with activity with or without an assistive device 5 Patient requires set up or clean up by helper. Patient completes activity by themselves 4 Supervision or touching assist (CGA). [place] provide cues , steadying assist 3 The helper provides less than half the effort to complete the activity 2 The helper provides more than half the effort to complete the activity 1 Dependent. The helper does all the effort to complete an activity 7 Patient refused to complete or attempt activity 9 The patient did not perform the activity before the current illness or injury 88 Not attempted due to Medical conditions or safety concerns Functional Abilities and Goals: Independent: Patient completed the activities by him/herself, with or without an assistive device, with no assistance from a helper. Needed Some Help: Patient needed partial assistance from another person to complete activities. Dependent: A helper completed the activities for the patient. Unknown: Not Applicable: Patient seems to be an unreliable historian but states she was ambulating to the restroom and back at the alf using a rolling walker. PT Evaluation-Current Subjective Patient in recliner pre tx, agrees to PT, has complaints of pain but is unclear about where it is or intensity. Pt/Family Goals none stated Objective Patient Orientation: Person, Confused Attachments: [place] Catheter vapotherm ROM/Strength ROM Lower Extremities WNL Strength Lower Extremities 3/5 gross bilateral lower extremities, patient has a hard time following directions Neuromuscular (Tone, Coordination, Reflexes) NT Sensory Hand Dominance: Right Sensation Lower Extremities unreliable sensation testing, patient has a hard time following directions Transfers Therapy Code Descriptions/Definitions Functional [place] Measure: 0=Not Assessed/NA 4=Minimal Assistance 1=Total Assistance 5=Supervision or Setup 2=Maximal Assistance 6=Modified [place] 3=Moderate Assistance 7=Complete [place] Transfers (B, C, W/C) (FIM): 2 Scootin Rollin Supine to/from Sit: 2 Sit to/from Stand: 2 Patient was not able to stand completely in front of the recliner and take steps to the bed. Therapist had to spinneret cleaner front and perform the transfer with max assist. Needs cues for hand placement and positioning. Balance Sitting Static: Good Sitting Dynamic: Good Standing Static: Poor Standing Dynamic: Poor Treatment Patient would not follow directions for LE exercises in bed. Assessment/Needs Patient has impaired mobility, strength, endurance and weakness in both lower extremities. She is confused and at risk for a fall. Patient in bed post tx with nurse call, phone, tray, bed alarm on. Rehab Potential: Guarded PT Short Term Goals Short Term Goals Time Frame: November 18, 2018 Transfers (B,C,W/C) (FIM): 3 Gait (FIM): 1 Gait Distance Comment: 10' Gait Level of Assist: 3 Gait Assistive Device: FWW PT Plan Problem List Problem List: Activity Tolerance, Functional Strength, Safety, Balance, Gait, Transfer, Bed Mobility Treatment/Plan Treatment Plan: Continue Plan of Care Treatment Plan: Bed Mobility, Concurrent Therapy, Education, Functional Activity Farhana, Functional Strength, Gait, Safety, Therapeutic Exercise, Transfers Treatment Duration: November 18, 2018 Frequency: 6 times per week Estimated Hrs Per Day: .25 hour per day (15-30') Patient and/or Family Agrees t: Yes Safety Risks/Education Patient Education: Transfer Techniques, Correct Positioning, Safety Issues Teaching Recipient: Patient Teaching Methods: Demonstration, Discussion Response to Teaching: Reinforcement Needed Discharge Recommendations Plan Patient will perform bed mobility and transfer training, balance and endurance training, functional strengthening, stair training, gait training, and education , to improve functional mobility and independence at home. Therapy D/C Recommendations: Alf (TCU/NH) Time/GCodes Time In: 1515 Time Out: 1525 Total Billed Treatment Time: 10 Total Billed Treatment 1 visit SANDY MEJIA PT Nov 11, 2018 16:06
--- NOTE | 2018-11-11 16:45 | NUR ---
Offered support to pt's daughter through active listening and compassionate presence. Pt is caodaism and her len continues to be important to her for courage and sense of personal worth.
[2018-11-11 19:58] VITALS: BP 175/79
[2018-11-11] MEDS: risperiDONE 1 MG (RisperDAL) TAB PO SCH (20:32)
[2018-11-11] MEDS: SIMvastatin 10 MG (ZOCOR) TAB PO SCH (20:32)
[2018-11-12] VITALS: BP 172/67
[2018-11-12] MEDS: RT-ALBUTEROL/IPRATROPIUM 3 ML (DUONEB) VIAL IH SCH ×6 (02:51→22:59)
[2018-11-12 05:42] VITALS: BP 181/76
[2018-11-12 06:29] LABS: HEMOGLOBIN 12.5 G/DL (11.5-16.0); MEAN PLATELET VOLUME 11.4 FL (7.4-10.4); RED CELL DISTRIBUTION WIDTH 16.2 % (10.0-14.5); WHITE BLOOD COUNT 9.6 10^3/uL (4.3-11.0)
[2018-11-12] MEDS: inSUlin ASPART (NovoLOG) 1 UNIT/0.01 ML (CHARGE PER UNIT) SC SCH ×4 (06:36→21:36)
[2018-11-12 06:45] LABS: BUN/CREATININE RATIO 19; CALCIUM 8.9 MG/DL (8.5-10.1); CARBON DIOXIDE 19 MMOL/L (21-32); CHLORIDE 111 MMOL/L (98-107); GFR ESTIMATED > 60; GLUCOSE 101 MG/DL (70-105); POTASSIUM 4.3 MMOL/L (3.6-5.0); SODIUM 140 MMOL/L (135-145)
[2018-11-12 08:00] VITALS: BP 137/70
--- NOTE | 2018-11-12 08:04 | Diagnostic Imaging Report ---
INDICATION: Pneumonia. Comparison is made with prior examination from 11/10/2018. FINDINGS: There is cardiomegaly. There are bibasilar infiltrates. There is left pleural effusion. There is no pneumothorax. The mediastinum is unremarkable. IMPRESSION: Patchy bibasilar infiltrates and left pleural effusion. Cardiomegaly. Dictated by: Dictated on workstation # [id number]
--- NOTE | 2018-11-12 08:09 | Progress Note (SOAP) ---
Subjective Time Seen by a Provider: 08:07 Subjective/Events-last exam Patient not awake this morning. Patient responds to pain area *4 L of nasal oxygen. Objective Exam Vital Signs Date Time Temp Pulse Resp B/P (MAP) Pulse Ox O2 Delivery O2 Flow Rate FiO2 11/12/18 07:06 88 11/12/18 06:38 92 Nasal Cannula 4.00 11/12/18 05:42 98.4 108 20 181/76 (111) 95 Nasal Cannula 4.00 11/12/18 02:55 Nasal Cannula 4.00 11/12/18 01:00 101 11/12/18 00:00 98.7 101 20 172/67 (102) 95 Nasal Cannula 4.00 11/11/18 22:42 94 Nasal Cannula 4.00 11/11/18 19:58 97.9 90 22 175/79 (111) 98 Nasal Cannula 4.00 11/11/18 19:38 95 Nasal Cannula 4.00 11/11/18 19:30 95 Nasal Cannula 4.00 11/11/18 19:00 88 11/11/18 16:00 97.6 98 20 122/70 (87) 95 Vapotherm 40.00 20.00 11/11/18 15:50 95 Vapotherm 20.00 50 11/11/18 12:30 101 11/11/18 12:00 98.0 86 20 180/80 (113) 97 Vapotherm 40.00 20.00 I & O 11/12/18 07:00 Intake Total 3410 ml Output Total 2700 ml Balance 710 ml Capillary Refill : Less Than 3 SecondsLess Than 3 Seconds General Appearance: No Apparent Distress HEENT: Normal ENT Inspection Respiratory: No Accessory Muscle Use, No Respiratory Distress Cardiovascular: Regular Rate, Rhythm, No Murmur Gastrointestinal: non tender, soft Results Lab Laboratory Tests 11/12/18 06:00 Laboratory Tests 11/11/18 11:01: Glucometer 263H 11/11/18 15:50: Glucometer 273H 11/11/18 21:35: Glucometer 187H 11/12/18 05:10: Glucometer 183H 11/12/18 06:00: White Blood Count 9.6, Red Blood Count 4.66, Hemoglobin 12.5, Hematocrit 39, Mean Corpuscular Volume 83, Mean Corpuscular Hemoglobin 27, Mean Corpuscular Hemoglobin Concent 32, Red Cell Distribution Width 16.2H, Platelet Count 213, Mean Platelet Volume 11.4H, Sodium Level 140, Potassium Level 4.3, Chloride Level 111H, Carbon Dioxide Level 19L, Anion Gap 10, Blood Urea Nitrogen 15, Creatinine 0.80, Estimat Glomerular Filtration Rate > 60, BUN/Creatinine Ratio 19, Glucose Level 101, Calcium Level 8.9 Microbiology 11/05/18 Blood Culture - Final, Complete No growth 11/05/18 Influenza Types A,B Antigen (DEX) - Final, Complete Assessment/Plan Assessment/Plan Assess & Plan/Chief Complaint Pneumonia. COPD with acute exacerbation. Diabetes. 6 schizophrenic. Dementia. DO NOT RESUSCITATE. Family does not want any heroics. Patient yesterday nonresponsive. Patient talking and awake today. . 11/07/18. Pneumonia. COPD with acute exacerbation. Diabetes. Schizophrenia. Dementia. DO NOT RESUSCITATE. Hypercapnia. . . Pneumonia. COPD with acute exacerbation. Diabetes. Schizophrenia. Dementia. DO NOT RESUSCITATE. Patient awake today on Vapotherm. . 11/10/18. Pneumonia. COPD. Diabetes. Schizophrenia. Dementia. DO NOT RESUSCITATE. Patient has wheezing and decreased breath sounds. . 11/12/18. Pneumonia. COPD. Diabetes. Schizophrenic. Dementia. DO NOT RESUSCITATE. Patient not waking up this morning Clinical Quality Measures Admission Status Admission Dx Pneumonia. COPD. CAD. Diabetes. Sleep apnea. Dementia. Schizophrenia DVT/VTE Risk/Contraindication: Risk Factor Score Per Nursin RFS Level Per Nursing on Admit: 3=High ARA MONTANEZ DO November 12, 2018 08:08
[2018-11-12] MEDS: FUROSEMIDE 40 MG/4 ML INJ (LASIX) IVP SCH (09:19)
[2018-11-12] MEDS: ENOXAPARIN 40 MG/0.4 ML (LOVENOX) SYR SC SCH ×2 (09:20→21:36)
[2018-11-12] MEDS: DOCUSATE SODIUM 100 MG (COLACE) CAP PO SCH (09:31)
[2018-11-12] MEDS: lisINopril 40 MG (PRINIVIL) TABLET PO SCH (09:31)
[2018-11-12] MEDS: LINAGLIPTIN (TRADJENTA) 5 MG TABLET PO SCH (09:31)
[2018-11-12] MEDS: metFORMIN 500 MG (GLUCOPHAGE) TAB PO SCH ×2 (09:32→16:36)
[2018-11-12] MEDS: ASPIRIN E.C. 81 MG (ECOTRIN) TAB PO SCH (09:32)
[2018-11-12] MEDS: CEFEPIME 2,000 MG/SWFI 20 ML IV PUSH IV SCH ×2 (09:43)
[2018-11-12] MEDS: predniSONE 20 MG TAB PO SCH (09:43)
--- NOTE | 2018-11-12 10:14 | Occupational Ther Daily Note ---
OT Current Status-Daily Note Subjective pt laying in bed upon OT Arrival. pt agreed to OT TX session with focus on increasing independence with ADLs. pt refused to complete any transfers this date. Mental Status/Objective Patient Orientation: Person Therapy Code Descriptions/Definitions Functional Waldo Measure: 0=Not Assessed/NA 4=Minimal Assistance 1=Total Assistance 5=Supervision or Setup 2=Maximal Assistance 6=Modified Waldo 3=Moderate Assistance 7=Complete Waldo Attachments: Mars Catheter, IV, Oxygen ADL-Treatment Eating (FIM): 4 (pt required increase motivation to complete eating independently. pt required increasing timing to open container and VC to attention to task. noted pt easily distracted by environment. pt demo ability to self feed with MIN spillage. ) Grooming (FIM): 4 (pt required MOD VC to wash face and set up of items with demo) Education OT Patient Education: Modified ADL techniques Teaching Recipient: Patient Teaching Methods: Discussion Response to Teaching: Verbalize Understanding OT Short Term Goals Short Term Goals Grooming(FIM): 4 Bathing(FIM): 3 Transfers (B,C,W/C) (FIM): 3 Toilet/Commode Transfer(FIM): 3 1=Demonstrate adherence to instructed precautions during ADL tasks. 2=Patient will verbalize/demonstrate understanding of assistive devices/ modifications for ADL. 3=Patient will improve strength/tolerance for activity to enable patient to perform ADL's. OT Senior Care Goals Feed In Worker Goals Eating (FIM): 5 Grooming(FIM): 5 Bathing(FIM): 4 Toileting(FIM): 4 Transfers (B,C,W/C) (FIM): 5 Toilet/Commode Transfer(FIM): 4 1=Demonstrate adherence to instructed precautions during ADL tasks. 2=Patient will verbalize/demonstrate understanding of assistive devices/ modifications for ADL. 3=Patient will improve strength/tolerance for activity to enable patient to perform ADL's. OT Education/Plan Problem List/Assessment pt presents to OT services with functional limitations affecting areas of ADLS and functional transfers. pt would benefit from OT services to increase independence with ADLs/ functional transfers Discharge Recommendations Plan/Recommendations: Continue POC Treatment Plan/Plan of Care Patient would benefit from OT for education, treatment and training to promote independence in ADL's, mobility, safety and/or upper extremity function for ADL' s. Plan of Care: ADL Retraining, Functional Mobility, Group Exercise/Act as Ind, Orthotic Fitting/Training, UE Funct Exercise/Act Treatment Duration: November 25, 2018 Frequency: 5 times per week Estimated Hrs Per Day: .25 hour per day Agreement: Yes Rehab Potential: Guarded Time/GCodes Start Time: 10:00 Stop Time: 10:10 Billed Treatment Time ADL 10 minutes, 1 unit ORLANDO URENA OT November 12, 2018 10:13
--- NOTE | 2018-11-12 13:39 | Physical Therapy Progress Note ---
Therapy Progress Note Patient refused PT treatment this afternoon. She is in bed and refuses to get out of bed. Refuses to ambulate or try to get into a chair. She refuses LE exercises in bed. She says her legs are broken and you cannot reason with her and explain that her legs are not broken. SANDY WEBER PT November 12, 2018 13:39
--- NOTE | 2018-11-12 15:01 | Pulmonary Progress Note ---
Subjective Time Seen by a Provider: 15:01 Subjective/Events-last exam Pt is currently sleeping. Sepsis Event Evaluation Height, Weight, BMI Height: 4'9.00" Weight: 183lbs. 3.0oz. 83.060567vc; 42.9 BMI Method:Stated Exam Exam Vital Signs Date Time Temp Pulse Resp B/P (MAP) Pulse Ox O2 Delivery O2 Flow Rate FiO2 11/12/18 14:33 91 Nasal Cannula 4.00 11/12/18 11:13 91 Nasal Cannula 4.00 11/12/18 08:00 98.1 86 24 137/70 (92) 97 Nasal Cannula 4.00 11/12/18 08:00 97 Nasal Cannula 4.00 11/12/18 07:06 88 11/12/18 06:38 92 Nasal Cannula 4.00 11/12/18 05:42 98.4 108 20 181/76 (111) 95 Nasal Cannula 4.00 11/12/18 02:55 Nasal Cannula 4.00 11/12/18 01:00 101 11/12/18 00:00 98.7 101 20 172/67 (102) 95 Nasal Cannula 4.00 11/11/18 22:42 94 Nasal Cannula 4.00 11/11/18 19:58 97.9 90 22 175/79 (111) 98 Nasal Cannula 4.00 11/11/18 19:38 95 Nasal Cannula 4.00 11/11/18 19:30 95 Nasal Cannula 4.00 11/11/18 19:00 88 11/11/18 16:00 97.6 98 20 122/70 (87) 95 Vapotherm 40.00 20.00 11/11/18 15:50 95 Vapotherm 20.00 50 I & O 11/12/18 07:00 Intake Total 3410 ml Output Total 2700 ml Balance 710 ml Height & Weight Height: 4'9.00" Weight: 183lbs. 3.0oz. 83.612144eq; 42.9 BMI Method:Stated General Appearance: No Apparent Distress, WD/WN HEENT: Normal ENT Inspection Neck: Normal Inspection Respiratory: No Accessory Muscle Use, No Respiratory Distress, Decreased Breath Sounds Cardiovascular: Regular Rate, Rhythm, No Murmur Capillary Refill: Less Than 3 Seconds Peripheral Pulses: 1+ Dorsalis Pedis (R), 1+ Left Dors-Pedis (L) Gastrointestinal: non tender, soft Extremity: Normal Inspection Neurologic/Psychiatric: No Motor/Sensory Deficits Skin: Normal Color, Warm/Dry Results Lab Laboratory Tests 11/11/18 05:25 11/12/18 06:00 Assessment/Plan Assessment/Plan Acute on chronic respiratory failure -BiPAP/vapotherm -Pt is a DNR -Influenza is negative Pulmonary edema - Continue Lasix Lethargy -Risperdal Pneumonia -Repeat CBC COPDAE -SVNs DM Schizophrenia Dementia Metabolic encephalopathy CAD Diabetes. Sleep apnea KEYANA DUBOIS DO November 12, 2018 15:01
[2018-11-12 15:35] VITALS: BP 162/61
[2018-11-12] MEDS: SIMvastatin 10 MG (ZOCOR) TAB PO SCH (21:35)
[2018-11-12] MEDS: risperiDONE 1 MG (RisperDAL) TAB PO SCH (21:35)
[2018-11-13 00:50] VITALS: BP 153/66
[2018-11-13] MEDS: RT-ALBUTEROL/IPRATROPIUM 3 ML (DUONEB) VIAL IH SCH ×3 (02:40→10:27)
[2018-11-13] MEDS: metFORMIN 500 MG (GLUCOPHAGE) TAB PO SCH (05:55)
[2018-11-13] MEDS: predniSONE 20 MG TAB PO SCH (05:55)
[2018-11-13] MEDS: inSUlin ASPART (NovoLOG) 1 UNIT/0.01 ML (CHARGE PER UNIT) SC SCH ×2 (05:55→11:50)
[2018-11-13 06:16] LABS: HEMOGLOBIN 11.2 G/DL (11.5-16.0); MEAN PLATELET VOLUME 9.8 FL (7.4-10.4); WHITE BLOOD COUNT 14.1 10^3/uL (4.3-11.0)
[2018-11-13 06:32] LABS: BUN/CREATININE RATIO 32; CALCIUM 9.2 MG/DL (8.5-10.1); CARBON DIOXIDE 43 MMOL/L (21-32); CHLORIDE 80 MMOL/L (98-107); GFR ESTIMATED > 60; GLUCOSE 174 MG/DL (70-105); POTASSIUM 3.4 MMOL/L (3.6-5.0); SODIUM 135 MMOL/L (135-145)
--- NOTE | 2018-11-13 06:56 | Diagnostic Imaging Report ---
Indication: Pneumonia Portable chest 3:35 AM Heart size and pulmonary vascularity are normal. There is increased density of both lung bases that could be infiltrate or atelectasis. A small left effusion cannot be excluded. Impression: There continues to be some increased density at the lung bases. No appreciable change from previous day. Dictated by: Dictated on workstation # [id number]
[2018-11-13 08:00] VITALS: BP 146/67
--- NOTE | 2018-11-13 08:09 | Progress Note (SOAP) ---
Subjective Time Seen by a Provider: 08:07 Subjective/Events-last exam Awake this a.m. Patient stable. Patient is good as she can get. Plan to discharge today Objective Exam Vital Signs Date Time Temp Pulse Resp B/P (MAP) Pulse Ox O2 Delivery O2 Flow Rate FiO2 11/13/18 06:58 95 11/13/18 06:38 93 Nasal Cannula 4.00 11/13/18 01:00 107 11/13/18 00:50 96.9 59 21 153/66 (95) 95 Nasal Cannula 4.00 11/12/18 22:59 93 Nasal Cannula 4.00 11/12/18 20:00 Nasal Cannula 4.00 11/12/18 19:09 107 11/12/18 15:35 97.2 97 21 162/61 (94) 94 Nasal Cannula 4.00 11/12/18 14:33 91 Nasal Cannula 4.00 11/12/18 13:18 107 11/12/18 11:13 91 Nasal Cannula 4.00 I & O 11/13/18 07:00 Intake Total 1910 ml Output Total 2540 ml Balance -630 ml Capillary Refill : Less Than 3 SecondsLess Than 3 Seconds General Appearance: No Apparent Distress, WD/WN HEENT: Normal ENT Inspection Neck: Full Range of Motion, Normal Inspection Respiratory: No Accessory Muscle Use, No Respiratory Distress, Decreased Breath Sounds Cardiovascular: Regular Rate, Rhythm, No Murmur Gastrointestinal: non tender, soft Results Lab Laboratory Tests 11/13/18 06:05 Laboratory Tests 11/12/18 11:15: Glucometer 261H 11/12/18 16:21: Glucometer 286H 11/12/18 20:42: Glucometer 209H 11/13/18 05:49: Glucometer 171H 11/13/18 06:05: White Blood Count 14.1H, Red Blood Count 4.04L, Hemoglobin 11.2L, Hematocrit 36 , Mean Corpuscular Volume 90, Mean Corpuscular Hemoglobin 28, Mean Corpuscular Hemoglobin Concent 31L, Red Cell Distribution Width 15.0H, Platelet Count 333, Mean Platelet Volume 9.8, Sodium Level 135, Potassium Level 3.4L, Chloride Level 80L, Carbon Dioxide Level 43H, Anion Gap 12, Blood Urea Nitrogen 19H, Creatinine 0.60, Estimat Glomerular Filtration Rate > 60, BUN/Creatinine Ratio 32, Glucose Level 174H, Calcium Level 9.2 Microbiology 11/05/18 Blood Culture - Final, Complete No growth 11/05/18 Influenza Types A,B Antigen (DEX) - Final, Complete Assessment/Plan Assessment/Plan Assess & Plan/Chief Complaint Pneumonia. COPD with acute exacerbation. Diabetes. 6 schizophrenic. Dementia. DO NOT RESUSCITATE. Family does not want any heroics. Patient yesterday nonresponsive. Patient talking and awake today. . 11/07/18. Pneumonia. COPD with acute exacerbation. Diabetes. Schizophrenia. Dementia. DO NOT RESUSCITATE. Hypercapnia. . . Pneumonia. COPD with acute exacerbation. Diabetes. Schizophrenia. Dementia. DO NOT RESUSCITATE. Patient awake today on Vapotherm. . 11/10/18. Pneumonia. COPD. Diabetes. Schizophrenia. Dementia. DO NOT RESUSCITATE. Patient has wheezing and decreased breath sounds. . 11/12/18. Pneumonia. COPD. Diabetes. Schizophrenic. Dementia. DO NOT RESUSCITATE. Patient not waking up this morning. . 11/13/18. Pneumonia. COPD. Diabetes. Schizoaffective. Dementia. DO NOT RESUSCITATE Patient stable. Plan to discharge today Clinical Quality Measures Admission Status Admission Dx Pneumonia. COPD. CAD. Diabetes. Sleep apnea. Dementia. Schizophrenia DVT/VTE Risk/Contraindication: Risk Factor Score Per Nursin RFS Level Per Nursing on Admit: 3=High ARA MONTANEZ DO November 13, 2018 08:08
[2018-11-13] MEDS: ENOXAPARIN 40 MG/0.4 ML (LOVENOX) SYR SC SCH (08:11)
[2018-11-13] MEDS: LINAGLIPTIN (TRADJENTA) 5 MG TABLET PO SCH (08:11)
[2018-11-13] MEDS: lisINopril 40 MG (PRINIVIL) TABLET PO SCH (08:12)
[2018-11-13] MEDS: ASPIRIN E.C. 81 MG (ECOTRIN) TAB PO SCH (08:12)
[2018-11-13] MEDS: FUROSEMIDE 40 MG/4 ML INJ (LASIX) IVP SCH (08:12)
[2018-11-13] MEDS: DOCUSATE SODIUM 100 MG (COLACE) CAP PO SCH (08:12)
--- NOTE | 2018-11-13 08:12 | Discharge Inst-Skilled Nursing ---
Discharge Inst-Skilled NF Patient Instructions Patient Problems: Pneumonia. Diabetes. COPD Patient Instructions: 2 office in one week Consult/Follow Up/Orders Follow Up Appt.: One week Skilled NF Admit to: [facility] Certification (SNF) I certify that SNF services are required to be given on an inpatient basis because of the above named patient's need for group home care on a continuing basis for the conditions(s) for which he/she was receiving inpatient hospital services prior to his/her transfer to the SNF. Oxygen Delivery Method: Nasal Cannula Discharge Diet: ADA Diet Daily Activity as Tolerated: Yes New & Resume Previous Orders Rusty Montanez November 13, 2018 08:11 RUSTY MONTANEZ DO November 13, 2018 08:12
[2018-11-13] MEDS ORDERED: KCL 10 MEQ TAB (MICRO K) PO NR (08:30)
[2018-11-13] MEDS ORDERED: ALBU2.5V4 INH (10:48)
[2018-11-13] MEDS ORDERED: CEFD300C3 PO (10:48)
--- NOTE | 2018-11-13 11:00 | NUR ---
CM/SS patient is discharging this day back to [facility]. Discharge information faxed to facility. They will transport this day at 12:30. Patient and RNing updated.
--- NOTE | 2018-11-13 12:30 | NUR ---
REPORT GIVEN TO EMILIANO AT [facility]
[2018-11-13 12:39] VITALS: BP 146/67
--- NOTE | 2018-11-14 07:27 | Discharge Summary ---
Diagnosis/Chief Complaint Date of Admission Nov 05, 2018 at 11:20 Date of Discharge November 13, 2018 at 12:44 Discharge Date: November 13, 2018 Discharge Diagnosis Unit and chronic respiratory failure. Pneumonia. COPD with acute exacerbation. Diabetes mellitus. Schizophrenia. Dementia. Metabolic encephalopathy. Coronary artery disease. Sleep apnea. DO NOT RESUSCITATE Reason Hospital Visit [facility] Patient short of breath. Pulse ox in the 60s. Patient has COPD. Patient on oxygen. Patient sent out to the emergency room. Chest x-ray shows pneumonia. Patient is schizophrenic and unable to give a good history Discharge Summary Consultations Pulmonology Discharge Physical Examination Allergies: Coded Allergies: Penicillins (Unverified Allergy, Unknown, 04/01/13) strawberry (Unverified Allergy, Unknown, 12/23/14) FROM UNCODED ALLERGIES tomato (Unverified Allergy, Unknown, 12/23/14) FROM UNCODED ALLERGIES Vitals & I&Os Vital Signs Date Time Temp Pulse Resp B/P (MAP) Pulse Ox O2 Delivery O2 Flow Rate FiO2 11/13/18 12:39 88 40 146/67 97 Nasal Cannula 4.00 11/13/18 08:00 96.7 11/11/18 15:50 50 Hospital Course Patient hospital did improve. Patient able to be [facility] Labs (last 24 hrs) Laboratory Tests 11/05/18 08:50: White Blood Count 8.5, Red Blood Count 4.02L, Hemoglobin 11.3L, Hematocrit 37, Mean Corpuscular Volume 91, Mean Corpuscular Hemoglobin 28, Mean Corpuscular Hemoglobin Concent 31L, Red Cell Distribution Width 16.1H, Platelet Count 310, Mean Platelet Volume 10.5H, Neutrophils (%) (Auto) 79H, Lymphocytes (%) (Auto) 7L, Monocytes (%) (Auto) 13H, Eosinophils (%) (Auto) 0, Basophils (%) (Auto) 0, Neutrophils # (Auto) 6.7, Lymphocytes # (Auto) 0.6L, Monocytes # (Auto) 1.1H, Eosinophils # (Auto) 0.0, Basophils # (Auto) 0.0, Neutrophils % (Manual) 71, Lymphocytes % (Manual) 11, Monocytes % (Manual) 10, Eosinophils % (Manual) 0, Basophils % (Manual) 0, Band Neutrophils 8, Anisocytosis SLIGHT, Sodium Level 137, Potassium Level 4.4, Chloride Level 87L, Carbon Dioxide Level 39H, Anion Gap 11, Blood Urea Nitrogen 16, Creatinine 0.78, Estimat Glomerular Filtration Rate > 60, BUN/Creatinine Ratio 21, Glucose Level 284H, Calcium Level 9.6, Corrected Calcium 9.8, Magnesium Level 1.7L, Total Bilirubin 0.4, Aspartate Amino Transf (AST/SGOT) 17, Alanine Aminotransferase (ALT/SGPT) 27, Alkaline Phosphatase 54, Troponin I < 0.028, B-Type Natriuretic Peptide 66.1, Total Protein 7.0, Albumin 3.8 11/05/18 09:50: Lactic Acid Level 1.96 11/05/18 23:15: Blood Gas Puncture Site LEFT RADIAL, Blood Gas Patient Temperature 98.2, Arterial Blood pH 7.20*L, Arterial Blood Partial Pressure CO2 117*H, Arterial Blood Partial Pressure O2 150H, Arterial Blood HCO3 44*H, Arterial Blood Total CO2 47.3H, Arterial Blood Oxygen Saturation 99, Arterial Blood Base Excess 15.2H , Sincere Test POSITIVE, Blood Gas Ventilator Setting NO, Blood Gas Inspired Oxygen 10L 11/06/18 00:05: Sodium Level 136, Potassium Level 4.8, Chloride Level 89L, Carbon Dioxide Level 34H, Anion Gap 13, Blood Urea Nitrogen 17, Creatinine 0.83, Estimat Glomerular Filtration Rate > 60, BUN/Creatinine Ratio 20, Glucose Level 325H, Calcium Level 9.3, B-Type Natriuretic Peptide 151.2H 11/06/18 01:40: Blood Gas Puncture Site RIGHT RADIAL, Blood Gas Patient Temperature 97.4, Arterial Blood pH 7.32*L, Arterial Blood Partial Pressure CO2 85*H, Arterial Blood Partial Pressure O2 79, Arterial Blood HCO3 43*H, Arterial Blood Total CO2 45.9H, Arterial Blood Oxygen Saturation 95, Arterial Blood Base Excess 16.3H , Sincere Test POSITIVE, Blood Gas Ventilator Setting NO, Blood Gas Inspired Oxygen BIPAP 40% 11/06/18 05:41: Glucometer 253H 11/06/18 06:00: White Blood Count 8.3, Red Blood Count 3.75L, Hemoglobin 10.6L, Hematocrit 35, Mean Corpuscular Volume 92, Mean Corpuscular Hemoglobin 28, Mean Corpuscular Hemoglobin Concent 31L, Red Cell Distribution Width 16.1H, Platelet Count 263, Mean Platelet Volume 10.3, Neutrophils (%) (Auto) 86H, Lymphocytes (%) (Auto) 5L , Monocytes (%) (Auto) 9, Eosinophils (%) (Auto) 0, Basophils (%) (Auto) 0, Neutrophils # (Auto) 7.1, Lymphocytes # (Auto) 0.4L, Monocytes # (Auto) 0.7, Eosinophils # (Auto) 0.0, Basophils # (Auto) 0.0, Sodium Level 137, Potassium Level 4.9, Chloride Level 93L, Carbon Dioxide Level 34H, Anion Gap 10, Blood Urea Nitrogen 18, Creatinine 0.77, Estimat Glomerular Filtration Rate > 60, BUN/ Creatinine Ratio 23, Glucose Level 254H, Calcium Level 9.0, Corrected Calcium 9.4, Magnesium Level 1.9, Total Bilirubin 0.3, Aspartate Amino Transf (AST/SGOT ) 18, Alanine Aminotransferase (ALT/SGPT) 27, Alkaline Phosphatase 53, Total Protein 6.5, Albumin 3.5 11/06/18 10:59: Glucometer 192H 11/06/18 15:22: Glucometer 283H 11/06/18 20:52: Glucometer 329H 11/07/18 03:50: White Blood Count 10.6, Red Blood Count 3.56L, Hemoglobin 10.1L, Hematocrit 33L , Mean Corpuscular Volume 93, Mean Corpuscular Hemoglobin 28, Mean Corpuscular Hemoglobin Concent 30L, Red Cell Distribution Width 15.6H, Platelet Count 260, Mean Platelet Volume 10.7H, Neutrophils (%) (Auto) 84H, Lymphocytes (%) (Auto) 7L, Monocytes (%) (Auto) 9, Eosinophils (%) (Auto) 0, Basophils (%) (Auto) 0, Neutrophils # (Auto) 8.9H, Lymphocytes # (Auto) 0.7L, Monocytes # (Auto) 1.0, Eosinophils # (Auto) 0.0, Basophils # (Auto) 0.0, Sodium Level 138, Potassium Level 4.5, Chloride Level 91L, Carbon Dioxide Level 38H, Anion Gap 9, Blood Urea Nitrogen 22H, Creatinine 0.74, Estimat Glomerular Filtration Rate > 60, BUN /Creatinine Ratio 30, Glucose Level 225H, Calcium Level 9.2, Corrected Calcium 9.8, Total Bilirubin 0.3, Aspartate Amino Transf (AST/SGOT) 18, Alanine Aminotransferase (ALT/SGPT) 25, Alkaline Phosphatase 49, Total Protein 6.3L, Albumin 3.3 11/07/18 05:04: Glucometer 231H 11/07/18 10:56: Blood Gas Puncture Site LR, Blood Gas Patient Temperature 98.1, Arterial Blood pH 7.38, Arterial Blood Partial Pressure CO2 73*H, Arterial Blood Partial Pressure O2 96H, Arterial Blood HCO3 42*H, Arterial Blood Total CO2 44.4H, Arterial Blood Oxygen Saturation 97, Arterial Blood Base Excess 16.2H, Sincere Test YES-POS, Blood Gas Ventilator Setting NO, Blood Gas Inspired Oxygen 30% 11/07/18 11:21: Glucometer 225H 11/07/18 15:55: Glucometer 282H 11/07/18 21:37: Glucometer 250H 11/08/18 05:05: White Blood Count 11.1H, Red Blood Count 3.62L, Hemoglobin 10.1L, Hematocrit 34L , Mean Corpuscular Volume 93, Mean Corpuscular Hemoglobin 28, Mean Corpuscular Hemoglobin Concent 30L, Red Cell Distribution Width 15.6H, Platelet Count 277, Mean Platelet Volume 10.1, Sodium Level 138, Potassium Level 4.4, Chloride Level 91L, Carbon Dioxide Level 35H, Anion Gap 12, Blood Urea Nitrogen 24H, Creatinine 0.73, Estimat Glomerular Filtration Rate > 60, BUN/Creatinine Ratio 33, Glucose Level 223H, Calcium Level 8.9 11/08/18 05:36: Glucometer 233H 11/08/18 11:08: Glucometer 246H 11/08/18 16:02: Glucometer 179H 11/08/18 20:58: Glucometer 232H 11/09/18 05:38: Glucometer 208H 11/09/18 11:05: Glucometer 276H 11/09/18 16:21: Glucometer 228H 11/09/18 20:26: Glucometer 208H 11/10/18 05:24: Glucometer 202H 11/10/18 09:50: White Blood Count 11.9H, Red Blood Count 4.12L, Hemoglobin 11.3L, Hematocrit 38 , Mean Corpuscular Volume 93, Mean Corpuscular Hemoglobin 27, Mean Corpuscular Hemoglobin Concent 30L, Red Cell Distribution Width 15.2H, Platelet Count 324, Mean Platelet Volume 10.4, Sodium Level 136, Potassium Level 4.3, Chloride Level 85L, Carbon Dioxide Level 40H, Anion Gap 11, Blood Urea Nitrogen 22H, Creatinine 0.69, Estimat Glomerular Filtration Rate > 60, BUN/Creatinine Ratio 32, Glucose Level 178H, Calcium Level 9.6, B-Type Natriuretic Peptide 227.2H 11/10/18 10:58: Glucometer 276H 11/10/18 16:16: Glucometer 208H 11/10/18 20:46: Glucometer 185H 11/11/18 05:13: Glucometer 188H 11/11/18 05:25: White Blood Count 10.6, Red Blood Count 4.00L, Hemoglobin 11.0L, Hematocrit 37, Mean Corpuscular Volume 92, Mean Corpuscular Hemoglobin 28, Mean Corpuscular Hemoglobin Concent 30L, Red Cell Distribution Width 15.1H, Platelet Count 326, Mean Platelet Volume 10.0, Sodium Level 141, Potassium Level 3.9, Chloride Level 86L, Carbon Dioxide Level 42H, Anion Gap 13, Blood Urea Nitrogen 23H, Creatinine 0.68, Estimat Glomerular Filtration Rate > 60, BUN/Creatinine Ratio 34, Glucose Level 194H, Calcium Level 9.7, B-Type Natriuretic Peptide 192.3H 11/11/18 07:31: Glucometer 199H 11/11/18 11:01: Glucometer 263H 11/11/18 15:50: Glucometer 273H 11/11/18 21:35: Glucometer 187H 11/12/18 05:10: Glucometer 183H 11/12/18 06:00: White Blood Count 9.6, Red Blood Count 4.66, Hemoglobin 12.5, Hematocrit 39, Mean Corpuscular Volume 83, Mean Corpuscular Hemoglobin 27, Mean Corpuscular Hemoglobin Concent 32, Red Cell Distribution Width 16.2H, Platelet Count 213, Mean Platelet Volume 11.4H, Sodium Level 140, Potassium Level 4.3, Chloride Level 111H, Carbon Dioxide Level 19L, Anion Gap 10, Blood Urea Nitrogen 15, Creatinine 0.80, Estimat Glomerular Filtration Rate > 60, BUN/Creatinine Ratio 19, Glucose Level 101, Calcium Level 8.9 11/12/18 11:15: Glucometer 261H 11/12/18 16:21: Glucometer 286H 11/12/18 20:42: Glucometer 209H 11/13/18 05:49: Glucometer 171H 11/13/18 06:05: White Blood Count 14.1H, Red Blood Count 4.04L, Hemoglobin 11.2L, Hematocrit 36 , Mean Corpuscular Volume 90, Mean Corpuscular Hemoglobin 28, Mean Corpuscular Hemoglobin Concent 31L, Red Cell Distribution Width 15.0H, Platelet Count 333, Mean Platelet Volume 9.8, Sodium Level 135, Potassium Level 3.4L, Chloride Level 80L, Carbon Dioxide Level 43H, Anion Gap 12, Blood Urea Nitrogen 19H, Creatinine 0.60, Estimat Glomerular Filtration Rate > 60, BUN/Creatinine Ratio 32, Glucose Level 174H, Calcium Level 9.2 11/13/18 11:04: Glucometer 277H Microbiology 11/05/18 Blood Culture - Final, Complete No growth 11/05/18 Influenza Types A,B Antigen (DEX) - Final, Complete Laboratory Tests 11/05/18 08:50 11/06/18 00:05 11/06/18 06:00 11/07/18 03:50 11/08/18 05:05 11/10/18 09:50 11/11/18 05:25 11/12/18 06:00 11/13/18 06:05 Pending Labs Microbiology Date/Time Source Procedure Growth Status 11/05/18 11:18 Peripheral Rt Hand Blood Culture - Final No growth Complete 11/05/18 08:50 Peripheral Lt Hand Blood Culture - Final No growth Complete 11/05/18 08:53 Nasopharynx Influenza Types A,B Antigen (DEX) - Final Complete Laboratory Tests 11/05/18 08:50: White Blood Count 8.5, Red Blood Count 4.02, Hemoglobin 11.3, Hematocrit 37, Mean Corpuscular Volume 91, Mean Corpuscular Hemoglobin 28, Mean Corpuscular Hemoglobin Concent 31, Red Cell Distribution Width 16.1, Platelet Count 310, Mean Platelet Volume 10.5, Neutrophils (%) (Auto) 79, Lymphocytes (%) (Auto) 7, Monocytes (%) (Auto) 13, Eosinophils (%) (Auto) 0, Basophils (%) (Auto) 0, Neutrophils # (Auto) 6.7, Lymphocytes # (Auto) 0.6, Monocytes # (Auto) 1.1, Eosinophils # (Auto) 0.0, Basophils # (Auto) 0.0, Neutrophils % (Manual) 71, Lymphocytes % (Manual) 11, Monocytes % (Manual) 10, Eosinophils % (Manual) 0, Basophils % (Manual) 0, Band Neutrophils 8, Anisocytosis SLIGHT, Sodium Level 137, Potassium Level 4.4, Chloride Level 87, Carbon Dioxide Level 39, Anion Gap 11, Blood Urea Nitrogen 16, Creatinine 0.78, Estimat Glomerular Filtration Rate > 60, BUN/Creatinine Ratio 21, Glucose Level 284, Calcium Level 9.6, Corrected Calcium 9.8, Magnesium Level 1.7, Total Bilirubin 0.4, Aspartate Amino Transf ( AST/SGOT) 17, Alanine Aminotransferase (ALT/SGPT) 27, Alkaline Phosphatase 54, Troponin I < 0.028, B-Type Natriuretic Peptide 66.1, Total Protein 7.0, Albumin 3.8 11/05/18 09:50: Lactic Acid Level 1.96 11/05/18 23:15: Blood Gas Puncture Site LEFT RADIAL, Blood Gas Patient Temperature 98.2, Arterial Blood pH 7.20, Arterial Blood Partial Pressure CO2 117, Arterial Blood Partial Pressure O2 150, Arterial Blood HCO3 44, Arterial Blood Total CO2 47.3, Arterial Blood Oxygen Saturation 99, Arterial Blood Base Excess 15.2, Sincere Test POSITIVE, Blood Gas Ventilator Setting NO, Blood Gas Inspired Oxygen 10L 11/06/18 00:05: Sodium Level 136, Potassium Level 4.8, Chloride Level 89, Carbon Dioxide Level 34, Anion Gap 13, Blood Urea Nitrogen 17, Creatinine 0.83, Estimat Glomerular Filtration Rate > 60, BUN/Creatinine Ratio 20, Glucose Level 325, Calcium Level 9.3, B-Type Natriuretic Peptide 151.2 11/06/18 01:40: Blood Gas Puncture Site RIGHT RADIAL, Blood Gas Patient Temperature 97.4, Arterial Blood pH 7.32, Arterial Blood Partial Pressure CO2 85, Arterial Blood Partial Pressure O2 79, Arterial Blood HCO3 43, Arterial Blood Total CO2 45.9, Arterial Blood Oxygen Saturation 95, Arterial Blood Base Excess 16.3, Sincere Test POSITIVE, Blood Gas Ventilator Setting NO, Blood Gas Inspired Oxygen BIPAP 40% 11/06/18 05:41: Glucometer 253 11/06/18 06:00: White Blood Count 8.3, Red Blood Count 3.75, Hemoglobin 10.6, Hematocrit 35, Mean Corpuscular Volume 92, Mean Corpuscular Hemoglobin 28, Mean Corpuscular Hemoglobin Concent 31, Red Cell Distribution Width 16.1, Platelet Count 263, Mean Platelet Volume 10.3, Neutrophils (%) (Auto) 86, Lymphocytes (%) (Auto) 5, Monocytes (%) (Auto) 9, Eosinophils (%) (Auto) 0, Basophils (%) (Auto) 0, Neutrophils # (Auto) 7.1, Lymphocytes # (Auto) 0.4, Monocytes # (Auto) 0.7, Eosinophils # (Auto) 0.0, Basophils # (Auto) 0.0, Sodium Level 137, Potassium Level 4.9, Chloride Level 93, Carbon Dioxide Level 34, Anion Gap 10, Blood Urea Nitrogen 18, Creatinine 0.77, Estimat Glomerular Filtration Rate > 60, BUN/ Creatinine Ratio 23, Glucose Level 254, Calcium Level 9.0, Corrected Calcium 9.4 , Magnesium Level 1.9, Total Bilirubin 0.3, Aspartate Amino Transf (AST/SGOT) 18 , Alanine Aminotransferase (ALT/SGPT) 27, Alkaline Phosphatase 53, Total Protein 6.5, Albumin 3.5 11/06/18 10:59: Glucometer 192 11/06/18 15:22: Glucometer 283 11/06/18 20:52: Glucometer 329 11/07/18 03:50: White Blood Count 10.6, Red Blood Count 3.56, Hemoglobin 10.1, Hematocrit 33, Mean Corpuscular Volume 93, Mean Corpuscular Hemoglobin 28, Mean Corpuscular Hemoglobin Concent 30, Red Cell Distribution Width 15.6, Platelet Count 260, Mean Platelet Volume 10.7, Neutrophils (%) (Auto) 84, Lymphocytes (%) (Auto) 7, Monocytes (%) (Auto) 9, Eosinophils (%) (Auto) 0, Basophils (%) (Auto) 0, Neutrophils # (Auto) 8.9, Lymphocytes # (Auto) 0.7, Monocytes # (Auto) 1.0, Eosinophils # (Auto) 0.0, Basophils # (Auto) 0.0, Sodium Level 138, Potassium Level 4.5, Chloride Level 91, Carbon Dioxide Level 38, Anion Gap 9, Blood Urea Nitrogen 22, Creatinine 0.74, Estimat Glomerular Filtration Rate > 60, BUN/ Creatinine Ratio 30, Glucose Level 225, Calcium Level 9.2, Corrected Calcium 9.8 , Total Bilirubin 0.3, Aspartate Amino Transf (AST/SGOT) 18, Alanine Aminotransferase (ALT/SGPT) 25, Alkaline Phosphatase 49, Total Protein 6.3, Albumin 3.3 11/07/18 05:04: Glucometer 231 11/07/18 10:56: Blood Gas Puncture Site LR, Blood Gas Patient Temperature 98.1, Arterial Blood pH 7.38, Arterial Blood Partial Pressure CO2 73, Arterial Blood Partial Pressure O2 96, Arterial Blood HCO3 42, Arterial Blood Total CO2 44.4, Arterial Blood Oxygen Saturation 97, Arterial Blood Base Excess 16.2, Sincere Test YES-POS , Blood Gas Ventilator Setting NO, Blood Gas Inspired Oxygen 30% 11/07/18 11:21: Glucometer 225 11/07/18 15:55: Glucometer 282 11/07/18 21:37: Glucometer 250 11/08/18 05:05: White Blood Count 11.1, Red Blood Count 3.62, Hemoglobin 10.1, Hematocrit 34, Mean Corpuscular Volume 93, Mean Corpuscular Hemoglobin 28, Mean Corpuscular Hemoglobin Concent 30, Red Cell Distribution Width 15.6, Platelet Count 277, Mean Platelet Volume 10.1, Sodium Level 138, Potassium Level 4.4, Chloride Level 91, Carbon Dioxide Level 35, Anion Gap 12, Blood Urea Nitrogen 24, Creatinine 0.73, Estimat Glomerular Filtration Rate > 60, BUN/Creatinine Ratio 33, Glucose Level 223, Calcium Level 8.9 11/08/18 05:36: Glucometer 233 11/08/18 11:08: Glucometer 246 11/08/18 16:02: Glucometer 179 11/08/18 20:58: Glucometer 232 11/09/18 05:38: Glucometer 208 11/09/18 11:05: Glucometer 276 11/09/18 16:21: Glucometer 228 11/09/18 20:26: Glucometer 208 11/10/18 05:24: Glucometer 202 11/10/18 09:50: White Blood Count 11.9, Red Blood Count 4.12, Hemoglobin 11.3, Hematocrit 38, Mean Corpuscular Volume 93, Mean Corpuscular Hemoglobin 27, Mean Corpuscular Hemoglobin Concent 30, Red Cell Distribution Width 15.2, Platelet Count 324, Mean Platelet Volume 10.4, Sodium Level 136, Potassium Level 4.3, Chloride Level 85, Carbon Dioxide Level 40, Anion Gap 11, Blood Urea Nitrogen 22, Creatinine 0.69, Estimat Glomerular Filtration Rate > 60, BUN/Creatinine Ratio 32, Glucose Level 178, Calcium Level 9.6, B-Type Natriuretic Peptide 227.2 11/10/18 10:58: Glucometer 276 11/10/18 16:16: Glucometer 208 11/10/18 20:46: Glucometer 185 11/11/18 05:13: Glucometer 188 11/11/18 05:25: White Blood Count 10.6, Red Blood Count 4.00, Hemoglobin 11.0, Hematocrit 37, Mean Corpuscular Volume 92, Mean Corpuscular Hemoglobin 28, Mean Corpuscular Hemoglobin Concent 30, Red Cell Distribution Width 15.1, Platelet Count 326, Mean Platelet Volume 10.0, Sodium Level 141, Potassium Level 3.9, Chloride Level 86, Carbon Dioxide Level 42, Anion Gap 13, Blood Urea Nitrogen 23, Creatinine 0.68, Estimat Glomerular Filtration Rate > 60, BUN/Creatinine Ratio 34, Glucose Level 194, Calcium Level 9.7, B-Type Natriuretic Peptide 192.3 11/11/18 07:31: Glucometer 199 11/11/18 11:01: Glucometer 263 11/11/18 15:50: Glucometer 273 11/11/18 21:35: Glucometer 187 11/12/18 05:10: Glucometer 183 11/12/18 06:00: White Blood Count 9.6, Red Blood Count 4.66, Hemoglobin 12.5, Hematocrit 39, Mean Corpuscular Volume 83, Mean Corpuscular Hemoglobin 27, Mean Corpuscular Hemoglobin Concent 32, Red Cell Distribution Width 16.2, Platelet Count 213, Mean Platelet Volume 11.4, Sodium Level 140, Potassium Level 4.3, Chloride Level 111, Carbon Dioxide Level 19, Anion Gap 10, Blood Urea Nitrogen 15, Creatinine 0.80, Estimat Glomerular Filtration Rate > 60, BUN/Creatinine Ratio 19, Glucose Level 101, Calcium Level 8.9 11/12/18 11:15: Glucometer 261 11/12/18 16:21: Glucometer 286 11/12/18 20:42: Glucometer 209 11/13/18 05:49: Glucometer 171 11/13/18 06:05: White Blood Count 14.1, Red Blood Count 4.04, Hemoglobin 11.2, Hematocrit 36, Mean Corpuscular Volume 90, Mean Corpuscular Hemoglobin 28, Mean Corpuscular Hemoglobin Concent 31, Red Cell Distribution Width 15.0, Platelet Count 333, Mean Platelet Volume 9.8, Sodium Level 135, Potassium Level 3.4, Chloride Level 80, Carbon Dioxide Level 43, Anion Gap 12, Blood Urea Nitrogen 19, Creatinine 0.60, Estimat Glomerular Filtration Rate > 60, BUN/Creatinine Ratio 32, Glucose Level 174, Calcium Level 9.2 11/13/18 11:04: Glucometer 277 Discussion & Recommendations Patient to be seen in office Discharge Home Medications: Active Scripts Active Albuterol Sulfate 2.5 Mg/3 Ml Vial.neb 2.5 Mg INH TID Cefdinir 300 Mg Capsule 300 Mg PO BID Reported Quetiapine Fumarate 100 Mg Tablet 100 Mg PO DAILY Risperidone 3 Mg Tablet 3 Mg PO HS Risperidone 2 Mg Tablet 2 Mg PO DAILY Simvastatin 10 Mg Tablet 10 Mg PO HS Ramipril 10 Mg Capsule 10 Mg PO DAILY HOLD FOR SBP<100 OR PULSE <60 Nystatin 1 Each Powder.ea. TOP Q8H PRN Novolog Flexpen (Insulin Aspart) 300 Units/3 Ml Solution 5 Units SQ 1800 Novolog Flexpen (Insulin Aspart) 300 Units/3 Ml Solution SC ACHS 150-199 = 2 UNITS 200-249 = 3 UNITS 250-299 = 4 UNITS 300-349 = 5 UNITS 350-399 = 6 UNITS >400 = 7 UNITS AND NOTIFY PHYSICIAN NOTIFY PHYSICIAN IF BS <70 OR >400 Levemir Flextouch (Insulin Detemir) 100 Unit/1 Ml Insuln.pen 18 Unit SQ HS HOLD IF FSBS <100 Januvia (Sitagliptin Phosphate) 100 Mg Tablet 100 Mg PO DAILY Aripiprazole 10 Mg Tablet 10 Mg PO DAILY Milk of Magnesia (Magnesium Hydroxide) 400 Mg/5 Ml Oral.susp 30 Ml PO DAILY PRN Glucagon Emergency Kit (Glucagon,Human Recombinant) 1 Mg/Kit Soln 1 Mg IJ UD PRN Docusate Sodium 100 Mg Capsule 100 Mg PO Q12H PRN Metformin HCl 1,000 Mg Tablet 1,000 Mg PO BID Levemir Flextouch (Insulin Detemir) 100 Unit/1 Ml Insuln.pen 15 Unit SQ DAILY HOLD IF FSBS <100 Gluco Burst (Dextrose) 37.5 Gm Gel..gram. 1 Packet PO UD PRN GIVE 1 PACKET EVERY 15 MINUTES NEEDED. RE-CHECK BS IN 15 MINUTES, IF BS IS NOT RISING, GIVE ANOTHER PACKET. IF NO CHANGE IN BS OR IF CHANGE IS LOC GIVE IM GLUCAGON AND NOTIFY PHYSICIAN. Acetaminophen 325 Mg Tablet 650 Mg PO Q4H PRN TAKES 2 (325MG) TABLETS Docusate Sodium 100 Mg Capsule 100 Mg PO DAILY Aspirin EC (Aspirin) 81 Mg Tablet.dr 81 Mg PO DAILY Furosemide 20 Mg Tablet 60 Mg PO DAILY TAKES 3 (20MG) TABLETS Instructions to patient/family Please see electronic discharge instructions given to patient. Clinical Quality Measures DVT/VTE Risk/Contraindication: Risk Factor Score Per Nursin RFS Level Per Nursing on Admit: 3=High ARA MONTANEZ DO November 14, 2018 07:26
== END 2018-11-13 12:44 | DRG 193 ==
LOC: EDUNIT# 08:45 → ER 08:46 → 4TH 11:20
PROVIDERS: ADMIT Family Medicine; ATTEND Family Medicine
DX: J18.9 Pneumonia, unspecified organism (principal); J44.1 Chronic obstructive pulmonary disease with (acute) exacerbation; J96.20 Acute and chronic respiratory failure, unspecified whether with hypoxia or hypercapnia; G93.41 Metabolic encephalopathy; J81.1 Chronic pulmonary edema; E66.01 Morbid (severe) obesity due to excess calories; Z68.41 Body mass index [BMI] 40.0-44.9, adult; I11.0 Hypertensive heart disease with heart failure; I50.9 Heart failure, unspecified; Z66 Do not resuscitate; R10.13 Epigastric pain; F03.90 Unspecified dementia, unspecified severity, without behavioral disturbance, psychotic disturbance, mood disturbance, and anxiety; E11.9 Type 2 diabetes mellitus without complications; E78.00 Pure hypercholesterolemia, unspecified; I25.10 Atherosclerotic heart disease of native coronary artery without angina pectoris; G47.30 Sleep apnea, unspecified; K59.09 Other constipation; F20.9 Schizophrenia, unspecified; M79.18 Myalgia, other site; R15.9 Full incontinence of feces; R53.83 Other fatigue; Z99.81 Dependence on supplemental oxygen; Z79.4 Long term (current) use of insulin
CPT/HCPCS: 36415; 36600; 71045; 80048; 80053; 82805; 82962; 83605; 83735; 83880; 84484; 85007; 85025; 85027; 87040; 87804; 93005; 93041; 94640; 94660; 94760; 96365

== ENCOUNTER 2018-12-14 07:04 | Inpatient (IN) | payer MEDICARE, MEDICAID ==
[~2018-12-14] VITALS: Ht 144.8 cm; Wt 91.2 kg
[2018-12-14] VITALS (8 sets, daily range): BP systolic 115–165; BP diastolic 56–90
[~2018-12-14 07:04] MED LIST changes: +ACET325T49 PO; +ALBU2.5V4 INH; +ARIP10TA17 PO; +ASPI-983 PO; +CEFD300C3 PO; +DEXT37.54 PO; +DOCU100C37 PO; +FURO20TA4 PO; +GLUC1KIT IJ; +INSU100I14 SC; +INSU100I14 SQ; +INSU100I29 SQ; +MAGN400O7 PO; +METF-399 PO; +NYST1POW22 TOP; +QUET100T69 PO; +QUET300T44 PO; +RAMI10CA69 PO; +RISP2TAB3 PO; +RISP3TAB3 PO; +SIMV10TA3 PO; +SITA100T12 PO
[2018-12-14] MEDS ORDERED: LACTATED RINGERS 1,000 ML IV ONE (07:13)
[2018-12-14] MEDS ORDERED: RT-ALBUTEROL SULF 2.5 MG/3 ML PRE-MIX VIAL INH STA (07:13)
--- NOTE | 2018-12-14 07:22 | NUR ---
abg drawn by [facility] staff Cheo
--- NOTE | 2018-12-14 07:22 | NUR ---
Mi RN called [facility] requested they call the family
[2018-12-14 07:23] LABS: BASOPHILS % (AUTO) 0 % (0-10); EOSINOPHILS % (AUTO) 0 % (0-10); HEMATOCRIT 35 % (35-52); HEMOGLOBIN 10.3 G/DL (11.5-16.0); LYMPHOCYTES # (AUTO) 0.8 X 10^3 (1.0-4.0); LYMPHOCYTES % (AUTO) 7 % (12-44); MEAN CORPUSCULAR HEMOGLOBIN 28 PG (25-34); MEAN CORPUSCULAR HGB CONC 30 G/DL (32-36); MEAN CORPUSCULAR VOLUME 94 FL (80-99); MEAN PLATELET VOLUME 10.1 FL (7.4-10.4); MONOCYTES # (AUTO) 0.7 X 10^3 (0.0-1.0); MONOCYTES % (AUTO) 6 % (0-12); NEUTROPHILS # (AUTO) 10.3 X 10^3 (1.8-7.8); NEUTROPHILS % (AUTO) 87 % (42-75); PLATELET COUNT 461 10^3/uL (130-400); RED CELL DISTRIBUTION WIDTH 16.2 % (10.0-14.5); WHITE BLOOD COUNT 11.8 10^3/uL (4.3-11.0)
[2018-12-14 07:26] LABS: BILIRUBIN,URINE NEGATIVE (NEGATIVE); CLARITY,URINE SLIGHTLY CLOUDY; COLOR,URINE YELLOW; GLUCOSE, URINE (UA) 1+ (NEGATIVE); KETONES,URINE NEGATIVE (NEGATIVE); LEUKOCYTE ESTERASE ,URINE 1+ (NEGATIVE); NITRITE,URINE NEGATIVE (NEGATIVE); PH,URINE 5 (5-9); PROTEIN,URINE 3+ (NEGATIVE); UROBILINOGEN,URINE 1 MG/DL (NORMAL)
--- NOTE | 2018-12-14 07:27 | ED General ---
General Chief Complaint: Respiratory Problems Stated Complaint: SOA Source of Information: EMS, Detention Records, Old Records Exam Limitations: Physical Impairments History of Present Illness Date Seen by Provider: Dec 14, 2018 Time Seen by Provider: 07:09 Initial Comments Here by EMS with report of low oxygen saturations at the snf. Apparently she was up at about 4 AM and was her normal self but at 6:30 she was found to be unresponsive with an O2 sat in the 30s. EMS was called and O2 was applied. On EMS arrival she had an O2 saturation in the 60s. They did apply high flow O2 and did give DuoNeb treatment. This did improve her O2 saturation to 83%. She is tachypneic. Patient is not answering questions herself. She occasionally moans but does not follow commands. Patient is DO NOT RESUSCITATE. Does have recent hospitalization for pneumonia and similar presentation. EMS did note end-tidal CO2 of 70's. Timing/Duration: 1-3 Hours Severity: Severe Modifying Factors: improves with Medication Associated Systoms: Shortness of Air, Weakness Allergies and Home Medications Allergies Coded Allergies: Penicillins (Unverified Allergy, Unknown, 12/14/18) strawberry (Unverified Allergy, Unknown, 12/14/18) FROM UNCODED ALLERGIES tomato (Unverified Allergy, Unknown, 12/14/18) FROM UNCODED ALLERGIES Home Medications Acetaminophen 325 Mg Tablet, 650 MG PO Q4H PRN for PAIN-MILD, (Reported) TAKES 2 (325MG) TABLETS Albuterol Sulfate 2.5 Mg/3 Ml Vial.neb, 2.5 MG INH TID Prescribed by: KADEN GREEN on 11/13/18 1048 Aripiprazole 10 Mg Tablet, 10 MG PO DAILY, (Reported) Aspirin 81 Mg Tablet.dr, 81 MG PO DAILY, (Reported) Dextrose 37.5 Gm Gel..gram., 1 PACKET PO UD PRN for HYPOGLYCEMIA, (Reported) GIVE 1 PACKET EVERY 15 MINUTES NEEDED. RE-CHECK BS IN 15 MINUTES, IF BS IS NOT RISING, GIVE ANOTHER PACKET. IF NO CHANGE IN BS OR IF CHANGE IS LOC GIVE IM GLUCAGON AND NOTIFY PHYSICIAN. Docusate Sodium 100 Mg Capsule, 100 MG PO DAILY, (Reported) Docusate Sodium 100 Mg Capsule, 100 MG PO Q12H PRN for CONSTIPATION-1ST LINE, (Reported) Furosemide 20 Mg Tablet, 60 MG PO DAILY, (Reported) TAKES 3 (20MG) TABLETS Glucagon,Human Recombinant 1 Mg/Kit Soln, 1 MG IJ UD PRN for BLOOD GLUCOSE <60, (Reported) Insulin Aspart 300 Units/3 Ml Solution, SC ACHS, (Reported) 150-199 = 2 UNITS 200-249 = 3 UNITS 250-299 = 4 UNITS 300-349 = 5 UNITS 350- 399 = 6 UNITS >400 = 7 UNITS AND NOTIFY PHYSICIAN NOTIFY PHYSICIAN IF BS <70 OR >400 Insulin Aspart 300 Units/3 Ml Solution, 5 UNITS SQ 1800, (Reported) Insulin Detemir 100 Unit/1 Ml Insuln.pen, 15 UNIT SQ DAILY, (Reported) HOLD IF FSBS <100 Insulin Detemir 100 Unit/1 Ml Insuln.pen, 18 UNIT SQ HS, (Reported) HOLD IF FSBS <100 Magnesium Hydroxide 400 Mg/5 Ml Oral.susp, 30 ML PO DAILY PRN for CONSTIPATION- 7TH LINE, (Reported) Metformin HCl 1,000 Mg Tablet, 1,000 MG PO BID, (Reported) Nystatin 1 Each Powder.ea., TOP Q8H PRN for GAULDING, (Reported) Quetiapine Fumarate 100 Mg Tablet, 100 MG PO DAILY, (Reported) Ramipril 10 Mg Capsule, 10 MG PO DAILY, (Reported) HOLD FOR SBP<100 OR PULSE <60 Risperidone 2 Mg Tablet, 2 MG PO DAILY, (Reported) Risperidone 3 Mg Tablet, 3 MG PO HS, (Reported) Simvastatin 10 Mg Tablet, 10 MG PO HS, (Reported) Sitagliptin Phosphate 100 Mg Tablet, 100 MG PO DAILY, (Reported) Patient Home Medication List Home Medication List Reviewed: Yes Review of Systems Review of Systems Constitutional: see HPI Respiratory: short of breath Unable to complete review of systems due to altered mental status and poor clinical condition. Past Pdjtnog-Hfanlc-Fhbdmo Hx Past Med/Social Hx: Reviewed Nursing Past Med/Soc Hx Patient Social History Alcohol Use: Denies Use Recreational Drug Use: No Smoking Status: Never a Smoker Recent Foreign Travel: No Contact w/Someone Who Travel: No Recent Hopitalizations: No Immunizations Up To Date Tetanus Booster (TDap): Unknown Date of Pneumonia Vaccine: Apr 15, 2012 Seasonal Allergies Seasonal Allergies: No Past Medical History Surgeries: Yes (CARDIAC CATH) Cardiac Respiratory: Yes (ACUTE RESPIRATORY FAILURE 12/22/14, functional dyspnea) Sleep Apnea Cardiac: Yes (CHF/ PULMONARY EDEMA 12/22/14) Chronic Edema/Swelling, Coronary Artery Disease, High Cholesterol, Hypertension Neurological: Yes Dementia [employer] History: 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 Physical Exam-Suspected Sepsis Physical Exam Vital Signs Vital Signs - First Documented 12/14/18 07:08 Temp 98.2 Pulse 104 Resp 21 B/P (MAP) 144/76 (98) Pulse Ox 80 O2 Flow Rate 15.00 FiO2 80 Capillary Refill : Height, Weight, BMI Height: 4'9.00" Weight: 186lbs. 7.0oz. 84.587717ji; 42.9 BMI Method:Stated General Appearance: Chronically ill, Obese HEENT: Pharynx Normal, Other (pupils 3-4 mm bilateral and equal.) Respiratory: Crackles, Respiratory Distress, Wheezing Cardiovascular: No Murmur, Tachycardia Gastrointestinal: Non Tender, Soft, Other (morbidly obese) Extremity: Non Tender, Pedal Edema (2+ to mid tibia bilaterally) Neurologic/Psychiatric: Other (moans to pain but otherwise unresponsive. Seems to be protecting her own airway and is not coughing.) Skin: warm/dry, other (skin tear/wound to the medial aspect of the left heel.) Focused Exam Lactate Level 12/14/18 07:45: Lactic Acid Level 1.06 Lactic Acid Level Laboratory Tests Test 12/14/18 07:45 Lactic Acid Level 1.06 MMOL/L (0.50-2.00) Progress/Results/Core Measures Suspected Sepsis SIRS Temperature: Pulse: Respiratory Rate: Laboratory Tests 12/14/18 07:14: White Blood Count 11.8H Blood Pressure / Mean: 12/14/18 07:45: Lactic Acid Level 1.06 Laboratory Tests 12/14/18 07:14: Creatinine 0.84, INR Comment 1.0, Platelet Count 461H, Total Bilirubin 0.5 Results/Orders Lab Results Laboratory Tests Test 12/14/18 07:14 12/14/18 07:15 12/14/18 07:25 12/14/18 07:45 Range/Units White Blood Count 11.8 H 4.3-11.0 10^3/uL Red Blood Count 3.70 L 4.35-5.85 10^6/uL Hemoglobin 10.3 L 11.5-16.0 G/DL Hematocrit 35 35-52 % Mean Corpuscular Volume 94 80-99 FL Mean Corpuscular Hemoglobin 28 25-34 PG Mean Corpuscular Hemoglobin Concent 30 L 32-36 G/DL Red Cell Distribution Width 16.2 H 10.0-14.5 % Platelet Count 461 H 130-400 10^3/uL Mean Platelet Volume 10.1 7.4-10.4 FL Neutrophils (%) (Auto) 87 H 42-75 % Lymphocytes (%) (Auto) 7 L 12-44 % Monocytes (%) (Auto) 6 0-12 % Eosinophils (%) (Auto) 0 0-10 % Basophils (%) (Auto) 0 0-10 % Neutrophils # (Auto) 10.3 H 1.8-7.8 X 10^3 Lymphocytes # (Auto) 0.8 L 1.0-4.0 X 10^3 Monocytes # (Auto) 0.7 0.0-1.0 X 10^3 Eosinophils # (Auto) 0.0 0.0-0.3 10^3/uL Basophils # (Auto) 0.0 0.0-0.1 10^3/uL Neutrophils % (Manual) 87 % Lymphocytes % (Manual) 8 % Monocytes % (Manual) 3 % Band Neutrophils 2 % Hypersegmented Neutrophils MODERATE Toxic Granulation 1+ Helmet Cells Blood Morphology Comment NORMAL Prothrombin Time 13.7 12.2-14.7 SEC INR Comment 1.0 0.8-1.4 Activated Partial Thromboplast Time 24 24-35 SEC Sodium Level 136 135-145 MMOL/L Potassium Level 6.2 H 3.6-5.0 MMOL/L Chloride Level 86 L 98-107 MMOL/L Carbon Dioxide Level 37 H 21-32 MMOL/L Anion Gap 13 5-14 MMOL/L Blood Urea Nitrogen 28 H 7-18 MG/DL Creatinine 0.84 0.60-1.30 MG/DL Estimat Glomerular Filtration Rate > 60 BUN/Creatinine Ratio 33 Glucose Level 209 H 70-105 MG/DL Calcium Level 9.5 8.5-10.1 MG/DL Corrected Calcium 9.7 8.5-10.1 MG/DL Magnesium Level 2.4 1.8-2.4 MG/DL Total Bilirubin 0.5 0.1-1.0 MG/DL Aspartate Amino Transf (AST/SGOT) 25 5-34 U/L Alanine Aminotransferase (ALT/SGPT) 27 0-55 U/L Alkaline Phosphatase 67 40-136 U/L Troponin I 0.072 H <0.028 NG/ML B-Type Natriuretic Peptide 385.6 H <100.0 PG/ML Total Protein 6.8 6.4-8.2 GM/DL Albumin 3.7 3.2-4.5 GM/DL Urine Color YELLOW Urine Clarity SLIGHTLY CLOUDY Urine pH 5 5-9 Urine Specific [place] 1.025 H 1.016-1.022 Urine Protein 3+ H NEGATIVE Urine Glucose (UA) 1+ H NEGATIVE Urine Ketones NEGATIVE NEGATIVE Urine Nitrite NEGATIVE NEGATIVE Urine Bilirubin NEGATIVE NEGATIVE Urine Urobilinogen 1 NORMAL MG/DL Urine Leukocyte Esterase 1+ H NEGATIVE Urine RBC (Auto) 1+ H NEGATIVE Urine RBC 0-2 /HPF Urine WBC 2-5 /HPF Urine Squamous Epithelial Cells 2-5 /HPF Urine Crystals PRESENT H /LPF Urine Amorphous Sediment RARE DYLLAN URATES H /LPF Urine Bacteria FEW H /HPF Urine Casts PRESENT /LPF Urine Hyaline Casts 5-10 H /LPF Urine Mucus SMALL H /LPF Urine Culture Indicated CULTURE PENDING Blood Gas Puncture Site RT RAD Blood Gas Patient Temperature 98.2 Arterial Blood pH 7.34 *L 7.37-7.43 Arterial Blood Partial Pressure CO2 87 *H 35-45 MMHG Arterial Blood Partial Pressure O2 57 L 79-93 MMHG Arterial Blood HCO3 46 *H 23-27 MMOL/L Arterial Blood Total CO2 48.2 H 21.0-31.0 MMOL/L Arterial Blood Oxygen Saturation 85 L 94-100 % Arterial Blood Base Excess 18.7 H -2.5-2.5 MMOL/L Sincere Test YES-POS Blood Gas Ventilator Setting NO Blood Gas Inspired Oxygen 10 L Lactic Acid Level 1.06 0.50-2.00 MMOL/L My Orders Orders - ELIZA PALACIO MD Cbc With Automated Diff (12/14/18 07:13) Comprehensive Metabolic Panel (12/14/18 07:13) Blood Culture (12/14/18 07:13) Sputum Culture (12/14/18 07:13) Urinalysis (12/14/18 07:13) Urine Culture (12/14/18 07:13) Protime With Inr (12/14/18 07:13) Partial Thromboplastin Time (12/14/18 07:13) Chest 1 View, Ap/Pa Only (12/14/18 07:13) Ed Iv/Invasive Line Start (12/14/18 07:13) Ekg Tracing (12/14/18 07:13) Troponin I (12/14/18 07:13) Vital Signs Adult Sepsis Patie Q15M (12/14/18 07:13) O2 (12/14/18 07:13) Remove Rings In Anticipation O (12/14/18 07:13) Lactic Acid Analyzer (12/14/18 07:13) Lactated Ringers (Lr 1000 Ml Iv Solution (12/14/18 07:13) Arterial Blood Gas (12/14/18 07:13) BNP (12/14/18 07:13) Magnesium (12/14/18 07:13) Albuterol Pre-Mix Nebs (Rt) (Proventil (12/14/18 07:13) Svn Small Volume Nebulizer (12/14/18 07:13) Manual Differential (12/14/18 07:14) Cefepime Injection (Maxipime Injection) (12/14/18 09:30) Methylprednisolone Sod Succ (Solu-Medrol (12/14/18 09:19) Medications Given in ED Current Medications Medications Dose Ordered Sig/Ney Route Start Time Stop Time Status Last Admin Dose Admin Lactated Ringer's 1,000 ml @ 0 mls/hr Q0M ONCE IV 12/14/18 07:13 12/14/18 07:18 DC 12/14/18 08:02 1,000 MLS/HR Vital Signs/I&O 12/14/18 12/14/18 12/14/18 07:08 07:08 07:44 Temp 98.2 Pulse 104 96 Resp 21 18 B/P (MAP) 144/76 (98) Pulse Ox 80 80 95 O2 Flow Rate 15.00 15.00 100.00 FiO2 80 Capillary Refill : Progress Note : Progress Note Seen and evaluated. Sepsis protocol initiated. Patient is somnolent and/or near and responsive but is DO NOT RESUSCITATE. Patient is not well supported currently with high flow O2 and O2 saturations are only 83%. Patient needs p ositive pressure ventilation and our only option would be BiPAP currently. There is concerns due to aspiration but she is not coughing and seems to be handling her secretions okay so we will go ahead and try that. This seems to have been effective in the past on previous hospitalization. Albuterol neb 3 will be initiated as well. We have added ABG as well as EKG. Mars catheter placed and LR 1 L bolus ordered. Monitor patient. 0920: I have had a long discussion with the patient's cousin who is her power of transactional attorney. At this point we will provide medical therapy is indicated for the pneumonia. We will not be overly aggressive including pressors and patient remains DO NOT RESUSCITATE. Palliative care consult will be placed. I did discuss with the family regarding aggressive therapy versus nonaggressive therapy versus hospice and comfort care. Right now we are doing the nonaggressive therapy and will consider hospice or comfort care depending on patient's response to therapy. I did discuss the case with Dr. Vickey freed, on-call for Dr. Montanez and she accepts patient for admission, inpatient status and agrees to plan as detailed above. We will initiate cefepime and vancomycin. She will have gentle hydration and continue BiPAP at this point. I will write for morphine for pain or air hunger and Solu-Medrol IV as well. RT protocol initiated. Admit inpatient status. Family agrees ECG Initial ECG Impression Date: Dec 14, 2018 Initial ECG Impression Time: 07:25 Initial ECG Rate: 100 Initial ECG Rhythm: S.Tach Initial ECG Comparisson: Unchanged Comment Sinus tachycardia normal axis. No evidence of ST elevation VT. Similar to previous of 11/05/18. Interpreted by me. Diagnostic Imaging Diagonstic Imaging: Xray Plain Films/CT/US/NM/MRI: chest Comments [facility], [place] NAME: HANS HICKS [facility] REC#: [id number] PT STATUS: REG ER : 1945 PHYSICIAN: ELIZA PALACIO MD ADMIT DATE: 12/14/18/ER Draft Date of Exam:12/14/18 CHEST 1 VIEW, AP/PA ONLY INDICATION: Shortness of air and unresponsive. Time of exam: 7:50 AM Correlation is made with prior study from 11/13/2018. Heart is enlarged. There is some increased density in the left base partially obscuring the left hemidiaphragm, similar to prior study. There may be some minimal infiltrate in the right perihilar region on today's study as well. Costophrenic angles are slightly blunted which could indicate a small amount of pleural fluid. Upper lung mitchell are clear. There is no pneumothorax. IMPRESSION: Cardiomegaly with persistent left basilar infiltrate. There is some mild infiltrate right perihilar region as well as small bilateral effusions. Dictated on workstation # [id number] Dict: 12/14/18 0754 Trans: 12/14/18 0817 OTILIA [id number] Interpreted by: SHILPI RO MD Electronically signed by: Departure Communication (Admissions) Time/Spoke to Admitting Phy: 09:20 Impression Primary Impression: Bilateral pneumonia Qualified Codes: J18.1 - Lobar pneumonia, unspecified organism Additional Impression: Acute respiratory failure with hypoxia Disposition: 09 ADMITTED INPATIENT Condition: Stable Admissions Decision to Admit Reason: Admit from ER (General) Decision to Admit/Date: Dec 14, 2018 Time/Decision to Admit Time: 09:20 Departure-Patient Inst. Referrals: ARA MONTANEZ DO (PCP/Family) Primary Care Physician ELIZA PALACIO MD Dec 14, 2018 07:27
[2018-12-14 07:30] LABS: PROTHROMBIN TIME PATIENT 13.7 SEC (12.2-14.7)
[2018-12-14 07:31] LABS: ABG BASE EXCESS 18.7 MMOL/L (-2.5-2.5); ABG OXYGEN SATURATION 85 % (94-100); ABG PO2 57 MMHG (79-93); ABG TCO2 48.2 MMOL/L (21.0-31.0)
[2018-12-14 07:32] LABS: ABG PCO2 87 MMHG (35-45); ABG PH 7.34 (7.37-7.43)
[2018-12-14 07:33] LABS: ALLENS TEST YES-POS; INSPIRED O2 10 L; VENTILATOR NO
[2018-12-14 07:34] LABS: PATIENT TEMP 98.2
[2018-12-14 07:40] LABS: AMORPHOUS SEDIMENT,UR RARE AMOR URATES /LPF; BACTERIA,URINE FEW /HPF; RBC,URINE 0-2 /HPF
[2018-12-14 07:44] LABS: ALANINE AMINOTRANSFERASE 27 U/L (0-55); ALBUMIN 3.7 GM/DL (3.2-4.5); ALKALINE PHOSPHATASE 67 U/L (40-136); BILIRUBIN,TOTAL 0.5 MG/DL (0.1-1.0); BUN/CREATININE RATIO 33; CALCIUM 9.5 MG/DL (8.5-10.1); CARBON DIOXIDE 37 MMOL/L (21-32); CHLORIDE 86 MMOL/L (98-107); CREATININE SERUM 0.84 MG/DL (0.60-1.30); GFR ESTIMATED > 60; GLUCOSE 209 MG/DL (70-105); MAGNESIUM 2.4 MG/DL (1.8-2.4); SODIUM 136 MMOL/L (135-145); TOTAL PROTEIN 6.8 GM/DL (6.4-8.2)
--- NOTE | 2018-12-14 07:51 | NUR ---
contacted [facility] spoke to darline to obtain weight of patient. Darline then offered she had been in contact with Char ARTIS who was told of patient condition and admission to ER.
[2018-12-14 07:56] LABS: POTASSIUM 6.2 MMOL/L (3.6-5.0)
--- NOTE | 2018-12-14 08:15 | NUR ---
patient Family member Char ARTIS has arrived. Dr Bermeo is in to speak to family.
--- NOTE | 2018-12-14 08:17 | Diagnostic Imaging Report ---
INDICATION: Shortness of air and unresponsive. Time of exam: 7:50 AM Correlation is made with prior study from 11/13/2018. Heart is enlarged. There is some increased density in the left base partially obscuring the left hemidiaphragm, similar to prior study. There may be some minimal infiltrate in the right perihilar region on today's study as well. Costophrenic angles are slightly blunted which could indicate a small amount of pleural fluid. Upper lung mitchell are clear. There is no pneumothorax. IMPRESSION: Cardiomegaly with persistent left basilar infiltrate. There is some mild infiltrate right perihilar region as well as small bilateral effusions. Dictated by: Dictated on workstation # [id number]
[2018-12-14 08:24] LABS: BAND NEUTROPHILS 2 %; HYPERSEGMENTED NEUT MODERATE; LYMPHOCYTES % (MANUAL) 8 %; MONOCYTES % (MANUAL) 3 %; NEUTROPHILS % (MANUAL) 87 %; RBC MORPH NORMAL
[2018-12-14 08:25] LABS: TOXIC GRANULATION/VACUOLAZATIO 1+
--- NOTE | 2018-12-14 09:00 | NUR ---
in room to assess patient and see if family has questions or needs. needs denied at this time frequent monitoring maintained.
[2018-12-14] MEDS ORDERED: methylPREDNISolone 125 MG (Solu-MEDROL) VIAL IV STA (09:19)
[2018-12-14] MEDS ORDERED: CEFEPIME INJECTION 1,000 MG in WATER (STERILE) FOR INJECTION 10 ML IV ONE (09:30)
--- NOTE | 2018-12-14 09:30 | NUR ---
RT Cheo to room to decrease FIo2 per Dr Bermeo, FIo2 decreased to 50% at this time. Dr Bermeo notified
--- NOTE | 2018-12-14 09:40 | NUR ---
Mi called airplane flight attendant supervisor for room on medsurg
--- NOTE | 2018-12-14 09:48 | NUR ---
report given to Cherry DIANA
--- NOTE | 2018-12-14 10:25 | NUR ---
HANS HICKS admitted to room 415-1, with an admitting diagnosis of PNEUMONIA, on 12/14/18 from ED via CART, accompanied by STAFF. PT NONRESPONSIVE. THEREFORE, UNABLE TO ORIENT/EXPLAIN THE FOLLOWING: surroundings, call light, bed controls, phone, TV, temperature control, lights, meal times, smoking policy, visitor policy, side rail policy, bathrooms and showers. HANS HICKS UNABLE TO VERBALIZE understanding that [facility] is not responsible for the loss or damage to any personal effects or valuables that are kept in the patients posession during their hospitalization. The following Patient Care Plans were IMPLEMENTED, BUT NOT discussed with the PATIENT R/T NONRESPONSIVE AND NO FAMILY PRESENT: Discharge Planning, PAIN, PNEUMONIA.
[2018-12-14] MEDS ORDERED: VANCOMYCIN 1,750 MG/NS 500 ML IVPB IV NR ×2 (10:45)
[2018-12-14] MEDS ORDERED: CATHETER FLUSH 10 ML SYR IV PRN (11:00)
--- NOTE | 2018-12-14 11:28 | History & Physical-Hospitalist ---
History of Present Illness HPI/Chief Complaint CC: Hypoxia and respiratory failure HPI: This is a 73yoWF alf patient of Dr Rodriguez who is DNR and chronically debilitated who was admitted 6 weeks ago for pneumonia who presented to the ER with hypoxia and AMS and was found to have 30% O2 assessed improved to 60% on non-rebreather and now on biPAP diagnosed with bilateral pneumonia. Patient is in need of palliative care due to such severely poor prognosis. Patient is sleeping and does not respond to my questions. Source: patient Exam Limitations: no limitations Date Seen 12/14/18 Time Seen by a Provider: 11:30 Attending Physician Rusty Rodriguez DO PCP Rusty Rodriguez DO Referring Physician Date of Admission Dec 14, 2018 at 09:20 Home Medications & Allergies Home Medications Reviewed patient Home Medication Reconciliation performed by pharmacy medication reconciliations environmental monitoring technician and/or nursing. Patients Allergies have been reviewed. Allergies Allergies Coded Allergies Penicillins (Verified Allergy, Unknown, 12/14/18) strawberry (Verified Allergy, Unknown, 12/14/18) FROM UNCODED ALLERGIES tomato (Verified Allergy, Unknown, 12/14/18) FROM UNCODED ALLERGIES Past Hnrdcgp-Wdxynz-Ofdsib Hx Past Med/Social Hx: Reviewed Nursing Past Med/Soc Hx, Reviewed and Corrections made Patient Social History Marrital Status: single Employed/Student: retired Alcohol Use: Denies Use Recreational Drug Use: No Smoking Status: Never a Smoker Recent Foreign Travel: No Contact w/other who traveled: No Recent Hopitalizations: No Recent Infectious Disease Expo: No Immunizations Up To Date Tetanus Booster (TDap): Unknown Date of Pneumonia Vaccine: Apr 15, 2012 Seasonal Allergies Seasonal Allergies: No Past Medical History Surgeries: Cardiac Cardiac: Chronic Edema/Swelling, Coronary Artery Disease, High Cholesterol, Hypertension Neurological: Dementia Menopausal Gastrointestinal: Chronic Constipation Endocrine: Diabetes, Insulin dep Psychosocial: Sleep Difficulties, Schizophrenia History of Blood Disorders: No Family History Reviewed Nursing Family Hx Unobtainable No Pertinent Family Hx History from records as patient unable to provide due to clinical condition. Review of Systems ROS-Unable to Obtain: confusion precludes details Constitutional: see HPI, weakness Physical Exam Physical Exam Vital Signs Vital Signs - First Documented 12/14/18 12/14/18 07:08 10:24 Temp 98.2 Pulse 104 Resp 21 B/P (MAP) 144/76 (98) Pulse Ox 80 O2 Delivery NIV Bilevel O2 Flow Rate 15.00 FiO2 80 Capillary Refill : Less Than 3 Seconds Height, Weight, BMI Height: 4'9.00" Weight: 195lbs. 9.0oz. 88.323945pm; 42.9 BMI Method:Estimated General Appearance: No Apparent Distress, WD/WN, Chronically ill, Obese, Other (on biPAP) Eyes: Right Eye Normal Inspection, Right Eye PERRL Respiratory: Lungs Clear, Normal Breath Sounds, No Accessory Muscle Use, No Respiratory Distress Cardiovascular: Regular Rate, Rhythm, No Edema, No Gallop, No JVD, No Murmur, Normal Peripheral Pulses Gastrointestinal: Normal Bowel Sounds, No Organomegaly, No Pulsatile Mass, Non Tender, Soft Back: No CVA Tenderness Neurologic/Psychiatric: Disoriented, Other (near comatose) Skin: Normal Color, Warm/Dry Lymphatic: No Adenopathy Results Results/Procedures Labs Laboratory Tests 12/14/18 07:14 Patient resulted labs reviewed. Assessment/Plan Admission Diagnosis Assessment: Bilateral pneumonia Respiratory failure DNR Poor prognosis Chronic debility Confusion Hypoxia Plan: Palliative care consultation DNR Monitor closely Admission Status: Inpatient Order (span 2 midnights) Reason for Inpatient Admission: Resp failure with bilateral pneumonia will require 4 days inpatient Diagnosis/Problems Diagnosis/Problems (1) Acute respiratory failure with hypoxia Status: Acute (2) Bilateral pneumonia Status: Acute Qualifiers: Pneumonia type: due to unspecified organism Lung location: lower lobe of lung Qualified Codes: J18.1 - Lobar pneumonia, unspecified organism (3) BiPAP (biphasic positive airway pressure) dependence Status: Acute (4) Obesity Status: Chronic Qualifiers: Obesity type: due to excess calories Obesity classification: adult class 3 (BMI >= 40) Body mass index: BMI 40.0-44.9 (5) Hypoxia Status: Acute (6) Schizophrenia Status: Chronic Qualifiers: Schizophrenia type: unspecified Qualified Codes: F20.9 - Schizophrenia, unspecified (7) Respiratory failure Status: Acute Qualifiers: Chronicity: acute Respiratory failure complication: unspecified whether with hypoxia or hypercapnia Qualified Codes: J96.00 - Acute respiratory failure, unspecified whether with hypoxia or hypercapnia (8) Dementia Status: Chronic Qualifiers: Dementia type: Alzheimer's disease Alzheimer's disease onset: unspecified onset Dementia behavioral disturbance: without behavioral disturbance Qualified Codes: G30.9 - Alzheimer's disease, unspecified; F02.80 - Dementia in other diseases classified elsewhere without behavioral disturbance (9) Diabetes mellitus Status: Chronic Qualifiers: Diabetes mellitus type: type 2 Diabetes mellitus retirement insulin use: with exterminator termite use Diabetes mellitus complication status: with unspecified complications Qualified Codes: E11.8 - Type 2 diabetes mellitus with unspecified complications; Z79.4 - senior care (current) use of insulin AL URBANO DO Dec 14, 2018 11:28
[2018-12-14] MEDS: NS IV 1000 ML 1,000 ML IV SCH (11:29)
[2018-12-14] MEDS ORDERED: RT-ALBUTEROL/IPRATROPIUM 3 ML (DUONEB) VIAL ONE (14:27)
[2018-12-14] MEDS ORDERED: RT-ALBUTEROL/IPRATROPIUM 3 ML (DUONEB) VIAL INH PRN (14:30)
[2018-12-14] MEDS: RT-ALBUTEROL/IPRATROPIUM 3 ML (DUONEB) VIAL INH SCH ×3 (14:44→21:07)
[2018-12-14] MEDS: methylPREDNISolone 125 MG (Solu-MEDROL) VIAL IV SCH ×2 (16:54→21:28)
[2018-12-14] MEDS: CEFEPIME 1,000 MG/SWFI 10 ML IV PUSH IV SCH ×4 (16:54→21:28)
[2018-12-14] MEDS: morphine INJ 4 MG/ML 1 ML (VIAL/SYRINGE) IV PRN (21:33)
[2018-12-15] VITALS: BP 165/74
[2018-12-15] MEDS: RT-ALBUTEROL/IPRATROPIUM 3 ML (DUONEB) VIAL INH SCH ×6 (01:04→21:33)
[2018-12-15] MEDS: morphine INJ 4 MG/ML 1 ML (VIAL/SYRINGE) IV PRN ×2 (01:33→20:59)
[2018-12-15] MEDS: NS IV 1000 ML 1,000 ML IV SCH ×2 (01:33→10:43)
[2018-12-15] MEDS: CEFEPIME 1,000 MG/SWFI 10 ML IV PUSH IV SCH ×8 (03:52→21:33)
[2018-12-15] MEDS: methylPREDNISolone 125 MG (Solu-MEDROL) VIAL IV SCH ×4 (03:53→21:32)
[2018-12-15 04:00] VITALS: BP 162/74
[2018-12-15 06:39] LABS: BASOPHILS % (AUTO) 0 % (0-10); EOSINOPHILS % (AUTO) 0 % (0-10); HEMATOCRIT 33 % (35-52); HEMOGLOBIN 9.8 G/DL (11.5-16.0); LYMPHOCYTES # (AUTO) 0.4 X 10^3 (1.0-4.0); LYMPHOCYTES % (AUTO) 4 % (12-44); MEAN CORPUSCULAR HEMOGLOBIN 28 PG (25-34); MEAN CORPUSCULAR HGB CONC 29 G/DL (32-36); MEAN CORPUSCULAR VOLUME 94 FL (80-99); MEAN PLATELET VOLUME 10.3 FL (7.4-10.4); MONOCYTES # (AUTO) 0.7 X 10^3 (0.0-1.0); MONOCYTES % (AUTO) 8 % (0-12); NEUTROPHILS # (AUTO) 7.5 X 10^3 (1.8-7.8); NEUTROPHILS % (AUTO) 88 % (42-75); PLATELET COUNT 388 10^3/uL (130-400); RED CELL DISTRIBUTION WIDTH 15.4 % (10.0-14.5); WHITE BLOOD COUNT 8.5 10^3/uL (4.3-11.0)
[2018-12-15 07:01] LABS: ALANINE AMINOTRANSFERASE 22 U/L (0-55); ALBUMIN 3.3 GM/DL (3.2-4.5); ALKALINE PHOSPHATASE 53 U/L (40-136); BILIRUBIN,TOTAL 0.3 MG/DL (0.1-1.0); BUN/CREATININE RATIO 37; CALCIUM 8.7 MG/DL (8.5-10.1); CARBON DIOXIDE 40 MMOL/L (21-32); CHLORIDE 91 MMOL/L (98-107); CREATININE SERUM 0.87 MG/DL (0.60-1.30); GFR ESTIMATED > 60; GLUCOSE 280 MG/DL (70-105); POTASSIUM 5.4 MMOL/L (3.6-5.0); SODIUM 137 MMOL/L (135-145); TOTAL PROTEIN 5.7 GM/DL (6.4-8.2)
--- NOTE | 2018-12-15 07:33 | Progress Note (SOAP) ---
Subjective Time Seen by a Provider: 07:28 Subjective/Events-last exam Spoke to patient's cousin who is her POA. To give medication and treatment and not become aggressive or heroic with Erika as per their request which I agree with. Patient troponin minimally elevated probably MS 2. Patient is doing better today than yesterday according to family. Patient not speaking but is moving Focused Exam Lactate Level 12/14/18 07:45: Lactic Acid Level 1.06 Objective Exam Vital Signs Date Time Temp Pulse Resp B/P (MAP) Pulse Ox O2 Delivery O2 Flow Rate FiO2 12/15/18 04:00 97.9 85 24 162/74 (103) 95 NIV Bilevel 50.00 12/15/18 02:58 93 25 93 35.00 90 12/15/18 02:03 97.8 12/15/18 01:05 94 25 95 40.00 90 12/15/18 00:00 97.8 95 22 165/74 (104) 96 NIV Bilevel 50.00 12/14/18 21:07 86 25 97 45.00 90 12/14/18 20:00 95 NIV Bilevel 35.00 80 12/14/18 19:49 87 35 97 45.00 90 12/14/18 19:44 96.9 92 26 165/77 (106) 97 NIV Bilevel 50.00 12/14/18 19:39 87 42 96 50.00 12/14/18 16:00 97.3 88 21 128/90 (103) 98 NIV Bilevel 50.00 12/14/18 14:46 89 29 98 50.00 12/14/18 14:10 83 94 50 12/14/18 12:00 NIV Bilevel 50.00 50 12/14/18 11:30 97.3 83 16 115/56 (75) 94 NIV Bilevel 50.00 12/14/18 11:11 88 12/14/18 10:24 97.2 84 16 132/60 (84) 96 NIV Bilevel 50.00 12/14/18 10:24 97.2 84 16 132/60 96 NIV Bilevel 50.00 12/14/18 10:05 98.2 96 26 153/74 (100) 98 50.00 12/14/18 07:44 96 18 95 100.00 I & O 12/15/18 07:00 Intake Total 2537.5 ml Output Total 1375 ml Balance 1162.5 ml Capillary Refill : Less Than 3 SecondsLess Than 3 Seconds General Appearance: No Apparent Distress, WD/WN Results Lab Laboratory Tests 12/15/18 06:19 Laboratory Tests 12/14/18 07:45: Lactic Acid Level 1.06 12/15/18 06:19: White Blood Count 8.5, Red Blood Count 3.54L, Hemoglobin 9.8L, Hematocrit 33L, Mean Corpuscular Volume 94, Mean Corpuscular Hemoglobin 28, Mean Corpuscular Hemoglobin Concent 29L, Red Cell Distribution Width 15.4H, Platelet Count 388, Mean Platelet Volume 10.3, Neutrophils (%) (Auto) 88H, Lymphocytes (%) (Auto) 4L , Monocytes (%) (Auto) 8, Eosinophils (%) (Auto) 0, Basophils (%) (Auto) 0, Neutrophils # (Auto) 7.5, Lymphocytes # (Auto) 0.4L, Monocytes # (Auto) 0.7, Eosinophils # (Auto) 0.0, Basophils # (Auto) 0.0, Sodium Level 137, Potassium Level 5.4H, Chloride Level 91L, Carbon Dioxide Level 40H, Anion Gap 6, Blood Urea Nitrogen 32H, Creatinine 0.87, Estimat Glomerular Filtration Rate > 60, BUN/Creatinine Ratio 37, Glucose Level 280H, Calcium Level 8.7, Corrected Calcium 9.3, Total Bilirubin 0.3, Aspartate Amino Transf (AST/SGOT) 15, Alanine Aminotransferase (ALT/SGPT) 22, Alkaline Phosphatase 53, Total Protein 5.7L, Albumin 3.3 Assessment/Plan Assessment/Plan Assess & Plan/Chief Complaint Bilateral pneumonia. Respiratory failure. DO NOT RESUSCITATE. Hypoxia. Noncommunicative. Minimally elevated troponin 1 Clinical Quality Measures DVT/VTE Risk/Contraindication: Risk Factor Score Per Nursin RFS Level Per Nursing on Admit: 4+=Very High ARA MONTANEZ DO Dec 15, 2018 07:33
[2018-12-15 08:11] VITALS: BP 173/75
[2018-12-15] MEDS: ENOXAPARIN 40 MG/0.4 ML (LOVENOX) SYR SC SCH ×2 (08:59→20:58)
--- NOTE | 2018-12-15 09:13 | Diagnostic Imaging Report ---
Indication: Shortness of air. Time of exam: 8:56 AM Correlation is made to prior study 12/14/2018. The heart is enlarged but stable. There are central congestive changes. There appear to be bibasilar infiltrates, greatest on the left obscuring the left hemidiaphragm. Upper lung mitchell are clear. There is no pneumothorax. Impression: Cardiomegaly and central congestion with bibasilar infiltrates, left greater. The overall appearance is similar to perhaps slightly worse in the left base when compared with yesterday. Dictated by: Dictated on workstation # [id number]
[2018-12-15] MEDS: VANCOMYCIN 1500 MG/NS 500 ML IVPB IV SCH ×2 (10:44)
[2018-12-15] MEDS ORDERED: QUET300T2 PO (10:45)
[2018-12-15] MEDS ORDERED: NYST15CR TP (10:45)
[2018-12-15] MEDS ORDERED: TR1C15 TP (10:45)
--- NOTE | 2018-12-15 10:46 | NUR ---
UPDATED MED REC WITH ORDER SUMMARY REPORT FROM [facility] AND [facility]
[2018-12-15 12:38] VITALS: BP 165/82
--- NOTE | 2018-12-15 15:25 | NUR ---
Pastoral care visit.
[2018-12-15 16:00] VITALS: BP 146/67
[2018-12-15 19:40] VITALS: BP 166/73
[2018-12-16 00:02] VITALS: BP 173/79
[2018-12-16] MEDS: NS IV 1000 ML 1,000 ML IV SCH ×2 (00:36→19:27)
[2018-12-16] MEDS: RT-ALBUTEROL/IPRATROPIUM 3 ML (DUONEB) VIAL INH SCH ×6 (02:45→22:16)
[2018-12-16 04:31] VITALS: BP 161/73
[2018-12-16] MEDS: CEFEPIME 1,000 MG/SWFI 10 ML IV PUSH IV SCH ×8 (04:39→21:42)
[2018-12-16] MEDS: methylPREDNISolone 125 MG (Solu-MEDROL) VIAL IV SCH ×4 (04:39→21:42)
[2018-12-16 06:21] LABS: BASOPHILS % (AUTO) 0 % (0-10); EOSINOPHILS % (AUTO) 0 % (0-10); HEMATOCRIT 33 % (35-52); LYMPHOCYTES # (AUTO) 0.3 X 10^3 (1.0-4.0); LYMPHOCYTES % (AUTO) 3 % (12-44); MEAN CORPUSCULAR HEMOGLOBIN 28 PG (25-34); MEAN CORPUSCULAR HGB CONC 30 G/DL (32-36); MEAN CORPUSCULAR VOLUME 93 FL (80-99); MEAN PLATELET VOLUME 10.2 FL (7.4-10.4); MONOCYTES # (AUTO) 0.9 X 10^3 (0.0-1.0); MONOCYTES % (AUTO) 9 % (0-12); NEUTROPHILS % (AUTO) 87 % (42-75); PLATELET COUNT 395 10^3/uL (130-400); RED CELL DISTRIBUTION WIDTH 15.6 % (10.0-14.5); WHITE BLOOD COUNT 9.1 10^3/uL (4.3-11.0)
[2018-12-16 06:44] LABS: BUN/CREATININE RATIO 41; CALCIUM 8.9 MG/DL (8.5-10.1); CARBON DIOXIDE 33 MMOL/L (21-32); CHLORIDE 97 MMOL/L (98-107); CREATININE SERUM 0.78 MG/DL (0.60-1.30); GFR ESTIMATED > 60; GLUCOSE 284 MG/DL (70-105); POTASSIUM 5.7 MMOL/L (3.6-5.0); SODIUM 140 MMOL/L (135-145)
--- NOTE | 2018-12-16 07:20 | Progress Note (SOAP) ---
Subjective Time Seen by a Provider: 07:15 Subjective/Events-last exam Patient awake this morning. Spoke POA. Patient does answer to her name. BNP elevated over 600. Lasix given. Consult pulmonary. Consult speech therapy for aspiration. Patient the right direction Focused Exam Lactate Level 12/14/18 07:45: Lactic Acid Level 1.06 Objective Exam Vital Signs Date Time Temp Pulse Resp B/P (MAP) Pulse Ox O2 Delivery O2 Flow Rate FiO2 12/16/18 06:52 88 24 93 30.00 12/16/18 02:45 8 16 96 30.00 12/16/18 00:02 98.2 94 22 173/79 (110) 96 NIV Bilevel 35.00 12/15/18 21:33 91 21 95 35.00 12/15/18 20:00 96 NIV Bilevel 35.00 80 12/15/18 19:40 99.6 87 24 166/73 (104) 97 NIV Bilevel 50.00 12/15/18 19:25 82 28 96 35.00 12/15/18 16:00 99.4 91 34 146/67 (93) 96 NIV Bilevel 50.00 12/15/18 14:59 83 24 95 35.00 12/15/18 12:38 96.9 80 22 165/82 (109) 97 NIV Bilevel 50.00 12/15/18 11:21 76 24 96 35.00 12/15/18 09:08 76 19 97 35.00 12/15/18 08:11 96.9 76 17 173/75 (107) 98 NIV Bilevel 50.00 12/15/18 07:50 95 NIV Bilevel 35.00 80 12/15/18 07:35 79 16 98 35.00 I & O 12/16/18 07:00 Intake Total 1000 ml Output Total 1300 ml Balance -300 ml Capillary Refill : Less Than 3 SecondsLess Than 3 Seconds General Appearance: No Apparent Distress, WD/WN HEENT: Normal ENT Inspection Neck: Normal Inspection Respiratory: Chest Non Tender, No Accessory Muscle Use, No Respiratory Distress Cardiovascular: Regular Rate, Rhythm, No Murmur Gastrointestinal: non tender, soft Results Lab Laboratory Tests 12/16/18 05:50 Laboratory Tests 12/16/18 05:50: White Blood Count 9.1, Red Blood Count 3.58L, Hemoglobin 10.0L, Hematocrit 33L, Mean Corpuscular Volume 93, Mean Corpuscular Hemoglobin 28, Mean Corpuscular Hemoglobin Concent 30L, Red Cell Distribution Width 15.6H, Platelet Count 395, Mean Platelet Volume 10.2, Neutrophils (%) (Auto) 87H, Lymphocytes (%) (Auto) 3L , Monocytes (%) (Auto) 9, Eosinophils (%) (Auto) 0, Basophils (%) (Auto) 0, Neutrophils # (Auto) 8.0H, Lymphocytes # (Auto) 0.3L, Monocytes # (Auto) 0.9, Eosinophils # (Auto) 0.0, Basophils # (Auto) 0.0, Sodium Level 140, Potassium Level 5.7H, Chloride Level 97L, Carbon Dioxide Level 33H, Anion Gap 10, Blood Urea Nitrogen 32H, Creatinine 0.78, Estimat Glomerular Filtration Rate > 60, BUN/Creatinine Ratio 41, Glucose Level 284H, Calcium Level 8.9, B-Type Natriuretic Peptide 676.0H Microbiology 12/14/18 Blood Culture - Preliminary, Resulted No growth 12/14/18 Urine Culture - Final, Complete NO GROWTH Assessment/Plan Assessment/Plan Assess & Plan/Chief Complaint Bilateral pneumonia. Respiratory failure. DO NOT RESUSCITATE. Hypoxia. Noncommunicative. Minimally elevated troponin 1. . 12/16/18. Bilateral pneumonia. Respiratory failure. DO NOT RESUSCITATE. Hypoxemia. Patient awake this morning Clinical Quality Measures DVT/VTE Risk/Contraindication: Risk Factor Score Per Nursin RFS Level Per Nursing on Admit: 4+=Very High ARA MONTANEZ DO Dec 16, 2018 07:20
[2018-12-16] MEDS ORDERED: FUROSEMIDE 40 MG/4 ML INJ (LASIX) IVP NR ×2 (07:30→07:45)
[2018-12-16 07:59] VITALS: BP 174/77
[2018-12-16] MEDS: ENOXAPARIN 40 MG/0.4 ML (LOVENOX) SYR SC SCH ×2 (08:59→20:29)
--- NOTE | 2018-12-16 10:44 | Pulmonary Consultation ---
History of Present Illness History of Present Illness Date of Consultation 12/16/18 10:39 Time Seen by Provider: 07:00 Date of Admission History of Present Illness 73yo with extensive PMH and was just admitted 6 wks ago for PNA presented to ED secondary to hypoxia. Sp02 was 60% on NRB per EMS. Pt was dx with bilateral pneumonia and admitted to 4th floor. Pt is a DNR. PT is lethargic and currently on BiPAP. Unable to obtain ROS. Allergies and Home Medications Allergies Coded Allergies: Penicillins (Verified Allergy, Unknown, 12/14/18) strawberry (Verified Allergy, Unknown, 12/14/18) FROM UNCODED ALLERGIES tomato (Verified Allergy, Unknown, 12/14/18) FROM UNCODED ALLERGIES Home Medications Acetaminophen 325 Mg Tablet, 650 MG PO Q4H PRN for PAIN-MILD, (Reported) TAKES 2 (325MG) TABLETS Aripiprazole 10 Mg Tablet, 10 MG PO DAILY, (Reported) Aspirin 81 Mg Tablet.dr, 81 MG PO DAILY, (Reported) Dextrose 37.5 Gm Gel..gram., 1 PACKET PO UD PRN for HYPOGLYCEMIA, (Reported) GIVE 1 PACKET EVERY 15 MINUTES NEEDED. RE-CHECK BS IN 15 MINUTES, IF BS IS NOT RISING, GIVE ANOTHER PACKET. IF NO CHANGE IN BS OR IF CHANGE IS LOC GIVE IM GLUCAGON AND NOTIFY PHYSICIAN. Docusate Sodium 100 Mg Capsule, 100 MG PO DAILY, (Reported) Docusate Sodium 100 Mg Capsule, 100 MG PO Q12H PRN for CONSTIPATION-1ST LINE, (Reported) Furosemide 20 Mg Tablet, 60 MG PO DAILY, (Reported) TAKES 3 (20MG) TABLETS Glucagon,Human Recombinant 1 Mg/Kit Soln, 1 MG IJ UD PRN for BLOOD GLUCOSE <60, (Reported) Insulin Aspart 300 Units/3 Ml Solution, SC ACHS, (Reported) 150-199 = 2 UNITS 200-249 = 3 UNITS 250-299 = 4 UNITS 300-349 = 5 UNITS 350- 399 = 6 UNITS >400 = 7 UNITS AND NOTIFY PHYSICIAN NOTIFY PHYSICIAN IF BS <70 OR >400 Insulin Aspart 300 Units/3 Ml Solution, 5 UNITS SQ 1800, (Reported) Insulin Detemir 100 Unit/1 Ml Insuln.pen, 15 UNIT SQ DAILY, (Reported) HOLD IF FSBS <100 Insulin Detemir 100 Unit/1 Ml Insuln.pen, 18 UNIT SQ HS, (Reported) HOLD IF FSBS <100 Magnesium Hydroxide 400 Mg/5 Ml Oral.susp, 30 ML PO DAILY PRN for CONSTIPATION- 7TH LINE, (Reported) Metformin HCl 1,000 Mg Tablet, 1,000 MG PO BID, (Reported) Nystatin 1 Each Powder.ea., TOP Q8H PRN for GAULDING, (Reported) Nystatin 15 Gm Cream..g., TP BID, (Reported) APPLY TO BUTTOCKS Potassium Chloride 10 Meq Tablet.er, 10 MEQ PO DAILY Prescribed by: MEENA RODRIGUEZ on 12/23/18 1312 Prednisone 10 Mg Tab.ds.pk, 10 MG PO DAILY 30MG X2 DAYS 20MG X2 DAYS 10MG X2 DAYS Prescribed by: MEENA RODRIGUEZ on 12/23/18 1259 Quetiapine Fumarate 100 Mg Tablet, 100 MG PO DAILY, (Reported) Quetiapine Fumarate 300 Mg Tablet, 300 MG PO HS, (Reported) Ramipril 10 Mg Capsule, 10 MG PO DAILY, (Reported) HOLD FOR SBP<100 OR PULSE <60 Risperidone 2 Mg Tablet, 2 MG PO DAILY, (Reported) Risperidone 3 Mg Tablet, 3 MG PO HS, (Reported) Simvastatin 10 Mg Tablet, 10 MG PO HS, (Reported) Sitagliptin Phosphate 100 Mg Tablet, 100 MG PO DAILY, (Reported) Triamcinolone Acet 15 Gm Cr, TP BID, (Reported) APPLY TO BUTTOCKS Past Rqgamaz-Hyqqlf-Ozbgpx Hx Past Med/Social Hx: Reviewed Nursing Past Med/Soc Hx, Reviewed and Corrections made Patient Social History Alcohol Use: Denies Use Recreational Drug Use: No Smoking Status: Never a Smoker Recent Foreign Travel: No Contact w/Someone Who Travel: No Recent Infectious Disease Expo: No Recent Hopitalizations: No Immunizations Up To Date Tetanus Booster (TDap): Unknown Date of Pneumonia Vaccine: Apr 15, 2012 Seasonal Allergies Seasonal Allergies: No Past Medical History Surgeries: Yes (CARDIAC CATH) Cardiac Respiratory: Yes (ACUTE RESPIRATORY FAILURE 12/22/14, functional dyspnea) Sleep Apnea Cardiac: Yes (CHF/ PULMONARY EDEMA 12/22/14) Chronic Edema/Swelling, Coronary Artery Disease, High Cholesterol, Hypertension Neurological: Yes 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 Review of Systems Time Seen by Provider: 12:05 Sepsis Event Evaluation Height, Weight, BMI Height: 4'9.00" Weight: 221lbs. 0.8oz. 100.741954ua; 47.6 BMI Method:Estimated Exam Exam Vital Signs Date Time Temp Pulse Resp B/P (MAP) Pulse Ox O2 Delivery O2 Flow Rate FiO2 12/16/18 08:47 88 22 94 30.00 12/16/18 08:00 NIV Bilevel 12/16/18 07:59 99.1 92 31 174/77 (109) 94 NIV Bilevel 50.00 12/16/18 06:52 88 24 93 30.00 12/16/18 04:31 97.4 90 17 161/73 (102) 96 NIV Bilevel 35.00 12/16/18 02:45 8 16 96 30.00 12/16/18 00:02 98.2 94 22 173/79 (110) 96 NIV Bilevel 35.00 12/15/18 21:33 91 21 95 35.00 12/15/18 20:00 96 NIV Bilevel 35.00 80 12/15/18 19:40 99.6 87 24 166/73 (104) 97 NIV Bilevel 50.00 12/15/18 19:25 82 28 96 35.00 12/15/18 16:00 99.4 91 34 146/67 (93) 96 NIV Bilevel 50.00 12/15/18 14:59 83 24 95 35.00 12/15/18 12:38 96.9 80 22 165/82 (109) 97 NIV Bilevel 50.00 12/15/18 11:21 76 24 96 35.00 I & O 12/16/18 07:00 Intake Total 1000 ml Output Total 1300 ml Balance -300 ml Height & Weight Height: 4'9.00" Weight: 221lbs. 0.8oz. 100.939381gg; 47.6 BMI Method:Estimated General Appearance: No Apparent Distress, WD/WN HEENT: Normal ENT Inspection Neck: Normal Inspection Respiratory: Chest Non Tender, No Accessory Muscle Use, No Respiratory Distress Cardiovascular: Regular Rate, Rhythm, No Murmur Capillary Refill: Less Than 3 Seconds Gastrointestinal: non tender, soft Extremity: Non Tender, Pedal Edema (2+ to mid tibia bilaterally) Neurologic/Psychiatric: Disoriented, Other (near comatose) Skin: Normal Color, Warm/Dry Lymphatic: No Adenopathy Results Lab Laboratory Tests 12/15/18 06:19 12/16/18 05:50 Assessment/Plan Assessment/Plan Acute respiratory failure with bilateral pulmonary edema -CUrrently on BiPAP -Pt is a DNR -BNP is 676 -Continue Lasix and KVO IVF -repeat ABG NSTEMI -Cardiology following Anemia -Monitor Hyperkalemia -Junaidix KEYANA DUBOIS DO Dec 16, 2018 10:44
--- NOTE | 2018-12-16 11:21 | Speech Therapy Progress Note ---
Therapy Progress Note ST has made 3 attempts to complete the Bedside Dysphagia Evaluation. The patient is not able to be aroused enough for safe completion of the evaluation. Will continue to monitor to complete at a later time when patient is alert and able to participate with the BDE. ANGEL CAN Dec 16, 2018 11:20
[2018-12-16 11:25] VITALS: BP 180/72
--- NOTE | 2018-12-16 11:59 | NUR ---
DR MONTANEZ NOTIFIED VIA PHONE OF PT BP 180/72. ORDER RECEIVED FOR LOPRESSOR 5MG IV Q8HRS
[2018-12-16] MEDS: VANCOMYCIN 1500 MG/NS 500 ML IVPB IV SCH ×2 (12:06)
--- NOTE | 2018-12-16 12:25 | Diagnostic Imaging Report ---
EXAMINATION: Portable erect AP chest at 8:38 AM. INDICATION: Respiratory distress. FINDINGS: This exam is less than optimal as the patient is rotated and the right apex is obscured by the patient's chin. The heart is enlarged but stable when compared to the prior exam of 12/15/2018. The bibasilar atelectasis/infiltrate seen previously is again evident and no different. There is also still central pulmonary congestion. The mediastinum is not widened. The osseous structures are intact. IMPRESSION: When compared to the previous study, there has been no significant change. A followup exam would be recommended for continued evaluation. Dictated by: Dictated on workstation # [id number]
[2018-12-16] MEDS: meTOprolol 5 MG/5 ML (LOPRESSOR) VIAL IV PRN (12:42)
[2018-12-16 15:42] VITALS: BP 163/77
[2018-12-16 15:50] LABS: ABG BASE EXCESS 16.1 MMOL/L (-2.5-2.5); ABG OXYGEN SATURATION 98 % (94-100); ABG PCO2 56 MMHG (35-45); ABG PH 7.48 (7.37-7.43); ABG PO2 100 MMHG (79-93); ABG TCO2 42.8 MMOL/L (21.0-31.0)
[2018-12-16 15:54] LABS: ALLENS TEST POSITIVE; INSPIRED O2 30% BIPAP; PATIENT TEMP 97.9; VENTILATOR NO
--- NOTE | 2018-12-16 15:57 | NUR ---
DR DUBOIS NOTIFIED OF CRITICAL HCO3 OF 41. NO NEW ORDERS RECEIVED.
--- NOTE | 2018-12-16 16:30 | NUR ---
PT EYES OPEN AND TALKED WITH NURSE BRIEFLY PT DENIED ANY PAIN, REPORTS ONLY DISCOMFORT HAVING IS THE BIPAP ON. EXPLAINED TO PT REASON FOR BIPAP. PT HEELS FLOATED ON PILLOWS. PT HAS BEEN TURN Q2HRS THROUGHOUT THE SHIFT.
[2018-12-16 19:46] VITALS: BP 182/79
[2018-12-17] VITALS (8 sets, daily range): BP systolic 140–185; BP diastolic 66–84
[2018-12-17] MEDS: RT-ALBUTEROL/IPRATROPIUM 3 ML (DUONEB) VIAL INH SCH ×6 (02:32→21:45)
[2018-12-17] MEDS: CEFEPIME 1,000 MG/SWFI 10 ML IV PUSH IV SCH ×8 (04:11→22:17)
[2018-12-17] MEDS: methylPREDNISolone 125 MG (Solu-MEDROL) VIAL IV SCH ×4 (04:11→22:17)
[2018-12-17] MEDS: NS IV 1000 ML 1,000 ML IV SCH (04:18)
[2018-12-17 06:35] LABS: HEMOGLOBIN 9.8 G/DL (11.5-16.0); MEAN PLATELET VOLUME 10.4 FL (7.4-10.4); RED CELL DISTRIBUTION WIDTH 15.5 % (10.0-14.5); WHITE BLOOD COUNT 7.8 10^3/uL (4.3-11.0)
[2018-12-17 06:53] LABS: BUN/CREATININE RATIO 43; CALCIUM 8.9 MG/DL (8.5-10.1); CARBON DIOXIDE 36 MMOL/L (21-32); CHLORIDE 98 MMOL/L (98-107); CREATININE SERUM 0.79 MG/DL (0.60-1.30); GFR ESTIMATED > 60; GLUCOSE 299 MG/DL (70-105); POTASSIUM 4.6 MMOL/L (3.6-5.0); SODIUM 144 MMOL/L (135-145)
[2018-12-17] MEDS ORDERED: FUROSEMIDE 40 MG/4 ML INJ (LASIX) IVP NR (07:45)
--- NOTE | 2018-12-17 07:47 | Pulmonary Progress Note ---
Subjective Time Seen by a Provider: 07:46 Sepsis Event Evaluation Height, Weight, BMI Height: 4'9.00" Weight: 221lbs. 0.8oz. 100.837958fe; 47.6 BMI Method:Estimated Exam Exam Vital Signs Date Time Temp Pulse Resp B/P (MAP) Pulse Ox O2 Delivery O2 Flow Rate FiO2 12/17/18 06:58 76 23 96 45.00 12/17/18 04:46 97.9 89 27 180/79 (112) 96 NIV Bilevel 35.00 12/17/18 03:50 82 25 94 45.00 12/17/18 02:29 91 33 95 45.00 12/17/18 02:26 90 34 87 30.00 12/17/18 00:13 99.2 96 34 179/80 (113) 96 NIV Bilevel 35.00 12/16/18 22:16 90 31 93 30.00 12/16/18 20:42 96 NIV Bilevel 35.00 80 12/16/18 19:46 98.0 93 16 182/79 (113) 95 NIV Bilevel 35.00 12/16/18 18:18 86 28 95 30.00 12/16/18 15:42 98.6 80 24 163/77 (105) 96 NIV Bilevel 35.00 12/16/18 15:15 83 25 93 30.00 12/16/18 11:59 83 25 92 30.00 12/16/18 11:25 99.8 79 18 180/72 (108) 94 NIV Bilevel 50.00 12/16/18 08:47 88 22 94 30.00 12/16/18 08:00 NIV Bilevel 12/16/18 07:59 99.1 92 31 174/77 (109) 94 NIV Bilevel 50.00 I & O 12/17/18 06:59 Intake Total 535 ml Output Total 3200 ml Balance -2665 ml Height & Weight Height: 4'9.00" Weight: 221lbs. 0.8oz. 100.681618vg; 47.6 BMI Method:Estimated General Appearance: No Apparent Distress, WD/WN HEENT: Normal ENT Inspection Neck: Normal Inspection Respiratory: Chest Non Tender, No Accessory Muscle Use, No Respiratory Distress Cardiovascular: Regular Rate, Rhythm, No Murmur Capillary Refill: Less Than 3 Seconds Gastrointestinal: non tender, soft Extremity: Non Tender, Pedal Edema (2+ to mid tibia bilaterally) Neurologic/Psychiatric: Disoriented, Other (near comatose) Skin: Normal Color, Warm/Dry Lymphatic: No Adenopathy Results Lab Laboratory Tests 12/16/18 05:50 12/17/18 05:28 Assessment/Plan Assessment/Plan Acute respiratory failure with bilateral pulmonary edema - BiPAP/Vapotherm -Pt is a DNR -BNP is 676 -Will give 80mg of Lasix IV X 1 -repeat ABG -shows improvement NSTEMI -Cardiology following Anemia -Monitor KEYANA DUBOIS DO Dec 17, 2018 07:47
--- NOTE | 2018-12-17 07:58 | Progress Note (SOAP) ---
Subjective Time Seen by a Provider: 07:55 Subjective/Events-last exam Patient still on BiPAP. Troponin still elevated but coming down . Lasix given this morning. Patient CHF. Patient did open eyes this morning. Patient DO NOT RESUSCITATE. Schizophrenia. COPD Objective Exam Vital Signs Date Time Temp Pulse Resp B/P (MAP) Pulse Ox O2 Delivery O2 Flow Rate FiO2 12/17/18 06:58 76 23 96 45.00 12/17/18 04:46 97.9 89 27 180/79 (112) 96 NIV Bilevel 35.00 12/17/18 03:50 82 25 94 45.00 12/17/18 02:29 91 33 95 45.00 12/17/18 02:26 90 34 87 30.00 12/17/18 00:13 99.2 96 34 179/80 (113) 96 NIV Bilevel 35.00 12/16/18 22:16 90 31 93 30.00 12/16/18 20:42 96 NIV Bilevel 35.00 80 12/16/18 19:46 98.0 93 16 182/79 (113) 95 NIV Bilevel 35.00 12/16/18 18:18 86 28 95 30.00 12/16/18 15:42 98.6 80 24 163/77 (105) 96 NIV Bilevel 35.00 12/16/18 15:15 83 25 93 30.00 12/16/18 11:59 83 25 92 30.00 12/16/18 11:25 99.8 79 18 180/72 (108) 94 NIV Bilevel 50.00 12/16/18 08:47 88 22 94 30.00 12/16/18 08:00 NIV Bilevel 12/16/18 07:59 99.1 92 31 174/77 (109) 94 NIV Bilevel 50.00 I & O 12/17/18 07:00 Intake Total 535 ml Output Total 3200 ml Balance -2665 ml Capillary Refill : Less Than 3 SecondsLess Than 3 Seconds General Appearance: No Apparent Distress, WD/WN Neck: Normal Inspection Respiratory: No Accessory Muscle Use, No Respiratory Distress, Other (On BiPAP) Cardiovascular: Regular Rate, Rhythm, No Murmur Gastrointestinal: non tender, soft Results Lab Laboratory Tests 12/17/18 05:28 Laboratory Tests 12/16/18 15:44: Blood Gas Puncture Site RIGHT RADIAL, Blood Gas Patient Temperature 97.9, Arterial Blood pH 7.48H, Arterial Blood Partial Pressure CO2 56H, Arterial Blood Partial Pressure O2 100H, Arterial Blood HCO3 41*H, Arterial Blood Total CO2 42.8H, Arterial Blood Oxygen Saturation 98, Arterial Blood Base Excess 16.1H, Sincere Test POSITIVE, Blood Gas Ventilator Setting NO, Blood Gas Inspired Oxygen 30% BIPAP 12/17/18 05:28: White Blood Count 7.8, Red Blood Count 3.52L, Hemoglobin 9.8L, Hematocrit 34L, Mean Corpuscular Volume 95, Mean Corpuscular Hemoglobin 28, Mean Corpuscular Hemoglobin Concent 29L, Red Cell Distribution Width 15.5H, Platelet Count 347, Mean Platelet Volume 10.4, Sodium Level 144, Potassium Level 4.6, Chloride Level 98, Carbon Dioxide Level 36H, Anion Gap 10, Blood Urea Nitrogen 34H, Creatinine 0.79, Estimat Glomerular Filtration Rate > 60, BUN/Creatinine Ratio 43, Glucose Level 299H, Calcium Level 8.9 Microbiology 12/14/18 Blood Culture - Preliminary, Resulted No growth 12/14/18 Urine Culture - Final, Complete NO GROWTH Assessment/Plan Assessment/Plan Assess & Plan/Chief Complaint Bilateral pneumonia. Respiratory failure. DO NOT RESUSCITATE. Hypoxia. Noncommunicative. Minimally elevated troponin 1. . 12/16/18. Bilateral pneumonia. Respiratory failure. DO NOT RESUSCITATE. Hypoxemia. Patient awake this morning. . 12/17/18. Bilateral pneumonia. Congestive heart failure. Respiratory failure. Hypoxemia. Elevated troponin Clinical Quality Measures DVT/VTE Risk/Contraindication: Risk Factor Score Per Nursin RFS Level Per Nursing on Admit: 4+=Very High ARA MONTANEZ DO Dec 17, 2018 07:58
[2018-12-17] MEDS: 1/2 NS IV SOLUTION 1,000 ML IV SCH (09:03)
[2018-12-17] MEDS: ENOXAPARIN 40 MG/0.4 ML (LOVENOX) SYR SC SCH ×2 (09:03→20:15)
--- NOTE | 2018-12-17 09:04 | Diagnostic Imaging Report ---
EXAM: CHEST 1 VIEW, AP/PA ONLY. INDICATION: Pneumonia. Respiratory failure. COMPARISON: Chest radiograph of 12/16/2018. FINDINGS: Small bilateral pleural effusions, greater on the right. Cardiomegaly. No pneumothorax. Central pulmonary vascularity is obscured. No acute osseous finding. IMPRESSION: Bilateral pleural effusions, greater on the right. Cardiomegaly. No significant change. Dictated by: Dictated on workstation # [id number]
--- NOTE | 2018-12-17 11:27 | Consultation-Cardiology ---
HPI-Cardiology Cardiology Consultation Date of Consultation 12/17/18 Date of Admission Time Seen by Provider: 07:55 Indication: mildly elevated troponin HPI Patient is a 73 year old female with history of HTN, COPD. Currently hospitalized for respiratory failure with bilateral pneumonia. Noted to have mildly elevated troponin. Patient opens eyes to her name, but does not follow c ommands. Currently on BIPAP and appears to be resting comfortably. Home Medications & Allergies Allergies: Coded Allergies: Penicillins (Verified Allergy, Unknown, 12/14/18) strawberry (Verified Allergy, Unknown, 12/14/18) FROM UNCODED ALLERGIES tomato (Verified Allergy, Unknown, 12/14/18) FROM UNCODED ALLERGIES Home Medication List Reviewed: Yes [id number] Hx Patient Social History Marital Status: single Employed/Student: retired Alcohol Use: Denies Use Recreational Drug Use: No Smoking Status: Never a Smoker Recent Foreign Travel: No Recent Infectious Disease Expo: No Recent Hopitalizations: No Physical Abuse Screen: No Sexual Abuse: No Immunizations Up To Date Tetanus Booster (TDap): Unknown Date of Pneumonia Vaccine: Apr 15, 2012 Past Medical History HTN, Schizophrenia, COPD, obesity Family Medical History Significant Family History: No Pertinent Family Hx Family History: Unobtainable Review of Systems-General Review of Systems ROS-Unable to Obtain: Unable to obtain Constitutional: see HPI, weakness Respiratory: short of breath Reviewed Test Results Reviewed Test Results Lab Laboratory Tests 12/16/18 15:44: Blood Gas Puncture Site RIGHT RADIAL, Blood Gas Patient Temperature 97.9, Arterial Blood pH 7.48H, Arterial Blood Partial Pressure CO2 56H, Arterial Blood Partial Pressure O2 100H, Arterial Blood HCO3 41*H, Arterial Blood Total CO2 42.8H, Arterial Blood Oxygen Saturation 98, Arterial Blood Base Excess 16.1H, Sincere Test POSITIVE, Blood Gas Ventilator Setting NO, Blood Gas Inspired Oxygen 30% BIPAP 12/17/18 05:28: White Blood Count 7.8, Red Blood Count 3.52L, Hemoglobin 9.8L, Hematocrit 34L, Mean Corpuscular Volume 95, Mean Corpuscular Hemoglobin 28, Mean Corpuscular Hemoglobin Concent 29L, Red Cell Distribution Width 15.5H, Platelet Count 347, Mean Platelet Volume 10.4, Sodium Level 144, Potassium Level 4.6, Chloride Level 98, Carbon Dioxide Level 36H, Anion Gap 10, Blood Urea Nitrogen 34H, Creatinine 0.79, Estimat Glomerular Filtration Rate > 60, BUN/Creatinine Ratio 43, Glucose Level 299H, Calcium Level 8.9 Microbiology 12/14/18 Blood Culture - Preliminary, Resulted No growth 12/14/18 Urine Culture - Final, Complete NO GROWTH ECG Impression ECG Initial ECG Rhythm: S.Tach Physical Exam Physical Exam Vital Signs Vital Signs - First Documented 12/14/18 12/14/18 07:08 10:24 Temp 98.2 Pulse 104 Resp 21 B/P (MAP) 144/76 (98) Pulse Ox 80 O2 Delivery NIV Bilevel O2 Flow Rate 15.00 FiO2 80 Capillary Refill : Less Than 3 SecondsLess Than 3 Seconds Height, Weight, BMI Height: 4'9.00" Weight: 221lbs. 0.8oz. [id number]; 47.6 BMI Method:Estimated General Appearance: No Apparent Distress, WD/WN Eyes: Right Eye Normal Inspection, Right Eye PERRL HEENT: Normal ENT Inspection Neck: Normal Inspection Respiratory: No Accessory Muscle Use, No Respiratory Distress, Other (On BiPAP) Cardiovascular: No Gallop, No Murmur, Tachycardia, Other (+1 edema) Gastrointestinal: Normal Bowel Sounds, No Organomegaly, No Pulsatile Mass, Non Tender, Soft Rectal: Deferred Back: No CVA Tenderness Extremity: Pedal Edema (2+ to mid tibia bilaterally) Neurologic/Psychiatric: Disoriented, Other (near comatose) Skin: Normal Color, Warm/Dry Lymphatic: No Adenopathy A/P-Cardiology Admission Diagnosis Elevated troponin Acute respiratory failure Bilateral pneumonia Schizophrenia DNR Assessment/Plan Mildly elevated troponin, probable type 2 AL. Most recent EKG reveals no acute ST changes. Troponin trending down. Underwent cardiac catheterization in 2012 revealing mild irregularity to the LAD with otherwise nonobstructive disease. Continue on Lovenox and continue to monitor. Patient is DNR, will continue conservative management. Acute respiratory failure- currently on BIPAP, Dr. Back following Bilateral pneumonia- continue antibiotics. COPD Schizophrenia. Obesity DNR Thank you for allowing us to participate in the management of Ms. Castañeda. This is Prince Levy PA-C, as a scribe for Dr. Malhotra. Clinical Quality Measures DVT/VTE Risk/Contraindication: Risk Factor Score Per Nursin RFS Level Per Nursing on Admit: 4+=Very High PRINCE SPRINGER Dec 17, 2018 11:26
[2018-12-17] MEDS: hydrALAZINE (APESOLINE) 20 MG/ML VIAL IV SCH ×3 (13:12→23:35)
--- NOTE | 2018-12-17 14:15 | NUR ---
Pastoral care visit
--- NOTE | 2018-12-17 15:16 | NUR ---
Palliative Care RN called patient's DPOA, Char Page. Updated her on patient's slow improvement in her lab. Also told her that they are attempting to wean her off of the BiPAP. Explained that we are unsure if she is going to tolerate this for long and she may decompensate. She understood. Long discussion had with her regarding Hospice at discharge and/or Comfort Care in the hospital if she does not tolerate BiPAP discontinuation. Please keep her updated on her status and especially if she decompensates.
--- NOTE | 2018-12-17 15:22 | Consultation-Cardiology ---
HPI-Cardiology Cardiology Consultation Date of Consultation 12/17/18 Date of Admission Time Seen by Provider: 15:20 Indication: mildly elevated troponin HPI Patient is a 73 year old female with history of HTN, COPD. Currently hospitalized for respiratory failure with bilateral pneumonia. Noted to have mildly elevated troponin. Patient opens eyes to her name, but does not follow c ommands. Currently on BIPAP and appears to be resting comfortably. Home Medications & Allergies Allergies: Coded Allergies: Penicillins (Verified Allergy, Unknown, 12/14/18) strawberry (Verified Allergy, Unknown, 12/14/18) FROM UNCODED ALLERGIES tomato (Verified Allergy, Unknown, 12/14/18) FROM UNCODED ALLERGIES Home Medication List Reviewed: Yes [id number] Hx Patient Social History Marital Status: single Employed/Student: retired Alcohol Use: Denies Use Recreational Drug Use: No Smoking Status: Never a Smoker Recent Foreign Travel: No Recent Infectious Disease Expo: No Recent Hopitalizations: No Physical Abuse Screen: No Sexual Abuse: No Immunizations Up To Date Tetanus Booster (TDap): Unknown Date of Pneumonia Vaccine: Apr 15, 2012 Past Medical History HTN, Schizophrenia, COPD, obesity Family Medical History Significant Family History: No Pertinent Family Hx Family Medical Hx unable to provide family history Family History: Unobtainable Review of Systems-General Review of Systems Constitutional: see HPI, weakness, other (unable to provide review of systems due to current condition) Respiratory: short of breath Reviewed Test Results Reviewed Test Results Lab Laboratory Tests Test 12/16/18 15:44 12/17/18 05:28 Range/Units Blood Gas Puncture Site RIGHT RADIAL Blood Gas Patient Temperature 97.9 Arterial Blood pH 7.48 H 7.37-7.43 Arterial Blood Partial Pressure CO2 56 H 35-45 MMHG Arterial Blood Partial Pressure O2 100 H 79-93 MMHG Arterial Blood HCO3 41 *H 23-27 MMOL/L Arterial Blood Total CO2 42.8 H 21.0-31.0 MMOL/L Arterial Blood Oxygen Saturation 98 94-100 % Arterial Blood Base Excess 16.1 H -2.5-2.5 MMOL/L Sincere Test POSITIVE Blood Gas Ventilator Setting NO Blood Gas Inspired Oxygen 30% BIPAP White Blood Count 7.8 4.3-11.0 10^3/uL Red Blood Count 3.52 L 4.35-5.85 10^6/uL Hemoglobin 9.8 L 11.5-16.0 G/DL Hematocrit 34 L 35-52 % Mean Corpuscular Volume 95 80-99 FL Mean Corpuscular Hemoglobin 28 25-34 PG Mean Corpuscular Hemoglobin Concent 29 L 32-36 G/DL Red Cell Distribution Width 15.5 H 10.0-14.5 % Platelet Count 347 130-400 10^3/uL Mean Platelet Volume 10.4 7.4-10.4 FL Sodium Level 144 135-145 MMOL/L Potassium Level 4.6 3.6-5.0 MMOL/L Chloride Level 98 98-107 MMOL/L Carbon Dioxide Level 36 H 21-32 MMOL/L Anion Gap 10 5-14 MMOL/L Blood Urea Nitrogen 34 H 7-18 MG/DL Creatinine 0.79 0.60-1.30 MG/DL Estimat Glomerular Filtration Rate > 60 BUN/Creatinine Ratio 43 Glucose Level 299 H 70-105 MG/DL Calcium Level 8.9 8.5-10.1 MG/DL Physical Exam Physical Exam Vital Signs Vital Signs - First Documented 12/14/18 12/14/18 07:08 10:24 Temp 98.2 Pulse 104 Resp 21 B/P (MAP) 144/76 (98) Pulse Ox 80 O2 Delivery NIV Bilevel O2 Flow Rate 15.00 FiO2 80 Capillary Refill : Less Than 3 SecondsLess Than 3 Seconds Height, Weight, BMI Height: 4'9.00" Weight: 221lbs. 0.8oz. 100.841371ug; 47.6 BMI Method:Estimated General Appearance: No Apparent Distress, WD/WN Eyes: Right Eye Normal Inspection, Right Eye PERRL HEENT: Normal ENT Inspection Neck: Normal Inspection Respiratory: No Accessory Muscle Use, No Respiratory Distress, Other (On BiPAP) Cardiovascular: No Gallop, No Murmur, Tachycardia, Other (+1 edema) Gastrointestinal: Normal Bowel Sounds, No Organomegaly, No Pulsatile Mass, Non Tender, Soft Rectal: Deferred Back: No CVA Tenderness Extremity: Pedal Edema (2+ to mid tibia bilaterally) Neurologic/Psychiatric: Disoriented, Other (near comatose) Skin: Normal Color, Warm/Dry Lymphatic: No Adenopathy A/P-Cardiology Admission Diagnosis Elevated troponin Acute respiratory failure Bilateral pneumonia Schizophrenia DNR Assessment/Plan Mildly elevated troponin, probable type 2 MA. Most recent EKG reveals no acute ST changes. Troponin trending down. Underwent cardiac catheterization in 2012 revealing mild irregularity to the LAD with otherwise nonobstructive disease. Continue on Lovenox and continue to monitor. Patient is DNR, would recommend aspirin 81 mg daily if patient can take oral medication. will continue conservative management. Acute respiratory failure- currently on BIPAP, Dr. Back following Bilateral pneumonia- continue antibiotics. COPD Schizophrenia. Obesity DNR Clinical Quality Measures DVT/VTE Risk/Contraindication: Risk Factor Score Per Nursin RFS Level Per Nursing on Admit: 4+=Very High BRIGIDO KC MD Dec 17, 2018 15:22
--- NOTE | 2018-12-17 15:24 | Speech Therapy Progress Note ---
Therapy Progress Note ST attempts x3 for Bedside Dysphagia Evaluation have not been successful due to patient's decreased level of alertness. ANGEL CAN Dec 17, 2018 15:24
[2018-12-18] MEDS: RT-ALBUTEROL/IPRATROPIUM 3 ML (DUONEB) VIAL INH SCH ×6 (01:45→21:57)
[2018-12-18] MEDS: 1/2 NS IV SOLUTION 1,000 ML IV SCH ×2 (01:50→17:13)
[2018-12-18] MEDS: CEFEPIME 1,000 MG/SWFI 10 ML IV PUSH IV SCH ×8 (04:10→22:07)
[2018-12-18] MEDS: methylPREDNISolone 125 MG (Solu-MEDROL) VIAL IV SCH ×4 (04:10→22:07)
[2018-12-18 04:50] VITALS: BP 144/69
[2018-12-18] MEDS: hydrALAZINE (APESOLINE) 20 MG/ML VIAL IV SCH ×3 (05:32→17:23)
[2018-12-18 06:05] LABS: BASOPHILS % (AUTO) 0 % (0-10); EOSINOPHILS % (AUTO) 0 % (0-10); HEMATOCRIT 34 % (35-52); LYMPHOCYTES # (AUTO) 0.3 X 10^3 (1.0-4.0); LYMPHOCYTES % (AUTO) 3 % (12-44); MEAN CORPUSCULAR HEMOGLOBIN 28 PG (25-34); MEAN CORPUSCULAR HGB CONC 30 G/DL (32-36); MEAN CORPUSCULAR VOLUME 94 FL (80-99); MEAN PLATELET VOLUME 10.1 FL (7.4-10.4); MONOCYTES # (AUTO) 0.7 X 10^3 (0.0-1.0); MONOCYTES % (AUTO) 8 % (0-12); NEUTROPHILS # (AUTO) 7.4 X 10^3 (1.8-7.8); NEUTROPHILS % (AUTO) 89 % (42-75); PLATELET COUNT 355 10^3/uL (130-400); RED CELL DISTRIBUTION WIDTH 15.9 % (10.0-14.5); WHITE BLOOD COUNT 8.4 10^3/uL (4.3-11.0)
[2018-12-18 06:31] LABS: ALANINE AMINOTRANSFERASE 24 U/L (0-55); ALBUMIN 3.3 GM/DL (3.2-4.5); ALKALINE PHOSPHATASE 50 U/L (40-136); BILIRUBIN,TOTAL 0.7 MG/DL (0.1-1.0); BUN/CREATININE RATIO 45; CALCIUM 9.2 MG/DL (8.5-10.1); CARBON DIOXIDE 36 MMOL/L (21-32); CHLORIDE 95 MMOL/L (98-107); CREATININE SERUM 0.75 MG/DL (0.60-1.30); GFR ESTIMATED > 60; GLUCOSE 324 MG/DL (70-105); SODIUM 145 MMOL/L (135-145); TOTAL PROTEIN 5.8 GM/DL (6.4-8.2)
[2018-12-18] MEDS: ENOXAPARIN 40 MG/0.4 ML (LOVENOX) SYR SC SCH ×2 (07:45→20:49)
[2018-12-18] MEDS ORDERED: FUROSEMIDE 40 MG/4 ML INJ (LASIX) IVP NR (07:45)
--- NOTE | 2018-12-18 07:49 | Cardiology Progress Note ---
Subjective Date Seen by Provider: Dec 18, 2018 Time Seen by Provider: 07:46 Subjective/Events-last exam she is laying down in bed, more awake today, still on BiPAP. Review of Systems General: No Chills, No Night Sweats; Fatigue, Malaise; No Appetite, No Other HEENT: No Head Aches, No Visual Changes, No Eye Pain, No Ear Pain, No Dysphasia, No Sinus Congestion, No Post Nasal Drip, No Sore Throat, No Other Pulmonary: Dyspnea; No Cough, No Pleuritic Chest Pain, No Other Cardiovascular: Edema; No: Chest Pain, Palpitations, Orthopnea, Paroxysmal Noc. Dyspnea, Lt Headedness, Other Objective-Cardiology Exam Last Set of Vital Signs Vital Signs 12/17/18 12/18/18 15:26 04:50 Temp 100.2 Pulse 96 Resp 28 B/P (MAP) 144/69 (94) Pulse Ox 95 O2 Delivery NIV Bilevel O2 Flow Rate 30.00 FiO2 35 Capillary Refill : Less Than 3 SecondsLess Than 3 Seconds I&O Intake and Output 12/18/18 00:00 Intake Total 0 ml Output Total 4075 ml Balance -4075 ml Intake Oral 0 ml Output Urine Total 4075 ml # Bowel Movements 1 General: Alert, Cooperative, Mild Distress HEENT: Atraumatic Neck: Supple, No JVD Lungs: Normal Air Movement, Other (bilateral rhonchi) Heart: Normal S1, Normal S2, Gallops Abdomen: Normal Bowel Sounds Extremities: Normal Pulses, Other Skin: No Rashes Neuro: Other (lethargic) Results Lab Laboratory Tests 12/18/18 05:00 A/P-Cardiology Admission Diagnosis Elevated troponin Acute respiratory failure Bilateral pneumonia Schizophrenia DNR Assessment/Plan Type II myocardial infarction, probably due to hypoxemia and respiratory failure. Continue to monitor at this time Coronary artery disease, had a cardiac catheterization 2012 showing mild irregularity in the LAD otherwise nonobstructive disease. Continue to monitor EKG. Acute respiratory failure on BiPAP. Dr. Back is of time, I will try to switch her to Vapotherm and wean her off. Schizophrenia, morbid obesity. Bilateral pneumonia receiving antibiotics. Patient is DO NOT RESUSCITATE Clinical Quality Measures DVT/VTE Risk/Contraindication: Risk Factor Score Per Nursin RFS Level Per Nursing on Admit: 4+=Very High BRIGIDO KC MD Dec 18, 2018 07:49
[2018-12-18 08:08] VITALS: BP 176/77
--- NOTE | 2018-12-18 08:10 | Progress Note (SOAP) ---
Subjective Time Seen by a Provider: 08:07 Subjective/Events-last exam Patient doing better. Patient awake this morning. Patient talking. Patient lost 10 pounds since yesterday. Temperature 100.2 BNP 792 Objective Exam Vital Signs Date Time Temp Pulse Resp B/P (MAP) Pulse Ox O2 Delivery O2 Flow Rate FiO2 12/18/18 07:59 NIV Bilevel 35.00 12/18/18 04:50 100.2 96 28 144/69 (94) 95 NIV Bilevel 30.00 12/18/18 01:46 80 7 94 35.00 12/17/18 23:33 98.2 96 28 140/67 (91) 95 NIV Bilevel 30.00 12/17/18 21:46 77 20 92 35.00 12/17/18 20:29 NIV Bilevel 35.00 12/17/18 20:04 98.0 94 16 157/66 (96) 95 NIV Bilevel 30.00 12/17/18 19:43 77 25 93 35.00 12/17/18 18:42 90 31 92 30.00 12/17/18 16:23 96.5 92 16 140/84 (102) 95 NIV Bilevel 30.00 12/17/18 15:26 102 89 35 12/17/18 15:26 102 35 89 30.00 12/17/18 12:00 97.8 74 20 185/77 (113) 94 NIV Bilevel 30.00 12/17/18 10:44 91 27 97 40.00 12/17/18 08:28 85 23 97 45.00 12/17/18 08:14 98.2 89 25 168/74 (105) 98 NIV Bilevel 45.00 I & O 12/18/18 07:00 Intake Total 1000 ml Output Total 3975 ml Balance -2975 ml Capillary Refill : Less Than 3 SecondsLess Than 3 Seconds General Appearance: No Apparent Distress, WD/WN HEENT: Normal ENT Inspection Neck: Full Range of Motion, Normal Inspection Respiratory: No Accessory Muscle Use, No Respiratory Distress, Decreased Breath Sounds Cardiovascular: Regular Rate, Rhythm Gastrointestinal: non tender, soft Results Lab Laboratory Tests 12/18/18 05:00 Laboratory Tests 12/18/18 05:00: White Blood Count 8.4, Red Blood Count 3.57L, Hemoglobin 10.0L, Hematocrit 34L, Mean Corpuscular Volume 94, Mean Corpuscular Hemoglobin 28, Mean Corpuscular Hemoglobin Concent 30L, Red Cell Distribution Width 15.9H, Platelet Count 355, Mean Platelet Volume 10.1, Neutrophils (%) (Auto) 89H, Lymphocytes (%) (Auto) 3L , Monocytes (%) (Auto) 8, Eosinophils (%) (Auto) 0, Basophils (%) (Auto) 0, Neutrophils # (Auto) 7.4, Lymphocytes # (Auto) 0.3L, Monocytes # (Auto) 0.7, Eosinophils # (Auto) 0.0, Basophils # (Auto) 0.0, Sodium Level 145, Potassium Level 4.0, Chloride Level 95L, Carbon Dioxide Level 36H, Anion Gap 14, Blood Urea Nitrogen 34H, Creatinine 0.75, Estimat Glomerular Filtration Rate > 60, BUN/Creatinine Ratio 45, Glucose Level 324H, Calcium Level 9.2, Corrected Calcium 9.8, Total Bilirubin 0.7, Aspartate Amino Transf (AST/SGOT) 16, Alanine Aminotransferase (ALT/SGPT) 24, Alkaline Phosphatase 50, B-Type Natriuretic Peptide 793.1H, Total Protein 5.8L, Albumin 3.3 Microbiology 12/14/18 Blood Culture - Preliminary, Resulted No growth 12/14/18 Urine Culture - Final, Complete NO GROWTH Assessment/Plan Assessment/Plan Assess & Plan/Chief Complaint Bilateral pneumonia. Respiratory failure. DO NOT RESUSCITATE. Hypoxia. Noncommunicative. Minimally elevated troponin 1. . 12/16/18. Bilateral pneumonia. Respiratory failure. DO NOT RESUSCITATE. Hypoxemia. Patient awake this morning. . 12/17/18. Bilateral pneumonia. Congestive heart failure. Respiratory failure. Hypoxemia. Elevated troponin . . 12/18/18. Type II myocardial infarction. Acute respiratory failure. Bilateral pneumonia. Schizophrenia. DO NOT RESUSCITATE. Coronary artery disease. Diabetes. Patient more awake and talking Clinical Quality Measures DVT/VTE Risk/Contraindication: Risk Factor Score Per Nursin RFS Level Per Nursing on Admit: 4+=Very High ARA MONTANEZ DO Dec 18, 2018 08:10
--- NOTE | 2018-12-18 09:43 | Diagnostic Imaging Report ---
Indication: Pneumonia Portable upright AP view of the chest obtained with comparison made to study of 12/17/2018. There is mild cardiomegaly and pulmonary venous congestion. There is blunting of both costophrenic sulci. No pneumothorax is seen. Impression: Findings suggest congestive heart failure with bilateral edema and pleural effusion. Superimposed pneumonia is not excluded however there has been no adverse change when compared to previous study. Dictated by: Dictated on workstation # [id number]
--- NOTE | 2018-12-18 10:42 | NUR ---
PALLIATIVE CARE RN in to see patient. She is clinically improved today...was able to wean off the BiPAP and is now on Vapotherm. She is also alert and answering question. Called Hiral RAMOS regarding need for swallow study as patient is able to complete this now I believe. It will be anticipated that she will transition to her previous placement at [facility].
[2018-12-18 12:24] VITALS: BP 189/79
[2018-12-18] MEDS: meTOprolol 5 MG/5 ML (LOPRESSOR) VIAL IV PRN (13:07)
[2018-12-18] MEDS ORDERED: FUROSEMIDE 40 MG/4 ML INJ (LASIX) IVP ONE (14:00)
--- NOTE | 2018-12-18 14:30 | NUR ---
Pastoral care visit, pt was no longer on bipap, was able to speak with Carbon Furnace Operator some and share. Had prayer with pt.
--- NOTE | 2018-12-18 15:18 | ST Dysphagia Evaluation ---
Speech Evaluation-General Medical Diagnosis Hypoxia, Respiratory Failure Onset Date: Dec 14, 2018 Therapy Diagnosis Therapy Diagnosis: Oropharyngeal Dysphagia Precautions Precautions: Aspiration Precautions/Isolations: Fall Prevention, Standard Precautions Referral Referring Physician: Dr. Rodriguez Medical History Pertinent Medical History: CAD, DM, Heart Failure, HTN, [place] Reviewed History: Yes Social History [facility] Speech PLF/Current-Dysphagia Prior Level of Function The patient is a assisted resident who was assisted with most of her daily needs. Subjective The patient was awake and alert for the Bedside Dysphagia Evaluation Cognitive Status Patient Orientation: Person, Place Oral Motor Skills Dentition: Natural Ability to Follow Directions: Good The patient has been NPO pending the BDE. Oral Expression Ability: No Impairment Voice Voice Phonatory-Based Quality: Weak Voice Pitch: Moderately Low Voice Loudness: Mildly Soft/Quiet Face Facial Symmetry: Symmetrical Oral-Facial Assessment Oral-Facial Dentition: Normal Labial Seal Description: Weak Puff Cheeks: Reduced Strength Lingual Protrusion: Normal Lingual ROM: Normal Lingual Strength: Normal Pharynx Velopharyngeal Move.: Normal Volitional Dry Swallow: Yes Voluntary Cough: Yes Can Clear Throat Volitionally: Yes Productive Cough: No Productive Throat Clear: No Dysphagia Evaluation Consistencies Presented: Thin Liquid, Mechanical Soft, [place] Thick Liquid, Pureed Decreased bolus management. Cough/clear on thin liquids. Funct. Velo/Pharyngeal Symptom: Cough After Swallow Thin liquids only Dietary Recommendations: Mechanical Soft Liquid Recommendations: [place] Consistancy Swallowing Precautions: Alternate Liquids/Solids, Double Swallow, Decreased Kit ana lilia 1/2 Tsp, Liquids from Straw, Small Bites and Sips, Sitting Upright 90 Degrees, Sitting 90 Degrees 30 Post Intake Dysphagia Evaluation Summary The patient is a pleasant 73 year old female who was admitted to the hospital on 12/14/18 due to Hypoxia and Respiratory Failure. The patient was referred for a Bedside Dysphagia Evaluation on December 15. Multiple attempts to complete the BDE were made, however due to the patient's decreased alert level her swallow function could not be assessed. She was off the BiPAP today and more alert. The BDE was completed with thin consistency presented at 1/2 tsp x2 and small sip v ia straw with cough/clear noted after each intake. [place] consistency liquid was presented without difficulty at 1/2 tsp x2 and sip by straw. Puree and mechanical soft textures were presented without difficulty. Mild bolus management deficit noted with both textures. Her safest diet level at this time is Dysphagia II and nectar consistency liquids. This information was provided for her nurse and written on the white board in her room. Barriers to Learning Patient's decreased level of function at this time. Speech Short Term Goals Short Term Goals Short Term Goals 1) The patient will tolerate the least restrictive diet level without s/s of aspiration at 90% or greater. 2) The patient will utilize compensatory strategies as trained for safe oral intake at 90% or greater with minimal verbal cues. Speech Textile Supervisor Goals Senior Care Goals The patient will maintain adequate nutrition/hydration via safe effective swallo w. Speech-Plan Patient/Family Goals Patient/Family Goals: The patient will return to the assisted upon hospital discharge. Treatment Plan Speech Therapy Treatment Plan: Continue Plan of Care The patient will receive skilled dysphagia therapy. Treatment Duration: Dec 24, 2018 Frequency: 3 times per week Estimated Hrs Per Day: .25 hour per day Rehab Potential: Fair Barriers to Learning: The patient's decreased level of function. Pt/Family Agrees to Plan: Yes Safety Risks/Education Teaching Recipient: Patient Teaching Methods: Discussion Response to Teaching: Verbalize Understanding Education Topics Provided: Safety of oral intake and diet level Time Speech Therapy Time In: 10:45 Speech Therapy Time Out: 11:00 Total Billed Time: 15 Billed Treatment Time 1, ANGEL Marinelli Dec 18, 2018 15:18
[2018-12-18 15:20] VITALS: BP 179/86
[2018-12-18] MEDS: FUROSEMIDE 40 MG/4 ML INJ (LASIX) IVP SCH (16:22)
[2018-12-18 19:31] VITALS: BP 141/81
[2018-12-19] MEDS: hydrALAZINE (APESOLINE) 20 MG/ML VIAL IV SCH ×5 (00:10→23:55)
[2018-12-19 00:28] VITALS: BP 175/76
[2018-12-19] MEDS: 1/2 NS IV SOLUTION 1,000 ML IV SCH ×2 (01:31→23:25)
[2018-12-19] MEDS: RT-ALBUTEROL/IPRATROPIUM 3 ML (DUONEB) VIAL INH SCH ×6 (02:04→21:40)
[2018-12-19] MEDS: methylPREDNISolone 125 MG (Solu-MEDROL) VIAL IV SCH ×4 (03:51→23:20)
[2018-12-19] MEDS: CEFEPIME 1,000 MG/SWFI 10 ML IV PUSH IV SCH ×8 (03:52→23:19)
[2018-12-19 04:43] VITALS: BP 177/64
[2018-12-19 05:48] LABS: HEMOGLOBIN 9.6 G/DL (11.5-16.0); MEAN PLATELET VOLUME 10.5 FL (7.4-10.4); WHITE BLOOD COUNT 9.4 10^3/uL (4.3-11.0)
[2018-12-19 06:02] LABS: BUN/CREATININE RATIO 48; CALCIUM 8.9 MG/DL (8.5-10.1); CARBON DIOXIDE 38 MMOL/L (21-32); CHLORIDE 94 MMOL/L (98-107); GFR ESTIMATED > 60; GLUCOSE 368 MG/DL (70-105); MAGNESIUM 1.9 MG/DL (1.8-2.4); POTASSIUM 3.4 MMOL/L (3.6-5.0); SODIUM 145 MMOL/L (135-145)
[2018-12-19] MEDS: FUROSEMIDE 40 MG/4 ML INJ (LASIX) IVP SCH ×2 (06:11→18:29)
--- NOTE | 2018-12-19 07:05 | Diagnostic Imaging Report ---
INDICATION: Followup pneumonia. COMPARISON: 12/18/2018 FINDINGS: Single frontal radiographic view of the chest was obtained and shows persistent moderate cardiomegaly. Pulmonary vasculature, however, is within normal limits. There are [id number] bibasilar effusions with associated bibasilar airspace disease. Overall, aeration has not significantly changed when compared to prior exam. No pneumothorax is seen. Bony structures show no gross acute abnormalities. IMPRESSION: 1. Stable exam of the chest showing moderate cardiomegaly and mild to moderate bibasilar effusions with associated bibasilar airspace disease. Dictated by: Dictated on workstation # [id number]
--- NOTE | 2018-12-19 07:27 | Cardiology Progress Note ---
Subjective Date Seen by Provider: Dec 19, 2018 Time Seen by Provider: 07:23 Subjective/Events-last exam Patient is in bed, lethargic, on Bipap, no chest pain Review of Systems General: No Chills, No Night Sweats; Fatigue, Malaise; No Appetite, No Other HEENT: No Head Aches, No Visual Changes, No Eye Pain, No Ear Pain, No Dysphasia, No Sinus Congestion, No Post Nasal Drip, No Sore Throat, No Other Pulmonary: Dyspnea; No Cough, No Pleuritic Chest Pain, No Other Cardiovascular: Edema; No: Chest Pain, Palpitations, Orthopnea, Paroxysmal Noc. Dyspnea, Lt Headedness, Other Objective-Cardiology Exam Last Set of Vital Signs Vital Signs 12/18/18 12/19/18 12/19/18 15:26 04:43 06:48 Temp 100.1 Pulse 85 Resp 25 B/P (MAP) 177/64 (101) Pulse Ox 91 O2 Delivery NIV Bilevel O2 Flow Rate 35.00 FiO2 35 Capillary Refill : Less Than 3 Seconds I&O Intake and Output 12/18/18 23:59 Intake Total 1670 ml Output Total 3200 ml Balance -1530 ml Intake Oral 650 ml IV Total 1020 ml Output Urine Total 3200 ml General: Alert, Cooperative, Mild Distress HEENT: Atraumatic Neck: Supple, No JVD Lungs: Normal Air Movement, Other (bilateral rhonchi) Heart: Normal S1, Normal S2, Gallops Abdomen: Normal Bowel Sounds Extremities: Normal Pulses, Other Skin: No Rashes Neuro: Other (lethargic) Results Lab Laboratory Tests 12/19/18 04:52 A/P-Cardiology Admission Diagnosis Elevated troponin Acute respiratory failure Bilateral pneumonia Schizophrenia DNR Assessment/Plan Type II myocardial infarction, probably due to hypoxemia and respiratory failurecomments still in respiratory failure, failed weaning yesterday. I will increase Lasix to 40 mg twice daily. Monitor tolerance and response. Pneumonia, receiving antibiotic, managed by primary care team Coronary artery disease, had a cardiac catheterization 2012 showing mild irregularity in the LAD otherwise nonobstructive disease. Continue to monitor EKG. Acute respiratory failure on BiPAP. Dr. Back is of time, I will try to switch her to Vapotherm and wean her off. Schizophrenia, morbid obesity. Bilateral pneumonia receiving antibiotics. Patient is DO NOT RESUSCITATE Clinical Quality Measures DVT/VTE Risk/Contraindication: Risk Factor Score Per Nursin RFS Level Per Nursing on Admit: 4+=Very High BRIGIDO KC MD Dec 19, 2018 07:27
--- NOTE | 2018-12-19 07:53 | Progress Note (SOAP) ---
Subjective Time Seen by a Provider: 07:49 Subjective/Events-last exam Patient is awake this morning and resting comfortably. BNP elevated. Unsuccessful to take patient off BiPAP yesterday. increase dose of Lasix. To try again today to put on Vapotherm. Patient hypertensive Objective Exam Vital Signs Date Time Temp Pulse Resp B/P (MAP) Pulse Ox O2 Delivery O2 Flow Rate FiO2 12/19/18 06:48 85 25 91 35.00 12/19/18 04:43 100.1 89 28 177/64 (101) 95 NIV Bilevel 35.00 30.00 12/19/18 02:05 90 25 94 35.00 12/19/18 00:28 99.9 82 28 175/76 (109) 94 NIV Bilevel 35.00 30.00 12/18/18 21:57 93 25 94 35.00 12/18/18 20:00 NIV Bilevel 35.00 12/18/18 19:31 100.2 116 36 141/81 (101) 95 Vapotherm 35.00 30.00 12/18/18 18:18 116 40 91 35.00 12/18/18 15:26 90 Vapotherm 30.00 35 12/18/18 15:20 99.9 109 24 179/86 (117) 94 Vapotherm 35.00 30.00 12/18/18 12:24 99.5 100 20 189/79 (115) 92 Vapotherm 35.00 30.00 12/18/18 10:57 92 Vapotherm 30.00 35 12/18/18 08:34 91 Vapotherm 30.00 35 12/18/18 08:18 96 34 93 35.00 12/18/18 08:08 99.1 94 28 176/77 (110) 96 NIV Bilevel 30.00 12/18/18 07:59 NIV Bilevel 35.00 I & O 12/19/18 06:59 Intake Total 670 ml Output Total 3325 ml Balance -2655 ml Capillary Refill : Less Than 3 Seconds General Appearance: No Apparent Distress, WD/WN HEENT: Normal ENT Inspection Neck: Normal Inspection, Non Tender Respiratory: No Accessory Muscle Use, No Respiratory Distress Cardiovascular: Other (A little irregular today) Gastrointestinal: non tender, soft Results Lab Laboratory Tests 12/19/18 04:52 Laboratory Tests 12/19/18 04:52: White Blood Count 9.4, Red Blood Count 3.49L, Hemoglobin 9.6L, Hematocrit 33L, Mean Corpuscular Volume 95, Mean Corpuscular Hemoglobin 28, Mean Corpuscular Hemoglobin Concent 29L, Red Cell Distribution Width 16.0H, Platelet Count 289, Mean Platelet Volume 10.5H, Sodium Level 145, Potassium Level 3.4L, Chloride Level 94L, Carbon Dioxide Level 38H, Anion Gap 13, Blood Urea Nitrogen 38H, Creatinine 0.80, Estimat Glomerular Filtration Rate > 60, BUN/Creatinine Ratio 48, Glucose Level 368H, Calcium Level 8.9, Magnesium Level 1.9 Microbiology 12/14/18 Blood Culture - Preliminary, Resulted No growth 12/14/18 Urine Culture - Final, Complete NO GROWTH Assessment/Plan Assessment/Plan Assess & Plan/Chief Complaint Bilateral pneumonia. Respiratory failure. DO NOT RESUSCITATE. Hypoxia. Noncommunicative. Minimally elevated troponin 1. . 12/16/18. Bilateral pneumonia. Respiratory failure. DO NOT RESUSCITATE. Hypoxemia. Patient awake this morning. . 12/17/18. Bilateral pneumonia. Congestive heart failure. Respiratory failure. Hypoxemia. Elevated troponin . . 12/18/18. Type II myocardial infarction. Acute respiratory failure. Bilateral pneumonia. Schizophrenia. DO NOT RESUSCITATE. Coronary artery disease. Diabetes. Patient more awake and talking. . 12/19/18 type II myocardial infarction. Acute respiratory failure. Bilateral pneumonia. Schizophrenia. Coronary artery disease. Diabetes. Hypokalemia. If patient not better by Saturday speak to family about hospice Clinical Quality Measures DVT/VTE Risk/Contraindication: Risk Factor Score Per Nursin RFS Level Per Nursing on Admit: 4+=Very High ARA MONTANEZ DO Dec 19, 2018 07:53
[2018-12-19 08:00] VITALS: BP 158/66
[2018-12-19] MEDS ORDERED: POTASSIUM CL 10MEQ/50ML IVPB 50 ML IV ONE (08:00)
[2018-12-19] MEDS: POTASSIUM CL 10MEQ/50ML IVPB 50 ML IV SCH ×2 (09:23→11:06)
[2018-12-19] MEDS: ENOXAPARIN 40 MG/0.4 ML (LOVENOX) SYR SC SCH ×2 (09:24→20:35)
[2018-12-19 09:54] LABS: BILIRUBIN,URINE NEGATIVE (NEGATIVE); CLARITY,URINE VERY CLOUDY; COLOR,URINE YELLOW; GLUCOSE, URINE (UA) 3+ (NEGATIVE); KETONES,URINE 3+ (NEGATIVE); LEUKOCYTE ESTERASE ,URINE 3+ (NEGATIVE); NITRITE,URINE NEGATIVE (NEGATIVE); PH,URINE 5 (5-9); PROTEIN,URINE 3+ (NEGATIVE); UROBILINOGEN,URINE NORMAL (NORMAL)
[2018-12-19 10:04] LABS: BACTERIA,URINE NEGATIVE /HPF; RBC,URINE TNTC /HPF; WBC,URINE 50-100 /HPF; YEAST,URINE LARGE /HPF
[2018-12-19 12:00] VITALS: BP 130/64
--- NOTE | 2018-12-19 14:57 | Speech Therapy Daily Note ---
Speech Daily Progress Note Subjective Date Seen by Provider: Dec 19, 2018 Time Seen by Provider: 00:15 Patient awake and was able to take a few drinks of nectar consistency water without s/s of aspiration. Objective Patient was able to take a few drinks of nectar consistency liquids without s/s of aspiration. Assessment Assessment Current Status: Fair Progress Treatment Plan Continue Plan of Care Speech Short Term Goals Short Term Goals Short Term Goals 1) The patient will tolerate the least restrictive diet level without s/s of aspiration at 90% or greater. 2) The patient will utilize compensatory strategies as trained for safe oral intake at 90% or greater with minimal verbal cues. Speech Motorcycle Fabricator Goals Motorcycle Fabricator Goals The patient will maintain adequate nutrition/hydration via safe effective swallow. Speech-Plan Patient/Family Goals Patient/Family Goals: The patient will return to the alf upon hospital discharge. Treatment Plan Speech Therapy Treatment Plan: Continue Plan of Care Patient is progressing with current diet level. Treatment Duration: Dec 24, 2018 Frequency: 3 times per week Estimated Hrs Per Day: .25 hour per day Rehab Potential: Fair Barriers to Learning: Patient has multiple medical diagnosis Pt/Family Agrees to Plan: Yes Safety Risks/Education Teaching Recipient: Patient Teaching Methods: Discussion Response to Teaching: Verbalize Understanding Education Topics Provided: Continued safety of oral intake. Time Speech Therapy Time In: 08:15 Speech Therapy Time Out: 08:30 Total Billed Time: 15 Billed Treatment Time KendraGILDA BETHANIA ST Dec 19, 2018 14:57
[2018-12-19 16:00] VITALS: BP 156/66
[2018-12-19 19:57] VITALS: BP 149/66
--- NOTE | 2018-12-19 21:30 | NUR ---
Dr Valente notified of FSBS of 475, orders to given highest dose on sliding scale 17 units. of NovoLog
[2018-12-19] MEDS: inSUlin ASPART (NovoLOG) 1 UNIT/0.01 ML (CHARGE PER UNIT) SC SCH (22:24)
[2018-12-20] VITALS (7 sets, daily range): BP systolic 130–164; BP diastolic 60–71
[2018-12-20] MEDS: RT-ALBUTEROL/IPRATROPIUM 3 ML (DUONEB) VIAL INH SCH ×6 (02:45→22:47)
[2018-12-20 05:00] LABS: HEMOGLOBIN 9.8 G/DL (11.5-16.0); MEAN PLATELET VOLUME 10.2 FL (7.4-10.4); WHITE BLOOD COUNT 13.2 10^3/uL (4.3-11.0)
[2018-12-20 05:20] LABS: ALANINE AMINOTRANSFERASE 29 U/L (0-55); ALBUMIN 3.5 GM/DL (3.2-4.5); ALKALINE PHOSPHATASE 45 U/L (40-136); BILIRUBIN,TOTAL 0.8 MG/DL (0.1-1.0); BUN/CREATININE RATIO 41; CALCIUM 8.7 MG/DL (8.5-10.1); CARBON DIOXIDE 39 MMOL/L (21-32); CHLORIDE 90 MMOL/L (98-107); CREATININE SERUM 0.76 MG/DL (0.60-1.30); GFR ESTIMATED > 60; GLUCOSE 369 MG/DL (70-105); MAGNESIUM 1.8 MG/DL (1.8-2.4); POTASSIUM 3.5 MMOL/L (3.6-5.0); SODIUM 141 MMOL/L (135-145); TOTAL PROTEIN 5.8 GM/DL (6.4-8.2)
[2018-12-20] MEDS: methylPREDNISolone 125 MG (Solu-MEDROL) VIAL IV SCH ×4 (06:35→22:04)
[2018-12-20] MEDS: hydrALAZINE (APESOLINE) 20 MG/ML VIAL IV SCH ×3 (06:35→17:03)
[2018-12-20] MEDS: CEFEPIME 1,000 MG/SWFI 10 ML IV PUSH IV SCH ×8 (06:35→22:04)
[2018-12-20] MEDS: inSUlin ASPART (NovoLOG) 1 UNIT/0.01 ML (CHARGE PER UNIT) SC SCH ×4 (06:36→21:29)
[2018-12-20] MEDS: FUROSEMIDE 40 MG/4 ML INJ (LASIX) IVP SCH ×2 (06:36→17:02)
[2018-12-20] MEDS: ENOXAPARIN 40 MG/0.4 ML (LOVENOX) SYR SC SCH ×2 (08:11→21:29)
--- NOTE | 2018-12-20 09:56 | Cardiology Progress Note ---
Subjective Date Seen by Provider: Dec 20, 2018 Time Seen by Provider: 09:55 Subjective/Events-last exam patient is laying down in bed. Denied any chest pain. No palpitation, breathing is better Review of Systems General: No Chills, No Night Sweats; Fatigue, Malaise; No Appetite, No Other HEENT: No Head Aches, No Visual Changes, No Eye Pain, No Ear Pain, No Dysphasi a, No Sinus Congestion, No Post Nasal Drip, No Sore Throat, No Other Pulmonary: Dyspnea; No Cough, No Pleuritic Chest Pain, No Other Cardiovascular: Edema; No: Chest Pain, Palpitations, Orthopnea, Paroxysmal Noc. Dyspnea, Lt Headedness, Other Objective-Cardiology Exam Last Set of Vital Signs Vital Signs 12/20/18 08:00 Temp 97.6 Pulse 96 Resp 20 B/P (MAP) 152/68 (96) Pulse Ox 95 O2 Delivery Vapotherm O2 Flow Rate 40.00 30.00 FiO2 40 Capillary Refill : Less Than 3 SecondsLess Than 3 Seconds I&O Intake and Output 12/19/18 23:59 Intake Total 2720 ml Output Total 3150 ml Balance -430 ml Intake Oral 1600 ml IV Total 1120 ml Output Urine Total 3150 ml General: Alert, Cooperative, Mild Distress HEENT: Atraumatic Neck: Supple, No JVD Lungs: Normal Air Movement, Other (bilateral rhonchi) Heart: Normal S1, Normal S2, Gallops Abdomen: Normal Bowel Sounds Extremities: Normal Pulses, Other Skin: No Rashes Neuro: Normal Speech, Other (lethargic) Results Lab Laboratory Tests 12/20/18 04:40 A/P-Cardiology Admission Diagnosis Elevated troponin Acute respiratory failure Bilateral pneumonia Schizophrenia DNR Assessment/Plan Type II myocardial infarction, probably due to hypoxemia and respiratory f ailure, better today, off the BiPAP, receiving IV Lasix. Continue to monitor Pneumonia, receiving antibiotic, managed by primary care team Coronary artery disease, had a cardiac catheterization 2012 showing mild irregularity in the LAD otherwise nonobstructive disease. Continue to monitor EKG. Acute respiratory failure on BiPAP. Dr. Back is of time, I will try to switch her to Vapotherm and wean her off. Schizophrenia, morbid obesity. Bilateral pneumonia receiving antibiotics. Patient is DO NOT RESUSCITATE Clinical Quality Measures DVT/VTE Risk/Contraindication: Risk Factor Score Per Nursin RFS Level Per Nursing on Admit: 4+=Very High BRIGIDO KC MD Dec 20, 2018 09:56
--- NOTE | 2018-12-20 12:03 | Progress Note-Hospitalist ---
Subjective HPI/CC On Admission Date Seen by Provider: Dec 20, 2018 Time Seen by Provider: 11:00 CC: Hypoxia and respiratory failure HPI: This is a 73yoWF group home patient of Dr Rodriguez who is DNR and chronically debilitated who was admitted 6 weeks ago for pneumonia who presented to the ER with hypoxia and AMS and was found to have 30% O2 assessed improved to 60% on non-rebreather and now on biPAP diagnosed with bilateral pneumonia. Patient is in need of palliative care due to such severely poor prognosis. Patient is sleeping and does not respond to my questions. Subjective/Events-last exam Patient still on Vapotherm Asking for her insulin so sliding scale was restarted No bowel movement for a few days will start meds Overall very poor prognosis Review of Systems Pulmonary: Dyspnea Objective Exam Vital Signs Vital Signs Date Time Temp Pulse Resp B/P (MAP) Pulse Ox O2 Delivery O2 Flow Rate FiO2 12/20/18 12:00 98.0 96 20 148/63 (91) 96 Vapotherm 40.00 30.00 12/20/18 10:36 40 Capillary Refill : Less Than 3 SecondsLess Than 3 Seconds General Appearance: No Apparent Distress, WD/WN HEENT: Normal ENT Inspection Neck: Normal Inspection, Non Tender Respiratory: No Accessory Muscle Use, No Respiratory Distress Cardiovascular: Other (A little irregular today) Gastrointestinal: Normal Bowel Sounds, No Organomegaly, No Pulsatile Mass, Non Tender, Soft Rectal: Deferred Back: No CVA Tenderness Extremity: Pedal Edema (2+ to mid tibia bilaterally) Neurologic/Psychiatric: Alert, Oriented x3, Disoriented Skin: Normal Color, Warm/Dry Lymphatic: No Adenopathy Results/Procedures Lab Laboratory Tests 12/20/18 04:40 Patient resulted labs reviewed. Assessment/Plan Assessment and Plan Assess & Plan/Chief Complaint Assessment: Respiratory insufficiency maintained on Vapotherm Constipation Diabetes mellitus Chronic debility Poor prognosis Plan: Bowel movements Sliding-scale insulin Needs hospice Diagnosis/Problems Diagnosis/Problems (1) Acute respiratory failure with hypoxia Status: Acute (2) Bilateral pneumonia Status: Acute Qualifiers: Pneumonia type: due to unspecified organism Lung location: lower lobe of lung Qualified Codes: J18.1 - Lobar pneumonia, unspecified organism (3) BiPAP (biphasic positive airway pressure) dependence Status: Acute (4) Obesity Status: Chronic Qualifiers: Obesity type: due to excess calories Obesity classification: adult class 3 (BMI >= 40) Body mass index: BMI 40.0-44.9 (5) Hypoxia Status: Acute (6) Schizophrenia Status: Chronic Qualifiers: Schizophrenia type: unspecified Qualified Codes: F20.9 - Schizophrenia, unspecified (7) Respiratory failure Status: Acute Qualifiers: Chronicity: acute Respiratory failure complication: unspecified whether with hypoxia or hypercapnia Qualified Codes: J96.00 - Acute respiratory failure, unspecified whether with hypoxia or hypercapnia (8) Dementia Status: Chronic Qualifiers: Dementia type: Alzheimer's disease Alzheimer's disease onset: unspecified onset Dementia behavioral disturbance: without behavioral disturbance Qualified Codes: G30.9 - Alzheimer's disease, unspecified; F02.80 - Dementia in other diseases classified elsewhere without behavioral disturbance (9) Diabetes mellitus Status: Chronic Qualifiers: Diabetes mellitus type: type 2 Diabetes mellitus skilled nursing insulin use: with skilled nursing use Diabetes mellitus complication status: with unspecified complications Qualified Codes: E11.8 - Type 2 diabetes mellitus with unspecified complications; Z79.4 - oil heaterman (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
[2018-12-20] MEDS: LACTULOSE SYRUP 10GM/15ML (ENULOSE) 30ML UDC PO SCH ×2 (13:25→21:55)
[2018-12-20] MEDS: SENNA W/DOCUSATE (SENOKOT S) TABLET PO SCH ×2 (13:26→21:30)
[2018-12-20] MEDS: 1/2 NS IV SOLUTION 1,000 ML IV SCH (20:09)
[2018-12-21 00:14] VITALS: BP 135/62
[2018-12-21] MEDS: hydrALAZINE (APESOLINE) 20 MG/ML VIAL IV SCH ×4 (01:42→17:00)
[2018-12-21] MEDS: RT-ALBUTEROL/IPRATROPIUM 3 ML (DUONEB) VIAL INH SCH ×6 (02:15→21:45)
[2018-12-21] MEDS: CEFEPIME 1,000 MG/SWFI 10 ML IV PUSH IV SCH ×4 (04:22→10:49)
[2018-12-21] MEDS: methylPREDNISolone 125 MG (Solu-MEDROL) VIAL IV SCH (04:22)
[2018-12-21] MEDS: inSUlin ASPART (NovoLOG) 1 UNIT/0.01 ML (CHARGE PER UNIT) SC SCH ×4 (06:04→22:04)
[2018-12-21 07:56] LABS: HEMOGLOBIN 9.5 G/DL (11.5-16.0); MEAN PLATELET VOLUME 10.5 FL (7.4-10.4); RED CELL DISTRIBUTION WIDTH 15.2 % (10.0-14.5); WHITE BLOOD COUNT 12.3 10^3/uL (4.3-11.0)
[2018-12-21 08:00] VITALS: BP 148/66
[2018-12-21] MEDS: FUROSEMIDE 40 MG/4 ML INJ (LASIX) IVP SCH ×2 (08:03→17:00)
[2018-12-21] MEDS: ENOXAPARIN 40 MG/0.4 ML (LOVENOX) SYR SC SCH ×2 (08:03→21:55)
[2018-12-21 08:17] LABS: ALANINE AMINOTRANSFERASE 34 U/L (0-55); ALBUMIN 3.2 GM/DL (3.2-4.5); ALKALINE PHOSPHATASE 42 U/L (40-136); BILIRUBIN,TOTAL 0.6 MG/DL (0.1-1.0); BUN/CREATININE RATIO 38; CALCIUM 8.8 MG/DL (8.5-10.1); CARBON DIOXIDE 42 MMOL/L (21-32); CHLORIDE 89 MMOL/L (98-107); CREATININE SERUM 0.64 MG/DL (0.60-1.30); GFR ESTIMATED > 60; GLUCOSE 291 MG/DL (70-105); POTASSIUM 3.1 MMOL/L (3.6-5.0); SODIUM 139 MMOL/L (135-145); TOTAL PROTEIN 5.3 GM/DL (6.4-8.2)
--- NOTE | 2018-12-21 10:33 | NUR ---
RT Kelin tried to turn patients Vapotherm flow to 10 L and left the O2 at 40% and patients O2 Sat Dropped into the 80's so RT increased flow back to previous 20 L and O2 sat came up and stayed up.
--- NOTE | 2018-12-21 10:40 | Progress Note-Hospitalist ---
Subjective HPI/CC On Admission Date Seen by Provider: Dec 21, 2018 Time Seen by Provider: 09:40 CC: Hypoxia and respiratory failure HPI: This is a 73yoWF senior care patient of Dr Rodriguez who is DNR and chronically debilitated who was admitted 6 weeks ago for pneumonia who presented to the ER with hypoxia and AMS and was found to have 30% O2 assessed improved to 60% on non-rebreather and now on biPAP diagnosed with bilateral pneumonia. Patient is in need of palliative care due to such severely poor prognosis. Patient is sleeping and does not respond to my questions. Subjective/Events-last exam Potassium on labs is 3.[address] that with IV form of 40 M EQ Use BiPAP last night and now on Vapotherm during the day Last bowel movement was 6/2 after meds given yesterday so will initiate suppository and enema if needed Check meds and labs Overall poor prognosis Fully dependent on Vapotherm Review of Systems Pulmonary: Dyspnea Gastrointestinal: Constipation Objective Exam Vital Signs Vital Signs Date Time Temp Pulse Resp B/P (MAP) Pulse Ox O2 Delivery O2 Flow Rate FiO2 12/21/18 15:50 97.2 86 22 157/69 (98) 97 Vapotherm 40.00 20.00 12/21/18 14:33 40 Capillary Refill : Less Than 3 SecondsLess Than 3 Seconds General Appearance: No Apparent Distress, WD/WN HEENT: Normal ENT Inspection Neck: Normal Inspection, Non Tender Respiratory: No Accessory Muscle Use, No Respiratory Distress Cardiovascular: Other (A little irregular today) Gastrointestinal: Normal Bowel Sounds, No Organomegaly, No Pulsatile Mass, Non Tender, Soft Rectal: Deferred Back: No CVA Tenderness Extremity: Pedal Edema (2+ to mid tibia bilaterally) Neurologic/Psychiatric: Alert, Oriented x3, Disoriented Skin: Normal Color, Warm/Dry Lymphatic: No Adenopathy Results/Procedures Lab Laboratory Tests 12/21/18 07:50 Patient resulted labs reviewed. Assessment/Plan Assessment and Plan Assess & Plan/Chief Complaint Assessment: Respiratory insufficiency maintained on Vapotherm Diabetes mellitus Chronic debility Poor prognosis Constipation Hypokalemia Plan: Bowel movement treatment to intensify Sliding-scale insulin Needs hospice Fully dependent on Vapotherm Replace potassium IV Diagnosis/Problems Diagnosis/Problems (1) Acute respiratory failure with hypoxia Status: Acute (2) Bilateral pneumonia Status: Acute Qualifiers: Pneumonia type: due to unspecified organism Lung location: lower lobe of lung Qualified Codes: J18.1 - Lobar pneumonia, unspecified organism (3) BiPAP (biphasic positive airway pressure) dependence Status: Acute (4) Obesity Status: Chronic Qualifiers: Obesity type: due to excess calories Obesity classification: adult class 3 (BMI >= 40) Body mass index: BMI 40.0-44.9 (5) Hypoxia Status: Acute (6) Schizophrenia Status: Chronic Qualifiers: Schizophrenia type: unspecified Qualified Codes: F20.9 - Schizophrenia, unspecified (7) Respiratory failure Status: Acute Qualifiers: Chronicity: acute Respiratory failure complication: unspecified whether with hypoxia or hypercapnia Qualified Codes: J96.00 - Acute respiratory failure, unspecified whether with hypoxia or hypercapnia (8) Dementia Status: Chronic Qualifiers: Dementia type: Alzheimer's disease Alzheimer's disease onset: unspecified onset Dementia behavioral disturbance: without behavioral disturbance Qualified Codes: G30.9 - Alzheimer's disease, unspecified; F02.80 - Dementia in other diseases classified elsewhere without behavioral disturbance (9) Diabetes mellitus Status: Chronic Qualifiers: Diabetes mellitus type: type 2 Diabetes mellitus chcf insulin use: with chcf use Diabetes mellitus complication status: with unspecified complications Qualified Codes: E11.8 - Type 2 diabetes mellitus with unspecified complications; Z79.4 - terminal supervisor (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
[2018-12-21] MEDS: LACTULOSE SYRUP 10GM/15ML (ENULOSE) 30ML UDC PO SCH ×2 (10:49→21:54)
[2018-12-21] MEDS: SENNA W/DOCUSATE (SENOKOT S) TABLET PO SCH ×2 (10:49→21:57)
--- NOTE | 2018-12-21 11:20 | Cardiology Progress Note ---
Subjective Date Seen by Provider: Dec 21, 2018 Time Seen by Provider: 11:19 Subjective/Events-last exam patient is sitting up in bed, feeling better, breathing better, denied any active pain. Review of Systems General: No Chills, No Night Sweats; Fatigue, Malaise; No Appetite, No Other HEENT: No Head Aches, No Visual Changes, No Eye Pain, No Ear Pain, No Dysphasia, No Sinus Congestion, No Post Nasal Drip, No Sore Throat, No Other Pulmonary: Dyspnea; No Cough, No Pleuritic Chest Pain, No Other Cardiovascular: Edema; No: Chest Pain, Palpitations, Orthopnea, Paroxysmal Noc. Dyspnea, Lt Headedness, Other Objective-Cardiology Exam Last Set of Vital Signs Vital Signs 12/21/18 12/21/18 08:00 10:33 Temp 97.7 Pulse 87 Resp 20 B/P (MAP) 148/66 (93) Pulse Ox 93 O2 Delivery Vapotherm O2 Flow Rate 20.00 FiO2 40 Capillary Refill : Less Than 3 SecondsLess Than 3 Seconds I&O Intake and Output 12/21/18 00:00 Intake Total 3790 ml Output Total 3625 ml Balance 165 ml Intake Oral 2790 ml IV Total 1000 ml Output Urine Total 3625 ml General: Alert, Cooperative, Mild Distress HEENT: Atraumatic Neck: Supple, No JVD Lungs: Normal Air Movement, Other (bilateral rhonchi) Heart: Normal S1, Normal S2, Gallops Abdomen: Normal Bowel Sounds Extremities: Normal Pulses, Other Skin: No Rashes Neuro: Normal Speech, Other (lethargic) Results Lab Laboratory Tests 12/21/18 07:50 A/P-Cardiology Admission Diagnosis Elevated troponin Acute respiratory failure Bilateral pneumonia Schizophrenia DNR Assessment/Plan Type II myocardial infarction, probably due to hypoxemia and respiratory failure, better today, off the BiPAP, continue to monitor. Hypokalemia, replace and monitor Pneumonia, receiving antibiotic, managed by primary care team Coronary artery disease, had a cardiac catheterization 2012 showing mild irregularity in the LAD otherwise nonobstructive disease. Continue to monitor EKG. Acute respiratory failure on BiPAP. Dr. Back is of time, I will try to switch her to Vapotherm and wean her off. Schizophrenia, morbid obesity. Bilateral pneumonia receiving antibiotics. Patient is DO NOT RESUSCITATE Clinical Quality Measures DVT/VTE Risk/Contraindication: Risk Factor Score Per Nursin RFS Level Per Nursing on Admit: 4+=Very High BRIGIDO KC MD Dec 21, 2018 11:20
[2018-12-21] MEDS: POTASSIUM CL 10MEQ/50ML IVPB 50 ML IV SCH ×4 (11:28→14:58)
[2018-12-21] MEDS ORDERED: KCL 20 MEQ TAB (K-DUR) PO ONE (11:30)
[2018-12-21 15:50] VITALS: BP 157/69
[2018-12-21] MEDS: 1/2 NS IV SOLUTION 1,000 ML IV SCH (17:00)
[2018-12-21] MEDS: methylPREDNISolone 40 MG/ML (Solu-MEDROL) VIAL IV SCH (21:54)
[2018-12-22 00:04] VITALS: BP 142/65
[2018-12-22] MEDS: RT-ALBUTEROL/IPRATROPIUM 3 ML (DUONEB) VIAL INH SCH ×6 (01:50→22:35)
[2018-12-22] MEDS: hydrALAZINE (APESOLINE) 20 MG/ML VIAL IV SCH ×4 (05:38→19:02)
[2018-12-22] MEDS: FUROSEMIDE 40 MG/4 ML INJ (LASIX) IVP SCH ×2 (05:39→16:17)
[2018-12-22] MEDS: 1/2 NS IV SOLUTION 1,000 ML IV SCH (05:49)
[2018-12-22 06:20] LABS: HEMOGLOBIN 10.1 G/DL (11.5-16.0); RED CELL DISTRIBUTION WIDTH 15.5 % (10.0-14.5)
[2018-12-22 06:39] LABS: ALANINE AMINOTRANSFERASE 50 U/L (0-55); ALBUMIN 3.2 GM/DL (3.2-4.5); ALKALINE PHOSPHATASE 45 U/L (40-136); BILIRUBIN,TOTAL 0.9 MG/DL (0.1-1.0); BUN/CREATININE RATIO 34; CALCIUM 8.5 MG/DL (8.5-10.1); CARBON DIOXIDE 41 MMOL/L (21-32); CHLORIDE 87 MMOL/L (98-107); CREATININE SERUM 0.61 MG/DL (0.60-1.30); GFR ESTIMATED > 60; GLUCOSE 221 MG/DL (70-105); SODIUM 139 MMOL/L (135-145); TOTAL PROTEIN 5.3 GM/DL (6.4-8.2)
[2018-12-22] MEDS: inSUlin ASPART (NovoLOG) 1 UNIT/0.01 ML (CHARGE PER UNIT) SC SCH ×4 (06:51→21:24)
--- NOTE | 2018-12-22 07:51 | Progress Note (SOAP) ---
Subjective Time Seen by a Provider: 07:48 Subjective/Events-last exam Patient is awake and talking and making sense. Patient voices no complaints. Patient on Vapotherm. We'll try to put her on nasal oxygen. Patient taking oral medications. Patient on dysphagia type II diet Objective Exam Vital Signs Date Time Temp Pulse Resp B/P (MAP) Pulse Ox O2 Delivery O2 Flow Rate FiO2 12/22/18 06:21 91 Vapotherm 20.00 30 12/22/18 01:50 92 Vapotherm 20.00 30 12/22/18 00:04 97.4 78 22 142/65 (90) 95 Vapotherm 40.00 20.00 12/21/18 21:46 93 Vapotherm 20.00 35 12/21/18 20:00 95 Vapotherm 20.00 30 12/21/18 18:28 93 Vapotherm 20.00 40 12/21/18 15:50 97.2 86 22 157/69 (98) 97 Vapotherm 40.00 20.00 12/21/18 14:33 93 Vapotherm 20.00 40 12/21/18 10:33 93 Vapotherm 20.00 40 12/21/18 08:00 97.7 87 20 148/66 (93) 96 NIV Bilevel 35.00 12/21/18 08:00 Vapotherm 30.00 40 I & O 12/22/18 07:00 Intake Total 3010 ml Output Total 4050 ml Balance -1040 ml Capillary Refill : Less Than 3 SecondsLess Than 3 Seconds General Appearance: No Apparent Distress, WD/WN HEENT: Normal ENT Inspection Neck: Full Range of Motion, Normal Inspection Respiratory: No Accessory Muscle Use, No Respiratory Distress, Decreased Breath Sounds Cardiovascular: Regular Rate, Rhythm, No Murmur Gastrointestinal: non tender, soft Results Lab Laboratory Tests 12/21/18 07:50 12/22/18 05:25 12/22/18 05:50 Laboratory Tests 12/21/18 07:50: White Blood Count 12.3H, Red Blood Count 3.40L, Hemoglobin 9.5L, Hematocrit 32L, Mean Corpuscular Volume 94, Mean Corpuscular Hemoglobin 28, Mean Corpuscular Hemoglobin Concent 30L, Red Cell Distribution Width 15.2H, Platelet Count 222, Mean Platelet Volume 10.5H, Sodium Level 139, Potassium Level 3.1L, Chloride Level 89L, Carbon Dioxide Level 42H, Anion Gap 8, Blood Urea Nitrogen 24H, Creatinine 0.64, Estimat Glomerular Filtration Rate > 60, BUN/Creatinine Ratio 38, Glucose Level 291H, Calcium Level 8.8, Corrected Calcium 9.4, Total Bilirubin 0.6, Aspartate Amino Transf (AST/SGOT) 22, Alanine Aminotransferase (ALT/SGPT) 34, Alkaline Phosphatase 42, Total Protein 5.3L, Albumin 3.2 12/21/18 11:22: Glucometer 324H 12/21/18 16:14: Glucometer 212H 12/21/18 21:10: Glucometer 233H 12/22/18 05:25: Sodium Level 139, Potassium Level 3.0L, Chloride Level 87L, Carbon Dioxide Level 41H, Anion Gap 11, Blood Urea Nitrogen 21H, Creatinine 0.61, Estimat Glomerular Filtration Rate > 60, BUN/Creatinine Ratio 34, Glucose Level 221H, Calcium Level 8.5, Corrected Calcium 9.1, Total Bilirubin 0.9, Aspartate Amino Transf (AST/SGOT) 33, Alanine Aminotransferase (ALT/SGPT) 50, Alkaline Phosphatase 45, Total Protein 5.3L, Albumin 3.2 12/22/18 05:50: White Blood Count 14.0H, Red Blood Count 3.69L, Hemoglobin 10.1L, Hematocrit 34L , Mean Corpuscular Volume 91, Mean Corpuscular Hemoglobin 27, Mean Corpuscular Hemoglobin Concent 30L, Red Cell Distribution Width 15.5H, Platelet Count 257, Mean Platelet Volume 11.0H Microbiology 12/14/18 Blood Culture - Final, Complete No growth 12/19/18 Urine Culture - Final, Complete YEAST Assessment/Plan Assessment/Plan Assess & Plan/Chief Complaint Bilateral pneumonia. Respiratory failure. DO NOT RESUSCITATE. Hypoxia. Noncommunicative. Minimally elevated troponin 1. . 12/16/18. Bilateral pneumonia. Respiratory failure. DO NOT RESUSCITATE. Hypoxemia. Patient awake this morning. . 12/17/18. Bilateral pneumonia. Congestive heart failure. Respiratory failure. Hypoxemia. Elevated troponin . . 12/18/18. Type II myocardial infarction. Acute respiratory failure. Bilateral pneumonia. Schizophrenia. DO NOT RESUSCITATE. Coronary artery disease. Diabetes. Patient more awake and talking. . 12/19/18 type II myocardial infarction. Acute respiratory failure. Bilateral pneumonia. Schizophrenia. Coronary artery disease. Diabetes. Hypokalemia. If patient not better by Saturday speak to family about hospice. . 12/22/18. Acute respiratory failure. Type II myocardial infarction. Bilateral pneumonia. Schizophrenia. Coronary artery disease. Diabetes. Hypokalemia. We'll try to get patient off Vapotherm today Clinical Quality Measures DVT/VTE Risk/Contraindication: Risk Factor Score Per Nursin RFS Level Per Nursing on Admit: 4+=Very High ARA MONTANEZ DO Dec 22, 2018 07:50
[2018-12-22 08:00] VITALS: BP 149/55
--- NOTE | 2018-12-22 08:18 | Pulmonary Progress Note ---
Subjective Time Seen by a Provider: 08:18 Subjective/Events-last exam Pt still on Vapotherm. Sepsis Event Evaluation Height, Weight, BMI Height: 4'9.00" Weight: 208lbs. 6.0oz. 94.787997yt; 47.6 BMI Method:Estimated Exam Exam Vital Signs Date Time Temp Pulse Resp B/P (MAP) Pulse Ox O2 Delivery O2 Flow Rate FiO2 12/22/18 06:21 91 Vapotherm 20.00 30 12/22/18 01:50 92 Vapotherm 20.00 30 12/22/18 00:04 97.4 78 22 142/65 (90) 95 Vapotherm 40.00 20.00 12/21/18 21:46 93 Vapotherm 20.00 35 12/21/18 20:00 95 Vapotherm 20.00 30 12/21/18 18:28 93 Vapotherm 20.00 40 12/21/18 15:50 97.2 86 22 157/69 (98) 97 Vapotherm 40.00 20.00 12/21/18 14:33 93 Vapotherm 20.00 40 12/21/18 10:33 93 Vapotherm 20.00 40 I & O 12/22/18 07:00 Intake Total 3010 ml Output Total 4050 ml Balance -1040 ml Height & Weight Height: 4'9.00" Weight: 208lbs. 6.0oz. 94.818309ck; 47.6 BMI Method:Estimated General Appearance: No Apparent Distress, WD/WN HEENT: Normal ENT Inspection Neck: Full Range of Motion, Normal Inspection Respiratory: No Accessory Muscle Use, No Respiratory Distress, Decreased Breath Sounds Cardiovascular: Regular Rate, Rhythm, No Murmur Capillary Refill: Less Than 3 Seconds Gastrointestinal: non tender, soft Extremity: Pedal Edema (2+ to mid tibia bilaterally) Neurologic/Psychiatric: Alert, Oriented x3, Disoriented Skin: Normal Color, Warm/Dry Lymphatic: No Adenopathy Results Lab Laboratory Tests 12/21/18 07:50 12/22/18 05:25 12/22/18 05:50 Assessment/Plan Assessment/Plan Acute respiratory failure with bilateral pulmonary edema - improving - BiPAP/Vapotherm -Trial pt off vapotherm on regular NC -Pt is a DNR -Solumedrol NSTEMI -Cardiology following Anemia -Monitor KEYANA DUBOIS DO Dec 22, 2018 08:18
[2018-12-22] MEDS: ENOXAPARIN 40 MG/0.4 ML (LOVENOX) SYR SC SCH ×2 (08:23→20:25)
[2018-12-22] MEDS: methylPREDNISolone 40 MG/ML (Solu-MEDROL) VIAL IV SCH ×2 (08:23→20:25)
[2018-12-22] MEDS: SENNA W/DOCUSATE (SENOKOT S) TABLET PO SCH ×2 (08:24→20:25)
--- NOTE | 2018-12-22 08:25 | Cardiology Progress Note ---
Subjective Date Seen by Provider: Dec 22, 2018 Time Seen by Provider: 08:24 Subjective/Events-last exam Patient sitting up in bed, currently on NC. Denies any chest pain Objective-Cardiology Exam Last Set of Vital Signs Vital Signs 12/22/18 12/22/18 08:00 10:50 Temp 98.2 Pulse 59 Resp 20 B/P (MAP) 149/55 (86) Pulse Ox 91 O2 Delivery Vapotherm O2 Flow Rate 20.00 FiO2 30 Capillary Refill : Less Than 3 SecondsLess Than 3 Seconds I&O Intake and Output 12/22/18 00:00 Intake Total 2160 ml Output Total 3700 ml Balance -1540 ml Intake Oral 1110 ml IV Total 1050 ml Output Urine Total 3700 ml General: Alert, Cooperative, Mild Distress HEENT: Atraumatic Neck: Supple, No JVD Lungs: Normal Air Movement, Other (bilateral rhonchi) Heart: Normal S1, Normal S2, Gallops Abdomen: Normal Bowel Sounds Extremities: Normal Pulses, Other Skin: No Rashes Neuro: Normal Speech, Other (lethargic) Results Lab Laboratory Tests 12/22/18 05:25 12/22/18 05:50 A/P-Cardiology Admission Diagnosis Elevated troponin Acute respiratory failure Bilateral pneumonia Schizophrenia DNR Assessment/Plan Type II myocardial infarction, probably due to hypoxemia and respiratory failure , better today, currently on Vapotherm and on NC Hypokalemia, replace and monitor Pneumonia, receiving antibiotic, managed by primary care team Coronary artery disease, had a cardiac catheterization 2012 showing mild irregularity in the LAD otherwise nonobstructive disease. Continue to monitor E KG. Acute respiratory failure, Dr. Back managing. Schizophrenia, morbid obesity. Bilateral pneumonia receiving antibiotics. Patient is DO NOT RESUSCITATE Clinical Quality Measures DVT/VTE Risk/Contraindication: Risk Factor Score Per Nursin RFS Level Per Nursing on Admit: 4+=Very High Supervisory-Addendum Brief Supervisory Addendum Participated in pt care: history, MDM, physical Personally performed: exam, history, MDM Care discussed with: DEVYN Notes: patient was seen and evaluated with Prince, appeared to be feeling better. Still on Vapotherm. On examination lungs had bilateral rhonchi, heart is regul ar. Patient is receiving oxygen. Her troponin elevation is probably due to hypoxemia. Overall improving. And tinea current medication continue to monitor PRINCE SPRINGER Dec 22, 2018 08:25 BRIGIDO KC MD Dec 22, 2018 10:39
[2018-12-22] MEDS: LACTULOSE SYRUP 10GM/15ML (ENULOSE) 30ML UDC PO SCH ×2 (08:28→20:25)
--- NOTE | 2018-12-22 10:11 | Diagnostic Imaging Report ---
INDICATION: Shortness of breath Portable chest 9:38 AM Heart size and pulmonary vascularity are normal. There are small bilateral pleural effusions. These are unchanged from 12/19/2018. IMPRESSION: Stable chest with bilateral pleural effusions. Dictated by: Dictated on workstation # [id number]
--- NOTE | 2018-12-22 13:42 | Speech Therapy Daily Note ---
Speech Daily Progress Note Subjective Date Seen by Provider: Dec 22, 2018 Time Seen by Provider: 00:15 The patient was alert and eating her breakfast when I arrived. Objective The patient completed utilization of compensatory strategies for safe oral intake at 80% with min to mod verbal cues. Treatment Plan Continue Plan of Care Speech Short Term Goals Short Term Goals Short Term Goals 1) The patient will tolerate the least restrictive diet level without s/s of aspiration at 90% or greater. 2) The patient will utilize compensatory strategies as trained for safe oral intake at 90% or greater with minimal verbal cues. Speech Infection Prevention Practitioner Goals [facility] Goals The patient will maintain adequate nutrition/hydration via safe effective swallow. Speech-Plan Patient/Family Goals Patient/Family Goals: The patient will return to the halfway upon hospital discharge. Treatment Plan Speech Therapy Treatment Plan: Continue Plan of Care The patient has made good progress with swallowing abilities and oral intake. Treatment Duration: Dec 24, 2018 Frequency: 3 times per week Estimated Hrs Per Day: .25 hour per day Rehab Potential: Fair Barriers to Learning: Patient has had a complex medical stay. Pt/Family Agrees to Plan: Yes Safety Risks/Education Teaching Recipient: Patient Teaching Methods: Discussion Response to Teaching: Verbalize Understanding Education Topics Provided: Safety of oral intake. Time Speech Therapy Time In: 08:15 Speech Therapy Time Out: 08:30 Total Billed Time: 15 Billed Treatment Time 1GILDA BETHANIA ST Dec 22, 2018 13:42
--- NOTE | 2018-12-22 14:20 | NUR ---
Pastoral care visit.
[2018-12-22 15:00] VITALS: BP 127/59
--- NOTE | 2018-12-22 16:00 | NUR ---
gave 60meq of oral potassium
[2018-12-22] MEDS ORDERED: KCL 20 MEQ TAB (K-DUR) PO ONE ×2 (16:11→16:15)
[2018-12-23] VITALS: BP 148/65
[2018-12-23] MEDS: hydrALAZINE (APESOLINE) 20 MG/ML VIAL IV SCH ×4 (00:47→17:30)
[2018-12-23] MEDS: RT-ALBUTEROL/IPRATROPIUM 3 ML (DUONEB) VIAL INH SCH ×6 (02:19→23:11)
[2018-12-23] MEDS: 1/2 NS IV SOLUTION 1,000 ML IV SCH (06:08)
[2018-12-23] MEDS: FUROSEMIDE 40 MG/4 ML INJ (LASIX) IVP SCH ×2 (06:08→17:30)
[2018-12-23] MEDS: inSUlin ASPART (NovoLOG) 1 UNIT/0.01 ML (CHARGE PER UNIT) SC SCH ×4 (06:08→21:18)
[2018-12-23 06:39] LABS: HEMOGLOBIN 9.8 G/DL (11.5-16.0); MEAN PLATELET VOLUME 11.1 FL (7.4-10.4); RED CELL DISTRIBUTION WIDTH 15.3 % (10.0-14.5); WHITE BLOOD COUNT 13.9 10^3/uL (4.3-11.0)
[2018-12-23 07:04] LABS: BUN/CREATININE RATIO 32; CALCIUM 8.5 MG/DL (8.5-10.1); CARBON DIOXIDE 41 MMOL/L (21-32); CHLORIDE 88 MMOL/L (98-107); CREATININE SERUM 0.59 MG/DL (0.60-1.30); GFR ESTIMATED > 60; GLUCOSE 218 MG/DL (70-105); POTASSIUM 3.2 MMOL/L (3.6-5.0); SODIUM 139 MMOL/L (135-145)
--- NOTE | 2018-12-23 07:19 | Pulmonary Progress Note ---
Subjective Time Seen by a Provider: 07:19 Sepsis Event Evaluation Height, Weight, BMI Height: 4'9.00" Weight: 201lbs. 0.0oz. 91.180628uy; 47.6 BMI Method:Estimated Exam Exam Vital Signs Date Time Temp Pulse Resp B/P (MAP) Pulse Ox O2 Delivery O2 Flow Rate FiO2 12/23/18 06:30 96 High Flow N/C 4.00 12/23/18 02:21 96 High Flow N/C 4.00 12/23/18 00:00 97.7 88 22 148/65 (92) 97 High Flow N/C 4.00 12/22/18 22:45 67 32 96 35.00 12/22/18 20:00 97 High Flow N/C 4.00 80 12/22/18 18:33 95 High Flow N/C 4.00 12/22/18 15:00 98.4 84 38 127/59 (81) 97 High Flow N/C 4.00 12/22/18 14:45 97.5 96 96 Nasal Cannula 4.00 12/22/18 14:27 94 High Flow N/C 4.00 12/22/18 10:50 91 Vapotherm 20.00 30 12/22/18 08:00 98.2 59 20 149/55 (86) 92 NIV Bilevel 40.00 20.00 12/22/18 08:00 Vapotherm I & O 12/23/18 07:00 Intake Total 2380 ml Output Total 3025 ml Balance -645 ml Height & Weight Height: 4'9.00" Weight: 201lbs. 0.0oz. 91.252157sq; 47.6 BMI Method:Estimated General Appearance: No Apparent Distress, WD/WN HEENT: Normal ENT Inspection Neck: Full Range of Motion, Normal Inspection Respiratory: No Accessory Muscle Use, No Respiratory Distress, Decreased Breath Sounds Cardiovascular: Regular Rate, Rhythm, No Murmur Capillary Refill: Less Than 3 Seconds Gastrointestinal: non tender, soft Extremity: Pedal Edema (2+ to mid tibia bilaterally) Neurologic/Psychiatric: Alert, Oriented x3, Disoriented Skin: Normal Color, Warm/Dry Lymphatic: No Adenopathy Results Lab Laboratory Tests 12/21/18 07:50 12/22/18 05:25 12/22/18 05:50 12/23/18 06:27 Assessment/Plan Assessment/Plan Acute respiratory failure with bilateral pulmonary edema - improving - NC -Pt is a DNR -Solumedrol -- decrease to 20mg BID -Continue Lasix and SL IVF NSTEMI -Cardiology following Anemia -Monitor Overall prognosis is poor consider hospice upon discharge. KEYANA DUBOIS DO Dec 23, 2018 07:19
[2018-12-23 08:00] VITALS: BP 141/64
[2018-12-23] MEDS: ENOXAPARIN 40 MG/0.4 ML (LOVENOX) SYR SC SCH ×2 (08:09→21:24)
[2018-12-23] MEDS ORDERED: KCL 10 MEQ TAB (MICRO K) PO NR (08:15)
[2018-12-23] MEDS: methylPREDNISolone 40 MG/ML (Solu-MEDROL) VIAL IV SCH ×2 (08:16→21:24)
--- NOTE | 2018-12-23 08:21 | Progress Note (SOAP) ---
Subjective Time Seen by a Provider: 08:16 Subjective/Events-last exam Patient doing good today. Patient off Vapotherm. Patient communicating good. Acute mental status change resolved. Patient to be discharged today back to [facility] patient to be seen in one week in the office Objective Exam Vital Signs Date Time Temp Pulse Resp B/P (MAP) Pulse Ox O2 Delivery O2 Flow Rate FiO2 12/23/18 06:30 96 High Flow N/C 4.00 12/23/18 02:21 96 High Flow N/C 4.00 12/23/18 00:00 97.7 88 22 148/65 (92) 97 High Flow N/C 4.00 12/22/18 22:45 67 32 96 35.00 12/22/18 20:00 97 High Flow N/C 4.00 80 12/22/18 18:33 95 High Flow N/C 4.00 12/22/18 15:00 98.4 84 38 127/59 (81) 97 High Flow N/C 4.00 12/22/18 14:45 97.5 96 96 Nasal Cannula 4.00 12/22/18 14:27 94 High Flow N/C 4.00 12/22/18 10:50 91 Vapotherm 20.00 30 I & O 12/23/18 07:00 Intake Total 2380 ml Output Total 3025 ml Balance -645 ml Capillary Refill : Less Than 3 SecondsLess Than 3 Seconds General Appearance: No Apparent Distress, WD/WN HEENT: Normal ENT Inspection Neck: Full Range of Motion, Normal Inspection Respiratory: Lungs Clear, Normal Breath Sounds, No Accessory Muscle Use, No Respiratory Distress Cardiovascular: Regular Rate, Rhythm, No Murmur Gastrointestinal: non tender, soft Results Lab Laboratory Tests 12/23/18 06:27 Laboratory Tests 12/22/18 11:20: Glucometer 283H 12/22/18 15:59: Glucometer 310H 12/22/18 20:51: Glucometer 288H 12/23/18 05:17: Glucometer 220H 12/23/18 06:27: White Blood Count 13.9H, Red Blood Count 3.58L, Hemoglobin 9.8L, Hematocrit 33L, Mean Corpuscular Volume 91, Mean Corpuscular Hemoglobin 27, Mean Corpuscular Hemoglobin Concent 30L, Red Cell Distribution Width 15.3H, Platelet Count 236, Mean Platelet Volume 11.1H, Sodium Level 139, Potassium Level 3.2L, Chloride [place] 88L, Carbon Dioxide Level 41H, Anion Gap 10, Blood Urea Nitrogen 19H, Creatinine 0.59L, Estimat Glomerular Filtration Rate > 60, BUN/Creatinine Ratio 32, Glucose Level 218H, Calcium Level 8.5 Microbiology 12/14/18 Blood Culture - Final, Complete No growth 12/19/18 Urine Culture - Final, Complete YEAST Assessment/Plan Assessment/Plan Assess & Plan/Chief Complaint Bilateral pneumonia. Respiratory failure. DO NOT RESUSCITATE. Hypoxia. Noncommunicative. Minimally elevated troponin 1. . 12/16/18. Bilateral pneumonia. Respiratory failure. DO NOT RESUSCITATE. Hypoxemia. Patient awake this morning. . 12/17/18. Bilateral pneumonia. Congestive heart failure. Respiratory failure. Hypoxemia. Elevated troponin . . 12/18/18. Type II myocardial infarction. Acute respiratory failure. Bilateral pneumonia. Schizophrenia. DO NOT RESUSCITATE. Coronary artery disease. Diabetes. Patient more awake and talking. . 12/19/18 type II myocardial infarction. Acute respiratory failure. Bilateral pneumonia. Schizophrenia. Coronary artery disease. Diabetes. Hypokalemia. If patient not better by Saturday speak to family about hospice. . 12/22/18. Acute respiratory failure. Type II myocardial infarction. Bilateral pneumonia. Schizophrenia. Coronary artery disease. Diabetes. Hypokalemia. We'll try to get patient off Vapotherm today. . 12/23/18. Acute respiratory failure resolved. Type II myocardial infarction. Bilateral pneumonia. Schizophrenia. Coronary artery disease. Diabetes. Hypokalemia. COPD. Patient off Vapotherm. To discharge today Clinical Quality Measures DVT/VTE Risk/Contraindication: Risk Factor Score Per Nursin RFS Level Per Nursing on Admit: 4+=Very High ARA MONTANEZ DO Dec 23, 2018 08:21
--- NOTE | 2018-12-23 08:26 | Discharge Inst-Skilled Nursing ---
Discharge Inst-Skilled NF Patient Instructions Patient Problems: Pneumonia. Acute mental status change. CHF. Diabetes Consult/Follow Up/Orders Follow Up Appt.: One week 2 office Skilled NF Admit to: [facility] Certification (SNF) I certify that SNF services are required to be given on an inpatient basis because of the above named patient's need for [facility] care on a continuing basis for the conditions(s) for which he/she was receiving inpatient hospital services prior to his/her transfer to the SNF. [facility] Order: Production Repairer-Evaluate & Treat, Physical Therapy-Evaluate & Treat, Speech Language-Evaluate & Treat Oxygen Delivery Method: High Flow N/C Discharge Diet: Low Sodium Diet, ADA Diet Daily Activity as Tolerated: Yes New & Resume Previous Orders Rusty Montanez Dec 23, 2018 08:24 RUSTY MONTANEZ DO Dec 23, 2018 08:26
--- NOTE | 2018-12-23 08:26 | Cardiology Progress Note ---
Subjective Date Seen by Provider: Dec 23, 2018 Time Seen by Provider: 08:24 Subjective/Events-last exam patient is laying down in bed, feeling better. Still having generalized weakness Review of Systems General: No Chills, No Night Sweats, No Fatigue, No Malaise, No Appetite, No Other HEENT: No Head Aches, No Visual Changes, No Eye Pain, No Ear Pain, No Dysphasia, No Sinus Congestion, No Post Nasal Drip, No Sore Throat, No Other Pulmonary: No Dyspnea, No Cough, No Pleuritic Chest Pain, No Other Cardiovascular: No: Chest Pain, Palpitations, Orthopnea, Paroxysmal Noc. Dyspnea, Edema, Lt Headedness, Other Objective-Cardiology Exam Last Set of Vital Signs Vital Signs 12/22/18 12/23/18 12/23/18 20:00 00:00 06:30 Temp 97.7 Pulse 88 Resp 22 B/P (MAP) 148/65 (92) Pulse Ox 96 O2 Delivery High Flow N/C O2 Flow Rate 4.00 FiO2 80 Capillary Refill : Less Than 3 SecondsLess Than 3 Seconds I&O Intake and Output 12/23/18 00:00 Intake Total 3090 ml Output Total 3200 ml Balance -110 ml Intake Oral 2090 ml IV Total 1000 ml Output Urine Total 3200 ml # Bowel Movements 1 General: Alert, Cooperative, Mild Distress HEENT: Atraumatic Neck: Supple, No JVD Lungs: Normal Air Movement, Other (bilateral rhonchi) Heart: Normal S1, Normal S2, Gallops Abdomen: Normal Bowel Sounds Extremities: No Clubbing, No Cyanosis, Normal Pulses, Other Skin: No Rashes Neuro: Normal Speech, Strength at 5/5 X4 Ext, Sensation Intact, Other (lethargic) Results Lab Laboratory Tests 12/23/18 06:27 A/P-Cardiology Admission Diagnosis Elevated troponin Acute respiratory failure Bilateral pneumonia Schizophrenia DNR Assessment/Plan Type II myocardial infarction, probably due to hypoxemia and respiratory failure, better now Hypokalemia, managed by primary care physician Pneumonia, receiving antibiotic, managed by primary care team Coronary artery disease, had a cardiac catheterization 2012 showing mild irregularity in the LAD otherwise nonobstructive disease. Continue to monitor EKG. Acute respiratory failure, Dr. Back managing. Schizophrenia, morbid obesity. Bilateral pneumonia receiving antibiotics. Patient is DO NOT RESUSCITATE Clinical Quality Measures DVT/VTE Risk/Contraindication: Risk Factor Score Per Nursin RFS Level Per Nursing on Admit: 4+=Very High BRIGIDO KC MD Dec 23, 2018 08:25
[2018-12-23] MEDS: LACTULOSE SYRUP 10GM/15ML (ENULOSE) 30ML UDC PO SCH ×2 (09:00→21:16)
[2018-12-23] MEDS: SENNA W/DOCUSATE (SENOKOT S) TABLET PO SCH ×2 (09:00→21:16)
--- NOTE | 2018-12-23 10:33 | NUR ---
PALLIATIVE CARE RN in to see patient. She is sitting up in bed asking for hot chocolate. She is expecting to be discharge to her previous location at [facility] with skilled services. I have attempted to get in touch with her CHAO Kim but was unsuccessful and have left a message for return call.
--- NOTE | 2018-12-23 11:19 | NUR ---
CM/SS patient discharging back to [facility]. All discharge information faxed to them. They will transport this day at 1400.
--- NOTE | 2018-12-23 11:25 | NUR ---
Important Message from Medicare presented, reviewed, signed and placed in patient chart. Patient voiced no intention to appeal and deny any needs or further questions at this time.
[2018-12-23] MEDS ORDERED: PRED10TA22 PO (12:59)
--- NOTE | 2018-12-23 13:00 | NUR ---
DR MONTANEZ NOTIFIED VIA PHONE OF PT UNABLE TO URINATE SINCE MONSIVAIS REMOVAL. PT BLADDER SCANNED WITH 445 PRESENT. WILL ASSIST PT UP TO [facility] TO ATTEMPT TO URINATE.
[2018-12-23] MEDS ORDERED: POTA10TA10 PO (13:12)
--- NOTE | 2018-12-23 13:52 | NUR ---
CM/SS called [facility] to let them know that due to patient not being able to urinate she can not discharge at this time. Moved transport time to 1600 and hopeful that patient will be able to urinate prior to then.
[2018-12-23 15:47] VITALS: BP 127/64
--- NOTE | 2018-12-23 15:55 | NUR ---
DR GUZMAN NOTIFIED OF PT UNABLE TO URINATE. PT HAD 445 IN BLADDER AT 1400. [address] PT ON COMMODE TO URINATE PT UNABLE TO TOLERATE WITH X3 ASSIST AND ANU LIFT. PT BLADDER SCANNED AGAIN AT 1550 WITH 639 PRESENT. ORDER RECEIVED TO CANCEL DISCHARGE AND TO STRAIT CATH.
--- NOTE | 2018-12-23 17:00 | NUR ---
ORDER RECEIVED FOR PT TO BE STRAIGHT CATH NEEDED IF UNABLE TO URINATE WITH 500ML OR GREATER IN BLADDER. ALSO RECEIVED FOR CONSULT WITH UROLOGY FOR IN THE AM
--- NOTE | 2018-12-23 17:10 | NUR ---
pt strait cath, 650 urine out
[2018-12-23 20:39] VITALS: BP 127/64
[2018-12-23 23:40] VITALS: BP 133/94
[2018-12-24] MEDS: hydrALAZINE (APESOLINE) 20 MG/ML VIAL IV SCH ×3 (00:34→13:09)
[2018-12-24] MEDS: RT-ALBUTEROL/IPRATROPIUM 3 ML (DUONEB) VIAL INH SCH ×2 (02:43→09:02)
[2018-12-24] MEDS: inSUlin ASPART (NovoLOG) 1 UNIT/0.01 ML (CHARGE PER UNIT) SC SCH ×2 (06:37→13:10)
[2018-12-24] MEDS: FUROSEMIDE 40 MG/4 ML INJ (LASIX) IVP SCH (06:37)
[2018-12-24 06:38] VITALS: BP 133/61
--- NOTE | 2018-12-24 07:43 | NUR ---
LATE ENTRY FOR 12/23/18 @ 4:52. This Rn received call back from patient's DPMICHAEL Char. I explained to her the reason for my call earlier was to notify her that patient had orders to discharge today with return to skilled placement at her previous residence of [facility]. I explained however, that this might be delayed if se could not urinate on her own. She understood and did not have any problem with the plan to discharge. I again discussed with her the likelihood that she will not do well with expected recurrent issues with respiratory status. We talked of hospice and I again discussed the benefits of this POC option.
[2018-12-24 08:00] VITALS: BP 136/68
--- NOTE | 2018-12-24 08:02 | Progress Note (SOAP) ---
Subjective Time Seen by a Provider: 08:00 Subjective/Events-last exam Patient urinating by self Patient conversing today. To discharge today Objective Exam Vital Signs Date Time Temp Pulse Resp B/P (MAP) Pulse Ox O2 Delivery O2 Flow Rate FiO2 12/24/18 06:38 78 133/61 (85) High Flow N/C 4.00 12/24/18 02:43 96 High Flow N/C 3.00 12/23/18 23:40 97.4 83 20 133/94 (107) 97 High Flow N/C 4.00 12/23/18 23:11 96 High Flow N/C 4.00 12/23/18 20:39 71 98 12/23/18 20:00 High Flow N/C 4.00 12/23/18 15:47 97.5 71 20 127/64 (85) 99 High Flow N/C 4.00 12/23/18 09:29 96 High Flow N/C 4.00 I & O 12/24/18 07:00 Intake Total 1410 ml Output Total 650 ml Balance 760 ml Capillary Refill : Less Than 3 SecondsLess Than 3 Seconds General Appearance: No Apparent Distress, WD/WN HEENT: Normal ENT Inspection Neck: Full Range of Motion, Normal Inspection Respiratory: Chest Non Tender, Lungs Clear, Normal Breath Sounds, No Accessory Muscle Use, No Respiratory Distress Cardiovascular: Regular Rate, Rhythm, No Murmur Gastrointestinal: non tender, soft Results Lab Laboratory Tests 12/23/18 10:41: Glucometer 263H 12/23/18 16:23: Glucometer 204H 12/23/18 19:38: Glucometer 192H 12/23/18 21:18: Glucometer 173H 12/24/18 05:59: Glucometer 216H Microbiology 12/14/18 Blood Culture - Final, Complete No growth 12/19/18 Urine Culture - Final, Complete YEAST Assessment/Plan Assessment/Plan Assess & Plan/Chief Complaint Bilateral pneumonia. Respiratory failure. DO NOT RESUSCITATE. Hypoxia. Noncommunicative. Minimally elevated troponin 1. . 12/16/18. Bilateral pneumonia. Respiratory failure. DO NOT RESUSCITATE. Hypoxemia. Patient awake this morning. . 12/17/18. Bilateral pneumonia. Congestive heart failure. Respiratory failure. Hypoxemia. Elevated troponin . . 12/18/18. Type II myocardial infarction. Acute respiratory failure. Bilateral pneumonia. Schizophrenia. DO NOT RESUSCITATE. Coronary artery disease. Diabetes. Patient more awake and talking. . 12/19/18 type II myocardial infarction. Acute respiratory failure. Bilateral pneumonia. Schizophrenia. Coronary artery disease. Diabetes. Hypokalemia. If patient not better by Saturday speak to family about hospice. . 12/22/18. Acute respiratory failure. Type II myocardial infarction. Bilateral pneumonia. Schizophrenia. Coronary artery disease. Diabetes. Hypokalemia. We'll try to get patient off Vapotherm today. . 12/23/18. Acute respiratory failure resolved. Type II myocardial infarction. Bilateral pneumonia. Schizophrenia. Coronary artery disease. Diabetes. Hypokalemia. COPD. Patient off Vapotherm. To discharge today. . 12/24/18. Acute respiratory failure. Type II myocardial infarction. Bilateral pneumonia. Schizophrenia. Coronary artery disease. Diabetes. Hypokalemia. COPD. Patient voiding today. Patient discharge back to snf Clinical Quality Measures DVT/VTE Risk/Contraindication: Risk Factor Score Per Nursin RFS Level Per Nursing on Admit: 4+=Very High ARA MONTANEZ DO Dec 24, 2018 08:02
[2018-12-24] MEDS: methylPREDNISolone 40 MG/ML (Solu-MEDROL) VIAL IV SCH (09:11)
[2018-12-24] MEDS: LACTULOSE SYRUP 10GM/15ML (ENULOSE) 30ML UDC PO SCH (09:12)
[2018-12-24] MEDS: SENNA W/DOCUSATE (SENOKOT S) TABLET PO SCH (09:12)
[2018-12-24] MEDS: ENOXAPARIN 40 MG/0.4 ML (LOVENOX) SYR SC SCH (09:12)
--- NOTE | 2018-12-24 10:38 | NUR ---
CM/SS patient was not able to discharge on 12/23, though should discharge this day. [facility] will transport this day at 1430.
--- NOTE | 2018-12-24 10:49 | Cardiology Progress Note ---
Subjective Date Seen by Provider: Dec 24, 2018 Time Seen by Provider: 10:48 Subjective/Events-last exam Patient is sitting up in bed, no new complaints. Anticipating d/c back to n ursing home today. Objective-Cardiology Exam Last Set of Vital Signs Vital Signs 12/22/18 12/24/18 12/24/18 12/24/18 20:00 08:00 09:03 09:40 Temp 97.0 Pulse 96 Resp 16 B/P (MAP) 136/68 (90) Pulse Ox 96 O2 Delivery High Flow N/C O2 Flow Rate 3.00 FiO2 80 Capillary Refill : Less Than 3 SecondsLess Than 3 Seconds I&O Intake and Output 12/24/18 00:00 Intake Total 1750 ml Output Total 1025 ml Balance 725 ml Intake Oral 1750 ml Output Urine Total 1025 ml Bladder Scan Volume Amount 445 ml 639 ml # Voids 1 # Bowel Movements 2 General: Alert, Cooperative, Mild Distress HEENT: Atraumatic Neck: Supple, No JVD Lungs: Normal Air Movement, Other (bilateral rhonchi) Heart: Normal S1, Normal S2, Gallops Abdomen: Normal Bowel Sounds Extremities: No Clubbing, No Cyanosis, Normal Pulses, Other Skin: No Rashes Neuro: Normal Speech, Strength at 5/5 X4 Ext, Sensation Intact, Other (lethargic) A/P-Cardiology Admission Diagnosis Elevated troponin Acute respiratory failure Bilateral pneumonia Schizophrenia DNR Assessment/Plan Type II myocardial infarction, probably due to hypoxemia and respiratory failure, better now, continue conservative management. Hypokalemia, managed by primary care physician Pneumonia, receiving antibiotic, managed by primary care team Coronary artery disease, had a cardiac catheterization 2012 showing mild irregularity in the LAD otherwise nonobstructive disease. Continue to monitor EKG. Acute respiratory failure, improved. Dr. Back managing. Schizophrenia, morbid obesity. Bilateral pneumonia, improving, receiving antibiotics. Patient is DO NOT RESUSCITATE Clinical Quality Measures DVT/VTE Risk/Contraindication: Risk Factor Score Per Nursin RFS Level Per Nursing on Admit: 4+=Very High Supervisory-Addendum Brief Supervisory Addendum Participated in pt care: history, MDM, physical Personally performed: exam, history, MDM Care discussed with: DEVYN Notes: patient was seen and evaluated, laying down in bed, complaining of mild headache, being discharged today. On examination there is no change, overall significantly better. We will arrange for follow-up as an outpatient, continue current medications PRINCE SPRINGER Dec 24, 2018 10:49 BRIGIDO KC MD Dec 24, 2018 13:31
[2018-12-24 14:43] VITALS: BP 136/68
--- NOTE | 2018-12-25 07:40 | Discharge Summary ---
Diagnosis/Chief Complaint Date of Admission Dec 14, 2018 at 09:20 Date of Discharge Dec 24, 2018 at 14:43 Discharge Time: 07:35 Discharge Diagnosis Acute respiratory failure. The lateral pneumonia. Acute mental status change. Hypoxia. Type II CA. Anemia. Hyperlipidemia. Congestive heart failure. Confusion. DO NOT RESUSCITATE. Coronary artery disease. Schizophrenia. Anemia. Hypokalemia. Diabetes. Yeast in urine Discharge Summary Consultations Cardiology. Pulmonology Discharge Physical Examination Allergies: Coded Allergies: Penicillins (Verified Allergy, Unknown, 12/14/18) strawberry (Verified Allergy, Unknown, 12/14/18) FROM UNCODED ALLERGIES tomato (Verified Allergy, Unknown, 12/14/18) FROM UNCODED ALLERGIES Vitals & I&Os Vital Signs Date Time Temp Pulse Resp B/P (MAP) Pulse Ox O2 Delivery O2 Flow Rate FiO2 12/24/18 14:43 96 16 136/68 96 Nasal Cannula 2.00 80 12/24/18 08:00 97.0 Hospital Course Patient Did wake up. Patient had of acute respiratory failure. Patient had a congestive heart failure. Patient talking. Patient had trouble with urination when Mars catheter removed Labs (last 24 hrs) Laboratory Tests 12/14/18 07:14: White Blood Count 11.8H, Red Blood Count 3.70L, Hemoglobin 10.3L, Hematocrit 35, Mean Corpuscular Volume 94, Mean Corpuscular Hemoglobin 28, Mean Corpuscular Hemoglobin Concent 30L, Red Cell Distribution Width 16.2H, Platelet Count 461H, Mean Platelet Volume 10.1, Neutrophils (%) (Auto) 87H, Lymphocytes (%) (Auto) 7L , Monocytes (%) (Auto) 6, Eosinophils (%) (Auto) 0, Basophils (%) (Auto) 0, Neutrophils # (Auto) 10.3H, Lymphocytes # (Auto) 0.8L, Monocytes # (Auto) 0.7, Eosinophils # (Auto) 0.0, Basophils # (Auto) 0.0, Neutrophils % (Manual) 87, Lymphocytes % (Manual) 8, Monocytes % (Manual) 3, Band Neutrophils 2, Hypersegmented Neutrophils MODERATE, Toxic Granulation 1+, Helmet Cells , Blood Morphology Comment NORMAL, Prothrombin Time 13.7, INR Comment 1.0, Activated Partial Thromboplast Time 24, Sodium Level 136, Potassium Level 6.2H, Chloride Level 86L, Carbon Dioxide Level 37H, Anion Gap 13, Blood Urea Nitrogen 28H, Creatinine 0.84, Estimat Glomerular Filtration Rate > 60, BUN/Creatinine Ratio 33, Glucose Level 209H, Calcium Level 9.5, Corrected Calcium 9.7, Magnesium Level 2.4, Total Bilirubin 0.5, Aspartate Amino Transf (AST/SGOT) 25, Alanine Aminotransferase (ALT/SGPT) 27, Alkaline Phosphatase 67, Troponin I 0.072H, B- Type Natriuretic Peptide 385.6H, Total Protein 6.8, Albumin 3.7 12/14/18 07:15: Urine Color YELLOW, Urine Clarity SLIGHTLY CLOUDY, Urine pH 5, Urine Specific [place] 1.025H, Urine Protein 3+H, Urine Glucose (UA) 1+H, Urine Ketones NEGATIVE, Urine Nitrite NEGATIVE, Urine Bilirubin NEGATIVE, Urine Urobilinogen 1, Urine Leukocyte Esterase 1+H, Urine RBC (Auto) 1+H, Urine RBC 0-2, Urine WBC 2-5, Urine Squamous Epithelial Cells 2-5, Urine Crystals PRESENTH, Urine Amorphous Sediment RARE DYLLAN URATESH, Urine Bacteria FEWH, Urine Casts PRESENT, Urine Hyaline Casts 5-10H, Urine Mucus SMALLH, Urine Culture Indicated CULTURE PENDING 12/14/18 07:25: Blood Gas Puncture Site RT RAD, Blood Gas Patient Temperature 98.2, Arterial Blood pH 7.34*L, Arterial Blood Partial Pressure CO2 87*H, Arterial Blood Partial Pressure O2 57L, Arterial Blood HCO3 46*H, Arterial Blood Total CO2 48.2H, Arterial Blood Oxygen Saturation 85L, Arterial Blood Base Excess 18.7H, Sincere Test YES-POS, Blood Gas Ventilator Setting NO, Blood Gas Inspired Oxygen 10 L 12/14/18 07:45: Lactic Acid Level 1.06 12/14/18 09:20: Lab Scanned Report Referred Lab Report 12/15/18 06:19: White Blood Count 8.5, Red Blood Count 3.54L, Hemoglobin 9.8L, Hematocrit 33L, Mean Corpuscular Volume 94, Mean Corpuscular Hemoglobin 28, Mean Corpuscular Hemoglobin Concent 29L, Red Cell Distribution Width 15.4H, Platelet Count 388, Mean Platelet Volume 10.3, Neutrophils (%) (Auto) 88H, Lymphocytes (%) (Auto) 4L , Monocytes (%) (Auto) 8, Eosinophils (%) (Auto) 0, Basophils (%) (Auto) 0, Neutrophils # (Auto) 7.5, Lymphocytes # (Auto) 0.4L, Monocytes # (Auto) 0.7, Eosinophils # (Auto) 0.0, Basophils # (Auto) 0.0, Sodium Level 137, Potassium Level 5.4H, Chloride Level 91L, Carbon Dioxide Level 40H, Anion Gap 6, Blood Urea Nitrogen 32H, Creatinine 0.87, Estimat Glomerular Filtration Rate > 60, BUN/Creatinine Ratio 37, Glucose Level 280H, Calcium Level 8.7, Corrected Calcium 9.3, Total Bilirubin 0.3, Aspartate Amino Transf (AST/SGOT) 15, Alanine Aminotransferase (ALT/SGPT) 22, Alkaline Phosphatase 53, Troponin I 0.226H, Total Protein 5.7L, Albumin 3.3 12/16/18 05:50: White Blood Count 9.1, Red Blood Count 3.58L, Hemoglobin 10.0L, Hematocrit 33L, Mean Corpuscular Volume 93, Mean Corpuscular Hemoglobin 28, Mean Corpuscular Hemoglobin Concent 30L, Red Cell Distribution Width 15.6H, Platelet Count 395, Mean Platelet Volume 10.2, Neutrophils (%) (Auto) 87H, Lymphocytes (%) (Auto) 3L , Monocytes (%) (Auto) 9, Eosinophils (%) (Auto) 0, Basophils (%) (Auto) 0, Neutrophils # (Auto) 8.0H, Lymphocytes # (Auto) 0.3L, Monocytes # (Auto) 0.9, Eosinophils # (Auto) 0.0, Basophils # (Auto) 0.0, Sodium Level 140, Potassium Level 5.7H, Chloride Level 97L, Carbon Dioxide Level 33H, Anion Gap 10, Blood Urea Nitrogen 32H, Creatinine 0.78, Estimat Glomerular Filtration Rate > 60, BUN/Creatinine Ratio 41, Glucose Level 284H, Calcium Level 8.9, Troponin I 0.151H, B-Type Natriuretic Peptide 676.0H 12/16/18 15:44: Blood Gas Puncture Site RIGHT RADIAL, Blood Gas Patient Temperature 97.9, Arterial Blood pH 7.48H, Arterial Blood Partial Pressure CO2 56H, Arterial Blood Partial Pressure O2 100H, Arterial Blood HCO3 41*H, Arterial Blood Total CO2 42.8H, Arterial Blood Oxygen Saturation 98, Arterial Blood Base Excess 16.1H, Sincere Test POSITIVE, Blood Gas Ventilator Setting NO, Blood Gas Inspired Oxygen 30% BIPAP 12/17/18 05:28: White Blood Count 7.8, Red Blood Count 3.52L, Hemoglobin 9.8L, Hematocrit 34L, Mean Corpuscular Volume 95, Mean Corpuscular Hemoglobin 28, Mean Corpuscular Hemoglobin Concent 29L, Red Cell Distribution Width 15.5H, Platelet Count 347, Mean Platelet Volume 10.4, Sodium Level 144, Potassium Level 4.6, Chloride Level 98, Carbon Dioxide Level 36H, Anion Gap 10, Blood Urea Nitrogen 34H, Creatinine 0.79, Estimat Glomerular Filtration Rate > 60, BUN/Creatinine Ratio 43, Glucose Level 299H, Calcium Level 8.9 12/18/18 05:00: White Blood Count 8.4, Red Blood Count 3.57L, Hemoglobin 10.0L, Hematocrit 34L, Mean Corpuscular Volume 94, Mean Corpuscular Hemoglobin 28, Mean Corpuscular Hemoglobin Concent 30L, Red Cell Distribution Width 15.9H, Platelet Count 355, Mean Platelet Volume 10.1, Sodium Level 145, Potassium Level 4.0, Chloride Level 95L, Carbon Dioxide Level 36H, Anion Gap 14, Blood Urea Nitrogen 34H, Creatinine 0.75, Estimat Glomerular Filtration Rate > 60, BUN/Creatinine Ratio 45, Glucose Level 324H, Calcium Level 9.2, Neutrophils (%) (Auto) 89H, Lymphocytes (%) (Auto) 3L, Monocytes (%) (Auto) 8, Eosinophils (%) (Auto) 0, Basophils (%) (Auto) 0, Neutrophils # (Auto) 7.4, Lymphocytes # (Auto) 0.3L, Monocytes # (Auto) 0.7, Eosinophils # (Auto) 0.0, Basophils # (Auto) 0.0, Corrected Calcium 9.8, Total Bilirubin 0.7, Aspartate Amino Transf (AST/SGOT) 16, Alanine Aminotransferase (ALT/SGPT) 24, Alkaline Phosphatase 50, B-Type Natriuretic Peptide 793.1H, Total Protein 5.8L, Albumin 3.3 12/19/18 04:52: White Blood Count 9.4, Red Blood Count 3.49L, Hemoglobin 9.6L, Hematocrit 33L, Mean Corpuscular Volume 95, Mean Corpuscular Hemoglobin 28, Mean Corpuscular Hemoglobin Concent 29L, Red Cell Distribution Width 16.0H, Platelet Count 289, Mean Platelet Volume 10.5H, Sodium Level 145, Potassium Level 3.4L, Chloride Level 94L, Carbon Dioxide Level 38H, Anion Gap 13, Blood Urea Nitrogen 38H, Creatinine 0.80, Estimat Glomerular Filtration Rate > 60, BUN/Creatinine Ratio 48, Glucose Level 368H, Calcium Level 8.9, Magnesium Level 1.9 12/19/18 09:50: Urine Color YELLOW, Urine Clarity VERY CLOUDYH, Urine pH 5, Urine Specific [place] 1.015L, Urine Protein 3+H, Urine Glucose (UA) 3+H, Urine Ketones 3+H, Urine Nitrite NEGATIVE, Urine Bilirubin NEGATIVE, Urine Urobilinogen NORMAL, Uri ne Leukocyte Esterase 3+H, Urine RBC (Auto) 4+H, Urine RBC TNTCH, Urine WBC 50- 100H, Urine Squamous Epithelial Cells NONE, Urine Crystals NONE, Urine Bacteria NEGATIVE, Urine Casts NONE, Urine Mucus NEGATIVE, Urine Yeast LARGEH, Urine Culture Indicated YES 12/19/18 21:04: Glucometer 476*H 12/20/18 04:40: White Blood Count 13.2H, Red Blood Count 3.54L, Hemoglobin 9.8L, Hematocrit 33L, Mean Corpuscular Volume 94, Mean Corpuscular Hemoglobin 28, Mean Corpuscular Hemoglobin Concent 29L, Red Cell Distribution Width 16.0H, Platelet Count 271, Mean Platelet Volume 10.2, Sodium Level 141, Potassium Level 3.5L, Chloride Level 90L, Carbon Dioxide Level 39H, Anion Gap 12, Blood Urea Nitrogen 31H, Crea tinine 0.76, Estimat Glomerular Filtration Rate > 60, BUN/Creatinine Ratio 41, Glucose Level 369H, Calcium Level 8.7, Corrected Calcium 9.1, Magnesium Level 1.8, Total Bilirubin 0.8, Aspartate Amino Transf (AST/SGOT) 16, Alanine Aminotransferase (ALT/SGPT) 29, Alkaline Phosphatase 45, B-Type Natriuretic Peptide 856.6H, Total Protein 5.8L, Albumin 3.5 12/20/18 11:02: Glucometer 316H 12/20/18 16:17: Glucometer 289H 12/20/18 20:26: Glucometer 330H 12/21/18 05:57: Glucometer 317H 12/21/18 07:50: White Blood Count 12.3H, Red Blood Count 3.40L, Hemoglobin 9.5L, Hematocrit 32L, Mean Corpuscular Volume 94, Mean Corpuscular Hemoglobin 28, Mean Corpuscular Hemoglobin Concent 30L, Red Cell Distribution Width 15.2H, Platelet Count 222, Mean Platelet Volume 10.5H, Sodium Level 139, Potassium Level 3.1L, Chloride Level 89L, Carbon Dioxide Level 42H, Anion Gap 8, Blood Urea Nitrogen 24H, Creatinine 0.64, Estimat Glomerular Filtration Rate > 60, BUN/Creatinine Ratio 38, Glucose Level 291H, Calcium Level 8.8, Corrected Calcium 9.4, Total Bilirubin 0.6, Aspartate Amino Transf (AST/SGOT) 22, Alanine Aminotransferase (ALT/SGPT) 34, Alkaline Phosphatase 42, Total Protein 5.3L, Albumin 3.2 12/21/18 11:22: Glucometer 324H 12/21/18 16:14: Glucometer 212H 12/21/18 21:10: Glucometer 233H 12/22/18 05:25: Sodium Level 139, Potassium Level 3.0L, Chloride Level 87L, Carbon Dioxide Level 41H, Anion Gap 11, Blood Urea Nitrogen 21H, Creatinine 0.61, Estimat Glomerular Filtration Rate > 60, BUN/Creatinine Ratio 34, Glucose Level 221H, Calcium Level 8.5, Corrected Calcium 9.1, Total Bilirubin 0.9, Aspartate Amino Transf (AST/SGOT) 33, Alanine Aminotransferase (ALT/SGPT) 50, Alkaline Phosphatase 45, Total Protein 5.3L, Albumin 3.2 12/22/18 05:50: White Blood Count 14.0H, Red Blood Count 3.69L, Hemoglobin 10.1L, Hematocrit 34L , Mean Corpuscular Volume 91, Mean Corpuscular Hemoglobin 27, Mean Corpuscular Hemoglobin Concent 30L, Red Cell Distribution Width 15.5H, Platelet Count 257, Mean Platelet Volume 11.0H 12/22/18 11:20: Glucometer 283H 12/22/18 15:59: Glucometer 310H 12/22/18 20:51: Glucometer 288H 12/23/18 05:17: Glucometer 220H 12/23/18 06:27: White Blood Count 13.9H, Red Blood Count 3.58L, Hemoglobin 9.8L, Hematocrit 33L, Mean Corpuscular Volume 91, Mean Corpuscular Hemoglobin 27, Mean Corpuscular Hemoglobin Concent 30L, Red Cell Distribution Width 15.3H, Platelet Count 236, Mean Platelet Volume 11.1H, Sodium Level 139, Potassium Level 3.2L, Chloride Level 88L, Carbon Dioxide Level 41H, Anion Gap 10, Blood Urea Nitrogen 19H, Creatinine 0.59L, Estimat Glomerular Filtration Rate > 60, BUN/Creatinine Ratio 32, Glucose Level 218H, Calcium Level 8.5 12/23/18 10:41: Glucometer 263H 12/23/18 16:23: Glucometer 204H 12/23/18 19:38: Glucometer 192H 12/23/18 21:18: Glucometer 173H 12/24/18 05:59: Glucometer 216H 12/24/18 11:33: Glucometer 260H Microbiology 12/14/18 Blood Culture - Final, Complete No growth 12/19/18 Urine Culture - Final, Complete YEAST Laboratory Tests 12/14/18 07:14 12/15/18 06:19 12/16/18 05:50 12/17/18 05:28 12/18/18 05:00 12/19/18 04:52 12/20/18 04:40 12/21/18 07:50 12/22/18 05:25 12/22/18 05:50 12/23/18 06:27 Pending Labs Microbiology Date/Time Source Procedure Growth Status 12/14/18 07:45 Peripheral Rt Ac Blood Culture - Final No growth Complete 12/14/18 07:14 Peripheral Left Wrist Blood Culture - Final No growth Complete 12/19/18 09:50 Urine Clean Catch Urine Culture - Final YEAST Complete 12/14/18 07:15 Urine U Cath,Nos Urine Culture - Final NO GROWTH Complete Laboratory Tests 12/14/18 07:14: White Blood Count 11.8, Red Blood Count 3.70, Hemoglobin 10.3, Hematocrit 35, Mean Corpuscular Volume 94, Mean Corpuscular Hemoglobin 28, Mean Corpuscular Hemoglobin Concent 30, Red Cell Distribution Width 16.2, Platelet Count 461, Mean Platelet Volume 10.1, Neutrophils (%) (Auto) 87, Lymphocytes (%) (Auto) 7, Monocytes (%) (Auto) 6, Eosinophils (%) (Auto) 0, Basophils (%) (Auto) 0, Neutrophils # (Auto) 10.3, Lymphocytes # (Auto) 0.8, Monocytes # (Auto) 0.7, Eosinophils # (Auto) 0.0, Basophils # (Auto) 0.0, Neutrophils % (Manual) 87, Lymphocytes % (Manual) 8, Monocytes % (Manual) 3, Band Neutrophils 2, Hypersegmented Neutrophils MODERATE, Toxic Granulation 1+, Helmet Cells , Blood Morphology Comment NORMAL, Prothrombin Time 13.7, INR Comment 1.0, Activated Pa rtial Thromboplast Time 24, Sodium Level 136, Potassium Level 6.2, Chloride Level 86, Carbon Dioxide Level 37, Anion Gap 13, Blood Urea Nitrogen 28, Creatinine 0.84, Estimat Glomerular Filtration Rate > 60, BUN/Creatinine Ratio 33, Glucose Level 209, Calcium Level 9.5, Corrected Calcium 9.7, Magnesium Level 2.4, Total Bilirubin 0.5, Aspartate Amino Transf (AST/SGOT) 25, Alanine Aminotransferase (ALT/SGPT) 27, Alkaline Phosphatase 67, Troponin I 0.072, B- Type Natriuretic Peptide 385.6, Total Protein 6.8, Albumin 3.7 12/14/18 07:15: Urine Color YELLOW, Urine Clarity SLIGHTLY CLOUDY, Urine pH 5, Urine Specific [place] 1.025, Urine Protein 3+, Urine Glucose (UA) 1+, Urine Ketones NEGATIVE, Urine Nitrite NEGATIVE, Urine Bilirubin NEGATIVE, Urine Urobilinogen 1, Urine Leukocyte Esterase 1+, Urine RBC (Auto) 1+, Urine RBC 0-2, Urine WBC 2-5, Urine Squamous Epithelial Cells 2-5, Urine Crystals PRESENT, Urine Amorphous Sediment RARE DYLLAN URATES, Urine Bacteria FEW, Urine Casts PRESENT, Urine Hyaline Casts 5-10, Urine Mucus SMALL, Urine Culture Indicated CULTURE PENDING 12/14/18 07:25: Blood Gas Puncture Site RT RAD, Blood Gas Patient Temperature 98.2, Arterial Blood pH 7.34, Arterial Blood Partial Pressure CO2 87, Arterial Blood Partial Pressure O2 57, Arterial Blood HCO3 46, Arterial Blood Total CO2 48.2, Arterial Blood Oxygen Saturation 85, Arterial Blood Base Excess 18.7, Sincere Test YES-POS, Blood Gas Ventilator Setting NO, Blood Gas Inspired Oxygen 10 L 12/14/18 07:45: Lactic Acid Level 1.06 12/14/18 09:20: Lab Scanned Report Referred Lab Report 12/15/18 06:19: White Blood Count 8.5, Red Blood Count 3.54, Hemoglobin 9.8, Hematocrit 33, Mean Corpuscular Volume 94, Mean Corpuscular Hemoglobin 28, Mean Corpuscular Hemoglobin Concent 29, Red Cell Distribution Width 15.4, Platelet Count 388, Mean Platelet Volume 10.3, Neutrophils (%) (Auto) 88, Lymphocytes (%) (Auto) 4, Monocytes (%) (Auto) 8, Eosinophils (%) (Auto) 0, Basophils (%) (Auto) 0, Neutrophils # (Auto) 7.5, Lymphocytes # (Auto) 0.4, Monocytes # (Auto) 0.7, Eosinophils # (Auto) 0.0, Basophils # (Auto) 0.0, Sodium Level 137, Potassium Level 5.4, Chloride Level 91, Carbon Dioxide Level 40, Anion Gap 6, Blood Urea Nitrogen 32, Creatinine 0.87, Estimat Glomerular Filtration Rate > 60, BUN/Creatinine Ratio 37, Glucose Level 280, Calcium Level 8.7, Corrected Calcium 9.3, Total Bilirubin 0.3, Aspartate Amino Transf (AST/SGOT) 15, Alanine Aminotransferase (ALT/SGPT) 22, Alkaline Phosphatase 53, Troponin I 0.226, Total Protein 5.7, Albumin 3.3 12/16/18 05:50: White Blood Count 9.1, Red Blood Count 3.58, Hemoglobin 10.0, Hematocrit 33, Mean Corpuscular Volume 93, Mean Corpuscular Hemoglobin 28, Mean Corpuscular Hemoglobin Concent 30, Red Cell Distribution Width 15.6, Platelet Count 395, Mean Platelet Volume 10.2, Neutrophils (%) (Auto) 87, Lymphocytes (%) (Auto) 3, Monocytes (%) (Auto) 9, Eosinophils (%) (Auto) 0, Basophils (%) (Auto) 0, Neutrophils # (Auto) 8.0, Lymphocytes # (Auto) 0.3, Monocytes # (Auto) 0.9, Eosinophils # (Auto) 0.0, Basophils # (Auto) 0.0, Sodium Level 140, Potassium Level 5.7, Chloride Level 97, Carbon Dioxide Level 33, Anion Gap 10, Blood Urea Nitrogen 32, Creatinine 0.78, Estimat Glomerular Filtration Rate > 60, BUN/Creatinine Ratio 41, Glucose Level 284, Calcium Level 8.9, Troponin I 0.151, B-Type Natriuretic Peptide 676.0 12/16/18 15:44: Blood Gas Puncture Site RIGHT RADIAL, Blood Gas Patient Temperature 97.9, Arterial Blood pH 7.48, Arterial Blood Partial Pressure CO2 56, Arterial Blood Partial Pressure O2 100, Arterial Blood HCO3 41, Arterial Blood Total CO2 42.8, Arterial Blood Oxygen Saturation 98, Arterial Blood Base Excess 16.1, Sincere Test POSITIVE, Blood Gas Ventilator Setting NO, Blood Gas Inspired Oxygen 30% BIPAP 12/17/18 05:28: White Blood Count 7.8, Red Blood Count 3.52, Hemoglobin 9.8, Hematocrit 34, Mean Corpuscular Volume 95, Mean Corpuscular Hemoglobin 28, Mean Corpuscular Hemoglobin Concent 29, Red Cell Distribution Width 15.5, Platelet Count 347, Mean Platelet Volume 10.4, Sodium Level 144, Potassium Level 4.6, Chloride Level 98, Carbon Dioxide Level 36, Anion Gap 10, Blood Urea Nitrogen 34, Creatinine 0.79, Estimat Glomerular Filtration Rate > 60, BUN/Creatinine Ratio 43, Glucose Level 299, Calcium Level 8.9 12/18/18 05:00: White Blood Count 8.4, Red Blood Count 3.57, Hemoglobin 10.0, Hematocrit 34, Mean Corpuscular Volume 94, Mean Corpuscular Hemoglobin 28, Mean Corpuscular Hemoglobin Concent 30, Red Cell Distribution Width 15.9, Platelet Count 355, Me an Platelet Volume 10.1, Sodium Level 145, Potassium Level 4.0, Chloride Level 95, Carbon Dioxide Level 36, Anion Gap 14, Blood Urea Nitrogen 34, Creatinine 0.75, Estimat Glomerular Filtration Rate > 60, BUN/Creatinine Ratio 45, Glucose Level 324, Calcium Level 9.2, Neutrophils (%) (Auto) 89, Lymphocytes (%) (Auto) 3, Monocytes (%) (Auto) 8, Eosinophils (%) (Auto) 0, Basophils (%) (Auto) 0, Neutrophils # (Auto) 7.4, Lymphocytes # (Auto) 0.3, Monocytes # (Auto) 0.7, Eosinophils # (Auto) 0.0, Basophils # (Auto) 0.0, Corrected Calcium 9.8, Total Bilirubin 0.7, Aspartate Amino Transf (AST/SGOT) 16, Alanine Aminotransferase (ALT/SGPT) 24, Alkaline Phosphatase 50, B-Type Natriuretic Peptide 793.1, Total Protein 5.8, Albumin 3.3 12/19/18 04:52: White Blood Count 9.4, Red Blood Count 3.49, Hemoglobin 9.6, Hematocrit 33, Mean Corpuscular Volume 95, Mean Corpuscular Hemoglobin 28, Mean Corpuscular Hemoglobin Concent 29, Red Cell Distribution Width 16.0, Platelet Count 289, Me an Platelet Volume 10.5, Sodium Level 145, Potassium Level 3.4, Chloride Level 94, Carbon Dioxide Level 38, Anion Gap 13, Blood Urea Nitrogen 38, Creatinine 0.80, Estimat Glomerular Filtration Rate > 60, BUN/Creatinine Ratio 48, Glucose Level 368, Calcium Level 8.9, Magnesium Level 1.9 12/19/18 09:50: Urine Color YELLOW, Urine Clarity VERY CLOUDY, Urine pH 5, Urine Specific [place] 1.015, Urine Protein 3+, Urine Glucose (UA) 3+, Urine Ketones 3+, Urine Nitrite NEGATIVE, Urine Bilirubin NEGATIVE, Urine Urobilinogen NORMAL, Urine Leukocyte Esterase 3+, Urine RBC (Auto) 4+, Urine RBC TNTC, Urine WBC 50-100, Urine Squamous Epithelial Cells NONE, Urine Crystals NONE, Urine Bacteria NEGATIVE, Urine Casts NONE, Urine Mucus NEGATIVE, Urine Yeast LARGE, Urine Culture Indicated YES 12/19/18 21:04: Glucometer 476 12/20/18 04:40: White Blood Count 13.2, Red Blood Count 3.54, Hemoglobin 9.8, Hematocrit 33, Mean Corpuscular Volume 94, Mean Corpuscular Hemoglobin 28, Mean Corpuscular Hemoglobin Concent 29, Red Cell Distribution Width 16.0, Platelet Count 271, Mean Platelet Volume 10.2, Sodium Level 141, Potassium Level 3.5, Chloride Level 90, Carbon Dioxide Level 39, Anion Gap 12, Blood Urea Nitrogen 31, Creatinine 0.76, Estimat Glomerular Filtration Rate > 60, BUN/Creatinine Ratio 41, Glucose Level 369, Calcium Level 8.7, Corrected Calcium 9.1, Magnesium Level 1.8, Total Bilirubin 0.8, Aspartate Amino Transf (AST/SGOT) 16, Alanine Aminotransferase (ALT/SGPT) 29, Alkaline Phosphatase 45, B-Type Natriuretic Peptide 856.6, Total Protein 5.8, Albumin 3.5 12/20/18 11:02: Glucometer 316 12/20/18 16:17: Glucometer 289 12/20/18 20:26: Glucometer 330 12/21/18 05:57: Glucometer 317 12/21/18 07:50: White Blood Count 12.3, Red Blood Count 3.40, Hemoglobin 9.5, Hematocrit 32, Mean Corpuscular Volume 94, Mean Corpuscular Hemoglobin 28, Mean Corpuscular Hemoglobin Concent 30, Red Cell Distribution Width 15.2, Platelet Count 222, Mean Platelet Volume 10.5, Sodium Level 139, Potassium Level 3.1, Chloride Level 89, Carbon Dioxide Level 42, Anion Gap 8, Blood Urea Nitrogen 24, Creatinine 0.64, Estimat Glomerular Filtration Rate > 60, BUN/Creatinine Ratio 38, Glucose Level 291, Calcium Level 8.8, Corrected Calcium 9.4, Total Bilirubin 0.6, Aspartate Amino Transf (AST/SGOT) 22, Alanine Aminotransferase (ALT/SGPT) 34, Alkaline Phosphatase 42, Total Protein 5.3, Albumin 3.2 12/21/18 11:22: Glucometer 324 12/21/18 16:14: Glucometer 212 12/21/18 21:10: Glucometer 233 12/22/18 05:25: Sodium Level 139, Potassium Level 3.0, Chloride Level 87, Carbon Dioxide Level 41, Anion Gap 11, Blood Urea Nitrogen 21, Creatinine 0.61, Estimat Glomerular Filtration Rate > 60, BUN/Creatinine Ratio 34, Glucose Level 221, Calcium Level 8.5, Corrected Calcium 9.1, Total Bilirubin 0.9, Aspartate Amino Transf (AST/SGOT) 33, Alanine Aminotransferase (ALT/SGPT) 50, Alkaline Phosphatase 45, Total Protein 5.3, Albumin 3.2 12/22/18 05:50: White Blood Count 14.0, Red Blood Count 3.69, Hemoglobin 10.1, Hematocrit 34, Mean Corpuscular Volume 91, Mean Corpuscular Hemoglobin 27, Mean Corpuscular Hemoglobin Concent 30, Red Cell Distribution Width 15.5, Platelet Count 257, Mean Platelet Volume 11.0 12/22/18 11:20: Glucometer 283 12/22/18 15:59: Glucometer 310 12/22/18 20:51: Glucometer 288 12/23/18 05:17: Glucometer 220 12/23/18 06:27: White Blood Count 13.9, Red Blood Count 3.58, Hemoglobin 9.8, Hematocrit 33, Mean Corpuscular Volume 91, Mean Corpuscular Hemoglobin 27, Mean Corpuscular Hemoglobin Concent 30, Red Cell Distribution Width 15.3, Platelet Count 236, Mean Platelet Volume 11.1, Sodium Level 139, Potassium Level 3.2, Chloride Level 88, Carbon Dioxide Level 41, Anion Gap 10, Blood Urea Nitrogen 19, Creatinine 0.59, Estimat Glomerular Filtration Rate > 60, BUN/Creatinine Ratio 32, Glucose Level 218, Calcium Level 8.5 12/23/18 10:41: Glucometer 263 12/23/18 16:23: Glucometer 204 12/23/18 19:38: Glucometer 192 12/23/18 21:18: Glucometer 173 12/24/18 05:59: Glucometer 216 12/24/18 11:33: Glucometer 260 Discharge Home Medications: Active Scripts Active Potassium Chloride 10 Meq Tablet.er 10 Meq PO DAILY 30 Days Prednisone 10 Mg Tab.ds.pk 10 Mg PO DAILY 6 Days 30MG X2 DAYS 20MG X2 DAYS 10MG X2 DAYS Reported Triamcinolone Acetonide 0.1% Cream (Triamcinolone Acet) 15 Gm Cr TP BID APPLY TO BUTTOCKS Seroquel (Quetiapine Fumarate) 300 Mg Tablet 300 Mg PO HS Nystatin 15 Gm Cream..g. TP BID APPLY TO BUTTOCKS Quetiapine Fumarate 100 Mg Tablet 100 Mg PO DAILY Risperidone 3 Mg Tablet 3 Mg PO HS Risperidone 2 Mg Tablet 2 Mg PO DAILY Simvastatin 10 Mg Tablet 10 Mg PO HS Ramipril 10 Mg Capsule 10 Mg PO DAILY HOLD FOR SBP<100 OR PULSE <60 Nystatin 1 Each Powder.ea. TOP Q8H PRN Novolog Flexpen (Insulin Aspart) 300 Units/3 Ml Solution 5 Units SQ 1800 Novolog Flexpen (Insulin Aspart) 300 Units/3 Ml Solution SC ACHS 150-199 = 2 UNITS 200-249 = 3 UNITS 250-299 = 4 UNITS 300-349 = 5 UNITS 350-399 = 6 UNITS >400 = 7 UNITS AND NOTIFY PHYSICIAN NOTIFY PHYSICIAN IF BS <70 OR >400 Levemir Flextouch (Insulin Detemir) 100 Unit/1 Ml Insuln.pen 18 Unit SQ HS HOLD IF FSBS <100 Januvia (Sitagliptin Phosphate) 100 Mg Tablet 100 Mg PO DAILY Aripiprazole 10 Mg Tablet 10 Mg PO DAILY Milk of Magnesia (Magnesium Hydroxide) 400 Mg/5 Ml Oral.susp 30 Ml PO DAILY PRN Glucagon Emergency Kit (Glucagon,Human Recombinant) 1 Mg/Kit Soln 1 Mg IJ UD PRN Docusate Sodium 100 Mg Capsule 100 Mg PO Q12H PRN Metformin HCl 1,000 Mg Tablet 1,000 Mg PO BID Levemir Flextouch (Insulin Detemir) 100 Unit/1 Ml Insuln.pen 15 Unit SQ DAILY HOLD IF FSBS <100 Gluco Burst (Dextrose) 37.5 Gm Gel..gram. 1 Packet PO UD PRN GIVE 1 PACKET EVERY 15 MINUTES NEEDED. RE-CHECK BS IN 15 MINUTES, IF BS IS NOT RISING, GIVE ANOTHER PACKET. IF NO CHANGE IN BS OR IF CHANGE IS LOC GIVE IM GLUCAGON AND NOTIFY PHYSICIAN. Acetaminophen 325 Mg Tablet 650 Mg PO Q4H PRN TAKES 2 (325MG) TABLETS Docusate Sodium 100 Mg Capsule 100 Mg PO DAILY Aspirin EC (Aspirin) 81 Mg Tablet.dr 81 Mg PO DAILY Furosemide 20 Mg Tablet 60 Mg PO DAILY TAKES 3 (20MG) TABLETS Instructions to patient/family Please see electronic discharge instructions given to patient. Clinical Quality Measures DVT/VTE Risk/Contraindication: Risk Factor Score Per Nursin RFS Level Per Nursing on Admit: 4+=Very High ARA MONTANEZ DO Dec 25, 2018 07:40
== END 2018-12-24 14:43 | DRG 193 ==
LOC: EDUNIT# 07:04 → ER 07:05 → 4TH 09:20
PROVIDERS: ADMIT Internal Medicine; ATTEND Family Medicine
DX: J18.1 Lobar pneumonia, unspecified organism (principal); J96.01 Acute respiratory failure with hypoxia; I21.A1 Myocardial infarction type 2; J44.0 Chronic obstructive pulmonary disease with (acute) lower respiratory infection; Z68.42 Body mass index [BMI] 45.0-49.9, adult; B37.49 Other urogenital candidiasis; I11.0 Hypertensive heart disease with heart failure; I50.9 Heart failure, unspecified; Z66 Do not resuscitate; I25.10 Atherosclerotic heart disease of native coronary artery without angina pectoris; E11.9 Type 2 diabetes mellitus without complications; D64.9 Anemia, unspecified; E87.5 Hyperkalemia; E66.9 Obesity, unspecified; G30.9 Alzheimer's disease, unspecified; F02.80 Dementia in other diseases classified elsewhere, unspecified severity, without behavioral disturbance, psychotic disturbance, mood disturbance, and anxiety; F20.9 Schizophrenia, unspecified; E78.00 Pure hypercholesterolemia, unspecified; G47.30 Sleep apnea, unspecified; K59.09 Other constipation; R10.13 Epigastric pain; E87.6 Hypokalemia; R53.81 Other malaise; Z79.4 Long term (current) use of insulin; Z88.0 Allergy status to penicillin
CPT/HCPCS: 36415; 36600; 51702; 71045; 80048; 80053; 81000; 82805; 82962; 83605; 83735; 83880; 84484; 85007; 85025; 85027; 85610; 85730; 87040; 87088; 93005; 93306; 94640; 94660; 94760; 96361; 96365; 96375

== ENCOUNTER 2019-01-01 11:49 | Inpatient (IN) | payer MEDICARE, MEDICAID ==
[2019-01-01] VITALS (8 sets, daily range): BP systolic 135–172; BP diastolic 67–85
[~2019-01-01] VITALS: Ht 144.8 cm; Wt 90.5 kg
[~2019-01-01 11:49] MED LIST changes: +NYST15CR TP; +POTA10TA10 PO; +PRED10TA22 PO; +QUET300T2 PO; +TR1C15 TP
[2019-01-01] MEDS ORDERED: RT-ALBUTEROL/IPRATROPIUM 3 ML (DUONEB) VIAL INH ONE (12:00)
[2019-01-01 12:09] LABS: BASOPHILS % (AUTO) 0 % (0-10); EOSINOPHILS # (AUTO) 0.2 10^3/uL (0.0-0.3); EOSINOPHILS % (AUTO) 2 % (0-10); HEMATOCRIT 36 % (35-52); HEMOGLOBIN 10.1 G/DL (11.5-16.0); LYMPHOCYTES # (AUTO) 1.3 X 10^3 (1.0-4.0); LYMPHOCYTES % (AUTO) 11 % (12-44); MEAN CORPUSCULAR HEMOGLOBIN 28 PG (25-34); MEAN CORPUSCULAR HGB CONC 28 G/DL (32-36); MEAN CORPUSCULAR VOLUME 99 FL (80-99); MEAN PLATELET VOLUME 10.2 FL (7.4-10.4); MONOCYTES # (AUTO) 0.8 X 10^3 (0.0-1.0); MONOCYTES % (AUTO) 7 % (0-12); NEUTROPHILS # (AUTO) 9.3 X 10^3 (1.8-7.8); NEUTROPHILS % (AUTO) 80 % (42-75); PLATELET COUNT 285 10^3/uL (130-400); RED CELL DISTRIBUTION WIDTH 16.2 % (10.0-14.5); WHITE BLOOD COUNT 11.6 10^3/uL (4.3-11.0)
[2019-01-01 12:16] LABS: INR 0.9 (0.8-1.4); PROTHROMBIN TIME PATIENT 12.8 SEC (12.2-14.7)
[2019-01-01 12:22] LABS: BILIRUBIN,URINE NEGATIVE (NEGATIVE); CLARITY,URINE CLEAR; COLOR,URINE YELLOW; GLUCOSE, URINE (UA) 3+ (NEGATIVE); KETONES,URINE NEGATIVE (NEGATIVE); LEUKOCYTE ESTERASE ,URINE 1+ (NEGATIVE); NITRITE,URINE NEGATIVE (NEGATIVE); PH,URINE 6 (5-9); PROTEIN,URINE 3+ (NEGATIVE); UROBILINOGEN,URINE NORMAL (NORMAL)
[2019-01-01 12:22] LABS: ALANINE AMINOTRANSFERASE 56 U/L (0-55); ALBUMIN 3.4 GM/DL (3.2-4.5); ALKALINE PHOSPHATASE 98 U/L (40-136); BILIRUBIN,TOTAL 0.4 MG/DL (0.1-1.0); BUN/CREATININE RATIO 29; CALCIUM 9.9 MG/DL (8.5-10.1); CHLORIDE 88 MMOL/L (98-107); CREATININE SERUM 0.56 MG/DL (0.60-1.30); GFR ESTIMATED > 60; GLUCOSE 96 MG/DL (70-105); POTASSIUM 5.6 MMOL/L (3.6-5.0); SODIUM 142 MMOL/L (135-145); TOTAL PROTEIN 6.4 GM/DL (6.4-8.2)
[2019-01-01 12:24] LABS: ABG OXYGEN SATURATION 99 % (94-100); ABG PO2 153 MMHG (79-93)
[2019-01-01 12:26] LABS: ABG PH 7.26 (7.37-7.43)
[2019-01-01 12:26] LABS: CARBON DIOXIDE 47 MMOL/L (21-32)
[2019-01-01 12:27] LABS: ABG PCO2 120 MMHG (35-45); ALLENS TEST YES-POS; INSPIRED O2 100% BIPAP; PATIENT TEMP 97.1
[2019-01-01 12:32] LABS: BACTERIA,URINE FEW /HPF; SQUAMOUS EPITHELIAL CELL,UR RARE /HPF
--- NOTE | 2019-01-01 12:40 | ED Respiratory ---
General Chief Complaint: Altered Mental Status Stated Complaint: UNRESPONSIVE Nursing Triage Note: PT BROUGHT IN BY [facility] FROM [facility] WITH COMLPAINT OF ALT LOC. STATES AT APPROX 1118 PT WAS EATING LUNCH WITH FAMILY AND BEGAN TO HAVE SEIZURE LIKE ACTIVITY AND WENT UNRESPONSIVE. PT WAS DC FROM HOSPITAL ON 12/24 FOR PNEUMONIA. Source: patient, family, EMS, half-way records, old records Exam Limitations: no limitations History of Present Illness Date Seen by Provider: Jan 01, 2019 Time Seen by Provider: 11:50 Initial Comments This 73-year-old woman presents to the emergency room from the half-way via EMS due to unresponsiveness. She was with family and began to have seizure-like activity. She then became unresponsive. EMS noted oxygen saturation of 90 percent on 4 L and 98 percent on 15 L. She is not moving air well. Fingerstick blood sugar for EMS was 114. Patient has been admitted a couple of times recently for respiratory failure and pneumonia. The most recent admission was from December 14 through December 24. She also had an elevated troponin at that time. She required BiPAP therapy for hypercarbia during that admission. Allergies and Home Medications Allergies Coded Allergies: Penicillins (Verified Allergy, Unknown, 12/14/18) strawberry (Verified Allergy, Unknown, 12/14/18) FROM UNCODED ALLERGIES tomato (Verified Allergy, Unknown, 12/14/18) FROM UNCODED ALLERGIES Home Medications Acetaminophen 325 Mg Tablet, 650 MG PO Q4H PRN for PAIN-MILD, (Reported) TAKES 2 (325MG) TABLETS Aripiprazole 10 Mg Tablet, 10 MG PO DAILY, (Reported) Aspirin 81 Mg Tablet.dr, 81 MG PO DAILY, (Reported) Dextrose 37.5 Gm Gel..gram., 1 PACKET PO UD PRN for HYPOGLYCEMIA, (Reported) GIVE 1 PACKET EVERY 15 MINUTES NEEDED. RE-CHECK BS IN 15 MINUTES, IF BS IS NOT RISING, GIVE ANOTHER PACKET. IF NO CHANGE IN BS OR IF CHANGE IS LOC GIVE IM GLUCAGON AND NOTIFY PHYSICIAN. Docusate Sodium 100 Mg Capsule, 100 MG PO DAILY, (Reported) Docusate Sodium 100 Mg Capsule, 100 MG PO Q12H PRN for CONSTIPATION-1ST LINE, (Reported) Furosemide 20 Mg Tablet, 60 MG PO DAILY, (Reported) TAKES 3 (20MG) TABLETS Glucagon,Human Recombinant 1 Mg/Kit Soln, 1 MG IJ UD PRN for BLOOD GLUCOSE <60, (Reported) Insulin Aspart 300 Units/3 Ml Solution, SC ACHS, (Reported) 150-199 = 2 UNITS 200-249 = 3 UNITS 250-299 = 4 UNITS 300-349 = 5 UNITS 350- 399 = 6 UNITS >400 = 7 UNITS AND NOTIFY PHYSICIAN NOTIFY PHYSICIAN IF BS <70 OR >400 Insulin Aspart 300 Units/3 Ml Solution, 5 UNITS SQ 1800, (Reported) Insulin Detemir 100 Unit/1 Ml Insuln.pen, 15 UNIT SQ DAILY, (Reported) HOLD IF FSBS <100 Insulin Detemir 100 Unit/1 Ml Insuln.pen, 18 UNIT SQ HS, (Reported) HOLD IF FSBS <100 Magnesium Hydroxide 400 Mg/5 Ml Oral.susp, 30 ML PO DAILY PRN for CONSTIPATION- 7TH LINE, (Reported) Metformin HCl 1,000 Mg Tablet, 1,000 MG PO BID, (Reported) Nystatin 1 Each Powder.ea., TOP Q8H PRN for GAULDING, (Reported) Nystatin 15 Gm Cream..g., TP BID, (Reported) APPLY TO BUTTOCKS Potassium Chloride 10 Meq Tablet.er, 10 MEQ PO DAILY Prescribed by: MEENA RODRIGUEZ on 12/23/18 1312 Prednisone 10 Mg Tab.ds.pk, 10 MG PO DAILY 30MG X2 DAYS 20MG X2 DAYS 10MG X2 DAYS Prescribed by: MEENA RODRIGUEZ on 12/23/18 1259 Quetiapine Fumarate 100 Mg Tablet, 100 MG PO DAILY, (Reported) Quetiapine Fumarate 300 Mg Tablet, 300 MG PO HS, (Reported) Ramipril 10 Mg Capsule, 10 MG PO DAILY, (Reported) HOLD FOR SBP<100 OR PULSE <60 Risperidone 2 Mg Tablet, 2 MG PO DAILY, (Reported) Risperidone 3 Mg Tablet, 3 MG PO HS, (Reported) Simvastatin 10 Mg Tablet, 10 MG PO HS, (Reported) Sitagliptin Phosphate 100 Mg Tablet, 100 MG PO DAILY, (Reported) Triamcinolone Acet 15 Gm Cr, TP BID, (Reported) APPLY TO BUTTOCKS Patient Home Medication List Home Medication List Reviewed: Yes Review of Systems Review of Systems Constitutional: see HPI; No fever EENTM: no symptoms reported Respiratory: see HPI Cardiovascular: edema Gastrointestinal: no symptoms reported Genitourinary: no symptoms reported : No Musculoskeletal: no symptoms reported Skin: other (decubitus ulcers and skin erythema over the sacrum and perineal region) Psychiatric/Neurological: See HPI Hematologic/Lymphatic: No Symptoms Reported Immunological/Allergic: no symptoms reported Past Ysyabhc-Cinufa-Iywrfv Hx Past Med/Social Hx: Reviewed and Corrections made Patient Social History Alcohol Use: Denies Use Recreational Drug Use: No Smoking Status: Unknown if Ever Smoked Recent Foreign Travel: No Contact w/Someone Who Travel: No Recent Infectious Disease Expo: No Recent Hopitalizations: No Immunizations Up To Date Tetanus Booster (TDap): Unknown Date of Pneumonia Vaccine: Apr 15, 2012 Seasonal Allergies Seasonal Allergies: No Past Medical History Surgeries: Yes (CARDIAC CATH) Cardiac Respiratory: Yes (ACUTE RESPIRATORY FAILURE 12/22/14, functional dyspnea) Pneumonia, Sleep Apnea Cardiac: Yes (CHF/ PULMONARY EDEMA 12/22/14) Chronic Edema/Swelling, Coronary Artery Disease, High Cholesterol, Hypertension Neurological: Yes Dementia : No Reproductive Disorders: No 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 Physical Exam Vital Signs - First Documented 01/01/19 11:49 Temp 97.5 Pulse 107 Resp 17 B/P (MAP) 138/55 (82) Pulse Ox 96 O2 Delivery Non Rebreather O2 Flow Rate 15.00 Capillary Refill : Less Than 3 Seconds Height: 4'9.00" Weight: 201lbs. 0.0oz. [id number]; 47.6 BMI Method:Estimated General Appearance: WD/WN, no apparent distress, other (unresponsive to voice or tactile stimulus) HEENT: normal ENT inspection, pharynx normal Neck: normal inspection Respiratory: no respiratory distress, no accessory muscle use, other (coarse wet upper airway sounds, decreased air movement) Cardiovascular: regular rate, rhythm, no murmur, other (mild anasarca) Gastrointestinal: normal bowel sounds, non tender, soft Extremities: non-tender, other (mild anasarca) Neurologic/Psychiatric: other (unresponsive to voice or tactile stimulation) Skin: warm/dry, other (skin breakdown over the sacrum and erythema in the perineum. This likely represents at least a stage II decubitus ulcer over the sacrum) Focused Exam Lactate Level 6/20/19 11:55: Lactic Acid Level 0.67 Lactic Acid Level Laboratory Tests Test 01/01/19 11:55 Lactic Acid Level 0.67 MMOL/L (0.50-2.00) Progress/Results/Core Measures Suspected Sepsis Recent Fever Within 48 Hours: No Infection Criteria Present: None New/Unexplained Altered Menta: No Sepsis Screen: No Definite Risk SIRS Temperature:97.5 Pulse: 109 Respiratory Rate: 42 Laboratory Tests 01/01/19 11:55: White Blood Count 11.6H Blood Pressure 138 /55 Mean: 82 01/01/19 11:55: Lactic Acid Level 0.67 Laboratory Tests 01/01/19 11:55: Creatinine 0.56L, INR Comment 0.9, Platelet Count 285, Total Bilirubin 0.4 Results/Orders Lab Results Laboratory Tests Test 01/01/19 11:55 01/01/19 11:56 01/01/19 12:10 01/01/19 12:18 Range/Units White Blood Count 11.6 H 4.3-11.0 10^3/uL Red Blood Count 3.60 L 4.35-5.85 10^6/uL Hemoglobin 10.1 L 11.5-16.0 G/DL Hematocrit 36 35-52 % Mean Corpuscular Volume 99 80-99 FL Mean Corpuscular Hemoglobin 28 25-34 PG Mean Corpuscular Hemoglobin Concent 28 L 32-36 G/DL Red Cell Distribution Width 16.2 H 10.0-14.5 % Platelet Count 285 130-400 10^3/uL Mean Platelet Volume 10.2 7.4-10.4 FL Neutrophils (%) (Auto) 80 H 42-75 % Lymphocytes (%) (Auto) 11 L 12-44 % Monocytes (%) (Auto) 7 0-12 % Eosinophils (%) (Auto) 2 0-10 % Basophils (%) (Auto) 0 0-10 % Neutrophils # (Auto) 9.3 H 1.8-7.8 X 10^3 Lymphocytes # (Auto) 1.3 1.0-4.0 X 10^3 Monocytes # (Auto) 0.8 0.0-1.0 X 10^3 Eosinophils # (Auto) 0.2 0.0-0.3 10^3/uL Basophils # (Auto) 0.0 0.0-0.1 10^3/uL Prothrombin Time 12.8 12.2-14.7 SEC INR Comment 0.9 0.8-1.4 Activated Partial Thromboplast Time 25 24-35 SEC Sodium Level 142 135-145 MMOL/L Potassium Level 5.6 H 3.6-5.0 MMOL/L Chloride Level 88 L 98-107 MMOL/L Carbon Dioxide Level 47 *H 21-32 MMOL/L Anion Gap 7 5-14 MMOL/L Blood Urea Nitrogen 16 7-18 MG/DL Creatinine 0.56 L 0.60-1.30 MG/DL Estimat Glomerular Filtration Rate > 60 BUN/Creatinine Ratio 29 Glucose Level 96 70-105 MG/DL Lactic Acid Level 0.67 0.50-2.00 MMOL/L Calcium Level 9.9 8.5-10.1 MG/DL Corrected Calcium 10.4 H 8.5-10.1 MG/DL Total Bilirubin 0.4 0.1-1.0 MG/DL Aspartate Amino Transf (AST/SGOT) 24 5-34 U/L Alanine Aminotransferase (ALT/SGPT) 56 H 0-55 U/L Alkaline Phosphatase 98 40-136 U/L Troponin I < 0.028 <0.028 NG/ML C-Reactive Protein High Sensitivity 1.63 H 0.00-0.50 MG/DL B-Type Natriuretic Peptide 155.3 H <100.0 PG/ML Total Protein 6.4 6.4-8.2 GM/DL Albumin 3.4 3.2-4.5 GM/DL Glucometer 94 70-110 MG/DL Urine Color YELLOW Urine Clarity CLEAR Urine pH 6 5-9 Urine Specific [place] 1.020 1.016-1.022 Urine Protein 3+ H NEGATIVE Urine Glucose (UA) 3+ H NEGATIVE Urine Ketones NEGATIVE NEGATIVE Urine Nitrite NEGATIVE NEGATIVE Urine Bilirubin NEGATIVE NEGATIVE Urine Urobilinogen NORMAL NORMAL MG/DL Urine Leukocyte Esterase 1+ H NEGATIVE Urine RBC (Auto) 3+ H NEGATIVE Urine RBC 5-10 H /HPF Urine WBC 10-25 H /HPF Urine Squamous Epithelial Cells RARE /HPF Urine Crystals NONE /LPF Urine Bacteria FEW H /HPF Urine Casts PRESENT /LPF Urine Granular Casts 2-5 H /LPF Urine Mucus NEGATIVE /LPF Urine Culture Indicated YES Blood Gas Puncture Site R RAD Blood Gas Patient Temperature 97.1 Arterial Blood pH 7.26 *L 7.37-7.43 Arterial Blood Partial Pressure CO2 120 *H 35-45 MMHG Arterial Blood Partial Pressure O2 153 H 79-93 MMHG Arterial Blood HCO3 52 *H 23-27 MMOL/L Arterial Blood Total CO2 56.0 H 21.0-31.0 MMOL/L Arterial Blood Oxygen Saturation 99 94-100 % Arterial Blood Base Excess 24.0 H -2.5-2.5 MMOL/L Sincere Test YES-POS Blood Gas Ventilator Setting NA Blood Gas Inspired Oxygen 100% BIPAP My Orders Orders - FRANKIE ELIAS MD Cbc With Automated Diff (01/01/19 11:57) Comprehensive Metabolic Panel (01/01/19 11:57) Blood Culture (01/01/19 11:57) Sputum Culture (01/01/19 11:57) Urinalysis (01/01/19 11:57) Urine Culture (01/01/19 11:57) Protime With Inr (01/01/19 11:57) Partial Thromboplastin Time (01/01/19 11:57) Chest 1 View, Ap/Pa Only (01/01/19 11:57) Ed Iv/Invasive Line Start (01/01/19 11:57) Ed Iv/Invasive Line Start (01/01/19 11:57) Vital Signs Adult Sepsis Patie Q15M (01/01/19 11:57) O2 (01/01/19 11:57) Remove Rings In Anticipation O (01/01/19 11:57) Lactic Acid Analyzer (01/01/19 11:57) BNP (01/01/19 11:57) Hs C Reactive Protein (01/01/19 11:57) Troponin I (01/01/19 11:57) Arterial Blood Gas (01/01/19 11:57) Albuterol/Ipra Inhalation Soln (Duoneb I (01/01/19 12:00) Svn Small Volume Nebulizer (01/01/19 11:57) Ct Head Wo (01/01/19 12:10) Arterial Blood Gas (01/01/19 12:17) Ekg Tracing (01/01/19 12:18) Monitor-Rhythm Ecg Trace Only (01/01/19 12:18) Methylprednisolone Sod Succ (Solu-Medrol (01/01/19 13:00) Meropenem (Merrem 1000 Mg) (01/01/19 13:00) Ns Iv 1000 Ml (Sodium Chloride 0.9%) (01/01/19 13:00) Methylprednisolone Sod Succ (Solu-Medrol (01/01/19 15:11) Vital Signs/I&O 01/01/19 01/01/19 01/01/19 01/01/19 11:49 11:49 12:19 14:16 Temp 97.5 Pulse 107 109 100 Resp 17 42 42 B/P (MAP) 138/55 (82) Pulse Ox 96 97 95 94 O2 Delivery Non Rebreather Non Rebreather O2 Flow Rate 15.00 15.00 100.00 60.00 Capillary Refill : Less Than 3 Seconds Blood Pressure Mean: 82 Progress Note : Progress Note Patient was moving air poorly on arrival. BiPAP was applied. ABG showed significant hypercarbia. Patient eventually became responsive and able to converse after a couple hours on BiPAP. Blood cultures and lactic acid were drawn. Meropenem was administered for empiric About coverage. There was suspicion of possible pneumonia in the right upper lobe based on x-ray comparison to prior. Patient did not meet criteria for sepsis. She was hyperkalemic and a liter of IV normal saline was administered. I discussed the patient's situation with her durable power of criminal defense attorney, Char Page at [phone]. She is considering hospice. A palliative care consult was ordered. In addition to BiPAP, patient was treated with DuoNeb and Solu-Medrol 125 mg IV. ECG Initial ECG Impression Date: Jan 01, 2019 Initial ECG Impression Time: 12:45 Initial ECG Rate: 106 Initial ECG Rhythm: S.Tach Comment Sinus tachycardia with no ST elevation or depression. Multiple PVCs. No axis deviation or abnormal intervals. Diagnostic Imaging Diagonstic Imaging: Xray Plain Films/CT/US/NM/MRI: chest Comments Chest x-ray viewed by me and report reviewed. See report below: NAME: [facility]ANS HICKS [facility] REC#: [id number] PT STATUS: REG ER : 1945 PHYSICIAN: FRANKIE ELIAS MD ADMIT DATE: 01/01/19/ER Draft Date of Exam:01/01/19 CHEST 1 VIEW, AP/PA ONLY EXAMINATION: Portable semi-erect AP chest at 12:28 p.m. INDICATION: Unresponsive. FINDINGS: As noted on the prior exam of 12/22/2018, the heart is enlarged and both lung bases are obscured by atelectasis/infiltrate and fluid. These findings are similar to the prior exam. The density in each lung base may be slightly greater. Also, a new thick band of atelectasis/infiltrate has developed in the right perihilar region. There may be other areas of pneumonia/atelectasis in the right upper lobe as well. The left upper lobe remains clear. The mediastinum is not widened. The osseous structures are intact. IMPRESSION: The appearance of the chest has worsened since the prior study as a thick band of atelectasis/infiltrate has developed in the right upper lobe. There may be other areas of pneumonia/atelectasis in the right upper lobe as well. A followup study would be recommended for continued evaluation. Dictated on workstation # [id number] Dict: 01/01/19 1234 Trans: 01/01/19 1239 [id number] Interpreted by: YSABEL BOOTHE MD Departure Communication (Admissions) Time/Spoke to Admitting Phy: 14:35 Dr. Montanez Time/Spoke to Consulting Phy: 14:30 Dr. Back Impression Primary Impression: Respiratory failure Qualified Codes: J96.21 - Acute and chronic respiratory failure with hypoxia; J96.22 - Acute and chronic respiratory failure with hypercapnia Additional Impressions: CO2 narcosis COPD with exacerbation Right upper lobe pulmonary infiltrate Hyperkalemia Urinary tract infection Qualified Codes: N39.0 - Urinary tract infection, site not specified Sacral decubitus ulcer Qualified Codes: L89.152 - Pressure ulcer of sacral region, stage 2 Disposition: ADMITTED INPATIENT Condition: Improved Admissions Decision to Admit Reason: Admit from ER (General) Decision to Admit/Date: Jan 01, 2019 Time/Decision to Admit Time: 12:00 Departure-Patient Inst. Referrals: ARA MONTANEZ DO (PCP/Family) Primary Care Physician Copy Copies To 1: ARA MONTANEZ JOSHUA T MD Jan 01, 2019 12:40
[2019-01-01] MEDS ORDERED: NS IV 1000 ML 1,000 ML IV ONE (13:00)
[2019-01-01] MEDS ORDERED: methylPREDNISolone 125 MG (Solu-MEDROL) VIAL IVP ONE (13:00)
[2019-01-01] MEDS ORDERED: MEROPENEM 1,000 MG in WATER (STERILE) FOR INJECTION 20 ML IV ONE (13:00)
--- NOTE | 2019-01-01 14:10 | Diagnostic Imaging Report ---
Clinical indication: Patient brought from [facility] with complaints of altered level consciousness. Patient began having seizure-like activity and went unresponsive at approximately 1118 hrs. while eating lunch. Patient was discharged from hospital on 12/24 for pneumonia. Exam: Head CT without contrast. Comparison: Head CT without contrast dated 01/24/2015. Findings: Slight granular resolution to the head CT limiting evaluation for brain parenchymal fine detail. There is no evidence of acute cerebral infarct, intracranial hemorrhage, or gross mass effect. The brain parenchymal volume appears appropriate for patient's age. Stable small patchy areas of low-attenuation white matter changes involving the frontal lobes bilaterally likely related to chronic small vessel ischemic disease. There is grossly normal colon-white matter distinction. There is no significant midline shift or herniation. There is no evidence of hydrocephalus. The basal cisterns are unremarkable. The skull, extracranial soft tissue, and orbits are unremarkable. The paranasal sinuses are unremarkable. Temporal bones show no significant abnormality. Impression: There is no gross CT evidence of acute intracranial process. Dictated by: Dictated on workstation # [id number]
[2019-01-01] MEDS ORDERED: WATER (STERILE) FOR INJECTION 20 ML ONE (15:11)
[2019-01-01] MEDS ORDERED: methylPREDNISolone 125 MG (Solu-MEDROL) VIAL ONE (15:11)
[2019-01-01] MEDS ORDERED: MEROPENEM 500 MG VIAL (MERREM) IV ONE (15:11)
[2019-01-01] MEDS ORDERED: NS IV 1000 ML 1,000 ML ONE ×2 (15:11→16:33)
[2019-01-01] MEDS: NS IV 1000 ML 1,000 ML IV SCH (16:45)
[2019-01-01] MEDS ORDERED: RT-ALBUTEROL SULF 2.5 MG/3 ML PRE-MIX VIAL IH PRN (16:45)
[2019-01-01] MEDS: AZITHROMYCIN 500 MG/NS 250 ML IVPB IV SCH ×2 (17:59)
[2019-01-01] MEDS ORDERED: VANCOMYCIN 1,750 MG/NS 500 ML IVPB IV NR ×4 (18:00→19:00)
[2019-01-01] MEDS: RT-ALBUTEROL/IPRATROPIUM 3 ML (DUONEB) VIAL IH SCH ×2 (19:01→22:10)
[2019-01-01 21:41] LABS: ABG BASE EXCESS 18.3 MMOL/L (-2.5-2.5); ABG OXYGEN SATURATION 99 % (94-100); ABG PO2 121 MMHG (79-93); ABG TCO2 48.4 MMOL/L (21.0-31.0)
[2019-01-01 21:43] LABS: ABG PCO2 92 MMHG (35-45); ABG PH 7.31 (7.37-7.43); ALLENS TEST POSITIVE
[2019-01-01 21:44] LABS: INSPIRED O2 45% BIPAP; VENTILATOR NO
[2019-01-01] MEDS: inSUlin ASPART (NovoLOG) 1 UNIT/0.01 ML (CHARGE PER UNIT) SC SCH (22:07)
[2019-01-01] MEDS ORDERED: PANTOPRAZOLE 40 MG (PROTONIX) VIAL IV ONE (23:00)
[2019-01-01] MEDS: methylPREDNISolone 40 MG/ML (Solu-MEDROL) VIAL IV SCH (23:04)
[2019-01-02] VITALS (14 sets, daily range): BP systolic 124–189; BP diastolic 51–99
[2019-01-02] MEDS: MEROPENEM 500 MG/SWFI 10 ML IV PUSH IV SCH ×10 (00:09→23:55)
[2019-01-02 00:37] LABS: ABG BASE EXCESS 16.5 MMOL/L (-2.5-2.5); ABG OXYGEN SATURATION 100 % (94-100); ABG PH 7.37 (7.37-7.43); ABG PO2 140 MMHG (79-93); ABG TCO2 45.1 MMOL/L (21.0-31.0)
[2019-01-02 00:39] LABS: ABG PCO2 75 MMHG (35-45); ALLENS TEST POSITIVE; INSPIRED O2 45% BIPAP; PATIENT TEMP 96.9; VENTILATOR NO
[2019-01-02] MEDS: NS IV 1000 ML 1,000 ML IV SCH ×3 (01:41→23:55)
[2019-01-02 02:38] LABS: ABG OXYGEN SATURATION 99 % (94-100); ABG PCO2 70 MMHG (35-45); ABG PH 7.39 (7.37-7.43); ABG PO2 95 MMHG (79-93); ABG TCO2 44.1 MMOL/L (21.0-31.0)
[2019-01-02 02:39] LABS: ALLENS TEST POSITIVE; INSPIRED O2 35% BIPAP; PATIENT TEMP 97.6; VENTILATOR NO
[2019-01-02] MEDS: RT-ALBUTEROL/IPRATROPIUM 3 ML (DUONEB) VIAL IH SCH ×5 (02:41→22:59)
[2019-01-02 03:30] LABS: BASOPHILS % (AUTO) 0 % (0-10); EOSINOPHILS % (AUTO) 0 % (0-10); HEMATOCRIT 30 % (35-52); HEMOGLOBIN 8.7 G/DL (11.5-16.0); LYMPHOCYTES # (AUTO) 0.3 X 10^3 (1.0-4.0); LYMPHOCYTES % (AUTO) 4 % (12-44); MEAN CORPUSCULAR HEMOGLOBIN 28 PG (25-34); MEAN CORPUSCULAR HGB CONC 29 G/DL (32-36); MEAN CORPUSCULAR VOLUME 97 FL (80-99); MONOCYTES # (AUTO) 0.1 X 10^3 (0.0-1.0); MONOCYTES % (AUTO) 1 % (0-12); NEUTROPHILS # (AUTO) 7.6 X 10^3 (1.8-7.8); NEUTROPHILS % (AUTO) 95 % (42-75); PLATELET COUNT 210 10^3/uL (130-400); RED CELL DISTRIBUTION WIDTH 15.5 % (10.0-14.5)
[2019-01-02 03:53] LABS: ALANINE AMINOTRANSFERASE 47 U/L (0-55); ALBUMIN 2.9 GM/DL (3.2-4.5); ALKALINE PHOSPHATASE 83 U/L (40-136); BILIRUBIN,TOTAL 0.4 MG/DL (0.1-1.0); BUN/CREATININE RATIO 37; CARBON DIOXIDE 36 MMOL/L (21-32); CHLORIDE 94 MMOL/L (98-107); CREATININE SERUM 0.52 MG/DL (0.60-1.30); GFR ESTIMATED > 60; GLUCOSE 119 MG/DL (70-105); MAGNESIUM 1.7 MG/DL (1.8-2.4); PHOSPHORUS 3.8 MG/DL (2.3-4.7); POTASSIUM 5.8 MMOL/L (3.6-5.0); SODIUM 142 MMOL/L (135-145); TOTAL PROTEIN 5.5 GM/DL (6.4-8.2)
[2019-01-02] MEDS: inSUlin ASPART (NovoLOG) 1 UNIT/0.01 ML (CHARGE PER UNIT) SC SCH ×4 (03:59→20:06)
[2019-01-02] MEDS ORDERED: MAGNESIUM 1 GM/100 ML IVPB 100 ML IV SCH ×3 (04:00→06:00)
[2019-01-02] MEDS ORDERED: FUROSEMIDE 40 MG/4 ML INJ (LASIX) ONE ×2 (04:13→04:31)
[2019-01-02] MEDS: MAGNESIUM 1 GM/100 ML IVPB 100 ML IV SCH ×4 (04:23→10:01)
[2019-01-02] MEDS ORDERED: FUROSEMIDE 40 MG/4 ML INJ (LASIX) IVP ONE ×2 (04:30)
[2019-01-02 04:42] LABS: LYMPHOCYTES % (MANUAL) 4 %; NEUTROPHILS % (MANUAL) 96 %
--- NOTE | 2019-01-02 04:42 | Pulmonary Consultation ---
History of Present Illness History of Present Illness Date of Consultation 01/02/19 04:37 Time Seen by Provider: 04:37 Date of Admission History of Present Illness 73yo with recent hospitalization for similar issues and from ECF presenting via EMS secondary to secondary to acute seizure while eating with family . Pt was hypoxic and required 15liters. BS was 114. During last hospitalization pt was treated for pneumonia and required BiPAP treatment. Pt is currently on BIPAP. she is a DNR. She is now more responsive and will follow simple commands. K+ was high this AM and was given Lasix per EICU. Unable to obtain ROS. I am consulted for pulmonary/ICU management. Allergies and Home Medications Allergies Coded Allergies: Penicillins (Verified Allergy, Unknown, 12/14/18) strawberry (Verified Allergy, Unknown, 12/14/18) FROM UNCODED ALLERGIES tomato (Verified Allergy, Unknown, 12/14/18) FROM UNCODED ALLERGIES Home Medications Acetaminophen 325 Mg Tablet, 650 MG PO Q4H PRN for PAIN-MILD, (Reported) TAKES 2 (325MG) TABLETS Aripiprazole 10 Mg Tablet, 10 MG PO DAILY, (Reported) Aspirin 81 Mg Tablet.dr, 81 MG PO DAILY, (Reported) Dextrose 37.5 Gm Gel..gram., 1 PACKET PO UD PRN for HYPOGLYCEMIA, (Reported) GIVE 1 PACKET EVERY 15 MINUTES NEEDED. RE-CHECK BS IN 15 MINUTES, IF BS IS NOT RISING, GIVE ANOTHER PACKET. IF NO CHANGE IN BS OR IF CHANGE IS LOC GIVE IM GLUCAGON AND NOTIFY PHYSICIAN. Docusate Sodium 100 Mg Capsule, 100 MG PO DAILY, (Reported) Docusate Sodium 100 Mg Capsule, 100 MG PO Q12H PRN for CONSTIPATION-1ST LINE, (Reported) Furosemide 20 Mg Tablet, 60 MG PO DAILY, (Reported) TAKES 3 (20MG) TABLETS Glucagon,Human Recombinant 1 Mg/Kit Soln, 1 MG IJ UD PRN for BLOOD GLUCOSE <60, (Reported) Insulin Aspart 300 Units/3 Ml Solution, SC ACHS, (Reported) 150-199 = 2 UNITS 200-249 = 3 UNITS 250-299 = 4 UNITS 300-349 = 5 UNITS 350- 399 = 6 UNITS >400 = 7 UNITS AND NOTIFY PHYSICIAN NOTIFY PHYSICIAN IF BS <70 OR >400 Insulin Aspart 300 Units/3 Ml Solution, 5 UNITS SQ 1800, (Reported) Insulin Detemir 100 Unit/1 Ml Insuln.pen, 15 UNIT SQ DAILY, (Reported) HOLD IF FSBS <100 Insulin Detemir 100 Unit/1 Ml Insuln.pen, 18 UNIT SQ HS, (Reported) HOLD IF FSBS <100 Magnesium Hydroxide 400 Mg/5 Ml Oral.susp, 30 ML PO DAILY PRN for CONSTIPATION- 7TH LINE, (Reported) Metformin HCl 1,000 Mg Tablet, 1,000 MG PO BID, (Reported) Nystatin 1 Each Powder.ea., TOP Q8H PRN for GAULDING, (Reported) Nystatin 15 Gm Cream..g., TP BID, (Reported) APPLY TO BUTTOCKS Potassium Chloride 10 Meq Tablet.er, 10 MEQ PO DAILY Prescribed by: MEENA RODRIGUEZ on 12/23/18 1312 Prednisone 10 Mg Tab.ds.pk, 10 MG PO DAILY 30MG X2 DAYS 20MG X2 DAYS 10MG X2 DAYS Prescribed by: MEENA RODRIGUEZ on 12/23/18 1259 Quetiapine Fumarate 100 Mg Tablet, 100 MG PO DAILY, (Reported) Quetiapine Fumarate 300 Mg Tablet, 300 MG PO HS, (Reported) Ramipril 10 Mg Capsule, 10 MG PO DAILY, (Reported) HOLD FOR SBP<100 OR PULSE <60 Risperidone 2 Mg Tablet, 2 MG PO DAILY, (Reported) Risperidone 3 Mg Tablet, 3 MG PO HS, (Reported) Simvastatin 10 Mg Tablet, 10 MG PO HS, (Reported) Sitagliptin Phosphate 100 Mg Tablet, 100 MG PO DAILY, (Reported) Triamcinolone Acet 15 Gm Cr, TP BID, (Reported) APPLY TO BUTTOCKS Past Vdgzodo-Mfzlev-Pfmjpb Hx Past Med/Social Hx: Reviewed and Corrections made Patient Social History Alcohol Use: Denies Use Recreational Drug Use: No Smoking Status: Unknown if Ever Smoked Recent Foreign Travel: No Contact w/Someone Who Travel: No Recent Infectious Disease Expo: No Recent Hopitalizations: No Immunizations Up To Date Tetanus Booster (TDap): Unknown Date of Pneumonia Vaccine: Apr 15, 2012 Seasonal Allergies Seasonal Allergies: No Past Medical History Surgeries: Yes (CARDIAC CATH) Cardiac Respiratory: Yes (ACUTE RESPIRATORY FAILURE 12/22/14, functional dyspnea) Pneumonia, Sleep Apnea Cardiac: Yes (CHF/ PULMONARY EDEMA 12/22/14) Chronic Edema/Swelling, Coronary Artery Disease, High Cholesterol, Hypertension Neurological: Yes Dementia : No 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 Review of Systems Time Seen by Provider: 04:42 Sepsis Event Evaluation Height, Weight, BMI Height: 4'9.00" Weight: 198lbs. 0.0oz. 89.758304gd; 42.9 BMI Method:Estimated Exam Exam Vital Signs Date Time Temp Pulse Resp B/P (MAP) Pulse Ox O2 Delivery O2 Flow Rate FiO2 01/02/19 04:00 NIV Bilevel 30 01/02/19 03:00 84 16 160/83 (108) 99 NIV Bilevel 30.00 01/02/19 02:48 NIV Bilevel 30.00 01/02/19 02:41 82 36 100 30.00 01/02/19 02:00 85 27 166/85 (112) 99 NIV Bilevel 35.00 01/02/19 01:00 86 17 165/78 (107) 100 NIV Bilevel 35.00 01/02/19 01:00 86 01/02/19 00:45 85 37 100 35.00 01/02/19 00:00 NIV Bilevel 45 01/02/19 00:00 85 24 176/96 (122) 100 NIV Bilevel 45.00 01/01/19 23:00 86 19 166/85 (112) 100 NIV Bilevel 45.00 01/01/19 22:10 77 24 99 45.00 01/01/19 22:00 82 17 154/72 (99) 99 NIV Bilevel 45.00 01/01/19 21:00 76 19 147/74 (98) 100 NIV Bilevel 45.00 01/01/19 20:00 88 14 146/72 (96) 98 NIV Bilevel 45.00 01/01/19 20:00 NIV Bilevel 45 01/01/19 19:49 96.6 86 16 139/78 (98) 98 NIV Bilevel 45.00 01/01/19 19:01 93 18 98 45.00 01/01/19 19:00 92 12 139/78 (98) 97 NIV Bilevel 45.00 01/01/19 19:00 92 01/01/19 18:00 94 12 172/85 (114) 99 NIV Bilevel 01/01/19 17:00 96 13 99 NIV Bilevel 80.00 01/01/19 16:35 72 39 95 45.00 01/01/19 16:30 97 01/01/19 16:20 97.8 96 19 135/67 (89) 97 NIV Bilevel 01/01/19 16:03 95 19 134/54 (80) 100 Room Air 01/01/19 14:16 100 42 94 60.00 01/01/19 12:19 109 42 95 100.00 01/01/19 11:49 97.5 107 17 138/55 (82) 97 Non Rebreather 15.00 01/01/19 11:49 96 Non Rebreather 15.00 I & O 01/02/19 07:00 Intake Total 2770 ml Output Total 900 ml Balance 1870 ml Height & Weight Height: 4'9.00" Weight: 198lbs. 0.0oz. 89.790266if; 42.9 BMI Method:Estimated General Appearance: Mild Distress, Obese HEENT: PERRL/EOMI, Normal ENT Inspection, Pharynx Normal Neck: Full Range of Motion, Non Tender, Supple Respiratory: Accessory Muscle Use, Crackles, Decreased Breath Sounds Cardiovascular: No Edema, No Gallop Capillary Refill: Less Than 3 Seconds Gastrointestinal: normal bowel sounds, non tender, soft Extremity: Normal Capillary Refill, No Pedal Edema Neurologic/Psychiatric: Alert, Depressed Affect Skin: Normal Color Results Lab Laboratory Tests 01/01/19 11:55 01/02/19 02:58 Assessment/Plan Assessment/Plan Acute respiratory failure with C02 narcosis -BIPAP currently -Monitor -Pt is DNR Acute seizure while at ECF -Seizure precautions -Monitor Morbid obesity COPDAE -Solumedrol -SVNs PNA -Merrem, Vanco and await cultures Anemia -Monitor Hyperkalemia -Give total 40mg of Lasix and repeat at 0800 -Decrease IVF to 75cc/hr for now KEYANA DUBOIS DO Jan 02, 2019 04:42
[2019-01-02] MEDS: methylPREDNISolone 40 MG/ML (Solu-MEDROL) VIAL IV SCH ×4 (04:46→21:03)
--- NOTE | 2019-01-02 05:47 | NUR ---
PATIENT TO ROOM 422 AT APPROXIMATELY 0530. BIPAP IN PLACE. VS ASSESSED. REPORT RECEIVED FROM SALESPERSON SURGICAL APPLIANCES. AGREE WITH PREVIOUS RNs ASSESSMENT. WILL MONITOR.
[2019-01-02] MEDS ORDERED: POTASSIUM CL 10MEQ/50ML IVPB 50 ML IV SCH ×2 (06:00)
[2019-01-02] MEDS ORDERED: KCL 20 MEQ TAB (K-DUR) PO SCH ×2 (06:00)
--- NOTE | 2019-01-02 07:59 | History & Physicial ---
History of Present Illness History of Present Illness Reason for visit/HPI Patient is a resident of senior living. Patient recently been in the hospital for pneumonia and COPD and acute respiratory failure. Patient needing with family and appeared to have a seizure and acute mental status change and transferred to the emergency room. Patient unresponsive. Chest x-ray shows right upper lobe pneumonia. Patient has schizophrenia. Patient has COPD with acute exacerbation. Patient and known diabetic. Patient has CO2 narcosis. Patient DO NOT RESUSCITATE. Hyperkalemia. UTI. DO NOT RESUSCITATE Family considering hospice. Patient this morning on BiPAP and able to talk. Patient unable to give a good history Date of Admission Jan 01, 2019 at 14:35 Time Seen by a Provider: 07:54 I consulted on this patient on 01/02/19 07:54 Attending Physician Rusty Montanez DO Admitting Physician Rusty Montanez DO Consult Allergies and Home Medications Allergies Coded Allergies: Penicillins (Verified Allergy, Unknown, 12/14/18) strawberry (Verified Allergy, Unknown, 12/14/18) FROM UNCODED ALLERGIES tomato (Verified Allergy, Unknown, 12/14/18) FROM UNCODED ALLERGIES Home Medications Acetaminophen 325 Mg Tablet, 650 MG PO Q4H PRN for PAIN-MILD, (Reported) TAKES 2 (325MG) TABLETS Aripiprazole 10 Mg Tablet, 10 MG PO DAILY, (Reported) Aspirin 81 Mg Tablet.dr, 81 MG PO DAILY, (Reported) Dextrose 37.5 Gm Gel..gram., 1 PACKET PO UD PRN for HYPOGLYCEMIA, (Reported) GIVE 1 PACKET EVERY 15 MINUTES NEEDED. RE-CHECK BS IN 15 MINUTES, IF BS IS NOT RISING, GIVE ANOTHER PACKET. IF NO CHANGE IN BS OR IF CHANGE IS LOC GIVE IM GLUCAGON AND NOTIFY PHYSICIAN. Docusate Sodium 100 Mg Capsule, 100 MG PO DAILY, (Reported) Docusate Sodium 100 Mg Capsule, 100 MG PO Q12H PRN for CONSTIPATION-1ST LINE, (Reported) Furosemide 20 Mg Tablet, 60 MG PO DAILY, (Reported) TAKES 3 (20MG) TABLETS Glucagon,Human Recombinant 1 Mg/Kit Soln, 1 MG IJ UD PRN for BLOOD GLUCOSE <60, (Reported) Insulin Aspart 300 Units/3 Ml Solution, SC ACHS, (Reported) 150-199 = 2 UNITS 200-249 = 3 UNITS 250-299 = 4 UNITS 300-349 = 5 UNITS 350- 399 = 6 UNITS >400 = 7 UNITS AND NOTIFY PHYSICIAN NOTIFY PHYSICIAN IF BS <70 OR >400 Insulin Aspart 300 Units/3 Ml Solution, 5 UNITS SQ 1800, (Reported) Insulin Detemir 100 Unit/1 Ml Insuln.pen, 15 UNIT SQ DAILY, (Reported) HOLD IF FSBS <100 Insulin Detemir 100 Unit/1 Ml Insuln.pen, 18 UNIT SQ HS, (Reported) HOLD IF FSBS <100 Magnesium Hydroxide 400 Mg/5 Ml Oral.susp, 30 ML PO DAILY PRN for CONSTIPATION- 7TH LINE, (Reported) Metformin HCl 1,000 Mg Tablet, 1,000 MG PO BID, (Reported) Nystatin 1 Each Powder.ea., TOP Q8H PRN for GAULDING, (Reported) Nystatin 15 Gm Cream..g., TP BID, (Reported) APPLY TO BUTTOCKS Potassium Chloride 10 Meq Tablet.er, 10 MEQ PO DAILY Prescribed by: MEENA RODRIGUEZ on 12/23/18 1312 Prednisone 10 Mg Tab.ds.pk, 10 MG PO DAILY 30MG X2 DAYS 20MG X2 DAYS 10MG X2 DAYS Prescribed by: MEENA RODRIGUEZ on 12/23/18 1259 Quetiapine Fumarate 100 Mg Tablet, 100 MG PO DAILY, (Reported) Quetiapine Fumarate 300 Mg Tablet, 300 MG PO HS, (Reported) Ramipril 10 Mg Capsule, 10 MG PO DAILY, (Reported) HOLD FOR SBP<100 OR PULSE <60 Risperidone 2 Mg Tablet, 2 MG PO DAILY, (Reported) Risperidone 3 Mg Tablet, 3 MG PO HS, (Reported) Simvastatin 10 Mg Tablet, 10 MG PO HS, (Reported) Sitagliptin Phosphate 100 Mg Tablet, 100 MG PO DAILY, (Reported) Triamcinolone Acet 15 Gm Cr, TP BID, (Reported) APPLY TO BUTTOCKS Patient Home Medication List Home Medication List Reviewed: No Past Emqtcxt-Ycptve-Igywsj Hx Patient Social History Alcohol Use: Denies Use Recreational Drug Use: No Smoking Status: Unknown if Ever Smoked Recent Foreign Travel: No Contact w/other who traveled: No Recent Hopitalizations: No Recent Infectious Disease Expo: No Immunizations Up To Date Tetanus Booster (TDap): Unknown Date of Pneumonia Vaccine: Apr 15, 2012 Seasonal Allergies Seasonal Allergies: No Surgeries Yes (CARDIAC CATH) Cardiac Respiratory Yes (ACUTE RESPIRATORY FAILURE 12/22/14, functional dyspnea) COPD Cardiovascular Yes (CHF/ PULMONARY EDEMA 12/22/14) Chronic Edema/Swelling, Coronary Artery Disease, High Cholesterol, Hypertension Neurological Yes Dementia Reproductive System : No 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 Family Hx: Unobtainable Review of Systems Constitutional: weakness, other (Nonresponsive, seizure activity) EENTM: no symptoms reported Respiratory: other (Decreased breath sounds) Cardiovascular: no symptoms reported Gastrointestinal: no symptoms reported Genitourinary: no symptoms reported Psychiatric/Neurological: Other (Schizophrenia) Physical Exam Vital Signs Vital Signs - First Documented 01/01/19 01/01/19 11:49 20:00 Temp 97.5 Pulse 107 Resp 17 B/P (MAP) 138/55 (82) Pulse Ox 96 O2 Delivery Non Rebreather O2 Flow Rate 15.00 FiO2 45 Capillary Refill : Less Than 3 Seconds Height, Weight, BMI Height: 4'9.00" Weight: 199lbs. 9.0oz. 90.251305kg; 42.9 BMI Method:Estimated General Appearance: No Apparent Distress, WD/WN Eyes: Bilateral Eye Normal Inspection HEENT: Other (Has BiPAP on) Neck: Full Range of Motion, Normal Inspection Respiratory: No Accessory Muscle Use, No Respiratory Distress, Decreased Breath Sounds Cardiovascular: Regular Rate, Rhythm, No Murmur Gastrointestinal: Non Tender, Soft Assessment/Plan Assessment and Plan Seizure. Nonresponsive. Hypercapnia. COPD with acute exacerbation. Acute respiratory failure. CO2 narcosis. Schizophrenia. Right upper lobe pneumonia. Hyperkalemia. UTI. DO NOT RESUSCITATE Admission Diagnosis Admission Status: Inpatient Order (span 2 midnights) Reason for Inpatient Admission: Seizure. Nonresponsive. Right upper lobe pneumonia. Diabetes Clinical Quality Measures DVT/VTE Risk/Contraindication: Risk Factor Score Per Nursin RFS Level Per Nursing on Admit: 4+=Very High RUSTY MONTANEZ DO Jan 02, 2019 07:59
--- NOTE | 2019-01-02 08:20 | Diagnostic Imaging Report ---
INDICATION: COPD and respiratory failure. TIME OF EXAM: 3:15 AM Correlation is made with prior study from one day earlier. FINDINGS: Heart size is stable. Zone of linear atelectasis right base is unchanged. There is some infiltrate or atelectasis in left base obscuring left hemidiaphragm. There may be a small amount of pleural fluid in the left base as well. Upper lung mitchell are clear. There is no pneumothorax. IMPRESSION: Overall stable appearance of the chest when compared with exam one day earlier. Dictated by: Dictated on workstation # [id number]
[2019-01-02 08:35] LABS: POTASSIUM 5.1 MMOL/L (3.6-5.0)
[2019-01-02] MEDS: ENOXAPARIN 40 MG/0.4 ML (LOVENOX) SYR SC SCH ×2 (10:00→19:56)
--- NOTE | 2019-01-02 13:21 | NUR ---
RT Kelin has been down to CT with a critical patient 2 different times and in between intubated the patient; rt has been unavailable for different things today
[2019-01-02] MEDS ORDERED: POTA10TA36 PO (13:46)
--- NOTE | 2019-01-02 13:52 | NUR ---
REVIEWED MED REC WITH ORDER SUMMARY REPORT FROM [facility] AND [facility]
[2019-01-02] MEDS: AZITHROMYCIN 500 MG/NS 250 ML IVPB IV SCH ×2 (17:16)
[2019-01-02] MEDS: VANCOMYCIN 1500 MG/NS 500 ML IVPB IV SCH ×2 (18:43)
[2019-01-03] VITALS: BP 153/67
[2019-01-03] MEDS: RT-ALBUTEROL/IPRATROPIUM 3 ML (DUONEB) VIAL IH SCH ×6 (02:12→22:07)
[2019-01-03] MEDS: methylPREDNISolone 40 MG/ML (Solu-MEDROL) VIAL IV SCH ×4 (03:42→22:19)
[2019-01-03 04:00] VITALS: BP 147/65
[2019-01-03 05:40] LABS: BASOPHILS % (AUTO) 0 % (0-10); EOSINOPHILS % (AUTO) 0 % (0-10); HEMATOCRIT 29 % (35-52); HEMOGLOBIN 8.6 G/DL (11.5-16.0); LYMPHOCYTES # (AUTO) 0.4 X 10^3 (1.0-4.0); LYMPHOCYTES % (AUTO) 5 % (12-44); MEAN CORPUSCULAR HEMOGLOBIN 28 PG (25-34); MEAN CORPUSCULAR HGB CONC 30 G/DL (32-36); MEAN CORPUSCULAR VOLUME 94 FL (80-99); MEAN PLATELET VOLUME 10.6 FL (7.4-10.4); MONOCYTES # (AUTO) 0.3 X 10^3 (0.0-1.0); MONOCYTES % (AUTO) 4 % (0-12); NEUTROPHILS # (AUTO) 6.6 X 10^3 (1.8-7.8); NEUTROPHILS % (AUTO) 91 % (42-75); PLATELET COUNT 225 10^3/uL (130-400); RED CELL DISTRIBUTION WIDTH 16.1 % (10.0-14.5); WHITE BLOOD COUNT 7.3 10^3/uL (4.3-11.0)
[2019-01-03 06:03] LABS: ALANINE AMINOTRANSFERASE 39 U/L (0-55); ALBUMIN 2.9 GM/DL (3.2-4.5); ALKALINE PHOSPHATASE 74 U/L (40-136); BILIRUBIN,TOTAL 0.4 MG/DL (0.1-1.0); BUN/CREATININE RATIO 34; CALCIUM 8.8 MG/DL (8.5-10.1); CARBON DIOXIDE 33 MMOL/L (21-32); CHLORIDE 93 MMOL/L (98-107); GFR ESTIMATED > 60; GLUCOSE 227 MG/DL (70-105); PHOSPHORUS 4.1 MG/DL (2.3-4.7); POTASSIUM 4.7 MMOL/L (3.6-5.0); SODIUM 142 MMOL/L (135-145); TOTAL PROTEIN 5.4 GM/DL (6.4-8.2)
[2019-01-03] MEDS: MEROPENEM 500 MG/SWFI 10 ML IV PUSH IV SCH ×8 (06:16→23:11)
[2019-01-03] MEDS: inSUlin ASPART (NovoLOG) 1 UNIT/0.01 ML (CHARGE PER UNIT) SC SCH ×4 (06:17→22:26)
[2019-01-03 08:00] VITALS: BP 152/66
[2019-01-03] MEDS: ENOXAPARIN 40 MG/0.4 ML (LOVENOX) SYR SC SCH ×2 (08:44→20:32)
--- NOTE | 2019-01-03 11:46 | Progress Note-Hospitalist ---
Subjective HPI/CC On Admission Date Seen by Provider: Jan 03, 2019 Time Seen by Provider: 11:00 Subjective/Events-last exam Patient stable Maintained on BiPAP Is hungry so will await Dr. Back decision regarding to eat or not Vitals remained stable Rash is noted in isidra-area so we will initiate nystatin cream and powder Overall very poor prognosis Review of Systems Pulmonary: Dyspnea Focused Exam Lactate Level 01/01/19 11:55: Lactic Acid Level 0.67 Objective Exam Vital Signs Vital Signs Date Time Temp Pulse Resp B/P (MAP) Pulse Ox O2 Delivery O2 Flow Rate FiO2 01/03/19 16:03 98.0 77 24 189/79 (115) 97 NIV Bilevel 25.00 01/03/19 15:47 40 Capillary Refill : Less Than 3 Seconds General Appearance: No Apparent Distress, WD/WN HEENT: Other Neck: Full Range of Motion, Normal Inspection Respiratory: No Accessory Muscle Use, No Respiratory Distress, Decreased Breath Sounds Cardiovascular: Regular Rate, Rhythm, No Murmur Gastrointestinal: Non Tender, Soft Extremity: Normal Capillary Refill, No Pedal Edema Neurologic/Psychiatric: Alert, Depressed Affect Skin: Normal Color Results/Procedures Lab Laboratory Tests 01/03/19 05:08 Patient resulted labs reviewed. Assessment/Plan Assessment and Plan Assess & Plan/Chief Complaint Assessment: Acute respiratory failure with C02 narcosis on biPAP Acute seizure Morbid obesity AECOPD Pneumonia on Pb, Vanco and awaiting cultures Anemia DNR Plan: Monitor lung status DNR Very poor prognosis Diagnosis/Problems Diagnosis/Problems (1) COPD with exacerbation Status: Acute (2) Respiratory failure Status: Acute Qualifiers: Chronicity: acute on chronic Respiratory failure complication: hypoxia and hypercapnia Qualified Codes: J96.21 - Acute and chronic respiratory failure with hypoxia; J96.22 - Acute and chronic respiratory failure with hypercapnia (3) Right upper lobe pulmonary infiltrate Status: Acute (4) CO2 narcosis Status: Acute (5) BiPAP (biphasic positive airway pressure) dependence Status: Acute Clinical Quality Measures DVT/VTE Risk/Contraindication: Risk Factor Score Per Nursin RFS Level Per Nursing on Admit: 4+=Very High AL URBANO DO Jan 03, 2019 11:46
[2019-01-03 11:53] VITALS: BP 182/74
--- NOTE | 2019-01-03 12:47 | Pulmonary Progress Note ---
Subjective Time Seen by a Provider: 11:36 Subjective/Events-last exam Pt is lethargic. Sepsis Event Evaluation Height, Weight, BMI Height: 4'9.00" Weight: 203lbs. 3.0oz. 92.303549ww; 42.9 BMI Method:Estimated Focused Exam Lactate Level 01/01/19 11:55: Lactic Acid Level 0.67 Exam Exam Vital Signs Date Time Temp Pulse Resp B/P (MAP) Pulse Ox O2 Delivery O2 Flow Rate FiO2 01/03/19 11:53 98.1 75 18 182/74 (110) 98 NIV Bilevel 25.00 01/03/19 11:18 74 30 98 25.00 01/03/19 08:00 97.7 76 18 152/66 (94) 92 NIV Bilevel 25.00 01/03/19 08:00 Nasal Cannula 01/03/19 07:00 74 01/03/19 06:51 78 19 95 25.00 01/03/19 04:00 97.8 84 22 147/65 (92) 97 NIV Bilevel 25.00 01/03/19 02:12 80 18 95 25.00 01/03/19 01:00 85 01/03/19 00:00 98.0 89 20 153/67 (95) 95 NIV Bilevel 25.00 01/02/19 23:00 83 17 94 25.00 01/02/19 20:28 98.8 76 18 189/78 (115) 96 NIV Bilevel 25.00 01/02/19 20:00 NIV Bilevel 01/02/19 19:26 79 18 94 25.00 01/02/19 19:00 74 01/02/19 15:52 81 24 92 25.00 01/02/19 15:51 99.4 85 24 188/72 (110) 95 NIV Bilevel 25.00 I & O 01/03/19 07:00 Intake Total 2205 ml Output Total 400 ml Balance 1805 ml Height & Weight Height: 4'9.00" Weight: 203lbs. 3.0oz. 92.048937kx; 42.9 BMI Method:Estimated General Appearance: No Apparent Distress, WD/WN HEENT: Other Neck: Full Range of Motion, Normal Inspection Respiratory: No Accessory Muscle Use, No Respiratory Distress, Decreased Breath Sounds Cardiovascular: Regular Rate, Rhythm, No Murmur Capillary Refill: Less Than 3 Seconds Gastrointestinal: normal bowel sounds, non tender, soft Extremity: Normal Capillary Refill, No Pedal Edema Neurologic/Psychiatric: Alert, Depressed Affect Skin: Normal Color Results Lab Laboratory Tests 01/02/19 02:58 01/02/19 08:15 01/03/19 05:08 Assessment/Plan Assessment/Plan Acute respiratory failure with C02 narcosis -BIPAP currently -Monitor -Pt is DNR Acute seizure while at ECF -Seizure precautions -Monitor Morbid obesity COPDAE -Solumedrol -SVNs PNA -Merrem, Vanco and await cultures Anemia -Monitor KEYANA DUBOIS DO Jan 03, 2019 12:47
[2019-01-03] MEDS: AZITHROMYCIN 500 MG/NS 250 ML IVPB IV SCH ×2 (16:01)
[2019-01-03] MEDS: NS IV 1000 ML 1,000 ML IV SCH (16:02)
[2019-01-03] MEDS: NYSTATIN CREAM (MYCOSTATIN) 30 GM TUBE TP SCH ×2 (16:02→20:33)
[2019-01-03 16:03] VITALS: BP 189/79
[2019-01-03] MEDS: VANCOMYCIN 1500 MG/NS 500 ML IVPB IV SCH ×2 (18:13)
[2019-01-03 19:55] VITALS: BP 179/74
[2019-01-04] VITALS: BP 182/77
[2019-01-04] MEDS: RT-ALBUTEROL/IPRATROPIUM 3 ML (DUONEB) VIAL IH SCH ×6 (02:56→22:37)
[2019-01-04 04:00] VITALS: BP 172/80
[2019-01-04 04:11] LABS: BUN/CREATININE RATIO 32; CALCIUM 8.7 MG/DL (8.5-10.1); CARBON DIOXIDE 37 MMOL/L (21-32); CHLORIDE 94 MMOL/L (98-107); CREATININE SERUM 0.65 MG/DL (0.60-1.30); GFR ESTIMATED > 60; GLUCOSE 247 MG/DL (70-105); MAGNESIUM 1.9 MG/DL (1.8-2.4); POTASSIUM 4.1 MMOL/L (3.6-5.0); SODIUM 141 MMOL/L (135-145)
[2019-01-04] MEDS: methylPREDNISolone 40 MG/ML (Solu-MEDROL) VIAL IV SCH ×4 (04:48→21:38)
[2019-01-04] MEDS: MEROPENEM 500 MG/SWFI 10 ML IV PUSH IV SCH ×8 (05:45→23:15)
--- NOTE | 2019-01-04 06:25 | Pulmonary Progress Note ---
Subjective Time Seen by a Provider: 11:36 Subjective/Events-last exam C/O SOB Sepsis Event Evaluation Height, Weight, BMI Height: 4'9.00" Weight: 203lbs. 3.0oz. 92.192637qk; 42.9 BMI Method:Estimated Focused Exam Lactate Level 01/01/19 11:55: Lactic Acid Level 0.67 Exam Exam Vital Signs Date Time Temp Pulse Resp B/P (MAP) Pulse Ox O2 Delivery O2 Flow Rate FiO2 01/04/19 04:00 98.4 81 22 172/80 (110) 96 Vapotherm 30.00 10.00 01/04/19 02:56 89 Vapotherm 10.00 30 01/04/19 01:00 86 01/04/19 00:00 98.8 83 20 182/77 (112) 93 Vapotherm 30.00 10.00 01/03/19 22:00 97 Vapotherm 12.00 40 01/03/19 20:00 97 Vapotherm 12.00 40 01/03/19 19:55 98.2 87 20 179/74 (109) 98 Vapotherm 40.00 12.00 01/03/19 19:00 89 01/03/19 16:03 98.0 77 24 189/79 (115) 97 NIV Bilevel 25.00 01/03/19 15:47 95 Vapotherm 12.00 40 01/03/19 13:00 79 01/03/19 11:53 98.1 75 18 182/74 (110) 98 NIV Bilevel 25.00 01/03/19 11:18 74 30 98 25.00 01/03/19 08:00 97.7 76 18 152/66 (94) 92 NIV Bilevel 25.00 01/03/19 08:00 Nasal Cannula 01/03/19 07:00 74 01/03/19 06:51 78 19 95 25.00 I & O 01/04/19 07:00 Intake Total 900 ml Output Total 850 ml Balance 50 ml Height & Weight Height: 4'9.00" Weight: 203lbs. 3.0oz. 92.576842ha; 42.9 BMI Method:Estimated General Appearance: No Apparent Distress, WD/WN HEENT: Other Neck: Full Range of Motion, Normal Inspection Respiratory: No Accessory Muscle Use, No Respiratory Distress, Decreased Breath Sounds Cardiovascular: Regular Rate, Rhythm, No Murmur Capillary Refill: Less Than 3 Seconds Gastrointestinal: normal bowel sounds, non tender, soft Extremity: Normal Capillary Refill, No Pedal Edema Neurologic/Psychiatric: Alert, Depressed Affect Skin: Normal Color Results Lab Laboratory Tests 01/02/19 08:15 01/03/19 05:08 01/04/19 03:26 Assessment/Plan Assessment/Plan Acute respiratory failure with C02 narcosis - improving -BIPAP PRN, Vapotherm currently -Monitor -Pt is DNR [facility] -Seizure precautions -Monitor Morbid obesity COPDAE -Solumedrol -SVNs PNA -Merrem, Vanco and await cultures Anemia -Monitor KEYANA DUBOIS DO Jan 04, 2019 06:25
[2019-01-04] MEDS: inSUlin ASPART (NovoLOG) 1 UNIT/0.01 ML (CHARGE PER UNIT) SC SCH ×4 (06:26→21:39)
--- NOTE | 2019-01-04 07:49 | NUR ---
rt finally made it to patients room to give patient her 0600 svn breathing tx and she was getting cleaned up by the RN and Aide (patient finally had a bowel movement), due to the time 0600 duoneb was non-administered.
[2019-01-04 08:06] VITALS: BP 160/78
[2019-01-04] MEDS: ENOXAPARIN 40 MG/0.4 ML (LOVENOX) SYR SC SCH (08:43)
[2019-01-04] MEDS: NYSTATIN CREAM (MYCOSTATIN) 30 GM TUBE TP SCH ×3 (08:43→21:39)
--- NOTE | 2019-01-04 11:41 | Progress Note-Hospitalist ---
Subjective HPI/CC On Admission Date Seen by Provider: Jan 04, 2019 Time Seen by Provider: 12:00 Subjective/Events-last exam Patient up in a chair today and eating Off of BiPAP Having a little bit of addis-colored stools. Lovenox and affect continues to be a problem we'll consult Dr. Gutiérrez Tolerating all medications well but overall very poor prognosis Review of Systems General: Fatigue Pulmonary: Dyspnea Gastrointestinal: Melena Focused Exam Lactate Level Objective Exam Vital Signs Vital Signs Date Time Temp Pulse Resp B/P (MAP) Pulse Ox O2 Delivery O2 Flow Rate FiO2 01/04/19 12:46 91 01/04/19 12:19 97.6 24 155/72 (99) 92 Nasal Cannula 1.00 01/04/19 02:56 30 Capillary Refill : Less Than 3 Seconds General Appearance: No Apparent Distress, WD/WN, Chronically ill, Obese HEENT: Other Neck: Full Range of Motion, Normal Inspection Respiratory: No Accessory Muscle Use, No Respiratory Distress, Decreased Breath Sounds Cardiovascular: Regular Rate, Rhythm, No Murmur Gastrointestinal: Non Tender, Soft Extremity: Normal Capillary Refill, No Pedal Edema Neurologic/Psychiatric: Alert, Depressed Affect Skin: Normal Color Results/Procedures Lab Laboratory Tests 01/04/19 03:26 Patient resulted labs reviewed. Assessment/Plan Assessment and Plan Assess & Plan/Chief Complaint Assessment: Acute respiratory failure with C02 narcosis on biPAP Acute seizure Morbid obesity AECOPD Pneumonia on Pb, Vanco and awaiting cultures Anemia DNR Melena? Holding Lovenox Plan: Monitor lung status DNR Very poor prognosis Diagnosis/Problems Diagnosis/Problems (1) COPD with exacerbation Status: Acute (2) Respiratory failure Status: Acute Qualifiers: Chronicity: acute on chronic Respiratory failure complication: hypoxia and hypercapnia Qualified Codes: J96.21 - Acute and chronic respiratory failure with hypoxia; J96.22 - Acute and chronic respiratory failure with hypercapnia (3) Right upper lobe pulmonary infiltrate Status: Acute (4) CO2 narcosis Status: Acute (5) BiPAP (biphasic positive airway pressure) dependence Status: Acute Clinical Quality Measures DVT/VTE Risk/Contraindication: Risk Factor Score Per Nursin RFS Level Per Nursing on Admit: 4+=Very High AL URBANO DO Jan 04, 2019 11:41
[2019-01-04 12:19] VITALS: BP 155/72
[2019-01-04 16:09] VITALS: BP 187/80
[2019-01-04] MEDS: AZITHROMYCIN 500 MG/NS 250 ML IVPB IV SCH ×2 (16:09)
[2019-01-04 20:01] VITALS: BP 160/73
[2019-01-04] MEDS: NS IV 1000 ML 1,000 ML IV SCH (23:17)
[2019-01-05] VITALS (8 sets, daily range): BP systolic 160–181; BP diastolic 77–84
[2019-01-05] MEDS: RT-ALBUTEROL/IPRATROPIUM 3 ML (DUONEB) VIAL IH SCH ×6 (03:24→22:20)
[2019-01-05] MEDS: methylPREDNISolone 40 MG/ML (Solu-MEDROL) VIAL IV SCH ×4 (03:53→21:04)
[2019-01-05 04:34] LABS: BUN/CREATININE RATIO 33; CARBON DIOXIDE 37 MMOL/L (21-32); CHLORIDE 97 MMOL/L (98-107); CREATININE SERUM 0.55 MG/DL (0.60-1.30); GFR ESTIMATED > 60; GLUCOSE 226 MG/DL (70-105); MAGNESIUM 1.9 MG/DL (1.8-2.4); POTASSIUM 4.6 MMOL/L (3.6-5.0); SODIUM 140 MMOL/L (135-145)
[2019-01-05] MEDS: MEROPENEM 500 MG/SWFI 10 ML IV PUSH IV SCH ×8 (05:50→23:16)
[2019-01-05] MEDS: inSUlin ASPART (NovoLOG) 1 UNIT/0.01 ML (CHARGE PER UNIT) SC SCH ×4 (07:27→21:04)
--- NOTE | 2019-01-05 07:51 | Progress Note (SOAP) ---
Subjective Time Seen by a Provider: 07:47 Subjective/Events-last exam Patient having melena Patient talking about stools. Patient doing better Objective Exam Vital Signs Date Time Temp Pulse Resp B/P (MAP) Pulse Ox O2 Delivery O2 Flow Rate FiO2 01/05/19 04:00 97.4 85 18 179/84 (115) 94 Nasal Cannula 1.00 01/05/19 03:25 92 Nasal Cannula 2.00 01/05/19 01:00 78 01/05/19 00:00 97.3 83 18 180/81 (114) 96 Nasal Cannula 1.00 01/04/19 22:38 91 Nasal Cannula 2.00 01/04/19 20:01 96.6 88 24 160/73 (102) 94 Nasal Cannula 1.00 01/04/19 20:00 Nasal Cannula 2.00 01/04/19 19:00 83 01/04/19 16:09 98.6 87 24 187/80 (115) 94 Nasal Cannula 1.00 01/04/19 15:20 91 Nasal Cannula 2.00 01/04/19 12:46 91 01/04/19 12:19 97.6 94 24 155/72 (99) 92 Nasal Cannula 1.00 01/04/19 11:19 94 Nasal Cannula 2.00 01/04/19 08:06 98.0 81 22 160/78 (105) 97 Vapotherm 40.00 10.00 01/04/19 08:00 Nasal Cannula 2.00 I & O 01/05/19 07:00 Intake Total 1750 ml Output Total 950 ml Balance 800 ml Capillary Refill : Less Than 3 Seconds General Appearance: No Apparent Distress, WD/WN HEENT: Normal ENT Inspection Neck: Normal Inspection, Non Tender Respiratory: No Accessory Muscle Use, No Respiratory Distress, Decreased Breath Sounds Cardiovascular: Regular Rate, Rhythm Gastrointestinal: non tender, soft Results Lab Laboratory Tests 01/05/19 03:55 Laboratory Tests 01/04/19 11:12: Glucometer 307H 01/04/19 13:20: Stool Occult Blood Immunoassay POSITIVEH 01/04/19 15:29: Glucometer 318H 01/04/19 20:26: Glucometer 317H 01/05/19 03:55: Sodium Level 140, Potassium Level 4.6, Chloride Level 97L, Carbon Dioxide Level 37H, Anion Gap 6, Blood Urea Nitrogen 18, Creatinine 0.55L, Estimat Glomerular Filtration Rate > 60, BUN/Creatinine Ratio 33, Glucose Level 226H, Calcium Level 9.0, Magnesium Level 1.9 Microbiology 01/01/19 Blood Culture - Preliminary, Resulted No growth 01/01/19 Urine Culture - Preliminary, Resulted Strep anginosus YEAST Strptcoc constellatus ss const Assessment/Plan Assessment/Plan Assess & Plan/Chief Complaint Acute respiratory failure. CO2 narcosis. Acute seizure. Morbid obesity. Pneumonia. DO NOT RESUSCITATE. Melena. Morbid obesity. anemia Clinical Quality Measures Admission Status Admission Dx Seizure. Nonresponsive. Hypercapnia. COPD with acute exacerbation. Acute respiratory failure. CO2 narcosis. Schizophrenia. Right upper lobe pneumonia. Hyperkalemia. UTI. DO NOT RESUSCITATE DVT/VTE Risk/Contraindication: Risk Factor Score Per Nursin RFS Level Per Nursing on Admit: 4+=Very High ARA MONTANEZ DO Jan 05, 2019 07:51
[2019-01-05] MEDS: NYSTATIN CREAM (MYCOSTATIN) 30 GM TUBE TP SCH ×3 (09:18→20:06)
--- NOTE | 2019-01-05 09:52 | Diagnostic Imaging Report ---
INDICATION: Shortness of air. Time of exam: 9:35 AM Correlation is made with prior study 01/02/2019. The heart is enlarged but stable. There is some parenchymal consolidation in the left base obscuring the left hemidiaphragm. There appears to be some areas of consolidation in the right base as well with air bronchograms. The zone of linear atelectasis in right base on prior has improved. Upper lung mitchell are clear. No pneumothorax is seen. IMPRESSION: Bibasilar regions of consolidation are again noted although there has been some improved aeration in the right base since 3 days earlier. Dictated by: Dictated on workstation # [id number]
--- NOTE | 2019-01-05 14:05 | NUR ---
Pastoral care visit, pt asleep no visitors present, pt did not awaken.
--- NOTE | 2019-01-05 14:50 | Pulmonary Progress Note ---
Subjective Time Seen by a Provider: 14:49 Subjective/Events-last exam Pt appears to be doing better Sepsis Event Evaluation Height, Weight, BMI Height: 4'9.00" Weight: 215lbs. 5.0oz. 97.722525ti; 42.9 BMI Method:Estimated Exam Exam Vital Signs Date Time Temp Pulse Resp B/P (MAP) Pulse Ox O2 Delivery O2 Flow Rate FiO2 01/05/19 14:23 95 Nasal Cannula 2.00 01/05/19 13:00 95 01/05/19 12:00 98.0 88 22 176/80 (112) 93 Nasal Cannula 1.00 01/05/19 10:25 88 Nasal Cannula 1.00 01/05/19 08:00 Nasal Cannula 2.00 01/05/19 08:00 98.1 87 22 181/81 (114) 94 Nasal Cannula 1.00 01/05/19 07:00 85 01/05/19 04:00 97.4 85 18 179/84 (115) 94 Nasal Cannula 1.00 01/05/19 03:25 92 Nasal Cannula 2.00 01/05/19 01:00 78 01/05/19 00:00 97.3 83 18 180/81 (114) 96 Nasal Cannula 1.00 01/04/19 22:38 91 Nasal Cannula 2.00 01/04/19 20:01 96.6 88 24 160/73 (102) 94 Nasal Cannula 1.00 01/04/19 20:00 Nasal Cannula 2.00 01/04/19 19:00 83 01/04/19 16:09 98.6 87 24 187/80 (115) 94 Nasal Cannula 1.00 01/04/19 15:20 91 Nasal Cannula 2.00 I & O 01/05/19 07:00 Intake Total 1750 ml Output Total 950 ml Balance 800 ml Height & Weight Height: 4'9.00" Weight: 215lbs. 5.0oz. 97.219847sq; 42.9 BMI Method:Estimated General Appearance: No Apparent Distress, WD/WN HEENT: Normal ENT Inspection Neck: Normal Inspection, Non Tender Respiratory: No Accessory Muscle Use, No Respiratory Distress, Decreased Breath Sounds Cardiovascular: Regular Rate, Rhythm Capillary Refill: Less Than 3 Seconds Gastrointestinal: non tender, soft Extremity: Normal Capillary Refill, No Pedal Edema Neurologic/Psychiatric: Alert, Depressed Affect Skin: Normal Color Results Lab Laboratory Tests 01/04/19 03:26 01/05/19 03:55 Assessment/Plan Assessment/Plan Acute respiratory failure with C02 narcosis - improving -BIPAP PRN, Vapotherm currently -Monitor -Pt is DNR Acute seizure while at [facility] -Seizure precautions -Monitor Morbid obesity COPDAE -Solumedrol -SVNs PNA -Merrem Anemia -Monitor KEYANA DUBOIS DO Jan 05, 2019 14:50
--- NOTE | 2019-01-05 14:50 | NUR ---
PALLIATIVE CARE RN consult received. Went in to visit the patient and talk with her , Stevie. Patient is alert in bed and is pleasant, however she is not oriented to person or place. She has dry lips that are crusty with dried phlegm which is also caked on her tongue. This RN gathered supplies for oral care and performed a good tooth brushing which helped to loosen the dried mouth contents. Patient did follow the command to "stick tongue out" and worked to clear the now loosened debris. Spoke with the about the hospice benefit. He is not wanting to discuss with his daughter due to her upcoming 50th anniversary and celebration to include a [place] trip. We got no where with the hospice discussion on this date. I called [facility] and they were able pick him up so that he could go shower and rest. Addendum: 01/05/19 at 1500 by RICA PALACIO RN Disregard note Wrong patient
--- NOTE | 2019-01-05 15:02 | NUR ---
PALLIATIVE CARE CONSULT received on this patient know from previous admission. Patient does not fully comprehend why she is here or anything else. SHe just answers yes to questions for the most part. Patient did not know that she was to have a consult from Dr. Gutiérrez due to blood in stool but and emphatically said no to surgery if there came the need. Still unsure if she understands.
--- NOTE | 2019-01-05 15:03 | NUR ---
Pt resting with eyes closed. No visitors present at this time. Offered calming presence, soothing touch and prayer.
--- NOTE | 2019-01-05 17:11 | CONSULTATION REPORT ---
DATE OF SERVICE: 01/05/2019 ATTENDING PRIMARY CARE PHYSICIAN: Dr. Rodriguez. HISTORY OF PRESENT ILLNESS: The patient is a 73-year-old female who is a resident of an extended care facility. She was transferred over for what sounds to be altered mentation and loss of consciousness. She also began having seizure like activities. She had been admitted a few times earlier for respiratory failure. She also has a history of morbid obesity and is not able to ambulate. She requires BiPAP therapy and is found to be hypercarbic. At this time, she is a do not resuscitate. During this admission, she has had some episodes of initially dark stools; however, staff reports that there was some bright red blood per rectum today. Her hemoglobin has slowly gone down since admission on the from the 10 range to 8. She was on Eliquis, which was discontinued. When conversing with the patient. The patient does appear to be awake and alert and does answer majority of questions appropriately. She states that she did have a colonoscopy less than 10 years ago and does not remember any abnormalities. When asked if she wants to proceed with a colonoscopy for diagnostic purposes of the rectal bleeding and anemia at this time, she states no. PAST MEDICAL HISTORY: Respiratory failure, history of pneumonia, CHF, pulmonary edema, coronary artery disease, bilateral lower extremity edema, hypercholesterolemia, hypertension, dementia, chronic constipation, diabetes, schizophrenia, sleep apnea. PAST SURGICAL HISTORY: Unknown. ALLERGIES: PENICILLIN. MEDICATIONS: Aripiprazole 10 mg daily, aspirin 81 mg daily, dextrose p.r.n., Colace 100 mg b.i.d., glucagon p.r.n., insulin sliding scale, detemir insulin 15 units daily, 18 units at bedtime, metformin 1000 mg b.i.d., prednisone 10 mg daily, potassium 10 mEq daily, quetiapine 100 mg daily, 300 mg at bedtime, ramipril 10 mg daily, risperidone 2 mg daily, 3 mg at bedtime, simvastatin 10 mg daily, sitagliptin 100 mg daily, triamcinolone b.i.d. SOCIAL HISTORY: Negative smoke, negative alcohol. FAMILY HISTORY: Noncontributory. VITAL SIGNS: Temperature 98.0, blood pressure 176/80, pulse 95, respirations 22, pulse ox 95% on 2 liters nasal cannula. REVIEW OF SYSTEMS: This is an obese female who is lying supine on the bed. She is awake and alert and does answer majority of questions appropriately; however, there appears to be some mental delay. Upon questioning about previous colonoscopies she did sound coherent and states that she did have one before in the past, which was less than 10 years ago; however, does not report any abnormalities. If asked if she wants to proceed with another colonoscopy for diagnostic purposes, she stated no. She does have some shortness of breath; however, is being treated with BiPAP. No chest pain, palpitations, diaphoresis. No nausea, vomiting with intermittent episodes of dark stools; however, recently red blood per rectum. No fever, chills, no recent inadvertent weight loss. All other review of systems negative. PHYSICAL EXAMINATION: CHEST: Scattered rales and rhonchi bilaterally. HEART: Regular, no murmurs. EXTREMITIES: +2/3 bilateral lower extremity edema. Negative Homans sign. HEENT: No scleral icterus. No cervical lymphadenopathy. ABDOMEN: Soft, nontender, nondistended. SKIN: Warm, dry. LABORATORY DATA: WBC 7.3, hemoglobin 8.6, hematocrit 29, platelets 225, BUN 18, creatinine 0.55. ASSESSMENT AND PLAN: A 73-year-old female with multiple medical comorbidities and a DNR status. She presents with dark stools as well as developing into red blood per rectum. She does recall having a colonoscopy in the past, which was less than 10 years ago and does not remember any abnormalities. The option to proceed with a colonoscopy on this admission was given to her, which may be diagnostic as well as therapeutic; however, at this time, she is declining. If she continues to have these symptoms of bleeding as well as unstable vital signs she may reconsider. Job ID: [id number] DocumentID: [id number] Dictated Date: 01/05/2019 16:47:14 Manager Division Date: 01/05/2019 17:11:01 Dictated By: KASIE SALINAS MD [facility] FACILITYNaila
[2019-01-05] MEDS: AZITHROMYCIN 500 MG/NS 250 ML IVPB IV SCH ×2 (18:14)
[2019-01-05] MEDS: NS IV 1000 ML 1,000 ML IV SCH (20:06)
[2019-01-06 03:20] VITALS: BP 166/75
[2019-01-06] MEDS: RT-ALBUTEROL/IPRATROPIUM 3 ML (DUONEB) VIAL IH SCH ×6 (03:22→23:18)
[2019-01-06 03:53] LABS: HEMOGLOBIN 9.8 G/DL (11.5-16.0); MEAN PLATELET VOLUME 9.8 FL (7.4-10.4); RED CELL DISTRIBUTION WIDTH 16.4 % (10.0-14.5); WHITE BLOOD COUNT 9.1 10^3/uL (4.3-11.0)
[2019-01-06 04:14] LABS: BUN/CREATININE RATIO 33; CALCIUM 9.1 MG/DL (8.5-10.1); CARBON DIOXIDE 38 MMOL/L (21-32); CHLORIDE 97 MMOL/L (98-107); CREATININE SERUM 0.54 MG/DL (0.60-1.30); GFR ESTIMATED > 60; GLUCOSE 246 MG/DL (70-105); MAGNESIUM 1.9 MG/DL (1.8-2.4); SODIUM 141 MMOL/L (135-145)
[2019-01-06] MEDS: methylPREDNISolone 40 MG/ML (Solu-MEDROL) VIAL IV SCH (04:20)
[2019-01-06] MEDS: MEROPENEM 500 MG/SWFI 10 ML IV PUSH IV SCH ×2 (05:58)
[2019-01-06] MEDS: inSUlin ASPART (NovoLOG) 1 UNIT/0.01 ML (CHARGE PER UNIT) SC SCH ×4 (06:37→21:26)
--- NOTE | 2019-01-06 07:39 | Progress Note (SOAP) ---
Subjective Time Seen by a Provider: 07:36 Subjective/Events-last exam Patient states she feels confused this morning. Patient did not have a bowel movement last night. No blood in stool seen last night. Hemoglobin and hematocrit increased. Patient refuses colonoscopy. Patient stable Objective Exam Vital Signs Date Time Temp Pulse Resp B/P (MAP) Pulse Ox O2 Delivery O2 Flow Rate FiO2 01/06/19 03:33 Nasal Cannula 2.00 01/06/19 03:20 98.2 88 24 166/75 (105) 98 High Flow N/C 2.00 01/06/19 01:00 90 01/05/19 23:10 97.0 97 24 170/79 (109) 95 High Flow N/C 2.00 01/05/19 22:22 94 Nasal Cannula 2.00 01/05/19 20:15 High Flow N/C 2.00 01/05/19 19:00 97.7 89 24 168/78 (108) 100 Nasal Cannula 1.00 01/05/19 19:00 88 01/05/19 16:20 160/78 (105) 01/05/19 16:00 97.7 93 24 167/77 (107) 99 Nasal Cannula 1.00 01/05/19 14:23 95 Nasal Cannula 2.00 01/05/19 13:00 95 01/05/19 12:00 98.0 88 22 176/80 (112) 93 Nasal Cannula 1.00 01/05/19 10:25 88 Nasal Cannula 1.00 01/05/19 08:00 Nasal Cannula 2.00 01/05/19 08:00 98.1 87 22 181/81 (114) 94 Nasal Cannula 1.00 I & O 01/06/19 07:00 Intake Total 2540 ml Output Total 1150 ml Balance 1390 ml Capillary Refill : Less Than 3 Seconds General Appearance: No Apparent Distress, WD/WN HEENT: Normal ENT Inspection Neck: Full Range of Motion, Normal Inspection Respiratory: No Accessory Muscle Use, No Respiratory Distress, Decreased Breath Sounds Cardiovascular: Regular Rate, Rhythm, No Murmur Gastrointestinal: non tender, soft Results Lab Laboratory Tests 01/06/19 03:45 Laboratory Tests 01/05/19 11:12: Glucometer 334H 01/05/19 15:46: Glucometer 224H 01/05/19 20:47: Glucometer 212H 01/06/19 03:45: White Blood Count 9.1, Red Blood Count 3.47L, Hemoglobin 9.8L, Hematocrit 33L, Mean Corpuscular Volume 95, Mean Corpuscular Hemoglobin 28, Mean Corpuscular Hemoglobin Concent 30L, Red Cell Distribution Width 16.4H, Platelet Count 251, Mean Platelet Volume 9.8, Sodium Level 141, Potassium Level 5.0, Chloride Level 97L, Carbon Dioxide Level 38H, Anion Gap 6, Blood Urea Nitrogen 18, Creatinine 0 .54L, Estimat Glomerular Filtration Rate > 60, BUN/Creatinine Ratio 33, Glucose Level 246H, Calcium Level 9.1, Magnesium Level 1.9 01/06/19 06:32: Glucometer 217H Microbiology 01/01/19 Blood Culture - Preliminary, Resulted No growth 01/01/19 Urine Culture - Final, Complete Strep anginosus YEAST Strptcoc constellatus ss const Assessment/Plan Assessment/Plan Assess & Plan/Chief Complaint Acute respiratory failure. CO2 narcosis. Acute seizure. Morbid obesity. Pneumonia. DO NOT RESUSCITATE. Melena. Morbid obesity. anemia. . 01/06/19. Stools were black today or passing blood. Acute respiratory failure. CO2 narcosis. Seizure. Morbid obesity. Pneumonia. DO NOT RESUSCITATE. Schizophrenia. Patient states she's confused today. Patient holding her own Clinical Quality Measures Admission Status Admission Dx Seizure. Nonresponsive. Hypercapnia. COPD with acute exacerbation. Acute respiratory failure. CO2 narcosis. Schizophrenia. Right upper lobe pneumonia. Hyperkalemia. UTI. DO NOT RESUSCITATE DVT/VTE Risk/Contraindication: Risk Factor Score Per Nursin RFS Level Per Nursing on Admit: 4+=Very High ARA MONTANEZ DO Jan 06, 2019 07:38
[2019-01-06 08:00] VITALS: BP 167/68
--- NOTE | 2019-01-06 08:07 | Pulmonary Progress Note ---
Subjective Time Seen by a Provider: 11:35 Subjective/Events-last exam PT is doing better Sepsis Event Evaluation Height, Weight, BMI Height: 4'9.00" Weight: 214lbs. 12.8oz. 97.741363yl; 42.9 BMI Method:Estimated Exam Exam Vital Signs Date Time Temp Pulse Resp B/P (MAP) Pulse Ox O2 Delivery O2 Flow Rate FiO2 01/06/19 07:46 97 Nasal Cannula 2.00 01/06/19 03:33 Nasal Cannula 2.00 01/06/19 03:20 98.2 88 24 166/75 (105) 98 High Flow N/C 2.00 01/06/19 01:00 90 01/05/19 23:10 97.0 97 24 170/79 (109) 95 High Flow N/C 2.00 01/05/19 22:22 94 Nasal Cannula 2.00 01/05/19 20:15 High Flow N/C 2.00 01/05/19 19:00 97.7 89 24 168/78 (108) 100 Nasal Cannula 1.00 01/05/19 19:00 88 01/05/19 16:20 160/78 (105) 01/05/19 16:00 97.7 93 24 167/77 (107) 99 Nasal Cannula 1.00 01/05/19 14:23 95 Nasal Cannula 2.00 01/05/19 13:00 95 01/05/19 12:00 98.0 88 22 176/80 (112) 93 Nasal Cannula 1.00 01/05/19 10:25 88 Nasal Cannula 1.00 I & O 01/06/19 07:00 Intake Total 2540 ml Output Total 1150 ml Balance 1390 ml Height & Weight Height: 4'9.00" Weight: 214lbs. 12.8oz. 97.143021pd; 42.9 BMI Method:Estimated General Appearance: No Apparent Distress, WD/WN HEENT: Normal ENT Inspection Neck: Full Range of Motion, Normal Inspection Respiratory: No Accessory Muscle Use, No Respiratory Distress, Decreased Breath Sounds Cardiovascular: Regular Rate, Rhythm, No Murmur Capillary Refill: Less Than 3 Seconds Gastrointestinal: non tender, soft Extremity: Normal Capillary Refill, No Pedal Edema Neurologic/Psychiatric: Alert, Depressed Affect Skin: Normal Color Results Lab Laboratory Tests 01/05/19 03:55 01/06/19 03:45 Assessment/Plan Assessment/Plan Acute respiratory failure with C02 narcosis - improving -BIPAP PRN, Vapotherm currently -Monitor -Pt is DNR -D/C IVF -Check BNP -- Pt may need lasix Acute seizure while at [facility]CF -Seizure precautions -Monitor Morbid obesity COPDAE -Solumedrol - D/C -SVNs PNA- resolving -Merrem- D/C Anemia -Monitor Pt appears to be doing better. KEYANA DUBOIS DO Jan 06, 2019 08:07
[2019-01-06] MEDS: NYSTATIN CREAM (MYCOSTATIN) 30 GM TUBE TP SCH ×3 (09:11→21:26)
--- NOTE | 2019-01-06 11:34 | NUR ---
CM DISCHARGE PLANNING: Dr. Rodriguez indicated that the patient is a possible discharge for tomorrow back to [facility] however would like to have PT and OT evaluate and treat et would like bojorquez catheter removed to assess if patient able to urinate without catheter. Telephone orders placed et f/u with primary care nurse BPhnicolasa RN of new orders received and placed.
[2019-01-06 12:00] VITALS: BP 146/67
--- NOTE | 2019-01-06 13:01 | Progress Note (SOAP) ---
Subjective Date Seen by a Provider: Jan 06, 2019 Time Seen by a Provider: 12:00 Subjective/Events-last exam tolerating diet. no clinical rectal bleeding today. Hb stable. Objective Exam Vital Signs Date Time Temp Pulse Resp B/P (MAP) Pulse Ox O2 Delivery O2 Flow Rate FiO2 01/06/19 08:00 97.0 99 24 167/68 (101) 95 Nasal Cannula 2.00 01/06/19 08:00 High Flow N/C 2.00 01/06/19 07:46 97 Nasal Cannula 2.00 01/06/19 07:00 95 01/06/19 03:33 Nasal Cannula 2.00 01/06/19 03:20 98.2 88 24 166/75 (105) 98 High Flow N/C 2.00 01/06/19 01:00 90 01/05/19 23:10 97.0 97 24 170/79 (109) 95 High Flow N/C 2.00 01/05/19 22:22 94 Nasal Cannula 2.00 01/05/19 20:15 High Flow N/C 2.00 01/05/19 19:00 97.7 89 24 168/78 (108) 100 Nasal Cannula 1.00 01/05/19 19:00 88 01/05/19 16:20 160/78 (105) 01/05/19 16:00 97.7 93 24 167/77 (107) 99 Nasal Cannula 1.00 01/05/19 14:23 95 Nasal Cannula 2.00 01/05/19 13:00 95 I & O 01/06/19 07:00 Intake Total 2540 ml Output Total 1150 ml Balance 1390 ml Capillary Refill : Less Than 3 Seconds General Appearance: No Apparent Distress HEENT: PERRL/EOMI Neck: Full Range of Motion Respiratory: Chest Non Tender, Decreased Breath Sounds Cardiovascular: Regular Rate, Rhythm Gastrointestinal: normal bowel sounds, non tender, soft Extremity: Normal Capillary Refill Neurologic/Psychiatric: Alert, Oriented x3 Skin: Normal Color Lymphatic: No Adenopathy Results Lab Laboratory Tests 01/05/19 15:46: Glucometer 224H 01/05/19 20:47: Glucometer 212H 01/06/19 03:45: White Blood Count 9.1, Red Blood Count 3.47L, Hemoglobin 9.8L, Hematocrit 33L, Mean Corpuscular Volume 95, Mean Corpuscular Hemoglobin 28, Mean Corpuscular Hemoglobin Concent 30L, Red Cell Distribution Width 16.4H, Platelet Count 251, Mean Platelet Volume 9.8, Sodium Level 141, Potassium Level 5.0, Chloride Level 97L, Carbon Dioxide Level 38H, Anion Gap 6, Blood Urea Nitrogen 18, Creatinine 0.54L, Estimat Glomerular Filtration Rate > 60, BUN/Creatinine Ratio 33, Glucose Level 246H, Calcium Level 9.1, Magnesium Level 1.9, B-Type Natriuretic Peptide 808.9H 01/06/19 06:32: Glucometer 217H 01/06/19 10:52: Glucometer 293H Microbiology 01/01/19 Blood Culture - Preliminary, Resulted No growth 01/01/19 Urine Culture - Final, Complete Strep anginosus YEAST Strptcoc constellatus ss const Assessment/Plan Assessment/Plan Assess & Plan/Chief Complaint rectal bleeding. multiple medical comorbidities, eliquis held. currently no clinical bleed and Hb stable. pt also DNR. will recommend continued medical management for now. Clinical Quality Measures DVT/VTE Risk/Contraindication: Risk Factor Score Per Nursin RFS Level Per Nursing on Admit: 4+=Very High KASIE SALINAS MD Jan 06, 2019 13:01
--- NOTE | 2019-01-06 13:44 | NUR ---
NOTE THIS RN SCANNED BOTH THE [place]STATIN CREAM AND THE INSULIN THE [place]STATIN FILED AWAY BUT THE INSULIN DID NOT
--- NOTE | 2019-01-06 14:47 | Physical Therapy Evaluation ---
PT Evaluation-General Medical Diagnosis Admission Date Jan 01, 2019 at 14:35 Medical Diagnosis: respiratory failure/COPD Onset Date: Jan 01, 2019 Therapy Diagnosis Therapy Diagnosis: debility Height/Weight Height (Feet): 4 Height (Inches): 9.00 Weight (Pounds): 214 Weight (Ounces): 12.8 Precautions Precautions/Isolations: Fall Prevention, Standard Precautions, Pressure Ulcer Referral Physician: Jennifer Reason for Referral: Evaluation/Treatment Medical History Pertinent Medical History: CAD, DM, Heart Failure, HTN, [place] Additional Medical History morbid obesity Current History EMS from [place] secondary to unresponsive (seizure like activity)/recent hospital stay 12/24/18 Social History Home: [place] Prior/Core FIM Prior Level of Function Therapy Code Descriptions/Definitions Functional [place] Measure: 0=Not Assessed/NA 4=Minimal Assistance 1=Total Assistance 5=Supervision or Setup 2=Maximal Assistance 6=Modified [place] 3=Moderate Assistance 7=Complete [place] Therapy Quality Codes: 6 Independent with activity with or without an assistive device 5 Patient requires set up or clean up by helper. Patient completes activity by themselves 4 Supervision or touching assist (CGA). [place] provide cues , steadying assist 3 The helper provides less than half the effort to complete the activity 2 The helper provides more than half the effort to complete the activity 1 Dependent. The helper does all the effort to complete an activity 7 Patient refused to complete or attempt activity 9 The patient did not perform the activity before the current illness or injury 88 Not attempted due to Medical conditions or safety concerns Functional Abilities and Goals: Independent: Patient completed the activities by him/herself, with or without an assistive device, with no assistance from a helper. Needed Some Help: Patient needed partial assistance from another person to complete activities. Dependent: A helper completed the activities for the patient. Unknown: Not Applicable: Bed Mobility: 1 Transfers (B,C,W/C) (FIM): 1 (Shauna lift) Indoor Mobility (Ambulation): Not [place] Stairs: Not [place] Prior Devices Use: Manual wheelchair, Mechanical lift PT Evaluation-Current Subjective Patient is in bed and minimally responds to verbal or tactile stimuli. RN notified Objective Patient Orientation: Mumbles, Listless ROM/Strength ROM Lower Extremities bilateral LE WFL Strength Lower Extremities 0/5 grossly bilaterally Integumentary/Posture Integumentary refer to nursing notes Bowel Incontinence: Yes Bladder Incontinence: Yes Neuromuscular (Tone, Coordination, Reflexes) severely diminished Sensory Vision: Unable to Assess Hearing: Unable to Assess Transfers Therapy Code Descriptions/Definitions Functional [place] Measure: 0=Not Assessed/NA 4=Minimal Assistance 1=Total Assistance 5=Supervision or Setup 2=Maximal Assistance 6=Modified [place] 3=Moderate Assistance 7=Complete [place] Transfers (B, C, W/C) (FIM): 1 Scootin (x 2 to reposition) Shauna Lift transfer Assessment/Needs Patient is currently at dependent PLOF with all mobility/transfers/bed mobility. Plan dismissal to [place] tomorrow for continued care. No skilled PT indicated at this time. Rehab Potential: Poor PT Plan Treatment/Plan Treatment Plan: Discontinue PT, goals met Treatment Plan: Other Treatment Duration: Jan 06, 2019 Frequency: 1 time per week Estimated Hrs Per Day: .25 hour per day Patient and/or Family Agrees t: Yes Discharge Recommendations Therapy D/C Recommendations: [place] Placement Time/GCodes Time In: 1350 Time Out: 1400 Total Billed Treatment Time: 10 Total Billed Treatment 1 visit EVLow 10 min KEENA MORFIN PT Jan 06, 2019 14:47
--- NOTE | 2019-01-06 14:55 | Occ Therapy Progress Note ---
Therapy Progress Note Order received for OT eval and treat. Chart review completed. Attempted OT evaluation at 1430. Pt resting in bed with eyes closed. Pt opens eyes briefly when spoken to, but unable to maintain. Does not answer questions or follow commands. Pt unable to participate in eval at this time. Discussed with RN. Will follow up tomorrow. 1, visit RODNEY HARRIS OT Jan 06, 2019 14:55
[2019-01-06 16:03] VITALS: BP 166/72
[2019-01-06] MEDS ORDERED: ZINC OXIDE 16% OINT (BUTT PASTE) 113 GM TUBE TOP PRN (18:15)
[2019-01-06 20:28] VITALS: BP 152/68
[2019-01-07 00:10] VITALS: BP 145/66
[2019-01-07] MEDS: RT-ALBUTEROL/IPRATROPIUM 3 ML (DUONEB) VIAL IH SCH ×6 (03:32→23:01)
[2019-01-07 04:00] VITALS: BP 144/65
[2019-01-07] MEDS: inSUlin ASPART (NovoLOG) 1 UNIT/0.01 ML (CHARGE PER UNIT) SC SCH ×4 (05:38→21:50)
[2019-01-07 06:10] LABS: HEMOGLOBIN 9.4 G/DL (11.5-16.0); MEAN PLATELET VOLUME 9.4 FL (7.4-10.4); WHITE BLOOD COUNT 11.5 10^3/uL (4.3-11.0)
[2019-01-07 06:34] LABS: ALANINE AMINOTRANSFERASE 55 U/L (0-55); ALKALINE PHOSPHATASE 95 U/L (40-136); BILIRUBIN,TOTAL 0.5 MG/DL (0.1-1.0); BUN/CREATININE RATIO 33; CALCIUM 9.3 MG/DL (8.5-10.1); CARBON DIOXIDE 41 MMOL/L (21-32); CHLORIDE 97 MMOL/L (98-107); CREATININE SERUM 0.49 MG/DL (0.60-1.30); GFR ESTIMATED > 60; GLUCOSE 152 MG/DL (70-105); MAGNESIUM 1.7 MG/DL (1.8-2.4); POTASSIUM 4.6 MMOL/L (3.6-5.0); SODIUM 142 MMOL/L (135-145); TOTAL PROTEIN 5.5 GM/DL (6.4-8.2)
--- NOTE | 2019-01-07 07:39 | Diagnostic Imaging Report ---
INDICATION: Pneumonia. Comparison with 01/05/2019 FINDINGS: Semierect lordotic film show persistent basilar infiltrates. Continued cardiomegaly. IMPRESSION: No significant overall change noted on current examination though positioning is quite limited today. Dictated by: Dictated on workstation # [id number]
--- NOTE | 2019-01-07 07:54 | Pulmonary Progress Note ---
Subjective Time Seen by a Provider: 11:34 Subjective/Events-last exam appears to be doing better. No complications noted. Sepsis Event Evaluation Height, Weight, BMI Height: 4'9.00" Weight: 204lbs. 4.0oz. 92.025123qs; 42.9 BMI Method:Estimated Exam Exam Vital Signs Date Time Temp Pulse Resp B/P (MAP) Pulse Ox O2 Delivery O2 Flow Rate FiO2 01/07/19 07:24 96 01/07/19 04:00 96.3 78 20 144/65 (91) 96 High Flow N/C 2.00 01/07/19 03:37 Nasal Cannula 2.00 01/07/19 01:00 81 01/07/19 00:10 96.3 80 22 145/66 (92) 97 Nasal Cannula 2.00 2.00 01/06/19 23:18 Nasal Cannula 2.00 01/06/19 21:05 High Flow N/C 2.00 01/06/19 20:28 97.0 85 22 152/68 (96) 96 Nasal Cannula 2.00 01/06/19 19:10 Nasal Cannula 2.00 01/06/19 19:00 86 01/06/19 16:03 97.1 88 22 166/72 (103) 98 Nasal Cannula 2.00 01/06/19 15:13 96 Nasal Cannula 2.00 01/06/19 12:28 100 01/06/19 12:00 97.6 94 22 146/67 (93) 98 Nasal Cannula 2.00 01/06/19 08:00 97.0 99 24 167/68 (101) 95 Nasal Cannula 2.00 01/06/19 08:00 High Flow N/C 2.00 I & O 01/07/19 07:00 Intake Total 1240 ml Output Total 150 ml Balance 1090 ml Height & Weight Height: 4'9.00" Weight: 204lbs. 4.0oz. 92.559382tl; 42.9 BMI Method:Estimated General Appearance: No Apparent Distress HEENT: PERRL/EOMI Neck: Full Range of Motion Respiratory: Chest Non Tender, Decreased Breath Sounds Cardiovascular: Regular Rate, Rhythm Capillary Refill: Less Than 3 Seconds Gastrointestinal: normal bowel sounds, non tender, soft Extremity: Normal Capillary Refill Neurologic/Psychiatric: Alert, Oriented x3 Skin: Normal Color Lymphatic: No Adenopathy Results Lab Laboratory Tests 01/06/19 03:45 01/07/19 05:47 Assessment/Plan Assessment/Plan Acute respiratory failure with C02 narcosis - improving -BIPAP PRN, -Monitor -Pt is DNR -D/C IVF Acute seizure while at ECF -Seizure precautions -Monitor Morbid obesity COPDAE -Solumedrol - D/C -SVNs PNA- resolving -Merrem- D/C Anemia -Monitor KEYANA DUBOIS DO Jan 07, 2019 07:54
[2019-01-07 08:00] VITALS: BP 176/74
[2019-01-07] MEDS ORDERED: FUROSEMIDE 40 MG/4 ML INJ (LASIX) IVP ONE (08:00)
--- NOTE | 2019-01-07 08:17 | Progress Note (SOAP) ---
Subjective Time Seen by a Provider: 08:15 Subjective/Events-last exam Patient resting comfortably today area Patient voices no complaints Objective Exam Vital Signs Date Time Temp Pulse Resp B/P (MAP) Pulse Ox O2 Delivery O2 Flow Rate FiO2 01/07/19 07:54 90 Nasal Cannula 3.00 01/07/19 07:24 96 01/07/19 04:00 96.3 78 20 144/65 (91) 96 High Flow N/C 2.00 01/07/19 03:37 Nasal Cannula 2.00 01/07/19 01:00 81 01/07/19 00:10 96.3 80 22 145/66 (92) 97 Nasal Cannula 2.00 2.00 01/06/19 23:18 Nasal Cannula 2.00 01/06/19 21:05 High Flow N/C 2.00 01/06/19 20:28 97.0 85 22 152/68 (96) 96 Nasal Cannula 2.00 01/06/19 19:10 Nasal Cannula 2.00 01/06/19 19:00 86 01/06/19 16:03 97.1 88 22 166/72 (103) 98 Nasal Cannula 2.00 01/06/19 15:13 96 Nasal Cannula 2.00 01/06/19 12:28 100 01/06/19 12:00 97.6 94 22 146/67 (93) 98 Nasal Cannula 2.00 I & O 01/07/19 07:00 Intake Total 1240 ml Output Total 150 ml Balance 1090 ml Capillary Refill : Less Than 3 Seconds General Appearance: No Apparent Distress, WD/WN HEENT: Normal ENT Inspection Neck: Normal Inspection Respiratory: No Accessory Muscle Use, No Respiratory Distress, Decreased Breath Sounds Cardiovascular: Regular Rate, Rhythm, No Murmur Gastrointestinal: non tender, soft Results Lab Laboratory Tests 01/07/19 05:47 Laboratory Tests 01/06/19 10:52: Glucometer 293H 01/06/19 16:03: Glucometer 236H 01/06/19 20:28: Glucometer 151H 01/07/19 05:14: Glucometer 136H 01/07/19 05:47: White Blood Count 11.5H, Red Blood Count 3.36L, Hemoglobin 9.4L, Hematocrit 32L, Mean Corpuscular Volume 96, Mean Corpuscular Hemoglobin 28, Mean Corpuscular Hemoglobin Concent 29L, Red Cell Distribution Width 17.0H, Platelet Count 317, Mean Platelet Volume 9.4, Sodium Level 142, Potassium Level 4.6, Chloride Level 97L, Carbon Dioxide Level 41H, Anion Gap 4L, Blood Urea Nitrogen 16, Creatinine 0.49L, Estimat Glomerular Filtration Rate > 60, BUN/Creatinine Ratio 33, Glucose Level 152H, Calcium Level 9.3, Corrected Calcium 10.1, Magnesium Level 1.7L, Total Bilirubin 0.5, Aspartate Amino Transf (AST/SGOT) 22, Alanine Ami notransferase (ALT/SGPT) 55, Alkaline Phosphatase 95, Total Protein 5.5L, Albumin 3.0L Microbiology 01/01/19 Blood Culture - Final, Complete No growth 01/01/19 Urine Culture - Final, Complete Strep anginosus YEAST Strptcoc constellatus ss const Assessment/Plan Assessment/Plan Assess & Plan/Chief Complaint Acute respiratory failure. CO2 narcosis. Acute seizure. Morbid obesity. Pneumonia. DO NOT RESUSCITATE. Melena. Morbid obesity. anemia. . 01/06/19. Stools were black today or passing blood. Acute respiratory failure. CO2 narcosis. Seizure. Morbid obesity. Pneumonia. DO NOT RESUSCITATE. Schizophrenia. Patient states she's confused today. Patient holding her own. . 01/07/19. Hemoglobin and hematocrit stable. Acute respiratory failure resolved. Seizure. Morbid obesity. Pneumonia. Schizophrenia. DO NOT RESUSCITATE Clinical Quality Measures Admission Status Admission Dx Seizure. Nonresponsive. Hypercapnia. COPD with acute exacerbation. Acute respiratory failure. CO2 narcosis. Schizophrenia. Right upper lobe pneumonia. Hyperkalemia. UTI. DO NOT RESUSCITATE DVT/VTE Risk/Contraindication: Risk Factor Score Per Nursin RFS Level Per Nursing on Admit: 4+=Very High ARA MONTANEZ DO Jan 07, 2019 08:17
[2019-01-07] MEDS: NYSTATIN CREAM (MYCOSTATIN) 30 GM TUBE TP SCH ×3 (09:04→21:50)
--- NOTE | 2019-01-07 11:48 | Occupational Therapy Eval ---
OT Evaluation-General/PLF Medical Diagnosis Admission Date Jan 01, 2019 at 14:35 Medical Diagnosis: respiratory failure/COPD Onset Date: Jan 01, 2019 Therapy Diagnosis Therapy Diagnosis: debility Height/Weight Height (Feet): 4 Height (Inches): 9.00 Weight (Pounds): 204 Weight (Ounces): 4.0 Precautions Precautions/Isolations: Fall Prevention, Standard Precautions, Pressure Ulcer Safety Interventions: Bed Exit Alarm Referral Physician: Jennifer Medical History Pertinent Medical History: CAD, DM, Heart Failure, HTN, [place] Additional Medical History sleep apnea, pulmonary edema, high cholesterol, dementia, schizophrenia, seizures, Current History EMS from [place] secondary to unresponsive/seizure like activity Social History Home: Residential ADL-Prior Level of Function Therapy Code Descriptions/Definitions Functional [place] Measure: 0=Not Assessed/NA 4=Minimal Assistance 1=Total Assistance 5=Supervision or Setup 2=Maximal Assistance 6=Modified [place] 3=Moderate Assistance 7=Complete [place] Therapy Quality Codes: 6 Independent with activity with or without an assistive device 5 Patient requires set up or clean up by helper. Patient completes activity by themselves 4 Supervision or touching assist (CGA). [place] provide cues , steadying assist 3 The helper provides less than half the effort to complete the activity 2 The helper provides more than half the effort to complete the activity 1 Dependent. The helper does all the effort to complete an activity 7 Patient refused to complete or attempt activity 9 The patient did not perform the activity before the current illness or injury 88 Not attempted due to Medical conditions or safety concerns Functional Abilities and Goals: Independent: Patient completed the activities by him/herself, with or without an assistive device, with no assistance from a helper. Needed Some Help: Patient needed partial assistance from another person to complete activities. Dependent: A helper completed the activities for the patient. Unknown: Not Applicable: ADL PLOF Comments Pt is from a fdc per chart. Pt unable to provide information regarding PLOF, just states "yes" when asked if she receives assist for ADLs. Unsure of accuracy of answers. Per PT note pt was dependent for all mobility. OT Current Status Subjective Pt in bed, easily awakens when spoken to. More alert today. Pt able to answer simple questions at times during sessions. Able to state name and . Does not indicate any pain during session. Mental Status/Objective Patient Orientation: Unable to Assess Current Upper Extremity ROM Pt moves left UE spontaneously during session, but does not follow commands for ROM testing. PROM is grossly functional, but pt resists ROM at times. Upper Extremity Coordination Impaired Upper Extremity Sensation Unable to assess Upper Extremity Strength Unable to perform formal MMT. Pt does not follow commands for testing. ADL-Treatment ADL-Current When given a washcloth pt does not attempt to bring UE toward face to complete task. Dependent to wash face. Nursing reports pt was unable to feed self this morning at breakfast. UE assessment completed with pt in bed. Pt is dependent with mobility at prior level. Pt resting in bed with needs met after session. Therapy Code Descriptions/Definitions Functional [place] Measure: 0=Not Assessed/NA 4=Minimal Assistance 1=Total Assistance 5=Supervision or Setup 2=Maximal Assistance 6=Modified [place] 3=Moderate Assistance 7=Complete [place] Therapy Quality Codes: 6 Independent with activity with or without an assistive device 5 Patient requires set up or clean up by helper. Patient completes activity by themselves 4 Supervision or touching assist (CGA). [place] provide cues , steadying assist 3 The helper provides less than half the effort to complete the activity 2 The helper provides more than half the effort to complete the activity 1 Dependent. The helper does all the effort to complete an activity 7 Patient refused to complete or attempt activity 9 The patient did not perform the activity before the current illness or injury 88 Not attempted due to Medical conditions or safety concerns OT Education/Plan Problem List/Assessment Pt admitted from fdc secondary to unresponsive/seizure like activity. Pt opens eyes and answers some simple questions,but does not follow commands or participate in any therapeutic activity. Pt is dependent for ADLs and mobility at this time. Pt resists activity at times during session. No skilled OT intervention indicated at this time. Per chart plan is for pt to d/c back to fdc when medically appropriate. D/c OT at this time. Discharge Recommendations Plan/Recommendations: Discontinue OT Treatment Plan/Plan of Care Treatment,Training & Education: No Treatment Duration: Jan 07, 2019 Frequency: 1 time per week (evaluation only) Estimated Hrs Per Day: Other (eval only) Rehab Potential: Poor Time/GCodes Start Time: 11:20 Stop Time: 11:30 Total Time Billed (hr/min): 10 Billed Treatment Time 1 visit, CHRIS(10minutes), KIRSTEN OT RODNEY HARRIS OT Jan 07, 2019 11:48
[2019-01-07 12:00] VITALS: BP 164/78
[2019-01-07 16:00] VITALS: BP 165/75
--- NOTE | 2019-01-07 17:08 | NUR ---
PT CONTINUES TO PULL TELEMETRY OFF. PT HAS BEEN IN [facility] PER ICU, DR. MONTANEZ NOTIFIED AND HE ORDERED TO D/C TELEMETRY.
[2019-01-07 20:00] VITALS: BP 175/67
[2019-01-08] VITALS: BP 154/67
[2019-01-08] MEDS: RT-ALBUTEROL/IPRATROPIUM 3 ML (DUONEB) VIAL IH SCH ×3 (02:26→11:24)
[2019-01-08 03:58] LABS: HEMOGLOBIN 9.5 G/DL (11.5-16.0); MEAN PLATELET VOLUME 9.7 FL (7.4-10.4); RED CELL DISTRIBUTION WIDTH 16.6 % (10.0-14.5); WHITE BLOOD COUNT 8.6 10^3/uL (4.3-11.0)
[2019-01-08 04:00] VITALS: BP 177/77
[2019-01-08 04:15] LABS: BUN/CREATININE RATIO 31; CALCIUM 9.2 MG/DL (8.5-10.1); CARBON DIOXIDE 44 MMOL/L (21-32); CHLORIDE 90 MMOL/L (98-107); CREATININE SERUM 0.48 MG/DL (0.60-1.30); GFR ESTIMATED > 60; GLUCOSE 176 MG/DL (70-105); MAGNESIUM 1.4 MG/DL (1.8-2.4); POTASSIUM 4.4 MMOL/L (3.6-5.0); SODIUM 141 MMOL/L (135-145)
[2019-01-08] MEDS: inSUlin ASPART (NovoLOG) 1 UNIT/0.01 ML (CHARGE PER UNIT) SC SCH ×2 (05:19→12:45)
--- NOTE | 2019-01-08 07:49 | Progress Note (SOAP) ---
Subjective Time Seen by a Provider: 07:46 Subjective/Events-last exam Patient states she is confused today. Patient to be discharged today to [facility]. Spoke to pulmonology about this. Patient's prognosis questionable Objective Exam Vital Signs Date Time Temp Pulse Resp B/P (MAP) Pulse Ox O2 Delivery O2 Flow Rate FiO2 01/08/19 04:00 96.4 76 22 177/77 (110) 97 High Flow N/C 3.00 01/08/19 02:26 91 Nasal Cannula 3.00 01/08/19 00:00 97.0 81 18 154/67 (96) 94 High Flow N/C 3.00 01/07/19 23:01 90 Nasal Cannula 3.00 01/07/19 20:35 High Flow N/C 3.00 01/07/19 20:00 97.4 88 22 175/67 (103) 95 High Flow N/C 3.00 01/07/19 16:00 97.4 93 22 165/75 (105) 95 High Flow N/C 2.00 01/07/19 15:46 92 Nasal Cannula 3.00 01/07/19 12:24 89 01/07/19 12:00 97.1 94 20 164/78 (106) 94 High Flow N/C 2.00 01/07/19 09:00 High Flow N/C 2.00 01/07/19 08:00 96.6 89 20 176/74 (108) 93 Nasal Cannula 2.00 01/07/19 07:54 90 Nasal Cannula 3.00 I & O 01/08/19 07:00 Intake Total 1150 ml Output Total 1050 ml Balance 100 ml Capillary Refill : Less Than 3 Seconds General Appearance: No Apparent Distress, WD/WN HEENT: Normal ENT Inspection Neck: Full Range of Motion, Normal Inspection Respiratory: No Accessory Muscle Use, No Respiratory Distress, Decreased Breath Sounds Cardiovascular: Regular Rate, Rhythm, No Murmur Gastrointestinal: non tender, soft Results Lab Laboratory Tests 01/08/19 03:30 Laboratory Tests 01/07/19 11:10: Glucometer 337H 01/07/19 16:23: Glucometer 234H 01/07/19 20:42: Glucometer 215H 01/08/19 03:30: White Blood Count 8.6, Red Blood Count 3.40L, Hemoglobin 9.5L, Hematocrit 32L, Mean Corpuscular Volume 94, Mean Corpuscular Hemoglobin 28, Mean Corpuscular Hemoglobin Concent 30L, Red Cell Distribution Width 16.6H, Platelet Count 274, Mean Platelet Volume 9.7, Sodium Level 141, Potassium Level 4.4, Chloride Level 90L, Carbon Dioxide Level 44H, Anion Gap 7, Blood Urea Nitrogen 15, Creatinine 0.48L, Estimat Glomerular Filtration Rate > 60, BUN/Creatinine Ratio 31, Glucose Level 176H, Calcium Level 9.2, Magnesium Level 1.4L Microbiology 01/01/19 Blood Culture - Final, Complete No growth 01/01/19 Urine Culture - Final, Complete Strep anginosus YEAST Strptcoc constellatus ss const Assessment/Plan Assessment/Plan Assess & Plan/Chief Complaint Acute respiratory failure. CO2 narcosis. Acute seizure. Morbid obesity. Pneumonia. DO NOT RESUSCITATE. Melena. Morbid obesity. anemia. . 01/06/19. Stools were black today or passing blood. Acute respiratory failure. CO2 narcosis. Seizure. Morbid obesity. Pneumonia. DO NOT RESUSCITATE. Schizophrenia. Patient states she's confused today. Patient holding her own. . 01/07/19. Hemoglobin and hematocrit stable. Acute respiratory failure resolved. Seizure. Morbid obesity. Pneumonia. Schizophrenia. DO NOT RESUSCITATE. . 01/08/19. To respiratory failure. Seizure. Morbid obesity. Pneumonia. Schizophrenia. Diabetes. DO NOT RESUSCITATE. Patient to be discharged today. Okay with pulmonology Clinical Quality Measures Admission Status Admission Dx Seizure. Nonresponsive. Hypercapnia. COPD with acute exacerbation. Acute respiratory failure. CO2 narcosis. Schizophrenia. Right upper lobe pneumonia. Hyperkalemia. UTI. DO NOT RESUSCITATE DVT/VTE Risk/Contraindication: Risk Factor Score Per Nursin RFS Level Per Nursing on Admit: 4+=Very High ARA MONTANEZ DO Jan 08, 2019 07:49
--- NOTE | 2019-01-08 07:53 | Discharge Inst-Skilled Nursing ---
Discharge Inst-Skilled NF Patient Instructions Patient Problems: Acute respiratory failure. COPD with acute exacerbation Patient Instructions: Keep oxygen on at all times Consult/Follow Up/Orders Follow Up Appt.: Office on Saturday Skilled NF Admit to: [facility] Certification (SNF) I certify that SNF services are required to be given on an inpatient basis because of the above named patient's need for fdc care on a continuing basis for the conditions(s) for which he/she was receiving inpatient hospital services prior to his/her transfer to the SNF. [facility] Facility Order: Nurse Sane-Evaluate & Treat, Physical Therapy-Evaluate & Treat, Speech Language-Evaluate & Treat Oxygen Delivery Method: Nasal Cannula Discharge Diet: ADA Diet New & Resume Previous Orders Rusty Montanez Jan 08, 2019 07:52 RUSTY MONTANEZ DO Jan 08, 2019 07:53
[2019-01-08 08:00] VITALS: BP 181/83
--- NOTE | 2019-01-08 09:05 | NUR ---
DISCHARGE PLANNING: Patient is discharging today back to [facility] previous placement. She will continue with skilled care at this time. Spoke with Christal at te facility and she will call back with a case picker time.
[2019-01-08 12:00] VITALS: BP 188/84
--- NOTE | 2019-01-08 12:07 | Diagnostic Imaging Report ---
INDICATION: Followup COPD COMPARISON: Exam compared with study one day prior. FINDINGS: There is persistent consolidation in the left lower lobe with some left lung volume loss. Presumed left lower lobe atelectasis. Adjacent pleural fluid on the left may be decreased. Airspace disease in the mid to lower right lung is improved. Right pleural fluid volume may also have decreased. IMPRESSION: Continued likely atelectasis of the left lower lobe with decreased left pleural fluid. Airspace disease in the right lung and right pleural fluid have improved. No pneumothorax. No adverse change. Dictated by: Dictated on workstation # [id number]
--- NOTE | 2019-01-09 07:50 | Discharge Summary ---
Diagnosis/Chief Complaint Date of Admission Jan 01, 2019 at 14:35 Date of Discharge Jan 08, 2019 at 13:45 Discharge Date: Jan 08, 2019 Discharge Diagnosis Mental status change. Seizure. Unresponsive. COPD with acute exacerbation. Pneumonia. CO2 narcosis. Diabetes. Schizophrenia. DO NOT RESUSCITATE. Sacral decubiti ulcer. Acute and chronic respiratory failure with apnea. Anemia. Coronary artery disease. GI bleed. Hypertension. Hyperkalemia Reason Hospital Visit Patient is a resident of [facility]. Patient recently been in the hospital for pneumonia and COPD and acute respir atory failure. Patient needing with family and appeared to have a seizure and acute mental status change and transferred to the emergency room. Patient unresponsive. Chest x-ray shows right upper lobe pneumonia. Patient has schizophrenia. Patient has COPD with acute exacerbation. Patient and known diabetic. Patient has CO2 narcosis. Patient DO NOT RESUSCITATE. Hyperkalemia. UTI. DO NOT RESUSCITATE Family considering hospice. Patient this morning on BiPAP and able to talk. Patient unable to give a good history Discharge Summary Consultations Pulmonology Discharge Physical Examination Allergies: Coded Allergies: Penicillins (Verified Allergy, Unknown, 12/14/18) strawberry (Verified Allergy, Unknown, 12/14/18) FROM UNCODED ALLERGIES tomato (Verified Allergy, Unknown, 12/14/18) FROM UNCODED ALLERGIES Vitals & I&Os Vital Signs Date Time Temp Pulse Resp B/P (MAP) Pulse Ox O2 Delivery O2 Flow Rate FiO2 01/08/19 13:44 01/08/19 12:00 95.7 99 24 94 Nasal Cannula 3.00 01/04/19 02:56 30 Hospital Course Patient did better. Patient prognosis questionable Labs (last 24 hrs) Laboratory Tests 01/01/19 11:55: White Blood Count 11.6H, Red Blood Count 3.60L, Hemoglobin 10.1L, Hematocrit 36, Mean Corpuscular Volume 99, Mean Corpuscular Hemoglobin 28, Mean Corpuscular Hemoglobin Concent 28L, Red Cell Distribution Width 16.2H, Platelet Count 285, Mean Platelet Volume 10.2, Neutrophils (%) (Auto) 80H, Lymphocytes (%) (Auto) 11L, Monocytes (%) (Auto) 7, Eosinophils (%) (Auto) 2, Basophils (%) (Auto) 0, Neutrophils # (Auto) 9.3H, Lymphocytes # (Auto) 1.3, Monocytes # (Auto) 0.8, Eosinophils # (Auto) 0.2, Basophils # (Auto) 0.0, Prothrombin Time 12.8, INR Comment 0.9, Activated Partial Thromboplast Time 25, Sodium Level 142, Potassium Level 5.6H, Chloride Level 88L, Carbon Dioxide Level 47*H, Anion Gap 7, Blood Urea Nitrogen 16, Creatinine 0.56L, Estimat Glomerular Filtration Rate > 60, BUN/Creatinine Ratio 29, Glucose Level 96, Lactic Acid Level 0.67, Calcium Level 9.9, Corrected Calcium 10.4H, Total Bilirubin 0.4, Aspartate Amino Transf (AST/SGOT) 24, Alanine Aminotransferase (ALT/SGPT) 56H, Alkaline Phosphatase 98, Troponin I < 0.028, C-Reactive Protein High Sensitivity 1.63H, B-Type Natriuretic Peptide 155.3H, Total Protein 6.4, Albumin 3.4 01/01/19 11:56: Glucometer 94 01/01/19 12:10: Urine Color YELLOW, Urine Clarity CLEAR, Urine pH 6, Urine Specific [place] 1.020, Urine Protein 3+H, Urine Glucose (UA) 3+H, Urine Ketones NEGATIVE, Urine Nitrite NEGATIVE, Urine Bilirubin NEGATIVE, Urine Urobilinogen NORMAL, Urine Leukocyte Esterase 1+H, Urine RBC (Auto) 3+H, Urine RBC 5-10H, Urine WBC 10-25H, Urine Squamous Epithelial Cells RARE, Urine Crystals NONE, Urine Bacteria FEWH, Urine Casts PRESENT, Urine Granular Casts 2-5H, Urine Mucus NEGATIVE, Urine Culture Indicated YES 01/01/19 12:18: Blood Gas Puncture Site R RAD, Blood Gas Patient Temperature 97.1, Arterial Blood pH 7.26*L, Arterial Blood Partial Pressure CO2 120*H, Arterial Blood Partial Pressure O2 153H, Arterial Blood HCO3 52*H, Arterial Blood Total CO2 56.0H, Arterial Blood Oxygen Saturation 99, Arterial Blood Base Excess 24.0H, Sincere Test YES-POS, Blood Gas Ventilator Setting NA, Blood Gas Inspired Oxygen 100% BIPAP 01/01/19 14:35: Lab Scanned Report Referred Lab Report 01/01/19 21:38: Blood Gas Puncture Site RIGHT RADIAL, Blood Gas Patient Temperature 97.0, Arterial Blood pH 7.31*L, Arterial Blood Partial Pressure CO2 92*H, Arterial Blood Partial Pressure O2 121H, Arterial Blood HCO3 46*H, Arterial Blood Total CO2 48.4H, Arterial Blood Oxygen Saturation 99, Arterial Blood Base Excess 18.3H , Sincere Test POSITIVE, Blood Gas Ventilator Setting NO, Blood Gas Inspired Oxygen 45% BIPAP 01/01/19 22:05: Glucometer 98 01/02/19 00:34: Blood Gas Puncture Site RIGHT RADIAL, Blood Gas Patient Temperature 96.9, Arterial Blood pH 7.37, Arterial Blood Partial Pressure CO2 75*H, Arterial Blood Partial Pressure O2 140H, Arterial Blood HCO3 43*H, Arterial Blood Total CO2 45.1H, Arterial Blood Oxygen Saturation 100, Arterial Blood Base Excess 16.5H, Sincere Test POSITIVE, Blood Gas Ventilator Setting NO, Blood Gas Inspired Oxygen 45% BIPAP 01/02/19 02:30: Blood Gas Puncture Site RIGHT RADIAL, Blood Gas Patient Temperature 97.6, Arterial Blood pH 7.39, Arterial Blood Partial Pressure CO2 70H, Arterial Blood Partial Pressure O2 95H, Arterial Blood HCO3 42*H, Arterial Blood Total CO2 44.1H, Arterial Blood Oxygen Saturation 99, Arterial Blood Base Excess 16.0H, Sincere Test POSITIVE, Blood Gas Ventilator Setting NO, Blood Gas Inspired Oxygen 35% BIPAP 01/02/19 02:58: White Blood Count 8.0, Red Blood Count 3.14L, Hemoglobin 8.7L, Hematocrit 30L, Mean Corpuscular Volume 97, Mean Corpuscular Hemoglobin 28, Mean Corpuscular Hemoglobin Concent 29L, Red Cell Distribution Width 15.5H, Platelet Count 210, Mean Platelet Volume 11.0H, Neutrophils (%) (Auto) 95H, Lymphocytes (%) (Auto) 4L, Monocytes (%) (Auto) 1, Eosinophils (%) (Auto) 0, Basophils (%) (Auto) 0, Neutrophils # (Auto) 7.6, Lymphocytes # (Auto) 0.3L, Monocytes # (Auto) 0.1, Eosinophils # (Auto) 0.0, Basophils # (Auto) 0.0, Neutrophils % (Manual) 96, Lymphocytes % (Manual) 4, Sodium Level 142, Potassium Level 5.8H, Chloride Level 94L, Carbon Dioxide Level 36H, Anion Gap 12, Blood Urea Nitrogen 19H, Creatinine 0.52L, Estimat Glomerular Filtration Rate > 60, BUN/Creatinine Ratio 37, Glucose Level 119H, Calcium Level 9.0, Corrected Calcium 9.9, Phosphorus Level 3.8, Magnesium Level 1.7L, Total Bilirubin 0.4, Aspartate Amino Transf (AST/SGOT) 20, Alanine Aminotransferase (ALT/SGPT) 47, Alkaline Phosphatase 83, Total Protein 5.5L, Albumin 2.9L 01/02/19 08:15: Potassium Level 5.1H, Magnesium Level 2.0 01/02/19 11:18: Glucometer 172H 01/02/19 15:17: Glucometer 209H 01/02/19 20:05: Glucometer 199H 01/03/19 05:08: White Blood Count 7.3, Red Blood Count 3.10L, Hemoglobin 8.6L, Hematocrit 29L, Mean Corpuscular Volume 94, Mean Corpuscular Hemoglobin 28, Mean Corpuscular Hemoglobin Concent 30L, Red Cell Distribution Width 16.1H, Platelet Count 225, Mean Platelet Volume 10.6H, Neutrophils (%) (Auto) 91H, Lymphocytes (%) (Auto) 5L, Monocytes (%) (Auto) 4, Eosinophils (%) (Auto) 0, Basophils (%) (Auto) 0, Neutrophils # (Auto) 6.6, Lymphocytes # (Auto) 0.4L, Monocytes # (Auto) 0.3, Eosinophils # (Auto) 0.0, Basophils # (Auto) 0.0, Sodium Level 142, Potassium Level 4.7, Chloride Level 93L, Carbon Dioxide Level 33H, Anion Gap 16H, Blood Urea Nitrogen 24H, Creatinine 0.70, Estimat Glomerular Filtration Rate > 60, BUN/Creatinine Ratio 34, Glucose Level 227H, Calcium Level 8.8, Corrected Calcium 9.7, Phosphorus Level 4.1, Magnesium Level 2.0, Total Bilirubin 0.4, Aspartate Amino Transf (AST/SGOT) 16, Alanine Aminotransferase (ALT/SGPT) 39, Alkaline Phosphatase 74, Total Protein 5.4L, Albumin 2.9L 01/03/19 10:35: Glucometer 226H 01/03/19 15:15: Glucometer 209H 01/03/19 20:38: Glucometer 313H 01/04/19 03:26: Sodium Level 141, Potassium Level 4.1, Chloride Level 94L, Carbon Dioxide Level 37H, Anion Gap 10, Blood Urea Nitrogen 21H, Creatinine 0.65, Estimat Glomerular Filtration Rate > 60, BUN/Creatinine Ratio 32, Glucose Level 247H, Calcium Level 8.7, Magnesium Level 1.9 01/04/19 11:12: Glucometer 307H 01/04/19 13:20: Stool Occult Blood Immunoassay POSITIVEH 01/04/19 15:29: Glucometer 318H 01/04/19 20:26: Glucometer 317H 01/05/19 03:55: Sodium Level 140, Potassium Level 4.6, Chloride Level 97L, Carbon Dioxide Level 37H, Anion Gap 6, Blood Urea Nitrogen 18, Creatinine 0.55L, Estimat Glomerular Filtration Rate > 60, BUN/Creatinine Ratio 33, Glucose Level 226H, Calcium Level 9.0, Magnesium Level 1.9 01/05/19 11:12: Glucometer 334H 01/05/19 15:46: Glucometer 224H 01/05/19 20:47: Glucometer 212H 01/06/19 03:45: White Blood Count 9.1, Red Blood Count 3.47L, Hemoglobin 9.8L, Hematocrit 33L, Mean Corpuscular Volume 95, Mean Corpuscular Hemoglobin 28, Mean Corpuscular Hemoglobin Concent 30L, Red Cell Distribution Width 16.4H, Platelet Count 251, Mean Platelet Volume 9.8, Sodium Level 141, Potassium Level 5.0, Chloride Level 97L, Carbon Dioxide Level 38H, Anion Gap 6, Blood Urea Nitrogen 18, Creatinine 0.54L, Estimat Glomerular Filtration Rate > 60, BUN/Creatinine Ratio 33, Glucose Level 246H, Calcium Level 9.1, Magnesium Level 1.9, B-Type Natriuretic Peptide 808.9H 01/06/19 06:32: Glucometer 217H 01/06/19 10:52: Glucometer 293H 01/06/19 16:03: Glucometer 236H 01/06/19 20:28: Glucometer 151H 01/07/19 05:14: Glucometer 136H 01/07/19 05:47: White Blood Count 11.5H, Red Blood Count 3.36L, Hemoglobin 9.4L, Hematocrit 32L, Mean Corpuscular Volume 96, Mean Corpuscular Hemoglobin 28, Mean Corpuscular Hemoglobin Concent 29L, Red Cell Distribution Width 17.0H, Platelet Count 317, Mean Platelet Volume 9.4, Sodium Level 142, Potassium Level 4.6, Chloride Level 97L, Carbon Dioxide Level 41H, Anion Gap 4L, Blood Urea Nitrogen 16, Creatinine 0.49L, Estimat Glomerular Filtration Rate > 60, BUN/Creatinine Ratio 33, Glucose Level 152H, Calcium Level 9.3, Corrected Calcium 10.1, Magnesium Level 1.7L, Total Bilirubin 0.5, Aspartate Amino Transf (AST/SGOT) 22, Alanine Aminotransferase (ALT/SGPT) 55, Alkaline Phosphatase 95, Total Protein 5.5L, Albumin 3.0L 01/07/19 11:10: Glucometer 337H 01/07/19 16:23: Glucometer 234H 01/07/19 20:42: Glucometer 215H 01/08/19 03:30: White Blood Count 8.6, Red Blood Count 3.40L, Hemoglobin 9.5L, Hematocrit 32L, Mean Corpuscular Volume 94, Mean Corpuscular Hemoglobin 28, Mean Corpuscular Hemoglobin Concent 30L, Red Cell Distribution Width 16.6H, Platelet Count 274, Mean Platelet Volume 9.7, Sodium Level 141, Potassium Level 4.4, Chloride Level 90L, Carbon Dioxide Level 44H, Anion Gap 7, Blood Urea Nitrogen 15, Creatinine 0.48L, Estimat Glomerular Filtration Rate > 60, BUN/Creatinine Ratio 31, Glucose Level 176H, Calcium Level 9.2, Magnesium Level 1.4L 01/08/19 12:22: Glucometer 252H Microbiology 01/01/19 Blood Culture - Final, Complete No growth 01/01/19 Urine Culture - Final, Complete Strep anginosus YEAST Strptcoc constellatus ss const Laboratory Tests 01/01/19 11:55 01/02/19 02:58 01/02/19 08:15 01/03/19 05:08 01/04/19 03:26 01/05/19 03:55 01/06/19 03:45 01/07/19 05:47 01/08/19 03:30 Pending Labs Microbiology Date/Time Source Procedure Growth Status 01/01/19 12:22 Peripheral Rt Hand Blood Culture - Final No growth Complete 01/01/19 11:55 Peripheral Lt Ac Blood Culture - Final No growth Complete 01/01/19 12:10 Urine Mars Cath Urine Culture - Final Strep anginosus YEAST Strptcoc constellatus ss const Complete Laboratory Tests 01/01/19 11:55: White Blood Count 11.6, Red Blood Count 3.60, Hemoglobin 10.1, Hematocrit 36, Mean Corpuscular Volume 99, Mean Corpuscular Hemoglobin 28, Mean Corpuscular Hemoglobin Concent 28, Red Cell Distribution Width 16.2, Platelet Count 285, Mean Platelet Volume 10.2, Neutrophils (%) (Auto) 80, Lymphocytes (%) (Auto) 11, Monocytes (%) (Auto) 7, Eosinophils (%) (Auto) 2, Basophils (%) (Auto) 0, Neutrophils # (Auto) 9.3, Lymphocytes # (Auto) 1.3, Monocytes # (Auto) 0.8, Eosinophils # (Auto) 0.2, Basophils # (Auto) 0.0, Prothrombin Time 12.8, INR Comment 0.9, Activated Partial Thromboplast Time 25, Sodium Level 142, Potassium Level 5.6, Chloride Level 88, Carbon Dioxide Level 47, Anion Gap 7, Blood Urea Nitrogen 16, Creatinine 0.56, Estimat Glomerular Filtration Rate > 60, BUN/Creatinine Ratio 29, Glucose Level 96, Lactic Acid Level 0.67, Calcium Level 9.9, Corrected Calcium 10.4, Total Bilirubin 0.4, Aspartate Amino Transf (AST/SGOT) 24, Alanine Aminotransferase (ALT/SGPT) 56, Alkaline Phosphatase 98, Troponin I < 0.028, C-Reactive Protein High Sensitivity 1.63, B-Type Natriuretic Peptide 155.3, Total Protein 6.4, Albumin 3.4 01/01/19 11:56: Glucometer 94 01/01/19 12:10: Urine Color YELLOW, Urine Clarity CLEAR, Urine pH 6, Urine Specific [place] 1.020, Urine Protein 3+, Urine Glucose (UA) 3+, Urine Ketones NEGATIVE, Urine Nitrite NEGATIVE, Urine Bilirubin NEGATIVE, Urine Urobilinogen NORMAL, Urine Leukocyte Esterase 1+, Urine RBC (Auto) 3+, Urine RBC 5-10, Urine WBC 10-25, Urine Squamous Epithelial Cells RARE, Urine Crystals NONE, Urine Bacteria FEW, Urine Casts PRESENT, Urine Granular Casts 2-5, Urine Mucus NEGATIVE, Urine Culture Indicated YES 01/01/19 12:18: Blood Gas Puncture Site R RAD, Blood Gas Patient Temperature 97.1, Arterial Blood pH 7.26, Arterial Blood Partial Pressure CO2 120, Arterial Blood Partial Pressure O2 153, Arterial Blood HCO3 52, Arterial Blood Total CO2 56.0, Arterial Blood Oxygen Saturation 99, Arterial Blood Base Excess 24.0, Sincere Test YES-POS, Blood Gas Ventilator Setting NA, Blood Gas Inspired Oxygen 100% BIPAP 01/01/19 14:35: Lab Scanned Report Referred Lab Report 01/01/19 21:38: Blood Gas Puncture Site RIGHT RADIAL, Blood Gas Patient Temperature 97.0, Arterial Blood pH 7.31, Arterial Blood Partial Pressure CO2 92, Arterial Blood Partial Pressure O2 121, Arterial Blood HCO3 46, Arterial Blood Total CO2 48.4, Arterial Blood Oxygen Saturation 99, Arterial Blood Base Excess 18.3, Sincere Test POSITIVE, Blood Gas Ventilator Setting NO, Blood Gas Inspired Oxygen 45% BIPAP 01/01/19 22:05: Glucometer 98 01/02/19 00:34: Blood Gas Puncture Site RIGHT RADIAL, Blood Gas Patient Temperature 96.9, Arterial Blood pH 7.37, Arterial Blood Partial Pressure CO2 75, Arterial Blood Partial Pressure O2 140, Arterial Blood HCO3 43, Arterial Blood Total CO2 45.1, Arterial Blood Oxygen Saturation 100, Arterial Blood Base Excess 16.5, Sincere Test POSITIVE, Blood Gas Ventilator Setting NO, Blood Gas Inspired Oxygen 45% BIPAP 01/02/19 02:30: Blood Gas Puncture Site RIGHT RADIAL, Blood Gas Patient Temperature 97.6, Arterial Blood pH 7.39, Arterial Blood Partial Pressure CO2 70, Arterial Blood Partial Pressure O2 95, Arterial Blood HCO3 42, Arterial Blood Total CO2 44.1, Arterial Blood Oxygen Saturation 99, Arterial Blood Base Excess 16.0, Sincere Test POSITIVE, Blood Gas Ventilator Setting NO, Blood Gas Inspired Oxygen 35% BIPAP 01/02/19 02:58: White Blood Count 8.0, Red Blood Count 3.14, Hemoglobin 8.7, Hematocrit 30, Mean Corpuscular Volume 97, Mean Corpuscular Hemoglobin 28, Mean Corpuscular Hemoglobin Concent 29, Red Cell Distribution Width 15.5, Platelet Count 210, Mean Platelet Volume 11.0, Neutrophils (%) (Auto) 95, Lymphocytes (%) (Auto) 4, Monocytes (%) (Auto) 1, Eosinophils (%) (Auto) 0, Basophils (%) (Auto) 0, Neutrophils # (Auto) 7.6, Lymphocytes # (Auto) 0.3, Monocytes # (Auto) 0.1, Eosinophils # (Auto) 0.0, Basophils # (Auto) 0.0, Neutrophils % (Manual) 96, Lymphocytes % (Manual) 4, Sodium Level 142, Potassium Level 5.8, Chloride Level 94, Carbon Dioxide Level 36, Anion Gap 12, Blood Urea Nitrogen 19, Creatinine 0.52, Estimat Glomerular Filtration Rate > 60, BUN/Creatinine Ratio 37, Glucose Level 119, Calcium Level 9.0, Corrected Calcium 9.9, Phosphorus Level 3.8, Magnesium Level 1.7, Total Bilirubin 0.4, Aspartate Amino Transf (AST/SGOT) 20, Alanine Aminotransferase (ALT/SGPT) 47, Alkaline Phosphatase 83, Total Protein 5.5, Albumin 2.9 01/02/19 08:15: Potassium Level 5.1, Magnesium Level 2.0 01/02/19 11:18: Glucometer 172 01/02/19 15:17: Glucometer 209 01/02/19 20:05: Glucometer 199 01/03/19 05:08: White Blood Count 7.3, Red Blood Count 3.10, Hemoglobin 8.6, Hematocrit 29, Mean Corpuscular Volume 94, Mean Corpuscular Hemoglobin 28, Mean Corpuscular Hemoglobin Concent 30, Red Cell Distribution Width 16.1, Platelet Count 225, Mean Platelet Volume 10.6, Neutrophils (%) (Auto) 91, Lymphocytes (%) (Auto) 5, Monocytes (%) (Auto) 4, Eosinophils (%) (Auto) 0, Basophils (%) (Auto) 0, Neutrophils # (Auto) 6.6, Lymphocytes # (Auto) 0.4, Monocytes # (Auto) 0.3, Eosinophils # (Auto) 0.0, Basophils # (Auto) 0.0, Sodium Level 142, Potassium Level 4.7, Chloride Level 93, Carbon Dioxide Level 33, Anion Gap 16, Blood Urea Nitrogen 24, Creatinine 0.70, Estimat Glomerular Filtration Rate > 60, BUN/Creatinine Ratio 34, Glucose Level 227, Calcium Level 8.8, Corrected Calcium 9.7, Phosphorus Level 4.1, Magnesium Level 2.0, Total Bilirubin 0.4, Aspartate Amino Transf (AST/SGOT) 16, Alanine Aminotransferase (ALT/SGPT) 39, Alkaline Phosphatase 74, Total Protein 5.4, Albumin 2.9 01/03/19 10:35: Glucometer 226 01/03/19 15:15: Glucometer 209 01/03/19 20:38: Glucometer 313 01/04/19 03:26: Sodium Level 141, Potassium Level 4.1, Chloride Level 94, Carbon Dioxide Level 37, Anion Gap 10, Blood Urea Nitrogen 21, Creatinine 0.65, Estimat Glomerular Filtration Rate > 60, BUN/Creatinine Ratio 32, Glucose Level 247, Calcium Level 8.7, Magnesium Level 1.9 01/04/19 11:12: Glucometer 307 01/04/19 13:20: Stool Occult Blood Immunoassay POSITIVE 01/04/19 15:29: Glucometer 318 01/04/19 20:26: Glucometer 317 01/05/19 03:55: Sodium Level 140, Potassium Level 4.6, Chloride Level 97, Carbon Dioxide Level 37, Anion Gap 6, Blood Urea Nitrogen 18, Creatinine 0.55, Estimat Glomerular Filtration Rate > 60, BUN/Creatinine Ratio 33, Glucose Level 226, Calcium Level 9.0, Magnesium Level 1.9 01/05/19 11:12: Glucometer 334 01/05/19 15:46: Glucometer 224 01/05/19 20:47: Glucometer 212 01/06/19 03:45: White Blood Count 9.1, Red Blood Count 3.47, Hemoglobin 9.8, Hematocrit 33, Mean Corpuscular Volume 95, Mean Corpuscular Hemoglobin 28, Mean Corpuscular Hemoglobin Concent 30, Red Cell Distribution Width 16.4, Platelet Count 251, [place] n Platelet Volume 9.8, Sodium Level 141, Potassium Level 5.0, Chloride Level 97, Carbon Dioxide Level 38, Anion Gap 6, Blood Urea Nitrogen 18, Creatinine 0.54, Estimat Glomerular Filtration Rate > 60, BUN/Creatinine Ratio 33, Glucose Level 246, Calcium Level 9.1, Magnesium Level 1.9, B-Type Natriuretic Peptide 808.9 01/06/19 06:32: Glucometer 217 01/06/19 10:52: Glucometer 293 01/06/19 16:03: Glucometer 236 01/06/19 20:28: Glucometer 151 01/07/19 05:14: Glucometer 136 01/07/19 05:47: White Blood Count 11.5, Red Blood Count 3.36, Hemoglobin 9.4, Hematocrit 32, Mean Corpuscular Volume 96, Mean Corpuscular Hemoglobin 28, Mean Corpuscular Hemoglobin Concent 29, Red Cell Distribution Width 17.0, Platelet Count 317, Mean Platelet Volume 9.4, Sodium Level 142, Potassium Level 4.6, Chloride Level 97, Carbon Dioxide Level 41, Anion Gap 4, Blood Urea Nitrogen 16, Creatinine 0. 49, Estimat Glomerular Filtration Rate > 60, BUN/Creatinine Ratio 33, Glucose Level 152, Calcium Level 9.3, Corrected Calcium 10.1, Magnesium Level 1.7, Total Bilirubin 0.5, Aspartate Amino Transf (AST/SGOT) 22, Alanine Aminotransferase (ALT/SGPT) 55, Alkaline Phosphatase 95, Total Protein 5.5, Albumin 3.0 01/07/19 11:10: Glucometer 337 01/07/19 16:23: Glucometer 234 01/07/19 20:42: Glucometer 215 01/08/19 03:30: White Blood Count 8.6, Red Blood Count 3.40, Hemoglobin 9.5, Hematocrit 32, Mean Corpuscular Volume 94, Mean Corpuscular Hemoglobin 28, Mean Corpuscular Hemoglobin Concent 30, Red Cell Distribution Width 16.6, Platelet Count 274, Mean Platelet Volume 9.7, Sodium Level 141, Potassium Level 4.4, Chloride Level 90, Carbon Dioxide Level 44, Anion Gap 7, Blood Urea Nitrogen 15, Creatinine 0.48, Estimat Glomerular Filtration Rate > 60, BUN/Creatinine Ratio 31, Glucose Level 176, Calcium Level 9.2, Magnesium Level 1.4 01/08/19 12:22: Glucometer 252 Discharge Home Medications: Active Scripts Active Reported Potassium Chloride 10 Meq Tab.er.prt 10 Meq PO DAILY Triamcinolone Acetonide 0.1% Cream (Triamcinolone Acet) 15 Gm Cr TP BID APPLY TO BUTTOCKS Seroquel (Quetiapine Fumarate) 300 Mg Tablet 300 Mg PO HS Nystatin 15 Gm Cream..g. TP BID APPLY TO BUTTOCKS Quetiapine Fumarate 100 Mg Tablet 100 Mg PO DAILY Risperidone 3 Mg Tablet 3 Mg PO HS Risperidone 2 Mg Tablet 2 Mg PO DAILY Simvastatin 10 Mg Tablet 10 Mg PO HS Ramipril 10 Mg Capsule 10 Mg PO DAILY HOLD FOR SBP<100 OR PULSE <60 Nystatin 1 Each Powder.ea. TOP Q8H PRN Novolog Flexpen (Insulin Aspart) 300 Units/3 Ml Solution 5 Units SQ 1800 Novolog Flexpen (Insulin Aspart) 300 Units/3 Ml Solution SC ACHS 150-199 = 2 UNITS 200-249 = 3 UNITS 250-299 = 4 UNITS 300-349 = 5 UNITS 350-399 = 6 UNITS >400 = 7 UNITS AND NOTIFY PHYSICIAN NOTIFY PHYSICIAN IF BS <70 OR >400 Levemir Flextouch (Insulin Detemir) 100 Unit/1 Ml Insuln.pen 18 Unit SQ HS HOLD IF FSBS <100 Januvia (Sitagliptin Phosphate) 100 Mg Tablet 100 Mg PO DAILY Aripiprazole 10 Mg Tablet 10 Mg PO DAILY Milk of Magnesia (Magnesium Hydroxide) 400 Mg/5 Ml Oral.susp 30 Ml PO DAILY PRN Glucagon Emergency Kit (Glucagon,Human Recombinant) 1 Mg/Kit Soln 1 Mg IJ UD PRN Docusate Sodium 100 Mg Capsule 100 Mg PO Q12H PRN Metformin HCl 1,000 Mg Tablet 1,000 Mg PO BID Levemir Flextouch (Insulin Detemir) 100 Unit/1 Ml Insuln.pen 15 Unit SQ DAILY HOLD IF FSBS <100 Gluco Burst (Dextrose) 37.5 Gm Gel..gram. 1 Packet PO UD PRN GIVE 1 PACKET EVERY 15 MINUTES NEEDED. RE-CHECK BS IN 15 MINUTES, IF BS IS NOT RISING, GIVE ANOTHER PACKET. IF NO CHANGE IN BS OR IF CHANGE IS LOC GIVE IM GLUCAGON AND NOTIFY PHYSICIAN. Acetaminophen 325 Mg Tablet 650 Mg PO Q4H PRN TAKES 2 (325MG) TABLETS Docusate Sodium 100 Mg Capsule 100 Mg PO DAILY Aspirin EC (Aspirin) 81 Mg Tablet.dr 81 Mg PO DAILY Furosemide 20 Mg Tablet 60 Mg PO DAILY TAKES 3 (20MG) TABLETS Instructions to patient/family Please see electronic discharge instructions given to patient. Clinical Quality Measures DVT/VTE Risk/Contraindication: Risk Factor Score Per Nursin RFS Level Per Nursing on Admit: 4+=Very High ARA MONTANEZ DO Jan 09, 2019 07:50
== END 2019-01-08 13:45 | DRG 189 ==
LOC: EDUNIT# 11:49 → ER 11:50 → ICU 14:35 → 4TH 01-02 05:26
PROVIDERS: ADMIT Family Medicine; ATTEND Family Medicine
DX: J96.21 Acute and chronic respiratory failure with hypoxia (principal); J96.22 Acute and chronic respiratory failure with hypercapnia; J18.1 Lobar pneumonia, unspecified organism; J44.1 Chronic obstructive pulmonary disease with (acute) exacerbation; J44.0 Chronic obstructive pulmonary disease with (acute) lower respiratory infection; N39.0 Urinary tract infection, site not specified; Z68.42 Body mass index [BMI] 45.0-49.9, adult; E66.01 Morbid (severe) obesity due to excess calories; Z66 Do not resuscitate; K92.1 Melena; D64.9 Anemia, unspecified; R56.9 Unspecified convulsions; E11.9 Type 2 diabetes mellitus without complications; I11.0 Hypertensive heart disease with heart failure; I50.9 Heart failure, unspecified; I25.10 Atherosclerotic heart disease of native coronary artery without angina pectoris; E78.00 Pure hypercholesterolemia, unspecified; L89.152 Pressure ulcer of sacral region, stage 2; E87.5 Hyperkalemia; G47.30 Sleep apnea, unspecified; F03.90 Unspecified dementia, unspecified severity, without behavioral disturbance, psychotic disturbance, mood disturbance, and anxiety; R10.13 Epigastric pain; K59.09 Other constipation; F20.9 Schizophrenia, unspecified; I49.3 Ventricular premature depolarization; Z79.4 Long term (current) use of insulin
CPT/HCPCS: 36415; 51702; 70450; 71045; 80048; 80053; 81000; 82274; 82805; 82962; 83605; 83735; 83880; 84100; 84132; 84484; 85007; 85025; 85027; 85610; 85730; 86141; 87040; 87088; 93005; 93041; 94640; 94660; 94760; 96361; 96365; 96375; 99291